=== PATIENT | female | born 1965 | race Caucasian/White ===

== ENCOUNTER → 2019-04-17 | Outpatient (CLI) | payer SELFPAY | PROVIDERS: Family Provider Nurse Practitioner; Visit Provider Electrodiagnostic Medicine | DX: K57.30 Diverticulosis of large intestine without perforation or abscess without bleeding (principal); K42.9 Umbilical hernia without obstruction or gangrene; R10.9 Unspecified abdominal pain; R14.0 Abdominal distension (gaseous); I73.9 Peripheral vascular disease, unspecified; Z90.49 Acquired absence of other specified parts of digestive tract; Z90.710 Acquired absence of both cervix and uterus | CPT/HCPCS: 74177; Q9967 ==

== ENCOUNTER 2019-10-20 10:20 | Inpatient (IN) | payer SELFPAY ==
[2019-10-20] VITALS (7 sets, daily range): BP systolic 100–122; BP diastolic 48–99; PULSE 69–89; RESP 16–20; TEMP 36.8–37.6; O2SAT 92–98; BMI 38.7
--- NOTE | 2019-10-20 10:47 | W.ED.GENADLT ---
HPI - General Adult General: Chief complaint: General Medical Stated complaint: N/V AND H/A Time Seen by Provider: 10/20/19 10:23 History of Present Illness: HPI narrative: 54-year-old female comes in complaining of horrible headache that started 4 days ago also had onset of rash in the forehead in the distribution of the first and second branches of the facial nerve. Patient also has severe splitting headache. She states it started several days ago and has been persisting she is tried [id number] medications with no relief. She has had some blurring of vision in her left eye and swelling of the left eyelid as well the pain is also extend into her ear and the tip of her nose. Although she does not have a rash at the tip of her nose at this point. She denies any respiratory symptoms. Onset (ago): day(s) (4) Location: face Severity: severe Severity scale (1-10): 10 Quality: burning and sharp Pain Consistency: constant Relieving factors: none Exacerbating factors: none Associated symptoms: Reports decreased appetite, headache(s), malaise, nausea and rash; Deny chest pain or dyspnea Treatments prior to arrival: none Review of Systems Const: Reports: malaise ENMT: Denies: throat pain, ear or mastoid pain, nasal discharge or nasal congestion Card: Denies: chest pain, edema, dyspnea on exertion or orthopnea Resp: Denies: dyspnea, productive cough or non-productive cough GI: Reports: nausea : Denies: flank pain, difficulty voiding, dysuria, urinary frequency or urinary urgency Skin/Breast: Reports: rash Neuro: Reports: headache(s) PFSH ED PFSH: Medical History (Updated 10/20/19 @ 12:56 by Gato Dowd DO) Cervical cancer Endometriosis GERD (gastroesophageal reflux disease) Surgical History (Updated 10/20/19 @ 12:29 by Gato Dowd DO) History of appendectomy History of cholecystectomy History of hysterectomy S/P tonsillectomy and adenoidectomy Family History (Updated 07/17/19 @ 09:16 by Debbie Cruz LPN) Other Cancer Heart disease Hypertension Social History (Updated 07/17/19 @ 09:16 by Debbie Cruz LPN) Smoking and tobacco status: former smoker Alcohol intake: never Physical Exam Const: COMMON NORMALS: no acute distress GENERAL APPEARANCE: cooperative and comfortable ORIENTATION/CONSCIOUSNESS: Yes awake, Yes oriented to person, Yes oriented to place and Yes oriented to time HENMT: COMMON NORMALS: normocephalic, atraumatic, hearing grossly normal bilaterally, external ears normal, EAC's normal, TM's normal bilaterally, Normal nasal mucous membranes and turbinates present, moist oral mucous membranes and oropharynx normal HEAD & SCALP: normocephalic and atraumatic NOSE: Normal nasal mucous membranes and turbinates present EXTERNAL EAR: Yes external ears normal EXTERNAL AUDITORY CANAL: EAC's normal TYMPANIC MEMBRANE: TM's normal bilaterally Eye: COMMON NORMALS: Equal, round and reactive pupils present, EOMs intact bilaterally, conjunctivae normal and no scleral icterus CONJUNCTIVA: Yes conjunctivae normal PUPIL: Yes Equal, round and reactive pupils present Neck/C-Spine: COMMON NORMALS: full ROM, no lymphadenopathy, supple and no JVD Lymph: LYMPHATIC: no lymphadenopathy noted and no lymphedema noted Resp: COMMON NORMALS: normal respiratory effort, No retractions, No use of accessory muscles and clear to auscultation bilaterally AUSCULTATION: clear to auscultation bilaterally Cardio: COMMON NORMALS: no JVD, regular rate, regular rhythm and No murmurs present (Cardio) RATE: regular rate RHYTHM: regular rhythm GI: COMMON NORMALS: Soft to palpation and No hepatosplenomegaly present AUSCULTATION: Yes normoactive bowel sounds PALPATION: Yes Soft to palpation, No Tenderness to palpation present (GI), No Guarding due to palpation present (GI) and Yes No hepatosplenomegaly present Extremity: COMMON NORMALS: normal to inspection, capillary refill normal, no clubbing, cyanosis or edema, no calf tenderness and no pedal edema Neuro: SENSORIUM/ORIENTATION: Yes oriented to person, Yes oriented to place and Yes oriented to time Skin: OTHER: Varicella-zoster rash of the first and second distributions of the facial nerve. There is watering of the eye but no blistering the upper eyelid is significantly swollen on the left but there does not appear to be any lesions the external auditory canal is tender but there are no lesions within the external auditory canal itself the tip of the nose is also tender on the left but there are no lesions there either. Course Vital Signs: Vital signs: Vital Signs Temperature 99.0 F 10/20/19 10:25 Pulse Rate 76 10/20/19 13:56 Respiratory Rate 16 10/20/19 10:25 Blood Pressure 120/57 10/20/19 13:56 Pulse Oximetry 98 10/20/19 13:56 MDM - General Adult MDM Narrative: Medical decision making narrative: Due to patient's BMI I asked anesthesia to perform the lumbar tap they were able to get it CFS is pending she obviously has a zoster and concerned she may has herpetic encephalitis. We will go ahead and admit her started on acyclovir consult ophthalmology to evaluate the eye as well have discussed with Dr. Maldonado. Lab Data: Labs: Lab Results 10/20/19 10/20/19 10/20/19 Range/Units 11:15 11:25 11:25 WBC 9.7 (4.0-10.0) 10^3/ uL RBC 4.82 (4.1-5.3) 10^6/u L Hgb 13.9 (11.5-15.3) g/dL Hct 42.0 (37.0-47.0) % MCV 87.1 (81-99) fL MCH 28.8 (28.0-34.0) pg MCHC 33.1 (30.0-36.0) g/dL RDW 13.3 (12.1-15.1) % Plt Count 290 (130-400) 10^3/c mm MPV 9.1 (7.4-10.4) fL Neut % (Auto) 84.7 % Lymph % (Auto) 9.4 % [place] % (Auto) 4.9 % Eos % (Auto) 0.3 % Baso % (Auto) 0.4 % Neut # (Auto) 8.2 H (1.8-7.7) 10^3/u L Lymph # (Auto) 0.9 (0.8-4.8) 10^3/u L [place] # (Auto) 0.5 (0.2-0.9) 10^3/u L Eos # (Auto) 0.0 (0.0-0.8) 10^3/u L Baso # (Auto) 0.0 (0.0-0.1) 10^3/u L Nucleated RBC % (a uto) 0 % Nucleated RBCs # 0.0 /100WBC D-Dimer (0-0.59) ug/mIFE U Sodium 138 (136-145) mmol/L Potassium 4.1 (3.5-5.1) mmol/L Chloride 100 (98-107) mmol/L Carbon Dioxide 26 (22-29) mmol/L Anion Gap 16.1 (5-19) BUN 12 (6-20) mg/dL Creatinine 0.9 (0.5-0.9) mg/dL GFR Calculation 65.0 L (90-130) mL/min Glucose 118 H (65-115) mg/dL Calculated Osmolal ity 283 L (285-295) mOsm/k g Calcium 9.7 (8.5-10.5) mg/dL Total Bilirubin 0.4 (0.15-1.2) mg/dL AST 23 (0-32) U/L ALT 23 (0-33) U/L Alkaline Phosphata se 105 (35-105) IU/L Total Protein 7.8 (6.6-8.7) g/dL Albumin 4.7 (3.5-5.2) g/dL Globulin 3.1 (1.3-4.6) g/dL Urine Color Straw (Yellow) Urine Appearance Clear (CLEAR) Urine pH 8 H (5-7) Ur Specific Gravit y 1.010 (1.005-1.030) Urine Protein Neg (Negative) Urine Glucose (UA) Norm (Normal) Urine Ketones Negative (Negative) Urine Blood Neg (Negative) Urine Nitrate Negative (Negative) Urine Bilirubin Neg (NEGATIVE) Prot Sulfosalicyli c Acd Negative (Negative) Urine Urobilinogen Norm (Negative) mg/dL Ur Leukocyte Rhiannon ase Negative (Negative) CSF Appearance (CLEAR) CSF Color (COLORLESS) CSF WBC (0-5) /uL CSF RBC (0-0) 10^3/uL CSF Mononuclear # Auto (50-90) 10^3/uL CSF Mononuclear WB Cs % (50-90) % CSF Polynuclear WB Cs # (0-10) 10^3/uL CSF Polynuclear WB Cs % (0-10) % CSF Diff Comment CSF Glucose (40-70) mg/dL CSF LDH U/L CSF Lactate mmol/L CSF Total Protein (15-45) mg/dL CSF Albumin (20.0-40.0) mg/d L 10/20/19 10/20/19 10/20/19 Range/Units 11:25 12:00 12:00 WBC (4.0-10.0) 10^3/ uL RBC (4.1-5.3) 10^6/u L Hgb (11.5-15.3) g/dL Hct (37.0-47.0) % MCV (81-99) fL MCH (28.0-34.0) pg MCHC (30.0-36.0) g/dL RDW (12.1-15.1) % Plt Count (130-400) 10^3/c mm MPV (7.4-10.4) fL Neut % (Auto) % Lymph % (Auto) % [place] % (Auto) % Eos % (Auto) % Baso % (Auto) % Neut # (Auto) (1.8-7.7) 10^3/u L Lymph # (Auto) (0.8-4.8) 10^3/u L [place] # (Auto) (0.2-0.9) 10^3/u L Eos # (Auto) (0.0-0.8) 10^3/u L Baso # (Auto) (0.0-0.1) 10^3/u L Nucleated RBC % (a uto) % Nucleated RBCs # /100WBC D-Dimer 0.42 (0-0.59) ug/mIFE U Sodium (136-145) mmol/L Potassium (3.5-5.1) mmol/L Chloride (98-107) mmol/L Carbon Dioxide (22-29) mmol/L Anion Gap (5-19) BUN (6-20) mg/dL Creatinine (0.5-0.9) mg/dL GFR Calculation (90-130) mL/min Glucose (65-115) mg/dL Calculated Osmolal ity (285-295) mOsm/k g Calcium (8.5-10.5) mg/dL Total Bilirubin (0.15-1.2) mg/dL AST (0-32) U/L ALT (0-33) U/L Alkaline Phosphata se (35-105) IU/L Total Protein (6.6-8.7) g/dL Albumin (3.5-5.2) g/dL Globulin (1.3-4.6) g/dL Urine Color (Yellow) Urine Appearance (CLEAR) Urine pH (5-7) Ur Specific Gravit y (1.005-1.030) Urine Protein (Negative) Urine Glucose (UA) (Normal) Urine Ketones (Negative) Urine Blood (Negative) Urine Nitrate (Negative) Urine Bilirubin (NEGATIVE) Prot Sulfosalicyli c Acd (Negative) Urine Urobilinogen (Negative) mg/dL Ur Leukocyte Rhiannon ase (Negative) CSF Appearance Clear (CLEAR) CSF Color Colorless (COLORLESS) CSF WBC 36 H (0-5) /uL CSF RBC 0 (0-0) 10^3/uL CSF Mononuclear # Auto 0.035 L (50-90) 10^3/uL CSF Mononuclear WB Cs % 97 H (50-90) % CSF Polynuclear WB Cs # 0.001 (0-10) 10^3/uL CSF Polynuclear WB Cs % 3 (0-10) % CSF Diff Comment Yes CSF Glucose 70 (40-70) mg/dL CSF LDH U/L CSF Lactate mmol/L CSF Total Protein 49 H (15-45) mg/dL CSF Albumin 0.2 L (20.0-40.0) mg/d L 10/20/19 Range/Units 12:00 WBC (4.0-10.0) 10^3/ uL RBC (4.1-5.3) 10^6/u L Hgb (11.5-15.3) g/dL Hct (37.0-47.0) % MCV (81-99) fL MCH (28.0-34.0) pg MCHC (30.0-36.0) g/dL RDW (12.1-15.1) % Plt Count (130-400) 10^3/c mm MPV (7.4-10.4) fL Neut % (Auto) % Lymph % (Auto) % [place] % (Auto) % Eos % (Auto) % Baso % (Auto) % Neut # (Auto) (1.8-7.7) 10^3/u L Lymph # (Auto) (0.8-4.8) 10^3/u L [place] # (Auto) (0.2-0.9) 10^3/u L Eos # (Auto) (0.0-0.8) 10^3/u L Baso # (Auto) (0.0-0.1) 10^3/u L Nucleated RBC % (a uto) % Nucleated RBCs # /100WBC D-Dimer (0-0.59) ug/mIFE U Sodium (136-145) mmol/L Potassium (3.5-5.1) mmol/L Chloride (98-107) mmol/L Carbon Dioxide (22-29) mmol/L Anion Gap (5-19) BUN (6-20) mg/dL Creatinine (0.5-0.9) mg/dL GFR Calculation (90-130) mL/min Glucose (65-115) mg/dL Calculated Osmolal ity (285-295) mOsm/k g Calcium (8.5-10.5) mg/dL Total Bilirubin (0.15-1.2) mg/dL AST (0-32) U/L ALT (0-33) U/L Alkaline Phosphata se (35-105) IU/L Total Protein (6.6-8.7) g/dL Albumin (3.5-5.2) g/dL Globulin (1.3-4.6) g/dL Urine Color (Yellow) Urine Appearance (CLEAR) Urine pH (5-7) Ur Specific Gravit y (1.005-1.030) Urine Protein (Negative) Urine Glucose (UA) (Normal) Urine Ketones (Negative) Urine Blood (Negative) Urine Nitrate (Negative) Urine Bilirubin (NEGATIVE) Prot Sulfosalicyli c Acd (Negative) Urine Urobilinogen (Negative) mg/dL Ur Leukocyte Rhiannon ase (Negative) CSF Appearance (CLEAR) CSF Color (COLORLESS) CSF WBC (0-5) /uL CSF RBC (0-0) 10^3/uL CSF Mononuclear # Auto (50-90) 10^3/uL CSF Mononuclear WB Cs % (50-90) % CSF Polynuclear WB Cs # (0-10) 10^3/uL CSF Polynuclear WB Cs % (0-10) % CSF Diff Comment CSF Glucose (40-70) mg/dL CSF LDH 25 U/L CSF Lactate 2.6 mmol/L CSF Total Protein (15-45) mg/dL CSF Albumin (20.0-40.0) mg/d L Discharge Plan Discharge Patient Disposition: Admitted As Inpatient Admit Provider: Ran Ventura Clinical Impression: Varicella zoster meningitis, 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
--- NOTE | 2019-10-20 11:01 | ECG_ITS ---
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 Measurements Intervals [place] Rate: 75 P: 50 KS: 176 QRS: -9 QRSD: 98 T: 29 QT: 371 QTc: 415 Interpretive Statements SINUS RHYTHM LOW QRS VOLTAGE IN PRECORDIAL LEADS [QRS DEFLECTION < 1.0 mV IN CHEST LEADS] Compared to ECG 02/06/2016 20:13:13 Low QRS voltage now present Sinus bradycardia no longer present First degree AV block no longer present Electronically Signed On 10-20-2019 13:55:41 CDT by Rco Loera M.D. [id number]
--- NOTE | 2019-10-20 11:01 | CTR_ITS ---
PROCEDURE INFORMATION: Exam: CT Head Without Contrast Exam date and time: 10/20/2019 11:30 AM Age: 54 years old Clinical indication: Pain; Headache TECHNIQUE: Imaging protocol: Computed tomography of the head without contrast. Radiation optimization: All CT scans at this facility use at least one of these dose optimization techniques: automated exposure control; mA and/or kV adjustment per patient size (includes targeted exams where dose is matched to clinical indication); or iterative reconstruction. COMPARISON: CT head wo con* [id number] 02/06/2016 7:21 PM RADIATION DOSE METRICS: Total DLP (mGy-cm): 796.16 FINDINGS: Brain: Normal. No hemorrhage. Unremarkable white matter. No mass effect. Ventricles: Normal. No ventriculomegaly. Bones/joints: Unremarkable. No acute fracture. Sinuses: Visualized sinuses are unremarkable. No fluid levels. Mastoid air cells: Visualized mastoid air cells are well aerated. Soft tissues: Unremarkable. CT/CT head wo con* [id number] IMPRESSION: No acute intracranial abnormality. Radiation Dose CTDIVOL = (mGy): DLP = 796.16 (mGy-cm)
[2019-10-20 11:35] LABS: Basophils % 0.4 %; Eosinophils % 0.3 %; Hemoglobin 13.9 g/dL (11.5-15.3); Lymphocytes # 0.9 10^3/uL (0.8-4.8); Lymphocytes % 9.4 %; Mean Corpuscular HGB Conc 33.1 g/dL (30.0-36.0); Mean Corpuscular Hemoglobin 28.8 pg (28.0-34.0); Mean Corpuscular Volume 87.1 fL (81-99); Mean Platelet Volume 9.1 fL (7.4-10.4); Monocytes # 0.5 10^3/uL (0.2-0.9); Monocytes % 4.9 %; Neutrophils # 8.2 10^3/uL (1.8-7.7); Neutrophils % 84.7 %; Nucleated Red Blood Cells % 0 %; Platelet Count 290 10^3/cmm (130-400); Red Blood Count 4.82 10^6/uL (4.1-5.3); Red Cell Distribution Width 13.3 % (12.1-15.1); White Blood Count 9.7 10^3/uL (4.0-10.0)
[2019-10-20] MEDS: LORazepam 2 mg/mL INJ 1 mL 1 MG IVP (11:38)
[2019-10-20] MEDS: ondansetron 2 mg/ML SDV 2 mL 4 MG IVP (11:38)
[2019-10-20] MEDS: sodium chloride 0.9% 1,000 ML 999 ML IV (11:39)
[2019-10-20] MEDS: morphine 4 mg/mL SDV 1 mL IVP (11:39)
[2019-10-20 11:48] LABS: Add Urine Microscopic? NO
[2019-10-20 11:52] LABS: D Dimer 0.42 ug/mIFEU (0-0.59)
[2019-10-20 11:55] LABS: Bilirubin Urine Neg (NEGATIVE); Blood Urine Neg (Negative); Glucose Urine UA Norm (Normal); Ketones Urine Negative (Negative); Leukocyte Esterase Urine Negative (Negative); Nitrate Urine Negative (Negative); Protein Urine Neg (Negative); Sulfosalicylic Acid Urine Negative (Negative); Urine Appearance Clear (CLEAR); Urine Color Straw (Yellow); Urobilinogen Urine Norm (Negative); pH Urine 8 (5-7)
[2019-10-20 11:57] LABS: Alanine Aminotransferase 23 U/L (0-33); Albumin Level 4.7 g/dL (3.5-5.2); Alkaline Phosphatase 105 IU/L (35-105); Anion Gap 16.1 (5-19); Blood Urea Nitrogen 12 mg/dL (6-20); Calcium 9.7 mg/dL (8.5-10.5); Carbon Dioxide 26 mmol/L (22-29); Chloride 100 mmol/L (98-107); Globulin 3.1 g/dL (1.3-4.6); Glucose 118 mg/dL (65-115); Osmolality Calculated 283 mOsm/kg (285-295); Potassium 4.1 mmol/L (3.5-5.1); Sodium 138 mmol/L (136-145); Total Bilirubin 0.4 mg/dL (0.15-1.2); Total Protein 7.8 g/dL (6.6-8.7)
--- NOTE | 2019-10-20 12:05 | ANES.PROC ---
Anesthesia Procedures Procedure/Date: 10/20/19 Lumbar Puncture: Time Out Performed: Yes Consent: requested by attending/covering physician, risks and benefits reviewed and patient agrees to proceed Patient Position: upright Skin Prep: Povidone-Iodine 1% Local anesthetic used: Lidocaine 1% Amount of anesthesia used (mL): 3 Spinal Needle Gauge: 22G Interspace Used: L4-L5 Fluid Initially Obtained: clear Complications: none
--- NOTE | 2019-10-20 12:06 | PC.NURSE ---
nurse assisted physician with LP. total nurse time *30 minutes
[2019-10-20 12:08] LABS: Aspartate Amino Transferase 23 U/L (0-32)
[2019-10-20 12:49] LABS: CSF Mononuclear # 0.035 10^3/uL (50-90); Mononuclear WBC CSF % 97 % (50-90); Polynuclear Cells ,CSF # 0.001 10^3/uL (0-10); Polynuclear WBC CSF % 3 % (0-10); Red Blood Cell CSF 0 10^3/uL (0-0); White Blood Cell CSF 36 /uL (0-5)
[2019-10-20 12:57] LABS: Appearance CSF CLEAR (CLEAR)
[2019-10-20 12:58] LABS: Color CSF COLORLESS (COLORLESS)
[2019-10-20 13:01] LABS: Pathology Referral Yes
[2019-10-20 13:53] LABS: Glucose CSF 70 mg/dL (40-70); Total Protein CSF 49 mg/dL (15-45)
[2019-10-20] MEDS: acyclovir 1,000 MG in sodium chloride 0.9% (100 ml) 100 ML 120 MG IV ×2 (14:03→21:39)
[2019-10-20] MEDS: D5-NS 0.45% + KCL 20 mEq 20 MEQ/1,000 ML BAG 100 MEQ IV (15:50)
[2019-10-20] MEDS: HYDROcodone-acetaminophen 5-325 mg Tablet 1 TAB PO (15:50)
--- NOTE | 2019-10-20 17:22 | PC.NURSE ---
vital signs entered for Lian the nurses aid at 1600
--- NOTE | 2019-10-20 17:54 | PM.HP ---
Providers/Chief Complaint Admitting Physician: Samia willoughby MD Primary Care Provider: Michael Mahoney DO Chief Complaint: N/V AND H/A History of Present Illness Leslie Osborn is a 54 year old female with no significant past comorbidities except for gout for which she takes intermittent steroids, most recently she took 1 pill of prednisone yesterday, however this is few and far between. She presents with complaints of headache intense along with nausea vomiting, blurry vision of the left eye and at rash that started around 3 days ago. The rash is painful and itchy. Appears to be blister filled initially and some of these lesions have scabbed over. Patient initially thought that she had a rash secondary to poison nanci, however given her overall presentation it appears more likely to be herpes zoster with meningitis. An LP has been performed in the ER which shows elevated cell count and mildly elevated protein. CSF glucose is within normal limit. Appears to be consistent with viral meningitis, likely herpetic. Review of systems positive for fever of 99-101 at home. Review of Systems General: Reports: 10 or more systems reviewed and unremarkable except in HPI and below Const: Reports: fever(s) and chills; Denies: body aches Eyes: Reports: change in vision; Denies: blurry vision or photophobia ENMT: Denies: throat pain, enlarged tonsils, odynophagia, hoarseness or nasal congestion Card: Denies: chest pain, palpitations, irregular heart rhythm, edema, swelling of feet/ankles, lightheadedness, pre-syncope, dyspnea on exertion or orthopnea Resp: Denies: dyspnea, productive cough, non-productive cough, wheezing, stridor, pain on inspiration, change in phlegm color, hemoptysis or chest congestion GI: Reports: nausea and vomiting; Denies: abdominal pain, hematemesis, coffee ground emesis, dysphagia, heartburn, diarrhea, constipation, GI cramping, change in stool character, hematochezia or melena : Denies: flank pain, difficulty voiding, dysuria, urinary frequency, urinary urgency, urinary hesitancy or hematuria Musc: Denies: neck pain, back pain, extremity pain, joint swelling, joint warmth or deformity Neuro: Denies: headache(s), numbness in extremities, weakness in extremities, sensory changes, difficulty walking, frequent falls, dizziness, vertigo, behavioral changes, Slurred speech present or seizure-like activity Psych: Denies: anxiety, depression, suicidal ideation or homicidal ideation Endo: Denies: polyuria, polydipsia, tired all the time, cold intolerance or hot flashes [place]/Lymph: Denies: easy bruising or easy bleeding Medications/Allergies Home Medications Medication Instructions Recorded Confirmed Last Taken Type alprazolam 0.25 mg tablet 0.25 mg PO DAILY 07/17/19 10/20/19 10/19/19 History citalopram 20 mg tablet 20 mg PO DAILY 07/17/19 10/20/19 10/19/19 History omeprazole 20 mg tablet,delayed 20 mg PO DAILY 07/17/19 10/20/19 10/19/19 History release trazodone 100 mg tablet 100 mg PO BEDTIME 07/17/19 10/20/19 10/19/19 History Allergies Allergy/AdvReac Type Severity Reaction Status Date / Time meperidine [From Demerol] Allergy Unknown Unknown Verified 10/20/19 10:30 nalbuphine [From Nubain] Allergy Unknown Verified 10/20/19 10:30 Sulfa (Sulfonamide Allergy Unknown Verified 10/20/19 10:30 Antibiotics) tetracycline Allergy Unknown Verified 10/20/19 10:30 tramadol Allergy Unknown Verified 10/20/19 10:30 PFSH Acute PFSH: Medical History Cervical cancer Endometriosis GERD (gastroesophageal reflux disease) Surgical History History of appendectomy History of cholecystectomy History of hysterectomy S/P tonsillectomy and adenoidectomy Family History Other Cancer Heart disease Hypertension Social History Smoking and tobacco status: former smoker Alcohol intake: never Vitals/I&O/Wt Last Vital Signs Temp 99.7 F H 10/20/19 16:00 Pulse 88 10/20/19 16:00 Resp 20 H 10/20/19 16:00 BP 100/61 10/20/19 16:00 Pulse Ox 92 10/20/19 16:00 Weight last 48 hrs Weight 108.862 kg Physical Exam Narrative: EXAM NARRATIVE: GEN: Awake, alert and oriented, no acute distress HEENT: Left eye with upper and lower eyelid mildly swollen when compared to the right side. No signs of cellulitis at this present time. She does have increased conjunctival suffusion likely secondary to herpetic keratitis. CVS: S1S2 N RS: CTA B/L Abd: Soft, nt/nd , bs+ MANAGER CHEMICAL: no focal neuro deficits Data : 10/20/19 11:25 10/20/19 11:25 Micro: Microbiology 10/20/19 12:00 Gram Stain - Final Cerebrospinal Fluid A&P Assessment and plan (1) Varicella zoster meningitis: Status: Acute (2) HZV (herpes zoster virus) with ophthalmic complication: Status: Acute Qualifiers: Herpes zoster ocular complication detail: conjunctivitis Qualified Code(s): B02.31 - Zoster conjunctivitis Additional A&P Information Admit to [facility]. Start acyclovir 10 mg/kg IV every 8 hours Concomitant IV hydration with normal saline at 100 cc/h to avoid GREGG We will also start on a short course of prednisone 40 mg daily for 5 days to minimize risk of post herpetic neuralgia Patient complaining of blurred vision out of the left eye, ophthalmology consult has been placed from the ER. Start on artificial tears every 4 hours to both eyes and ointment at night into the left eye. No current signs of orbital cellulitis or cellulitis around the lesions. Most of the lesions are concentrated in the C1 dermatome. Hold off on antibacterial agents for now. This will need to be reinitiated if any signs of overlying cellulitis or ophthalmic infection develop. Based on LP findings of mildly elevated cell count and elevated protein, likely the patient also has varicella-zoster meningitis. Treatment as above. Attestations Medical Necessity Statement*: Greater than 2 midnight admission needed for management of herpes zoster meningitis and ophthalmicus Coding Level of Care Code Acute Freelance Recruiter for [facility] Melecio Diagnoses Varicella zoster meningitis B02.1 HZV (herpes zoster virus) with ophthalmic complication B02.31 Herpes zoster ocular complication detail: conjunctivitis
[2019-10-20] MEDS: sodium chloride 0.9% 1,000 ML 100 ML IV (18:38)
[2019-10-20] MEDS: artificial tears Op Soln 15 mL Btl 1 DROP EYE-BOTH (21:39)
[2019-10-21] VITALS (7 sets, daily range): BP systolic 100–124; BP diastolic 52–76; PULSE 53–88; RESP 17–20; TEMP 36.5–38.1; O2SAT 94–96
[2019-10-21] MEDS: acetaminophen 325 mg Tablet 650 MG PO ×2 (01:24→16:03)
[2019-10-21] MEDS: artificial tears Op Soln 15 mL Btl 1 DROP EYE-BOTH ×6 (01:24→22:10)
[2019-10-21 04:19] LABS: Basophils % 0.4 %; Eosinophils % 0.4 %; Hemoglobin 11.9 g/dL (11.5-15.3); Lymphocytes # 1.8 10^3/uL (0.8-4.8); Lymphocytes % 20.6 %; Mean Corpuscular HGB Conc 33.1 g/dL (30.0-36.0); Mean Corpuscular Hemoglobin 29.2 pg (28.0-34.0); Mean Corpuscular Volume 88.5 fL (81-99); Mean Platelet Volume 10.4 fL (7.4-10.4); Monocytes # 0.7 10^3/uL (0.2-0.9); Monocytes % 7.9 %; Neutrophils % 70.3 %; Nucleated Red Blood Cells % 0 %; Platelet Count 301 10^3/cmm (130-400); Red Blood Count 4.07 10^6/uL (4.1-5.3); Red Cell Distribution Width 13.5 % (12.1-15.1); White Blood Count 8.5 10^3/uL (4.0-10.0)
[2019-10-21 04:44] LABS: Alanine Aminotransferase 16 U/L (0-33); Albumin Level 3.8 g/dL (3.5-5.2); Alkaline Phosphatase 81 IU/L (35-105); Anion Gap 15.8 (5-19); Aspartate Amino Transferase 16 U/L (0-32); Blood Urea Nitrogen 9 mg/dL (6-20); Calcium 8.5 mg/dL (8.5-10.5); Carbon Dioxide 24 mmol/L (22-29); Chloride 103 mmol/L (98-107); Globulin 2.8 g/dL (1.3-4.6); Glucose 109 mg/dL (65-115); Osmolality Calculated 285 mOsm/kg (285-295); Potassium 3.8 mmol/L (3.5-5.1); Sodium 139 mmol/L (136-145); Total Bilirubin 0.5 mg/dL (0.15-1.2); Total Protein 6.6 g/dL (6.6-8.7)
[2019-10-21] MEDS: acyclovir 1,000 MG in sodium chloride 0.9% (100 ml) 100 ML 120 MG IV ×3 (05:40→22:09)
[2019-10-21] MEDS: sodium chloride 0.9% 1,000 ML 100 ML IV ×2 (05:42→17:50)
[2019-10-21] MEDS: HYDROcodone-acetaminophen 5-325 mg Tablet 1 TAB PO ×3 (08:21→23:15)
[2019-10-21] MEDS: pantoprazole DR 40 mg Tablet PO (08:21)
[2019-10-21] MEDS: predniSONE 20 mg Tablet 40 MG PO (08:21)
[2019-10-21] MEDS: ketorolac 30 mg/mL INJ 15 MG IVP ×2 (10:18→18:38)
--- NOTE | 2019-10-21 15:49 | P.PN_ITS ---
Subjective Subjective: Interval history: Patient continues to have headaches that have drove up overnight. She did not take any of her prescribed pain medication as she felt she could break it out. However will take some now. Nausea is persisting, no vomiting. She has an appetite and is eating lunch at the time of examination. Her eye is externally looking much improved. Conjunctival redness is improved, as is eyelid swelling. She continues to complain of some blurry vision. T-max of 100.5 Fahrenheit over the last 24 hours. Medications: Reviewed: Yes Vitals/I&O/Wt Last Vital Signs Temp 98.1 F 10/21/19 15:45 Pulse 62 10/21/19 15:45 Resp 18 10/21/19 15:45 BP 106/52 10/21/19 15:45 Pulse Ox 94 10/21/19 15:45 10/21/19 10/21/19 10/21/19 06:59 14:59 22:59 Intake Total 1120 / 1480 480 / 480 Output Total 1200 / 1200 Balance 1120 / 980 -720 / -720 Weight last 48 hrs Weight 108.862 kg Physical Exam Narrative: EXAM NARRATIVE: GEN: Awake, alert and oriented, no acute distress HEENT: Left eye with upper and lower eyelid mildly swollen when compared to the right side, however this is significantly improved.. No signs of cellulitis at this present time. 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 Crusted over lesions present over left upper forehead. Similar lesions with red base present over left side of the scalp. Data : 10/21/19 03:17 10/21/19 03:17 Micro: Microbiology 10/20/19 12:00 Gram Stain - Final Cerebrospinal Fluid CSF Culture - Preliminary A&P Assessment and plan (1) Varicella zoster meningitis: Status: Acute (2) HZV (herpes zoster virus) with ophthalmic complication: Status: Acute Qualifiers: Herpes zoster ocular complication detail: conjunctivitis Qualified Code(s): B02.31 - Zoster conjunctivitis Additional A&P Information Admit to [facility]. Continue acyclovir 10 mg/kg IV every 8 hours Headache still persisting, still with some blurred vision though improved over yesterday Concomitant IV hydration with normal saline at 100 cc/h to avoid GREGG, kidney function stable day 2 of 5 On prednisone to minimize risk of post herpetic neuralgia Patient complaining of blurred vision out of the left eye, ophthalmology consult has been placed from the ER. Continue artificial tears every 4 hours to both eyes and ointment at night into the left eye. No current signs of orbital cellulitis or cellulitis around the skin lesions. Most of the lesions are concentrated in the C1 dermatome. Hold off on antibacterial agents for now. This will need to be started if any signs of overlying cellulitis or ophthalmic infection develop. Based on LP findings of mildly elevated cell count and elevated protein, likely the patient also has varicella-zoster meningitis. Treatment as above. 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
[2019-10-21] MEDS: enoxaparin 40 mg/0.4 mL Syringe SUBCUT (16:03)
--- NOTE | 2019-10-21 19:51 | P.CONIM_ITS ---
Providers/Reason For Consult Consulting Physican/Specialty*: Jermaine Dolan MD Reason for Consult*: zoster left face with blurred vision Attending Physician: Samia Willoughby MD Primary Care Provider: Michael Mahoney DO History of Present Illness History of Present Illness Leslie Osborn is a 54 year old female had a cold sore on her right lip Tuesday before developing the pain in the right adventist, eye, and headache Tuesday Meds/Allergies Home Medications and Allergies Home Medications Medication Instructions Recorded Confirmed Last Taken Type alprazolam 0.25 mg tablet 0.25 mg PO DAILY 07/17/19 10/20/19 10/19/19 History citalopram 20 mg tablet 20 mg PO DAILY 07/17/19 10/20/19 10/19/19 History omeprazole 20 mg tablet,delayed 20 mg PO DAILY 07/17/19 10/20/19 10/19/19 Hi story release trazodone 100 mg tablet 100 mg PO BEDTIME 07/17/19 10/20/19 10/19/19 History Allergies Allergy/AdvReac Type Severity Reaction Status Date / Time meperidine [From Demerol] Allergy Unknown Unknown Verified 10/20/19 10:30 nalbuphine [From Nubain] Allergy Unknown Verified 10/20/19 10:30 Sulfa (Sulfonamide Allergy Unknown Verified 10/20/19 10:30 Antibiotics) tetracycline Allergy Unknown Verified 10/20/19 10:30 tramadol Allergy Unknown Verified 10/20/19 10:30 Current Medications Current Medications Generic Name Dose Route Start Last Admin Trade Name Freq PRN Reason Stop Dose Admin Acetaminophen 650 mg 10/20/19 17:49 10/21/19 16:03 Tylenol PO 650 mg Q6H PRN Administration Mild/Mod Pain Or Temp >/= 101 Hydrocodone Bitart/Acetaminophen 1 tab 10/20/19 15:20 10/21/19 14:16 Farrell 5-325 Mg PO 1 tab Q4H PRN Administration MODERATE TO SEVERE PAIN Artificial Tears 1 drop 10/20/19 18:00 10/21/19 17:50 Isopto Tears EYE-BOTH 1 drop Q4H FIONA Administration Artificial Tears 1 applic 10/20/19 21:00 10/20/19 21:40 Artificial Tears Op Oint EYE-LEFT Not Given BEDTIME FIONA Enoxaparin Sodium 40 mg 10/21/19 16:00 10/21/19 16:03 Lovenox SUBCUT 40 mg Q24H FIONA Administration Sodium Chloride 1,000 mls @ 100 mls/hr 10/20/19 18:00 10/21/19 17:50 Sodium Chloride 0.9% IV 100 mls/hr .Q10H FIONA Administration Acyclovir 1,000 mg/ Sodium 120 mls @ 120 mls/hr 10/20/19 22:00 10/21/19 13:21 Chloride IV 120 mls/hr Q8H FIONA Administration Ketorolac Tromethamine 15 mg 10/20/19 17:49 10/21/19 18:38 Toradol IVP 10/25/19 17:48 15 mg Q8H PRN Administration MODERATE PAIN Pantoprazole Sodium 40 mg 10/21/19 09:00 10/21/19 08:21 Protonix PO 40 mg DAILY FIONA Administration PFSH Acute PFSH: Medical History Cervical cancer Endometriosis GERD (gastroesophageal reflux disease) Surgical History History of appendectomy History of cholecystectomy History of hysterectomy S/P tonsillectomy and adenoidectomy Family History Other Cancer Heart disease Hypertension Social History Smoking and tobacco status: former smoker Alcohol intake: never Vitals/I&O/Wt Last Vital Signs Temp 98.1 F 10/21/19 15:45 Pulse 62 10/21/19 15:45 Resp 18 10/21/19 15:45 BP 106/52 10/21/19 15:45 Pulse Ox 94 10/21/19 15:45 10/21/19 10/21/19 10/21/19 06:59 14:59 22:59 Intake Total 1120 / 1480 480 / 480 1190 / 1670 Output Total 1200 / 1200 1800 / 3000 Balance 1120 / 980 -720 / -720 -610 / -1330 Weight last 48 hrs Weight 240 lb Physical Exam Narrative: EXAM NARRATIVE: mild discomfort with improved vision today and less headache HENMT: HEAD & SCALP: other (left V1 distribution of vesicles and scabs, minimal lid edema) Eye: COMMON NORMALS: Equal, round and reactive pupils present, EOMs intact bilaterally, conjunctivae normal, no papilledema and normal visual garcia by confrontation GENERAL EYE: normal light reflex VISUAL ACUITY: Yes acuity normal EYELID: eyelid abnormality left upper eyelid swelling CONJUNCTIVA: Yes conjunctivae normal SCLERA: sclerae normal PUPIL: Yes Equal, round and reactive pupils present DIRECT OPHTHALMOSCOPY: Yes normal light reflex, Yes no papilledema and Yes anterior chamber normal SLIT LAMP EXAM: Yes cornea Cornea details: normal appearing and Yes anterior vitreous Data Micro: Micro: Microbiology 10/20/19 12:00 Gram Stain - Final Cerebrospinal Flu id CSF Culture - Prel iminary A&P Additional A&P Information no corneal involvement as well as no evidence for iritis or vitritis. The optic nerve isn't swollen. Patient was told to contact for additional help if more photophobia, FB sensation, or floaters are experienced. Consult Attestations Medical Necessity Statement: CTSP regarding loss of vision and mental status changes from obvious V1 zoster. Time Spent in Patient Care: 16 - 35 minutes Coding Level of Care Code Acute Asset Protection Representative for Magy Majano
[2019-10-22] MEDS: artificial tears Op Soln 15 mL Btl 1 DROP EYE-BOTH ×6 (01:34→22:39)
[2019-10-22 04:00] VITALS: BP 110/70; PULSE 55; RESP 16; TEMP 36.6; O2SAT 96
[2019-10-22] MEDS: acetaminophen 325 mg Tablet 650 MG PO ×2 (04:50→22:35)
[2019-10-22] MEDS: sodium chloride 0.9% 1,000 ML 100 ML IV ×2 (04:51→15:47)
[2019-10-22 05:36] LABS: Alanine Aminotransferase 15 U/L (0-33); Albumin Level 3.7 g/dL (3.5-5.2); Alkaline Phosphatase 74 IU/L (35-105); Anion Gap 13.5 (5-19); Aspartate Amino Transferase 15 U/L (0-32); Blood Urea Nitrogen 9 mg/dL (6-20); Calcium 8.9 mg/dL (8.5-10.5); Carbon Dioxide 26 mmol/L (22-29); Chloride 105 mmol/L (98-107); Globulin 2.6 g/dL (1.3-4.6); Glomerular Filtration Rate 86.9 mL/min (90-130); Glucose 93 mg/dL (65-115); Osmolality Calculated 288 mOsm/kg (285-295); Potassium 3.5 mmol/L (3.5-5.1); Sodium 141 mmol/L (136-145); Total Bilirubin 0.3 mg/dL (0.15-1.2); Total Protein 6.3 g/dL (6.6-8.7)
[2019-10-22] MEDS: acyclovir 1,000 MG in sodium chloride 0.9% (100 ml) 100 ML 120 MG IV ×3 (06:10→22:33)
[2019-10-22 07:16] VITALS: BP 117/71; PULSE 59; RESP 18; TEMP 36.5; O2SAT 96
[2019-10-22] MEDS: pantoprazole DR 40 mg Tablet PO (09:17)
[2019-10-22] MEDS: citalopram 20 mg Tablet PO (10:15)
[2019-10-22] MEDS: HYDROcodone-acetaminophen 5-325 mg Tablet 1 TAB PO ×2 (10:17→15:51)
[2019-10-22 12:00] VITALS: BP 120/68; PULSE 62; RESP 18; TEMP 36.7; O2SAT 95
--- NOTE | 2019-10-22 14:37 | PM.PN ---
Subjective Subjective: Interval history: Leslie reports her head feels a little bit better, although still painful. Medications: Reviewed: Yes Vitals/I&O/Wt Last Vital Signs Temp 98.0 F 10/22/19 12:00 Pulse 62 10/22/19 12:00 Resp 18 10/22/19 12:00 BP 120/68 10/22/19 12:00 Pulse Ox 95 10/22/19 12:00 10/21/19 10/22/19 10/22/19 22:59 06:59 14:59 Intake Total 1190 / 1790 1070 / 2860 600 / 600 Output Total 2100 / 3300 Balance -910 / -1510 1070 / -440 600 / 600 Physical Exam Narrative: EXAM NARRATIVE: General exam no apparent distress Skin demonstrates zoster, overlying her forehead Cardiovascular regular rate and rhythm without murmur Lungs clear Abdomen is soft with positive bowel sounds Extremities no cyanosis clubbing or edema Data : 10/21/19 03:17 10/22/19 04:38 Micro: Microbiology 10/20/19 12:00 Gram Stain - Final Cerebrospinal Fluid CSF Culture - Preliminary A&P Assessment and plan (1) Varicella zoster meningitis: Currently on acyclovir IV. Will clarify treatment course. Reduce hydration. She is taking better p.o. Pain control with hydrocodone, ketorolac as needed She received a short course of prednisone which appears to 40 been discontinued. Status: Acute (2) HZV (herpes zoster virus) with ophthalmic complication: At this point ophthalmology consultation has been obtained and there are no ophthalmic complications currently. Status: Acute Qualifiers: Herpes zoster ocular complication detail: conjunctivitis Qualified Code(s): B02.31 - Zoster conjunctivitis Additional A&P Information Full code DVT prophylaxis with Lovenox Attestations Medical Necessity Statement*: Needs continued hospitalization for IV acyclovir secondary to concern of meningitis. Coding Level of Care Code Acute Payroll Representative for [facility] Fwd Diagnoses Varicella zoster meningitis B02.1 HZV (herpes zoster virus) with ophthalmic complication B02.31 Herpes zoster ocular complication detail: conjunctivitis
[2019-10-22 14:59] VITALS: BP 112/80; PULSE 56; RESP 18; TEMP 36.8; O2SAT 97
[2019-10-22] MEDS: enoxaparin 40 mg/0.4 mL Syringe SUBCUT (15:47)
[2019-10-22 20:00] VITALS: BP 109/50; PULSE 61; RESP 20; TEMP 36.8; O2SAT 92
[2019-10-23] VITALS: BP 130/78; PULSE 57; RESP 20; TEMP 36.8; O2SAT 96
[2019-10-23] MEDS: artificial tears Op Soln 15 mL Btl 1 DROP EYE-BOTH ×3 (01:57→09:32)
[2019-10-23 05:13] LABS: Alanine Aminotransferase 20 U/L (0-33); Albumin Level 3.9 g/dL (3.5-5.2); Alkaline Phosphatase 74 IU/L (35-105); Anion Gap 12.6 (5-19); Aspartate Amino Transferase 21 U/L (0-32); Blood Urea Nitrogen 8 mg/dL (6-20); Calcium 9.1 mg/dL (8.5-10.5); Carbon Dioxide 26 mmol/L (22-29); Chloride 106 mmol/L (98-107); Globulin 2.4 g/dL (1.3-4.6); Glomerular Filtration Rate 74.5 mL/min (90-130); Glucose 100 mg/dL (65-115); Osmolality Calculated 288 mOsm/kg (285-295); Potassium 3.6 mmol/L (3.5-5.1); Sodium 141 mmol/L (136-145); Total Bilirubin 0.3 mg/dL (0.15-1.2); Total Protein 6.3 g/dL (6.6-8.7)
[2019-10-23] MEDS: acyclovir 1,000 MG in sodium chloride 0.9% (100 ml) 100 ML 120 MG IV (06:03)
[2019-10-23 07:05] VITALS: BP 138/74; PULSE 62; RESP 20; TEMP 36.7; O2SAT 99
[2019-10-23] MEDS: citalopram 20 mg Tablet PO (09:32)
[2019-10-23] MEDS: pantoprazole DR 40 mg Tablet PO (09:32)
--- NOTE | 2019-10-23 10:12 | P.DS_ITS ---
Discharge Providers Date of Admission: 10/20/19 12:36 Date of Discharge: October 23, 2019 Attending Provider at Admission: Ran Ventura MD Attending Provider at Discharge: Marvin Moody MD Primary Care Provider: Michael Mahoney DO Diagnoses at Discharge Discharge Diagnosis (1) Varicella zoster meningitis: Status: Acute Problem details: Patient without significant symptoms currently. (2) HZV (herpes zoster virus) with ophthalmic complication: Status: Acute Problem details: No evidence of ophthalmic complications after consultation with ophthalmology Qualifiers: Herpes zoster ocular complication detail: conjunctivitis Qualified Code(s): B02.31 - Zoster conjunctivitis Reason for Visit Reason for Visit: N/V AND H/A Hospital Course Hospital Course: Leslie is a 54-year-old white female who presented to the hospital with nausea vomiting and headache. Herpetic lesions consistent with zoster were present C1 dermatome. IV acyclovir was started as well as prednisone. Ophthalmology consultation was obtained which reported no eye complications were noted. Patient rapidly improved. CSF was obtained which demonstrated a white blood cell count of 36, reds of 0, total protein of 49, glucose of 70 with predominance of mononuclear cells. I have visited with the patient, as well as previous hospitalist and at this point considering vast improvement it is thought the patient can go home on Famvir for 10 more days completing approximately 14 days of treatment and return for any fever, severe headache.. At discharge she was taking well p.o., and had no significant headache or nausea. Physical Exam Narrative: EXAM NARRATIVE: General exam is no apparent distress Cardiovascular regular rate and rhythm without murmur Lungs clear Abdomen is soft positive bowel sounds Extremities no cyanosis clubbing or edema Neuro no obvious focal deficits. Discharge Data Data Completed and Pending: Completed Studies During Hospitalization Category Date Time Status CT head wo con* 7 0450 Stat Cat Scan 10/20/19 11:01 Completed Pending at discharge Category Date Time Status Albumin CSF Routi ne Lab 10/20/19 16:54 Ordered CSF Culture & Gra m Stain Stat Lab 10/20/19 12:00 Results CSF Specific Grav ity Routine Lab 10/20/19 12:00 Results Glucose CSF Routi ne Lab 10/20/19 12:00 Results Herpes Simplex Vi bassam DNA Stat Lab 10/20/19 12:00 Received Lactate CSF Routi ne Lab 10/20/19 16:06 Ordered Lactate Dehydroge nase CSF Routine Lab 10/20/19 16:06 Ordered Miscellaneous Christy t Stat Lab 10/20/19 12:00 Received Total Protein CSF Routine Lab 10/20/19 12:00 Results Labs from last 24 hours 10/23/19 03:57 Sodium 141 Potassium 3.6 Chloride 106 Carbon Dioxide 26 Anion Gap 12.6 BUN 8 Creatinine 0.8 GFR Calculation 74.5 L Glucose 100 Calculated Osmolal ity 288 Calcium 9.1 Total Bilirubin 0.3 AST 21 ALT 20 Alkaline Phosphata se 74 Total Protein 6.3 L Albumin 3.9 Globulin 2.4 Vitals: Last Vital Signs Temp 98.0 F 10/23/19 07:05 Pulse 62 10/23/19 07:05 Resp 20 H 10/23/19 07:05 BP 138/74 10/23/19 07:05 Pulse Ox 99 10/23/19 07:05 Discharge Plan Discharge Patient Disposition: Home, Self-Care Condition: Stable Prescriptions: New hydrocodone-acetaminophen 5-325 mg Tablet 1 tab PO Q4H PRN (Reason: Moderate To Severe Pain) Qty: 20 RF: 0 famciclovir 500 mg tablet 500 mg PO Q8H Qty: 30 RF: 0 Continued alprazolam [Xanax] 0.25 mg tablet 0.25 mg PO DAILY RF: 0 citalopram [Celexa] 20 mg tablet 20 mg PO DAILY RF: 0 omeprazole 20 mg tablet,delayed release (DR/EC) 20 mg PO DAILY RF: 0 trazodone 100 mg tablet 100 mg PO BEDTIME RF: 0 Discharge Orders: Discharge Order (Routine); Ordered 10/23/19 Ordered By: Marvin Moody Referrals: Michael Mahoney DO [Primary Care Provider] - 4-7 days Discharge Diet: Regular Discharge Activity: Resume usual activity Activity Restrictions/Additional Instructions: Follow-up with your primary care provider. Do not resume work until released by primary care provider. Anticipate you will be able to return to work next week. Discharge Attestations Time Spent in Discharge Care*: greater than 30 min Quality Metrics Clinical Quality Measures During this hospital stay, did patient experience: None Coding Level of Care Code Acute Manager Product for g Fwd Diagnoses Varicella zoster meningitis B02.1 HZV (herpes zoster virus) with ophthalmic complication B02.31 Herpes zoster ocular complication detail: conjunctivitis
[2019-10-23 11:43] VITALS: BP 130/72; PULSE 76; RESP 22; TEMP 36.9; O2SAT 96
[2019-10-23 13:51] VITALS: BP 130/72; PULSE 76; RESP 22; TEMP 36.9; O2SAT 96
[2019-10-26 09:28] LABS: CSF Specific Gravity 1.006
[2019-10-28 01:55] LABS: HSV 1 DNA NOT DETECTED; HSV 2 DNA NOT DETECTED; HSV Source CEREBROSPINAL FLUID
[2019-10-29 06:59] LABS: Lactate CSF 18.9 mmol/L
--- NOTE | 2019-11-09 19:27 | PM.EVENT ---
Event Note Event Note: [facility] called me to notify about the positive PCR for herpes zoster, I have notified Dr. Moody via hospital email portal which is HIPAA compliant.
== END 2019-10-23 13:54 | disposition home or self-care (01) | DRG 124 ==
LOC: ER 12:56 → MEDSURG 14:24
PROVIDERS: Family Medicine; Student in an Organized Health Care Education/Training Program; Admitting Provider Student in an Organized Health Care Education/Training Program; PCP Electrodiagnostic Medicine; Visit Provider Internal Medicine
DX: B02.31 Zoster conjunctivitis (principal); B02.1 Zoster meningitis; Z85.41 Personal history of malignant neoplasm of cervix uteri; K21.9 Gastro-esophageal reflux disease without esophagitis; Z87.891 Personal history of nicotine dependence
CPT/HCPCS: 12345; 36415; 70450; 80053; 80500; 81003; 82042; 82945; 83605; 83615; 84157; 84315; 85025; 85378; 86787; 87070; 87075; 87205; 87530; 89050; 93005; 96372; 96375; 99283; J0133; J1650; J1885; J2060; J2270; J2405; J7030; J7512

== ENCOUNTER → 2019-12-25 15:55 | Outpatient (BNVA) | payer SELFPAY | PROVIDERS: PCP Electrodiagnostic Medicine; Visit Provider Internal Medicine | DX: M25.50 Pain in unspecified joint (principal); Z79.52 Long term (current) use of systemic steroids | CPT/HCPCS: 99214 ==

== ENCOUNTER → 2019-12-31 15:36 | Outpatient (BNVA) | payer OTHER, SELFPAY | PROVIDERS: PCP Electrodiagnostic Medicine | DX: U07.1 COVID-19 (principal) | CPT/HCPCS: 87635 ==

== ENCOUNTER → 2020-02-07 15:50 | Outpatient (BNVA) | payer OTHER, SELFPAY | PROVIDERS: PCP Electrodiagnostic Medicine; Visit Provider Internal Medicine | DX: M06.9 Rheumatoid arthritis, unspecified (principal); M32.9 Systemic lupus erythematosus, unspecified; Z79.899 Other long term (current) drug therapy | CPT/HCPCS: 99213 ==

== ENCOUNTER → 2020-04-15 12:57 | Outpatient (BNVA) | payer OTHER, SELFPAY | PROVIDERS: PCP Electrodiagnostic Medicine; Visit Provider Internal Medicine | DX: Z79.899 Other long term (current) drug therapy (principal); M19.90 Unspecified osteoarthritis, unspecified site | CPT/HCPCS: 36415; 80053; 85025; 85651; 86140 ==

== ENCOUNTER → 2020-05-13 15:49 | Outpatient (BNVA) | payer OTHER, SELFPAY | PROVIDERS: PCP Electrodiagnostic Medicine; Visit Provider Internal Medicine | DX: M06.9 Rheumatoid arthritis, unspecified (principal); Z79.899 Other long term (current) drug therapy; R53.83 Other fatigue; Z87.891 Personal history of nicotine dependence | CPT/HCPCS: 99214 ==

== ENCOUNTER → 2020-08-07 15:01 | Outpatient (BNVA) | payer OTHER, SELFPAY | PROVIDERS: PCP Electrodiagnostic Medicine; Visit Provider Internal Medicine | DX: M05.9 Rheumatoid arthritis with rheumatoid factor, unspecified (principal); R53.83 Other fatigue; Z79.899 Other long term (current) drug therapy; Z87.891 Personal history of nicotine dependence | CPT/HCPCS: 99214 ==

== ENCOUNTER → 2020-10-23 15:46 | Outpatient (BNVA) | payer OTHER, SELFPAY | PROVIDERS: PCP Electrodiagnostic Medicine; Visit Provider Internal Medicine | DX: M06.9 Rheumatoid arthritis, unspecified (principal); Z79.899 Other long term (current) drug therapy; M65.9 Synovitis and tenosynovitis, unspecified; R79.82 Elevated C-reactive protein (CRP); Z87.891 Personal history of nicotine dependence | CPT/HCPCS: 99214 ==

== ENCOUNTER → 2020-11-05 15:45 | Outpatient (BNVA) | payer OTHER, SELFPAY | PROVIDERS: PCP Electrodiagnostic Medicine; Visit Provider Internal Medicine | DX: M06.9 Rheumatoid arthritis, unspecified (principal); Z79.899 Other long term (current) drug therapy; Z87.891 Personal history of nicotine dependence | CPT/HCPCS: 99213 ==

== ENCOUNTER 2020-12-09 17:07 | Outpatient (CLI) | payer OTHER, SELFPAY ==
--- NOTE | 2020-12-09 17:16 | XR_ITS ---
WS: [id number] Exam: XR knee LT 3V* [id number] Date/Time of Exam: 12/09/2020 5:16 PM Reason For Exam: CHRONIC LEFT KNEE PAIN Comparison 01/02/2018. No fracture or dislocation. Mild degenerative change of the medial joint compartment and articulating surface of the patella. No joint effusion. Normal soft tissues. XR/XR knee LT 3V* [id number] IMPRESSION: 1. Mild DJD. No fracture or joint effusion.
== END 2020-12-09 17:08 | disposition home or self-care (01) ==
PROVIDERS: PCP Electrodiagnostic Medicine; Visit Provider Family Medicine
DX: G89.29 Other chronic pain (principal); M17.12 Unilateral primary osteoarthritis, left knee
CPT/HCPCS: 73562

== ENCOUNTER → 2020-12-31 16:42 | Outpatient (BNVA) | payer OTHER, SELFPAY | PROVIDERS: PCP Electrodiagnostic Medicine; Visit Provider Nurse Practitioner Family | DX: Z20.822 Contact with and (suspected) exposure to COVID-19 (principal); R05 Cough | CPT/HCPCS: 87635 ==

== ENCOUNTER 2021-01-05 11:07 | Outpatient (CLI) | payer OTHER, SELFPAY ==
[2021-01-05 11:30] VITALS: BP 127/71; PULSE 100; RESP 20; TEMP 36.8; O2SAT 93
[2021-01-05 12:08] VITALS: BP 103/65; PULSE 98; RESP 18; O2SAT 92
[2021-01-05 13:10] VITALS: BP 116/59; PULSE 91; RESP 18; TEMP 36.8; O2SAT 94
[2021-01-05 15:30] VITALS: BP 116/59; PULSE 91; RESP 18; TEMP 36.8
== END 2021-01-05 11:08 | disposition home or self-care (01) ==
LOC: OPS 11:13
PROVIDERS: PCP Electrodiagnostic Medicine; Visit Provider Nurse Practitioner Family
DX: U07.1 COVID-19 (principal)
CPT/HCPCS: 96365

== ENCOUNTER 2021-01-19 09:15 | Inpatient (IN) | payer OTHER, SELFPAY ==
[2021-01-19] VITALS (12 sets, daily range): BP systolic 87–132; BP diastolic 65–90; PULSE 60–110; RESP 17–26; TEMP 36.6–37.4; O2SAT 88–98; BMI 38.7
--- NOTE | 2021-01-19 09:33 | ECG_ITS ---
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1965 Requested By: Gato Arteaga Order Number: [id number] Reading MD: LOVE DE LUNA Measurements Intervals [place] Rate: 80 P: 60 VT: 153 QRS: -25 QRSD: 92 T: 30 QT: 352 QTc: 407 Interpretive Statements SINUS RHYTHM BORDERLINE LEFT AXIS DEVIATION [QRS AXIS < -20] VOLTAGE CRITERIA FOR LVH [MEETS CRITERIA IN ONE OF: R(aVL), S(V1), R(V5), R(V5/V6)+S(V1)] Compared to ECG 10/20/2019 12:49:42 Left ventricular hypertrophy now present Electronically Signed On 01-19-2021 20:19:52 CDT by LOVE DE LUNA [id number] f
--- NOTE | 2021-01-19 09:33 | XR_ITS ---
WS: [id number] XR chest 1V portable [id number] REASON FOR EXAM: dyspnea/cough FINDINGS: The chest is unchanged compared to 04/20/2018. Normal heart and mediastinum. 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 No active pulmonary parenchymal or pleural disease is noted. There are degenerative changes in the shoulders and within the thoracic spine. XR/XR chest 1V portable [id number] IMPRESSION: No acute chest abnormality.
--- NOTE | 2021-01-19 09:34 | ED_ITS ---
HPI - Abdominal Pain General: Chief Complaint: Abdominal Pain Stated Complaint: cp; n/v x 3 days; abd pain Time Seen by Provider: 01/19/21 09:20 History of Present Illness: HPI narrative: 55-year-old female presents emergency room with complaint of nausea vomiting abdominal pain for last 3 days. No hemoptysis no hematochezia. She also some mild radiation of the pain up into her chest. She does have some mild shortness of breath she has history of pancreatitis which she states feels similar to this except last time she had radiation of pain into her back. MD elicited complaint: abdominal pain Pertinent past history: other (Pancreatitis) Onset (ago): day(s) (3) Location: Epigastric and LUQ Severity: moderate Quality: cramping Radiation: none Migration to: no migration Exacerbating factors: nothing Relieving factors: nothing Associated Symptoms: Reports GI cramping, diarrhea (small), loose stools, nausea, poor appetite and vomiting; Denies anorexia, belching, change in bowel habits, change in stool character, coffee ground emesis, excessive flatus, fever(s), heartburn, hematochezia, hemat uria, hematemesis, fecal incontinence, melena and syncope Review of Systems Const: Denies: fever(s) Card: Denies: syncope GI: Reports: nausea, vomiting, diarrhea (small) and GI cramping; Denies: hematemesis, coffee ground emesis, heartburn, belching, excessive flatus, fecal incontinence, change in bowel habits, change in stool character, hematochezia or melena : Denies: hematuria PFSH ED PFSH: Medical History (Updated 01/19/21 @ 16:11 by Gato Dowd DO) Asthma Cervical cancer Endometriosis GERD (gastroesophageal reflux disease) Joint pain Surgical History History of appendectomy History of cholecystectomy History of hysterectomy S/P tonsillectomy and adenoidectomy Family History Other Cancer Heart disease Hypertension Social History Smoking and tobacco status: former smoker Second hand smoke exposure: No Smoking risk assessment/counseling performed?: No Alcohol intake: never Desire information about alcohol rehabilitation?: No Counseling given: No Desire information about substance/drug rehabilitation?: No Counseling given: No Adopted: No Lives independently: Yes Housing: House Physical Exam Const: COMMON NORMALS: no acute distress GENERAL APPEARANCE: cooperative and comfortable ORIENTATION/CONSCIOUSNESS: Yes awake, Yes oriented to person, Yes oriented to place and Yes oriented to time HENMT: COMMON NORMALS: normocephalic, atraumatic and hearing grossly normal bilaterally HEAD & SCALP: normocephalic and atraumatic Resp: COMMON NORMALS: normal respiratory effort, No retractions, No use of accessory muscles and clear to auscultation bilaterally AUSCULTATION: clear to auscultation bilaterally Cardio: COMMON NORMALS: regular rate, regular rhythm and No murmurs present (Cardio) RATE: regular rate RHYTHM: regular rhythm GI: COMMON NORMALS: Soft to palpation and No hepatosplenomegaly present AUSCULTATION: Yes normoactive bowel sounds PALPATION: Yes Soft to palpation, No Tenderness to palpation present (GI), No Guarding due to palpation present (GI) and Yes No hepatosplenomegaly present Extremity: COMMON NORMALS: normal to inspection, capillary refill normal, no clubbing, cyanosis or edema, no calf tenderness and no pedal edema Neuro: SENSORIUM/ORIENTATION: Yes oriented to person, Yes oriented to place and Yes oriented to time Skin: COMMON NORMALS: no rashes or lesions noted GENERAL SKIN EXAM: no rashes or lesions noted Course Vital Signs: Vital signs: Vital Signs Temperature 98.4 F 01/19/21 15:40 Pulse Rate 60 01/19/21 15:40 Respiratory Rate 17 01/19/21 15:40 Blood Pressure 122/78 01/19/21 15:40 Pulse Oximetry 97 01/19/21 15:40 MDM - Abdominal Pain MDM Narrative: Medical decision making narrative: Pancreatitis of protracted nausea vomiting will admit for IV fluids antiemetics pain control discussed with hospitalist orders written Lab Data: Labs: Lab Results 01/19/21 01/19/21 01/19/21 09:39 09:39 09:39 WBC 12.6 10^3/uL H 10 ^3/uL (4.0-10.0) RBC 5.08 10^6/uL 10^6 /uL (4.1-5.3) Hgb 14.5 g/dL g/dL (11.5-15.3) Hct 43.0 % % (37.0-47.0) MCV 84.6 fl fl (81-99) MCH 28.5 pg pg (28.0-34.0) MCHC 33.7 g/dL g/dL (30.0-36.0) RDW 14.7 % % (12.1-15.1) Plt Count 293 10^3/cmm 10^3 /cmm (130-400) MPV 9.4 fL fL (7.4-10.4) Neut % (Auto) 81.7 % % Lymph % (Auto) 8.5 % % [place] % (Auto) 8.5 % % Eos % (Auto) 0.8 % % Baso % (Auto) 0.1 % % Neut # (Auto) 10.32 10^3/uL H 1 0^3/uL (1.8-7.7) Lymph # (Auto) 1.1 10^3/uL 10^3/ uL (0.8-4.8) [place] # (Auto) 1.1 10^3/uL H 10^ 3/uL (0.2-0.9) Eos # (Auto) 0.1 10^3/uL 10^3/ uL (0.0-0.8) Baso # (Auto) 0.0 10^3/uL 10^3/ uL (0.0-0.1) Nucleated RBC % (a uto) 0 % % Nucleated RBCs # 0.0 /100WBC /100W BC Sodium 137 mmol/L mmol/L (136-145) Potassium 3.4 mmol/L L mmol /L (3.5-5.1) Chloride 100 mmol/L mmol/L (98-107) Carbon Dioxide 25 mmol/L mmol/L (22-29) Anion Gap 15.4 (5-19) BUN 12 mg/dL mg/dL (6-20) Creatinine 0.6 mg/dL mg/dL (0.5-0.9) GFR Calculation 103.4 mL/min mL/m in (90-130) Glucose 122 mg/dL H mg/dL (65-115) Calculated Osmolal ity 285 mOsm/kg mOsm/ kg (285-295) Lactic Acid 1.6 mmol/L mmol/L (0.5-2.2) Calcium 8.8 mg/dL mg/dL (8.5-10.5) Total Bilirubin 0.9 mg/dL mg/dL (0.15-1.2) AST 16 U/L U/L (0-32) ALT 24 U/L U/L (0-33) Alkaline Phosphata se 80 IU/L IU/L (35-105) Creatine Kinase 60 U/L U/L (26-192) Troponin T Baselin e Troponin T 120 Min [place] Troponin T Total Protein 6.3 g/dL L g/dL (6.6-8.7) Albumin 3.9 g/dL g/dL (3.5-5.2) Globulin 2.4 g/dL g/dL (1.3-4.6) Lipase 607 U/L H U/L (13-60) Urine Color Urine Appearance Urine pH Ur Specific Gravit y Urine Protein Urine Glucose (UA) Urine Ketones Urine Blood Urine Nitrate Urine Bilirubin Prot Sulfosalicyli c Acd Urine Urobilinogen Ur Leukocyte Rhiannon ase 01/19/21 01/19/21 01/19/21 09:39 11:03 11:25 WBC RBC Hgb Hct MCV MCH MCHC RDW Plt Count MPV Neut % (Auto) Lymph % (Auto) [place] % (Auto) Eos % (Auto) Baso % (Auto) Neut # (Auto) Lymph # (Auto) [place] # (Auto) Eos # (Auto) Baso # (Auto) Nucleated RBC % (a uto) Nucleated RBCs # Sodium Potassium Chloride Carbon Dioxide Anion Gap BUN Creatinine GFR Calculation Glucose Calculated Osmolal ity Lactic Acid Calcium Total Bilirubin AST ALT Alkaline Phosphata se Creatine Kinase Troponin T Baselin e 18 ng/L H ng/L (0-10) Troponin T 120 Min [place] 18.82 ng/L H ng/L (0-10) Delta Troponin T 0.82 ABS# ABS# (0-10) Total Protein Albumin Globulin Lipase Urine Color Yellow (Yellow) Urine Appearance Clear (CLEAR) Urine pH 9 H (5-7) Ur Specific Gravit y 1.010 (1.005-1.030) Urine Protein Neg (Negative) Urine Glucose (UA) Norm (Normal) Urine Ketones 1+ H (Negative) Urine Blood Neg (Negative) Urine Nitrate Negative (Negative) Urine Bilirubin Neg (Negative) Prot Sulfosalicyli c Acd Negative (Negative) Urine Urobilinogen Norm mg/dL mg/dL (Negative) Ur Leukocyte Rhiannon ase Negative (Negative) Discharge Plan Discharge Patient Disposition: Admitted As Inpatient Admit Provider: Ran Ventura Clinical Impression: Pancreatitis, Nausea & vomiting Condition: Stable Coding Level of Care Code ED Lending Consultant for Magy Majano
[2021-01-19 09:42] LABS: Basophils % 0.1 %; Eosinophils # 0.1 10^3/uL (0.0-0.8); Eosinophils % 0.8 %; Hemoglobin 14.5 g/dL (11.5-15.3); Lymphocytes # 1.1 10^3/uL (0.8-4.8); Lymphocytes % 8.5 %; Mean Corpuscular HGB Conc 33.7 g/dL (30.0-36.0); Mean Corpuscular Hemoglobin 28.5 pg (28.0-34.0); Mean Corpuscular Volume 84.6 fl (81-99); Mean Platelet Volume 9.4 fL (7.4-10.4); Monocytes # 1.1 10^3/uL (0.2-0.9); Monocytes % 8.5 %; Neutrophils # 10.32 10^3/uL (1.8-7.7); Neutrophils % 81.7 %; Nucleated Red Blood Cells % 0 %; Platelet Count 293 10^3/cmm (130-400); Red Blood Count 5.08 10^6/uL (4.1-5.3); Red Cell Distribution Width 14.7 % (12.1-15.1); White Blood Count 12.6 10^3/uL (4.0-10.0)
--- NOTE | 2021-01-19 09:43 | CT_ITS ---
WS: [id number] CTA CHEST WITH CT ABDOMEN AND PELVIS. HISTORY: Chest and abdominal pain for 3 days. Short of breath. TECHNIQUE: CT angiogram is performed through the chest. Additional imaging is performed through the a bdomen and pelvis with IV contrast. Sagittal and coronal reformats have been submitted. MIP imaging also reviewed. All CT scans at [facility] use at least one of these dose optimization techniqu es: automated exposure control; mA and/or kV adjustment per patient size (includes targeted exams whe re dose is matched to clinical indication); or iterative reconstruction. Contrast: Omnipaque 350; 95 cc IV. DLP: 1952.15 mGy.cm COMPARISON: 04/17/2019 Chest CTA: Adequate opacification of the central pulmonary arteries. Mild limitation by body habitus. No filling defects. Normal size pulmonary artery and mild atherosclerosis aorta. Mild enlargement of the LEFT heart chambers. No pericardial pleural effusions or adenopathy. There are a few small areas of groundglass attenuation throughout both lungs. These are within the periphery and may be changes of early pneumonitis. No dense basilar consolidation. Small hiatal hernia. Abdomen CT: Liver and spleen are normal. Prior cholecystectomy. Normal pancreas and adrenal glands. M ild atherosclerosis aorta. No renal obstruction. No solid renal mass or calcification. Visualized GI tract is normal. There is no obstruction. Prior appendectomy. There are moderate amount of diverticula within the distal colon but no acute diverticulitis. Umbilical hernia contains fat only. Pelvic CT: Prior hysterectomy. Urinary bladder is well distended. No adenopathy or fluid. Increased the normal lumbar lordosis. LEFT curvature lumbar spine. CT/CT angio chest w abd pel w con IMPRESSION: 1. No pulmonary embolism. 2. Subtle scattered groundglass opacities are noted within the periphery of al l lobes. Consider pneumonitis. 3. Diverticulosis without acute diverticulitis. 4. Prior appendectomy, cholecystectomy and hysterectomy. 5. No adenopathy or ascites.
[2021-01-19 09:58] LABS: Lactic Sepsis W/Reflex 1.6 mmol/L (0.5-2.2)
[2021-01-19] MEDS: iohexol 350 mg/mL 100 mL Btl IV (10:03)
[2021-01-19 10:07] LABS: Troponin(5th) Baseline 18 ng/L (0-10)
[2021-01-19] MEDS: ondansetron 2 mg/ML SDV 2 mL 4 MG IVP ×2 (10:10→19:33)
[2021-01-19] MEDS: morphine 4 mg/mL SDV 1 mL IVP ×2 (10:10→11:49)
[2021-01-19 10:18] LABS: Alanine Aminotransferase 24 U/L (0-33); Albumin Level 3.9 g/dL (3.5-5.2); Alkaline Phosphatase 80 IU/L (35-105); Anion Gap 15.4 (5-19); Aspartate Amino Transferase 16 U/L (0-32); Blood Urea Nitrogen 12 mg/dL (6-20); Calcium 8.8 mg/dL (8.5-10.5); Carbon Dioxide 25 mmol/L (22-29); Chloride 100 mmol/L (98-107); Creatine Phosphokinase 60 U/L (26-192); Creatinine Clr Calc Pharmacy 130.7757; Globulin 2.4 g/dL (1.3-4.6); Glomerular Filtration Rate 103.4 mL/min (90-130); Glucose 122 mg/dL (65-115); Osmolality Calculated 285 mOsm/kg (285-295); Potassium 3.4 mmol/L (3.5-5.1); Sodium 137 mmol/L (136-145); Total Bilirubin 0.9 mg/dL (0.15-1.2); Total Protein 6.3 g/dL (6.6-8.7)
[2021-01-19 10:27] LABS: Lipase 607 U/L (13-60)
[2021-01-19 11:12] LABS: Add Urine Microscopic? NO; Charge for UA Resulting for Rev
[2021-01-19 11:13] LABS: Urine Appearance Clear (CLEAR); Urine Color Yellow (Yellow); pH Urine 9 (5-7)
[2021-01-19 11:14] LABS: Bilirubin Urine Neg (Negative); Blood Urine Neg (Negative); Glucose Urine UA Norm (Normal); Ketones Urine 1+ (Negative); Leukocyte Esterase Urine Negative (Negative); Nitrate Urine Negative (Negative); Protein Urine Neg (Negative); Sulfosalicylic Acid Urine Negative (Negative); Urobilinogen Urine Norm (Negative)
--- NOTE | 2021-01-19 11:33 | ECG_ITS ---
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
[2021-01-19] MEDS: promethazine 25 mg/mL SDV 1 mL IM (11:49)
[2021-01-19 12:02] LABS: Troponin 5 2HR 18.82 ng/L (0-10); Troponin 5 2HR Delta 0.82 ABS# (0-10)
--- NOTE | 2021-01-19 12:08 | PC.NURSE ---
ERP aware of pt complaining of pain and pt medicated per MAR.
[2021-01-19 13:44] LABS: Thyroid Stimulating Hormone 1.21 uIU/mL (0.27-4.20); Triglycerides 126 mg/dL (0-150)
[2021-01-19] MEDS: sodium chloride 0.9% 1,000 ML 999 ML IV ×2 (15:11→16:13)
[2021-01-19 15:12] LABS: Iron 51 ug/dL (37-145); Percent Saturation 22.1 % (20-50); Total Iron Binding Capacity 230 mcg/dl; Unsaturated Iron Binding 179 ug/dL (112-347)
[2021-01-19] MEDS: famotidine 20 mg/2 mL INJ IVP (15:14)
[2021-01-19] MEDS: enoxaparin 40 mg/0.4 mL Syringe SUBCUT (15:14)
--- NOTE | 2021-01-19 15:33 | ECG_ITS ---
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
[2021-01-19 16:47] LABS: Troponin 5 6HR 15.59 ng/L (0-10)
[2021-01-19 16:50] LABS: Troponin 5 6HR Delta -2.41 ng/L (0-12)
--- NOTE | 2021-01-19 17:18 | PM.HP ---
Providers/Chief Complaint Admitting Physician: Ran Ventura MD Primary Care Provider: Michael Mahoney DO Chief Complaint: cp; n/v x 3 days; abd pain History of Present Illness Leslie Osborn is a 55 year old female with past medical history of pancreatitis, cholecystectomy, appendectomy, history of recent COVID-19 pneumonia last month, post monoclonal antibody infusion 1 month ago presented to the ER with ongoing nausea, vomiting and epigastric abdominal pain since Tuesday. Today is Tuesday. has not been able to eat or drink anything for last 3 days and as vomiting was worsening so decided to come to the ER today. Denies any diarrhea, headache, dizziness, difficulty in breathing cough or expectoration. [facility] she has been on oral dexamethasone for last Tuesday as per her primary care provider's office for last 3 weeks. Denies taking any PPIs. has been taking Mylanta as needed. Blood work in the ER showed a white count of 12.6, hemoglobin of 14.5 sodium 137, potassium 3.4, creatinine of 0.6, baseline troponin of 18 with delta of 0.8, lipase of 607. CT abdomen pelvis results as below. Review of Systems General: Reports: 10 or more systems reviewed and unremarkable except in HPI and below Const: Denies: fever(s), chills, body aches, change in appetite, change in weight, malaise, night sweats, diaphoresis, change in sleep pattern, daytime sleepiness or snoring Eyes: Denies: change in vision, blurry vision, photophobia, eye discomfort or eye discharge ENMT: Denies: throat pain, enlarged tonsils, hoarseness, mouth pain, oral sores, dry mouth, tinnitus, nasal congestion or post nasal drip Card: Denies: chest pain, palpitations, irregular heart rhythm, edema, swelling of feet/ankles, lightheadedness, syncope, pre-syncope, dyspnea on exertion, orthopnea, leg pain with exertion or acrocyanosis Resp: Denies: dyspnea, productive cough, non-productive cough, wheezing, stridor, pain on inspiration, change in phlegm color, hemoptysis or chest congestion GI: Denies: abdominal pain, nausea, vomiting, hematemesis, coffee ground emesis, dysphagia, heartburn, diarrhea, constipation, bloating, GI cramping, change in bowel habits, pain on defecation, hematochezia or melena : Denies: flank pain, dysuria, urinary frequency, urinary urgency, urinary hesitancy, nocturia or hematuria Musc: Denies: neck pain, back pain, extremity pain, joint pain, joint swelling, joint redness, joint stiffness or limited range of motion Neuro: Denies: headache(s), numbness in extremities, weakness in extremities, sensory changes, lack of coordination, difficulty walking, frequent falls, dizziness, vertigo, confusion, Slurred speech present, difficulty communicating thoughts or seizure-like activity Psych: Denies: anxiety, depression, mood swings, panic attacks, hopelessness or irritability Endo: Denies: polyuria, polydipsia, tired all the time, cold intolerance, excessive sweating, flushing or heat intolerance Leland/Lymph: Denies: easy bruising or easy bleeding All/Imm: Denies: tongue swelling, facial swelling or acute wheezing Medications/Allergies Home Medications Medication Instructions Recorded Confirmed Last Taken Type citalopram 20 mg tablet 20 mg PO DAILY 07/17/19 01/19/21 01/18/21 History omeprazole 20 mg tablet,delayed 20 mg PO DAILY 07/17/19 01/19/21 01/18/21 History release trazodone 100 mg tablet 100 mg PO BEDTIME 07/17/19 01/19/21 01/18/21 History ascorbate calcium (vitamin C) 500 500 mg PO DAILY 02/07/20 01/19/21 01/18/21 History mg tablet cholecalciferol (vitamin D3) 10 10 mcg PO DAILY 02/07/20 01/19/21 01/18/21 History mcg (400 unit) capsule magnesium oxide 500 mg capsule 500 mg PO DAILY 02/07/20 01/19/21 01/18/21 History cjquazqu-tgooqyxc-seygg acid 400 1 tab PO DAILY tab 02/07/20 01/19/21 01/18/21 History mcg-vit K 20 mcg-lycop 300 mcg tablet vitamin B complex 1 cap PO DAILY 02/07/20 01/19/21 01/18/21 History zinc 50 mg tablet 50 mg PO DAILY 02/07/20 01/19/21 01/18/21 History biotin 1 mg capsule 1 mg PO DAILY 10/23/20 01/19/21 01/18/21 History krill oil 500 mg capsule 500 mg PO DAILY 10/23/20 01/19/21 01/18/21 History leflunomide 20 mg tablet 20 mg PO DAILY #30 tab 10/23/20 01/19/21 01/18/21 Rx folic acid 1 mg tablet 2 mg PO DAILY #180 tab 10/30/20 01/19/21 01/18/21 Rx abatacept [Orencia] 125 mg SUBCUT Q7D 01/19/21 01/19/21 01/02/21 History gabapentin 300 mg PO DAILY MDD SEE PHARMACY 01/19/21 01/19/21 01/18/21 History COMMENT Allergies Allergy/AdvReac Type Severity Reaction Status Date / Time meperidine [From Demerol] Allergy Unknown Unknown Verified 12/31/20 16:27 nalbuphine [From Nubain] Allergy Unknown Verified 12/31/20 16:27 Sulfa (Sulfonamide Allergy Unknown Verified 12/31/20 16:27 Antibiotics) tetracycline Allergy Unknown Verified 12/31/20 16:27 tramadol Allergy Unknown Verified 12/31/20 16:27 PFSH Acute PFSH: Medical History Asthma Cervical cancer COVID-19 Endometriosis Fatigue GERD (gastroesophageal reflux disease) High risk medication use Joint pain Rheumatoid arthritis Surgical History History of appendectomy History of cholecystectomy History of hysterectomy S/P tonsillectomy and adenoidectomy Family History Other Cancer Heart disease Hypertension Social History Smoking and tobacco status: former smoker Second hand smoke exposure: No Smoking risk assessment/counseling performed?: No Alcohol intake: never Desire information about alcohol rehabilitation?: No Counseling given: No Desire information about substance/drug rehabilitation?: No Counseling given: No Adopted: No Lives independently: Yes Housing: House Vitals/I&O/Wt Last Vital Signs Temp 98.4 F 01/19/21 15:40 Pulse 60 01/19/21 15:40 Resp 17 01/19/21 15:40 BP 122/78 01/19/21 15:40 Pulse Ox 97 01/19/21 15:40 01/19/21 01/19/21 01/19/21 06:59 14:59 22:59 Intake Total 1000 / 1000 Balance 1000 / 1000 Weight last 48 hrs Weight 102.104 kg Weight 108.862 kg Physical Exam Narrative: EXAM NARRATIVE: General: No acute distress, AO x3, dehydrated HEENT: PERRLA, pupils bilaterally equal and reactive Chest: Normal vesicular breath sounds, no added sounds, equal good air entry bilaterally CVS: S1-S2 regular, no murmurs, no tachycardia, no gallops, no rubs Abdomen: Soft, tenderness in the epigastric region, no organomegaly, bowel sounds present Neuro: No focal deficits, no facial deformity, AO x3, power 5/5 in all limbs Data : 01/19/21 09:39 01/19/21 09:39 A&P Assessment and plan (1) Nausea & vomiting: Status: Acute (2) Pancreatitis: Status: Acute Additional A&P Information Nausea, vomiting: Most likely secondary to a combination of pancreatitis and possible gastritis. Patient states she has been taking daily oral steroids for last [address] abdomen pelvis negative for pancreatitis. Lipase elevated. Prior cholecystectomy. Liver functions within normal limits. Protonix 40 mg twice daily, Maalox every 6 hour. Zofran as needed. D5 half NS at 75 cc/h. Clear liquid diet. Will advance very gradually. Check iron panel, HbA1c, triglyceride, lipid panel in a.m. Clear liquid diet. Protonix daily for PUD prophylaxis. Lovenox for DVT prophylaxis. Full code. Continue other chronic medications including gabapentin, Celexa, trazodone. Attestations Medical Necessity Statement*: Admission for more than 2 midnights for poor oral intake, nausea vomiting as patient is unable to tolerate p.o. diet because of severe pancreatitis Time Spent in Patient Care: Greater than 35 minutes (>than 50% of time spent in counselling and/or direct pt care on unit). Coding Level of Care Code Acute Transfer Engineer for Magy Majano Diagnoses Nausea & vomiting R11.2 Pancreatitis K85.90
[2021-01-19] MEDS: pantoprazole 40 mg SDV IVP (17:50)
[2021-01-19] MEDS: D5-NS 0.45% + KCL 20 mEq 20 MEQ/1,000 ML BAG 150 MEQ IV ×2 (17:50→23:54)
[2021-01-19] MEDS: morphine 4 mg/mL SDV 1 mL 2 MG IVP ×2 (19:35→23:53)
[2021-01-19] MEDS: trazodone 100 mg Tablet PO (20:23)
[2021-01-20] VITALS (9 sets, daily range): BP systolic 92–137; BP diastolic 47–78; PULSE 50–78; RESP 16–20; TEMP 36.4–37; O2SAT 95–98
[2021-01-20] MEDS: ondansetron 2 mg/ML SDV 2 mL 4 MG IVP ×3 (04:45→20:43)
[2021-01-20] MEDS: morphine 4 mg/mL SDV 1 mL 2 MG IVP ×3 (04:45→20:42)
--- NOTE | 2021-01-20 05:35 | PC.NURSE ---
SHIFT SUMMARY Pleasant. Rested for intervals. Continues to have some nausea. This am thought she was going to throw up but did not. Is recieving IV Zofran for the nausea and IV Morphine for abd pain. Abd pain is across upper abdomen. Abdomen is soft with tenderness present. Became a little tearful this am. Says just tired of feeling sick. IV infusing at 150ml/hr rate. Voiding well
[2021-01-20 05:53] LABS: Basophils % 0.1 %; Eosinophils # 0.2 10^3/uL (0.0-0.8); Eosinophils % 2.4 %; Hematocrit 38.8 % (37.0-47.0); Hemoglobin 12.6 g/dL (11.5-15.3); Lymphocytes # 1.3 10^3/uL (0.8-4.8); Lymphocytes % 14.4 %; Mean Corpuscular HGB Conc 32.5 g/dL (30.0-36.0); Mean Corpuscular Hemoglobin 28.3 pg (28.0-34.0); Monocytes # 1.1 10^3/uL (0.2-0.9); Monocytes % 11.7 %; Neutrophils # 6.53 10^3/uL (1.8-7.7); Neutrophils % 71.1 %; Nucleated Red Blood Cells % 0 %; Platelet Count 222 10^3/cmm (130-400); Red Blood Count 4.46 10^6/uL (4.1-5.3); Red Cell Distribution Width 14.7 % (12.1-15.1); White Blood Count 9.2 10^3/uL (4.0-10.0)
[2021-01-20] MEDS: D5-NS 0.45% + KCL 20 mEq 20 MEQ/1,000 ML BAG 150 MEQ IV (06:19)
[2021-01-20] MEDS: pantoprazole 40 mg SDV IVP ×2 (06:19→15:20)
[2021-01-20 06:28] LABS: Alanine Aminotransferase 24 U/L (0-33); Albumin Level 3.1 g/dL (3.5-5.2); Alkaline Phosphatase 63 IU/L (35-105); Anion Gap 15.7 (5-19); Aspartate Amino Transferase 18 U/L (0-32); Blood Urea Nitrogen 9 mg/dL (6-20); Calcium 8.2 mg/dL (8.5-10.5); Carbon Dioxide 22 mmol/L (22-29); Chloride 103 mmol/L (98-107); Globulin 3.1 g/dL (1.3-4.6); Glomerular Filtration Rate 127.6 mL/min (90-130); Glucose 117 mg/dL (65-115); Lipase 146 U/L (13-60); Magnesium 2.3 mg/dL (1.7-2.3); Osmolality Calculated 284 mOsm/kg (285-295); Phosphorus 2.4 mg/dL (2.5-4.5); Potassium 3.7 mmol/L (3.5-5.1); Sodium 137 mmol/L (136-145); Total Bilirubin 0.7 mg/dL (0.15-1.2); Total Protein 6.2 g/dL (6.6-8.7)
[2021-01-20 06:31] LABS: Estmated Average Glucose 120; Hemoglobin A1C 5.8 % (4.0-6.0)
[2021-01-20] MEDS: citalopram 20 mg Tablet PO (08:05)
[2021-01-20] MEDS: gabapentin 300 mg Capsule PO (08:05)
--- NOTE | 2021-01-20 14:00 | PM.PN ---
Subjective Subjective: Interval history: Patient states she had a rough night but has been feeling better since today morning. Denies any nausea today morning. Complained of pain last night. Has not had vomiting. Tolerating clear liquid diet. Discussed importance of patient to be sitting up in chair and be mobile. Vitals/I&O/Wt Last Vital Signs Temp 98.5 F 01/20/21 12:00 Pulse 57 L 01/20/21 12:00 Resp 18 01/20/21 12:00 BP 92/47 01/20/21 12:00 Pulse Ox 97 01/20/21 12:00 01/19/21 01/20/21 01/20/21 22:59 06:59 14:59 Intake Total 2240 / 2240 2112.5 / 4352.5 1380 / 1380 Output Total 1000 / 1000 Balance 2240 / 2240 1112.5 / 3352.5 1380 / 1380 Weight last 48 hrs Weight 102.058 kg Weight 102.104 kg Weight 108.862 kg Physical Exam Narrative: EXAM NARRATIVE: General: No acute distress, AO x3, HEENT: PERRLA, pupils bilaterally equal and reactive Chest: Normal vesicular breath sounds, no added sounds, equal good air entry bilaterally CVS: S1-S2 regular, no murmurs, no tachycardia, no gallops, no rubs Abdomen: Soft, tenderness in the epigastric region, no organomegaly, bowel sounds present Neuro: No focal deficits, no facial deformity, AO x3, power 5/5 in all limbs Data : 01/20/21 04:58 01/20/21 04:58 A&P Assessment and plan (1) Nausea & vomiting: Status: Acute (2) Pancreatitis: Status: Acute Additional A&P Information Nausea, vomiting: Most likely secondary to a combination of pancreatitis and severe gastritis. Patient states she has been taking daily oral steroids for last 3 weeks to last Tuesday. [address] abdomen pelvis negative for pancreatitis. Lipase elevated. Prior cholecystectomy. Liver functions within normal limits. Protonix 40 mg twice daily, Maalox every 6 hour. Zofran as needed. D5 half NS at 100 cc/h. Advance to full liquid diet Protonix daily for PUD prophylaxis. Lovenox for DVT prophylaxis. Full code. Continue other chronic medications including gabapentin, Celexa, trazodone. Attestations Medical Necessity Statement*: Requires further hospitalization for management of pancreatitis to maintain IV hydration while diet is advanced gradually Requires further hospitalization for management of pancreatitis to maintain IV hydration while diet is advanced gradually Requires further hospitalization for management of pancreatitis to maintain IV hydration while diet is advanced gradually Requires further hospitalization for management of pancreatitis to maintain IV hydration while diet is advanced gradually Requires further hospitalization for management of pancreatitis to maintain IV hydration while diet is advanced gradually Requires further hospitalization for management of pancreatitis to maintain IV hydration while diet is advanced gradually Time Spent in Patient Care: Greater than 35 minutes (>than 50% of time spent in counselling and/or direct pt care on unit). Coding Level of Care Code Acute Glassware Defect Repairer for Magy Majano Diagnoses Nausea & vomiting R11.2 Pancreatitis K85.90
[2021-01-20] MEDS: D5-NS 0.45% + KCL 20 mEq 20 MEQ/1,000 ML BAG 100 MEQ IV (15:17)
[2021-01-20] MEDS: enoxaparin 40 mg/0.4 mL Syringe SUBCUT (15:20)
[2021-01-20] MEDS: trazodone 100 mg Tablet PO (20:38)
[2021-01-21] VITALS: BP 112/69; PULSE 80; RESP 18; TEMP 36.7; O2SAT 95
[2021-01-21] MEDS: D5-NS 0.45% + KCL 20 mEq 20 MEQ/1,000 ML BAG 100 MEQ IV (01:11)
[2021-01-21 04:00] VITALS: BP 102/67; PULSE 74; RESP 18; TEMP 36.5; O2SAT 95
[2021-01-21 05:40] LABS: Basophils % 0.3 %; Eosinophils # 0.2 10^3/uL (0.0-0.8); Eosinophils % 3.2 %; Hematocrit 37.8 % (37.0-47.0); Hemoglobin 11.6 g/dL (11.5-15.3); Lymphocytes # 1.6 10^3/uL (0.8-4.8); Lymphocytes % 24.8 %; Mean Corpuscular HGB Conc 30.7 g/dL (30.0-36.0); Mean Corpuscular Hemoglobin 28.5 pg (28.0-34.0); Mean Corpuscular Volume 92.9 fl (81-99); Mean Platelet Volume 9.9 fL (7.4-10.4); Monocytes # 0.7 10^3/uL (0.2-0.9); Monocytes % 11.3 %; Neutrophils # 3.77 10^3/uL (1.8-7.7); Neutrophils % 60.2 %; Nucleated Red Blood Cells % 0 %; Platelet Count 186 10^3/cmm (130-400); Red Blood Count 4.07 10^6/uL (4.1-5.3); Red Cell Distribution Width 14.9 % (12.1-15.1); White Blood Count 6.3 10^3/uL (4.0-10.0)
[2021-01-21 06:08] LABS: Alanine Aminotransferase 24 U/L (0-33); Albumin Level 2.8 g/dL (3.5-5.2); Alkaline Phosphatase 56 IU/L (35-105); Aspartate Amino Transferase 15 U/L (0-32); Blood Urea Nitrogen 5 mg/dL (6-20); Calcium 8.1 mg/dL (8.5-10.5); Carbon Dioxide 23 mmol/L (22-29); Chloride 110 mmol/L (98-107); Globulin 2.7 g/dL (1.3-4.6); Glomerular Filtration Rate 86.6 mL/min (90-130); Glucose 108 mg/dL (65-115); Osmolality Calculated 288 mOsm/kg (285-295); Sodium 140 mmol/L (136-145); Total Bilirubin 0.5 mg/dL (0.15-1.2); Total Protein 5.5 g/dL (6.6-8.7)
[2021-01-21] MEDS: pantoprazole 40 mg SDV IVP (06:11)
--- NOTE | 2021-01-21 06:22 | PC.NURSE ---
SHIFT SUMMARY Rested well tonight. Was medicated in the evening with IV Morphine and Zofran. This am says would like to wait and try not to take it. Still with pain/tenderness across upper abdomen but says it is improved. IV fluids infusing at 100ml/hr rate.
[2021-01-21 08:00] VITALS: BP 110/80; PULSE 72; RESP 18; TEMP 36.6; O2SAT 96
[2021-01-21] MEDS: gabapentin 300 mg Capsule PO (09:36)
[2021-01-21] MEDS: acetaminophen 325 mg Tablet 650 MG PO (09:36)
[2021-01-21] MEDS: citalopram 20 mg Tablet PO (09:36)
[2021-01-21] MEDS: ondansetron 2 mg/ML SDV 2 mL 4 MG IVP (09:36)
[2021-01-21 11:50] VITALS: BP 130/76; PULSE 69; RESP 18; TEMP 36.9; O2SAT 97
--- NOTE | 2021-01-21 13:07 | PM.DCS ---
Discharge Providers Date of Admission: 01/19/21 14:29 Date of Discharge: January 21, 2021 Attending Provider at Admission: Ran Ventura MD Attending Provider at Discharge: Ran Ventura MD Primary Care Provider: Michael Mahoney DO Diagnoses at Discharge Discharge Diagnosis (1) Nausea & vomiting: Status: Acute (2) Pancreatitis: Status: Acute (3) Gastritis: Status: Acute Reason for Visit Reason for Visit: cp; n/v x 3 days; abd pain Hospital Course Hospital Course Leslie Osborn is a 55 year old female with past medical history of pancreatitis, cholecystectomy, appendectomy, history of recent COVID-19 pneumonia last month, post monoclonal antibody infusion 1 month ago presented to the ER with ongoing nausea, vomiting and epigastric abdominal pain since Tuesday. Today is Tuesday. has not been able to eat or drink anything for last 3 days and as vomiting was worsening so decided to come to the ER today. Denies any diarrhea, headache, dizziness, difficulty in breathing cough or expectoration. States she has been on oral dexamethasone for last Tuesday as per her primary care provider's office for last 3 weeks. Denies taking any PPIs. has been taking Mylanta as needed. Blood work in the ER showed a white count of 12.6, hemoglobin of 14.5 sodium 137, potassium 3.4, creatinine of 0.6, baseline troponin of 18 with delta of 0.8, lipase of 607. CT abdomen pelvis was negative for any signs of infection, colitis or pancreatitis. Patient went to the hospital for further management of significant nausea and vomiting with poor oral intake. She was started on IV hydration and diet was gradually advanced from clear liquid diet to full liquid diet with pain management and Zofran as needed. She responded well to the treatment and has been tolerating full liquid diet for last 1 day. Her hospitalization was unremarkable. It is believed patient's symptoms are most likely from severe gastritis from oral steroid use. She is been discharged in hemodynamically stable condition on oral PPIs and Maalox with advised to advance her diet very gradually from full liquid to brat?soft diet within next 1 week. Physical Exam Narrative: EXAM NARRATIVE: General: No acute distress, AO x3, HEENT: PERRLA, pupils bilaterally equal and reactive Chest: Normal vesicular breath sounds, no added sounds, equal good air entry bilaterally CVS: S1-S2 regular, no murmurs, no tachycardia, no gallops, no rubs Abdomen: Soft, tenderness in the epigastric region, no organomegaly, bowel sounds present Neuro: No focal deficits, no facial deformity, AO x3, power 5/5 in all limbs Discharge Data Data Completed and Pending: Completed Studies During Hospitalization Category Date Time Status CT angio chest w abd pel w con Stat Cat Scan 01/19/21 09:43 Completed XR chest 1V corie ble [id number] Stat Exams 01/19/21 09:33 Completed Labs from last 24 hours 01/21/21 01/21/21 04:53 04:53 WBC 6.3 RBC 4.07 L Hgb 11.6 Hct 37.8 MCV 92.9 D MCH 28.5 MCHC 30.7 D RDW 14.9 Plt Count 186 MPV 9.9 Neut % (Auto) 60.2 Lymph % (Auto) 24.8 [place] % (Auto) 11.3 Eos % (Auto) 3.2 Baso % (Auto) 0.3 Neut # (Auto) 3.77 Lymph # (Auto) 1.6 [place] # (Auto) 0.7 Eos # (Auto) 0.2 Baso # (Auto) 0.0 Nucleated RBC % (a uto) 0 Nucleated RBCs # 0.0 Sodium 140 Potassium 4.0 Chloride 110 H Carbon Dioxide 23 Anion Gap 11.0 BUN 5 L Creatinine 0.7 GFR Calculation 86.6 L Glucose 108 Calculated Osmolal ity 288 Calcium 8.1 L Total Bilirubin 0.5 AST 15 ALT 24 Alkaline Phosphata se 56 Total Protein 5.5 L Albumin 2.8 L Globulin 2.7 Addt'l Data from Hospital Stay: Laboratory Results WBC 6.3 10^3/uL (4.0- 10.0) 01/21/21 04:53 RBC 4.07 10^6/uL (4.1 -5.3) L 01/21/21 04:53 Hgb 11.6 g/dL (11.5-1 5.3) 01/21/21 04:53 Hct 37.8 % (37.0-47.0 ) 01/21/21 04:53 MCV 92.9 fl (81-99) D 01/21/21 04:53 MCH 28.5 pg (28.0-34. 0) 01/21/21 04:53 MCHC 30.7 g/dL (30.0-3 6.0) D 01/21/21 04:53 RDW 14.9 % (12.1-15.1 ) 01/21/21 04:53 Plt Count 186 10^3/cmm (130 -400) 01/21/21 04:53 MPV 9.9 fL (7.4-10.4) 01/21/21 04:53 Neut % (Auto) 60.2 % 01/21/21 04:53 Lymph % (Auto) 24.8 % 01/21/21 04:53 [place] % (Auto) 11.3 % 01/21/21 04:53 Eos % (Auto) 3.2 % 01/21/21 04:53 Baso % (Auto) 0.3 % 01/21/21 04:53 Neut # (Auto) 3.77 10^3/uL (1.8 -7.7) 01/21/21 04:53 Lymph # (Auto) 1.6 10^3/uL (0.8- 4.8) 01/21/21 04:53 [place] # (Auto) 0.7 10^3/uL (0.2- 0.9) 01/21/21 04:53 Eos # (Auto) 0.2 10^3/uL (0.0- 0.8) 01/21/21 04:53 Baso # (Auto) 0.0 10^3/uL (0.0- 0.1) 01/21/21 04:53 Nucleated RBC % (a uto) 0 % 01/21/21 04:53 Nucleated RBCs # 0.0 /100WBC 01/21/21 04:53 Sodium 140 mmol/L (136-1 45) 01/21/21 04:53 Potassium 4.0 mmol/L (3.5-5 .1) 01/21/21 04:53 Chloride 110 mmol/L (98-10 7) H 01/21/21 04:53 Carbon Dioxide 23 mmol/L (22-29) 01/21/21 04:53 Anion Gap 11.0 (5-19) 01/21/21 04:53 BUN 5 mg/dL (6-20) L 01/21/21 04:53 Creatinine 0.7 mg/dL (0.5-0. 9) 01/21/21 04:53 GFR Calculation 86.6 mL/min (90-1 30) L 01/21/21 04:53 Glucose 108 mg/dL (65-115 ) 01/21/21 04:53 Estimat Average Gl ucose 120 01/20/21 04:58 Hemoglobin A1c 5.8 % (4.0-6.0) 01/20/21 04:58 Calculated Osmolal ity 288 mOsm/kg (285- 295) 01/21/21 04:53 Lactic Acid 1.6 mmol/L (0.5-2 .2) 01/19/21 09:39 Calcium 8.1 mg/dL (8.5-10 .5) L 01/21/21 04:53 Phosphorus 2.4 mg/dL (2.5-4. 5) L 01/20/21 04:58 Magnesium 2.3 mg/dL (1.7-2. 3) 01/20/21 04:58 Iron 51 ug/dL (37-145) 01/19/21 11:52 TIBC 230 mcg/dl 01/19/21 11:52 % Saturation 22.1 % (20-50) 01/19/21 11:52 Unsat Iron Binding 179 ug/dL (112-34 7) 01/19/21 11:52 Total Bilirubin 0.5 mg/dL (0.15-1 .2) 01/21/21 04:53 AST 15 U/L (0-32) 01/21/21 04:53 ALT 24 U/L (0-33) 01/21/21 04:53 Alkaline Phosphata se 56 IU/L (35-105) 01/21/21 04:53 Creatine Kinase 60 U/L (26-192) 01/19/21 09:39 Troponin T Baselin e 18 ng/L (0-10) H 01/19/21 09:39 Troponin T 120 Min hilary 18.82 ng/L (0-10) H 01/19/21 11:25 Delta Troponin T 0.82 ABS# (0-10) 01/19/21 11:25 Troponin T Hi Sens 6Hr 15.59 ng/L (0-10) H 01/19/21 15:35 Troponin T Hi Sens 6Hr Delta -2.41 ng/L (0-12) L 01/19/21 15:35 Total Protein 5.5 g/dL (6.6-8.7 ) L 01/21/21 04:53 Albumin 2.8 g/dL (3.5-5.2 ) L 01/21/21 04:53 Globulin 2.7 g/dL (1.3-4.6 ) 01/21/21 04:53 Triglycerides 126 mg/dL (0-150) 01/19/21 11:52 Lipase 146 U/L (13-60) H 01/20/21 04:58 TSH 1.21 uIU/mL (0.27 -4.20) 01/19/21 11:52 Urine Color Yellow (Yellow) 01/19/21 11:03 Urine Appearance Clear (CLEAR) 01/19/21 11:03 Urine pH 9 (5-7) H 01/19/21 11:03 Ur Specific Gravit y 1.010 (1.005-1.0 30) 01/19/21 11:03 Urine Protein Neg (Negative) 01/19/21 11:03 Urine Glucose (UA) Norm (Normal) 01/19/21 11:03 Urine Ketones 1+ (Negative) H 01/19/21 11:03 Urine Blood Neg (Negative) 01/19/21 11:03 Urine Nitrate Negative (Negati ve) 01/19/21 11:03 Urine Bilirubin Neg (Negative) 01/19/21 11:03 Prot Sulfosalicyli c Acd Negative (Negati ve) 01/19/21 11:03 Urine Urobilinogen Norm mg/dL (Negat brendan) 01/19/21 11:03 Ur Leukocyte Rhiannon ase Negative (Negati ve) 01/19/21 11:03 Impressions Chest X-Ray 01/19/21 09:33 IMPRESSION: No acute chest abnormality. Chest/Abdomen/Pelvis CT 01/19/21 09:43 IMPRESSION: 1. No pulmonary embolism. 2. Subtle scattered groundglass opacities are noted within the periphery of all lobes. Consider pneumonitis. 3. Diverticulosis without acute diverticulitis. 4. Prior appendectomy, cholecystectomy and hysterectomy. 5. No adenopathy or ascites. Vitals: Last Vital Signs Temp 98.5 F 01/21/21 11:50 Pulse 69 01/21/21 11:50 Resp 18 01/21/21 11:50 BP 130/76 01/21/21 11:50 Pulse Ox 97 01/21/21 11:50 Discharge Plan Discharge Patient Disposition: Home Condition: Stable Prescriptions: New Protonix 40 mg tablet,delayed release (DR/EC) 40 mg PO BID 14 Days Qty: 28 RF: 0 Maalox Advanced 200-200-20 mg/5 mL suspension 10 ml PO Q6H PRN (Reason: dyspepsia) Qty: 3000 RF: 0 Zofran 4 mg tablet 4 mg PO Q8H 4 Days Qty: 12 RF: 0 Continued zinc 50 mg tablet 50 mg PO DAILY RF: 0 magnesium oxide 500 mg capsule 500 mg PO DAILY RF: 0 cholecalciferol (vitamin D3) 10 mcg (400 unit) capsule 10 mcg PO DAILY RF: 0 vitamin B complex [Super B-50 Complex] Capsule 1 cap PO DAILY RF: 0 One-A-Day Men's Multivitamin 400-20-300 mcg tablet 1 tab PO DAILY RF: 0 krill oil 500 mg capsule 500 mg PO DAILY RF: 0 biotin 1 mg capsule 1 mg PO DAILY RF: 0 leflunomide 20 mg tablet 20 mg PO DAILY Qty: 30 RF: 3 citalopram [Celexa] 20 mg tablet 20 mg PO DAILY RF: 0 trazodone 100 mg tablet 100 mg PO BEDTIME RF: 0 folic acid 1 mg tablet 2 mg PO DAILY Qty: 180 RF: 1 gabapentin 300 mg Capsule 300 mg PO DAILY MDD SEE PHARMACY COMMENT RF: 0 Orencia 125 mg/mL syringe 125 mg SUBCUT Q7D RF: 0 Discontinued ascorbate calcium (vitamin C) 500 mg tablet 500 mg PO DAILY RF: 0 omeprazole 20 mg tablet,delayed release (DR/EC) 20 mg PO DAILY RF: 0 Discharge Orders: Discharge Order (Routine); Ordered 01/21/21 Ordered By: Ran Ventura Referrals: Michael Mahoney DO [Primary Care Provider] - 7-10 days Discharge Diet: Advance as tolerated and Full LIquid Discharge Activity: Resume usual activity Patient Instructions: Opioid Safety Activity Restrictions/Additional Instructions: Please take Protonix twice daily for next 14 days. Please continue taking full liquid diet for next 2 days and advance very gradually to a mechanical soft/brat diet in next 1 week. Zofran as needed. Discharge Attestations Time Spent in Discharge Care*: greater than 30 min Specific Discharge Activities: educating patient, discussing with piano case maker/social workers/dc planners, documenting/other paperwork and evaluating patient/reviewing data Status at Discharge: Cognitive status at discharge: cognitively intact, Behavioral status at discharge: cooperative, Functional status at discharge: independent ambulation Overall status at discharge: patient is back to baseline Quality Metrics Clinical Quality Measures During this hospital stay, did patient experience: None Coding Level of Care Code Acute Chg DC note Diagnoses Nausea & vomiting R11.2 Pancreatitis K85.90 Gastritis K29.70
[2021-01-21 14:53] VITALS: BP 130/76; PULSE 69; RESP 18; TEMP 36.9; O2SAT 97
--- NOTE | 2021-01-22 10:55 | PC.SOCIAL ---
discharge follow up call made, spoke with patient. pts nausea and vomiting are improved. patient reports she just feels weak today and is trying not to overdo it. patient picked up new medications from the pharmacy and she is taking as prescribed. patient didn't get maalox but will get that soon. patient has follow up with pcp on 01-29 and she is aware of follow up date and time. patient has continued full liquid diet and she is tolerating well, she will advance as she can. patient needs work release fax[place] to [employer], [place] [employer] fax. patient denies questions or concerns.
== END 2021-01-21 14:30 | disposition home or self-care (01) | DRG 392 ==
LOC: ER 09:37 → MEDSURG 16:11
PROVIDERS: Admitting Provider Student in an Organized Health Care Education/Training Program; Emergency Provider Family Medicine; PCP Electrodiagnostic Medicine; Visit Provider Student in an Organized Health Care Education/Training Program
DX: K29.70 Gastritis, unspecified, without bleeding (principal); T38.0X5A Adverse effect of glucocorticoids and synthetic analogues, initial encounter; J45.909 Unspecified asthma, uncomplicated; Z85.41 Personal history of malignant neoplasm of cervix uteri; Z90.710 Acquired absence of both cervix and uterus; K21.9 Gastro-esophageal reflux disease without esophagitis; Z87.891 Personal history of nicotine dependence; Z86.16 Personal history of COVID-19; M06.9 Rheumatoid arthritis, unspecified
CPT/HCPCS: 36415; 71045; 71275; 74177; 80053; 81003; 82550; 83036; 83540; 83550; 83605; 83690; 83735; 84100; 84443; 84478; 84484; 85025; 93005; 94664; 96372; 96374; 96375; 96376; 99285; C9113; J1650; J2270; J2405; J2550; J3490; J7030; Q9967

== ENCOUNTER 2021-08-13 07:17 | Outpatient (CLI) | payer BC, SELFPAY ==
--- NOTE | 2021-08-13 07:30 | MM_ITS ---
WS: [id number] DIAGNOSTIC BILATERAL 3D TOMOSYNTHESIS DIGITAL MAMMOGRAM WITH CAD LEFT breast ultrasound, limited HISTORY: LT BREAST KNOT 4 O'CLOCK COMPARISON: 05/13/2014 TECHNIQUE: Bilateral craniocaudad, mediolateral oblique, and mediolateral views are submitted. Spot c ompression views LEFT breast. Computer aided detection utilized. Breast composition: There are scattered areas of fibroglandular density. Spiculated mass measuring 1. 9 x 2.2 cm just central to the nipple. There is no nipple retraction. There is tethering and strandin g in distortion from this mass. This does correspond to the mammographic abnormality. No additional a bnormalities noted within either breast. There are a few benign calcifications. LEFT breast, limited. Ultrasound is directed to the area of clinical concern. In the LEFT breast just posterior to the nipp le and towards the 6:00 axis is a hypoechoic irregular spiculated mass with fingerlike extensions wilder suring 2.1 x 1.5 x 2.3 cm. There is increased vascularity present. No LEFT axillary adenopathy. MM/[id number] IMPRESSION: BI-RADS: 5-Highly Suggestive of Malignancy FOLLOW UP: Biopsy Recommended Ultrasound-guided biopsy recommended of the LEFT breast mass just posterior to the areolar. Notified ARIANE ROLAND DO at 08/13/2021 9:58 AM.
== END 2021-08-13 07:18 | disposition home or self-care (01) ==
LOC: RAD 07:17
PROVIDERS: PCP Electrodiagnostic Medicine; Visit Provider Electrodiagnostic Medicine
DX: N63.23 Unspecified lump in the left breast, lower outer quadrant (principal)
CPT/HCPCS: 76642; 77062

== ENCOUNTER 2021-09-23 08:28 | Outpatient (CLI) | payer BC, SELFPAY ==
--- NOTE | 2021-09-23 08:47 | US_ITS ---
WS: [id number] ULTRASOUND-GUIDED LEFT BREAST BIOPSY CLINICAL INFORMATION: ABNORMAL MAMMO COMPARISON: None. FINDINGS: The procedure including risks, benefits, and complications were discussed with the patient who agreed to proceed. Using sterile technique patient was prepped and draped in the usual sterile fashion. Aft er 1% lidocaine utilizing real-time ultrasound guidance 6 14-gauge cores were obtained of the LEFT br east lesion at the 6 o'clock position. Subsequently a titanium clip was placed in the biopsy cavity. No immediate complications. Pathology demonstrates A. Breast, left breast mass , needle core biopsy: - Invasive ductal carcinoma. - Gifford Brown grade 2 (score 6). - Breast profile has been performed and will be reported separately. US/[place] [id number] IMPRESSION: 1. Uncomplicated ultrasound-guided LEFT breast biopsy. 2. The pathology demonstrates INVASIVE DUCTAL CARCINOMA 3. Breast cancer prognostic profile pending. BI-RADS: 6-Known Biopsy-Proven Malignancy FOLLOW UP: Surgical Biopsy Recommended RECOMMEND BREAST SURGERY CONSULTATION
[2021-09-28 10:17] LABS: Miscellaneous Test See Scanned Lab Rpt
== END 2021-09-23 08:29 | disposition home or self-care (01) ==
LOC: RAD 08:29
PROVIDERS: PCP Electrodiagnostic Medicine; Visit Provider Electrodiagnostic Medicine
DX: C50.912 Malignant neoplasm of unspecified site of left female breast (principal)
CPT/HCPCS: 19083; 88305; 88361; 88374

== ENCOUNTER 2021-10-05 14:52 | Emergency (ER) | payer BC, SELFPAY ==
[2021-10-05 15:15] VITALS: BP 128/81; PULSE 85; RESP 20; TEMP 37.1; O2SAT 97; BMI 38.7
--- NOTE | 2021-10-05 15:50 | XRR_ITS ---
PROCEDURE INFORMATION: Exam: XR Chest Exam date and time: 10/05/2021 4:11 PM Age: 56 years old Clinical indication: Pain; Cough; On breathing; Patient HX: HX of breast cancer; Additional info: Chest pain, cough TECHNIQUE: Imaging protocol: Radiologic exam of the chest. Views: 1 view. COMPARISON: CR XR chest 1V portable [id number] 01/19/2021 9:42 AM FINDINGS: Lungs: Unremarkable. No consolidation. Pleural spaces: Unremarkable. No pleural effusion. No pneumothorax. Heart/Mediastinum: Unremarkable. No cardiomegaly. Bones/joints: Unremarkable. XR/XR chest 1V portable [id number] IMPRESSION: No acute findings.
--- NOTE | 2021-10-05 15:51 | ECG_ITS ---
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 Measurements Intervals [place] Rate: 71 P: 56 GA: 176 QRS: -20 QRSD: 96 T: 22 QT: 371 QTc: 405 Interpretive Statements SINUS RHYTHM LOW QRS VOLTAGE IN PRECORDIAL LEADS [QRS DEFLECTION < 1.0 mV IN CHEST LEADS] INCOMPLETE RIGHT BUNDLE BRANCH BLOCK [90+ ms QRS DURATION, TERMINAL R IN V1/V2, 40+ ms S IN I/aVL/V4/V5/V6] MODERATE VOLTAGE CRITERIA FOR LVH, CONSIDER NORMAL VARIANT [MEETS CRITERIA IN ONE OF: R(aVL), S(V1), R(V5), R(V5/V6)+S(V1)] POSSIBLE ANTERIOR MYOCARDIAL INFARCTION , PROBABLY OLD [30 ms Q WAVE IN V3/V4, OR R < 0.2 mV IN V4] Compared to ECG 01/19/2021 16:47:26 Low QRS voltage now present Incomplete right bundle-branch block now present Myocardial infarct finding now present Electronically Signed On 10-05-2021 21:18:41 CDT by Briana Savage M.D. [id number]
[2021-10-05 16:51] LABS: Basophils % 0.4 %; Eosinophils # 0.1 10^3/uL (0.0-0.8); Eosinophils % 1.9 %; Hematocrit 36.9 % (37.0-47.0); Hemoglobin 12.9 g/dL (11.5-15.3); Lymphocytes # 1.6 10^3/uL (0.8-4.8); Mean Corpuscular Volume 85.8 fl (81-99); Mean Platelet Volume 9.5 fL (7.4-10.4); Monocytes # 0.4 10^3/uL (0.2-0.9); Monocytes % 5.7 %; Neutrophils # 4.81 10^3/uL (1.8-7.7); Neutrophils % 68.7 %; Nucleated Red Blood Cells % 0 %; Platelet Count 292 10^3/cmm (130-400); Red Cell Distribution Width 13.8 % (12.1-15.1)
[2021-10-05 17:17] LABS: Troponin(5th) Baseline 6 ng/L (0-10)
[2021-10-05 17:24] LABS: NT Pro B Type Natriuretic Pept 163 pg/mL (0-125); Procalcitonin 0.03 ng/mL (0-0.5)
[2021-10-05 17:36] LABS: Blood Urea Nitrogen 18 mg/dL (6-20); Calcium 9.2 mg/dL (8.5-10.5); Carbon Dioxide 24 mmol/L (22-29); Chloride 102 mmol/L (98-107); Glomerular Filtration Rate 73.9 mL/min (90-130); Glucose 88 mg/dL (65-115); Osmolality Calculated 289 mOsm/kg (285-295); Sodium 139 mmol/L (136-145)
[2021-10-05 17:53] VITALS: BP 137/65; PULSE 98; RESP 18; O2SAT 97
--- NOTE | 2021-10-05 17:58 | ECG_ITS ---
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 Measurements Intervals [place] Rate: 60 P: 58 CA: 173 QRS: 2 QRSD: 103 T: 31 QT: 410 QTc: 411 Interpretive Statements SINUS RHYTHM LOW QRS VOLTAGE IN PRECORDIAL LEADS [QRS DEFLECTION < 1.0 mV IN CHEST LEADS] POSSIBLE RIGHT VENTRICULAR CONDUCTION DELAY [RSR (QR) IN V1/V2] Compared to ECG 10/05/2021 16:42:54 Incomplete right bundle-branch block no longer present Myocardial infarct finding no longer present Electronically Signed On 10-05-2021 21:18:19 CDT by Briana Savage M.D. [id number]
--- NOTE | 2021-10-05 18:18 | ED_ITS ---
HPI - SOB/Dyspnea General: Chief Complaint: Shortness of Breath/Dyspnea Stated Complaint: chest pains, cough Time Seen by Provider: 10/05/21 17:48 Source: patient Mode of arrival: ambulatory Limitations: no limitations History of Present Illness: HPI Narrative: 56-year-old female has a history of asthma states that over the last 3 to 4 days she has been having cough congestion. States she has had a dry cough been productive at times. She states she started having some sharp chest pain throughout her chest with her cough. She denies any fever denies any worsening proving factors denies any vomiting denies any leg swelling. Associated symptoms: Reports chest pain; Deny abdominal pain, fever(s), nausea or vomiting Review of Systems Const: Denies: fever(s), chills, body aches or change in appetite Eyes: Denies: blurry vision or eye discomfort ENMT: Denies: throat pain or dental pain Card: Reports: chest pain Resp: Reports: dyspnea and productive cough GI: Denies: abdominal pain, nausea, vomiting or diarrhea : Denies: dysuria Musc: Denies: neck pain or back pain Skin/Breast: Denies: rash Neuro: Denies: headache(s) Psych: Denies: depression Leland/Lymph: Denies: easy bruising All/Imm: Denies: urticaria PFSH ED PFSH: Medical History Asthma Cervical cancer COVID-19 Endometriosis Fatigue GERD (gastroesophageal reflux disease) High risk medication use Joint pain Pancreatitis Rheumatoid arthritis Surgical History History of appendectomy History of cholecystectomy History of hysterectomy S/P tonsillectomy and adenoidectomy Family History Other Cancer Heart disease Hypertension Social History Smoking and tobacco status: former smoker Second hand smoke exposure: No Smoking risk assessment/counseling performed?: No Alcohol intake: never Desire information about alcohol rehabilitation?: No Counseling given: No Desire information about substance/drug rehabilitation?: No Counseling given: No Adopted: No Lives independently: Yes Housing: House Physical Exam Const: COMMON NORMALS: no acute distress, patient oriented x3 and healthy appearing HENMT: COMMON NORMALS: normocephalic and atraumatic HEAD & SCALP: normocephalic and atraumatic Eye: COMMON NORMALS: Equal, round and reactive pupils present and EOMs intact bilaterally PUPIL: Yes Equal, round and reactive pupils present Neck/C-Spine: COMMON NORMALS: full ROM and supple Chest: COMMONS NORMALS: normal inspection of the chest and normal palpation of entire chest wall Resp: COMMON NORMALS: normal respiratory effort, No retractions, No use of accessory muscles and clear to auscultation bilaterally AUSCULTATION: clear to auscultation bilaterally Cardio: COMMON NORMALS: regular rate, regular rhythm and No murmurs present (Cardio) RATE: regular rate RHYTHM: regular rhythm GI: COMMON NORMALS: Normal to inspection, nondistended, normoactive bowel sounds present, Soft to palpation, non-tender and no masses PALPATION: Yes Soft to palpation Extremity: COMMON NORMALS: normal to inspection and full ROM Neuro: COMMON NORMALS: patient oriented x3, moves all extremities and no focal motor deficits Psych: COMMON NORMALS: mental status grossly normal, Normal thought process present and cooperative THOUGHT PROCESS: Normal thought process present Skin: COMMON NORMALS: no rashes or lesions noted and no wounds GENERAL SKIN EXAM: no rashes or lesions noted Course Vital Signs: Vital signs: Vital Signs Temperature 98.8 F 10/05/21 15:15 Pulse Rate 67 10/05/21 20:27 Respiratory Rate 18 10/05/21 17:53 Blood Pressure 137/97 10/05/21 20:27 Pulse Oximetry 95 10/05/21 20:27 MDM - SOB/Dyspnea Medical Decision Making Patient presents here with shortness of breath likely bronchitis. Her troponins here are negative she has no signs of pulmonary embolism we will place her on antibiotic she is to continue albuterol at home she is to follow-up with PCP and return if worsening. Lab Data : 10/05/21 16:38 10/05/21 16:38 Labs/Radiology: Radiology Impressions Chest X-Ray 10/05/21 15:50 IMPRESSION: No acute findings. Laboratory Results WBC 7.0 10^3/uL (4.0-10.0) 10/05/21 16:38 RBC 4.30 10^6/uL (4.1-5.3) 10/05/21 16:38 Hgb 12.9 g/dL (11.5-15.3) 10/05/21 16:38 Hct 36.9 % (37.0-47.0) L 10/05/21 16:38 MCV 85.8 fl (81-99) 10/05/21 16:38 MCH 30.0 pg (28.0-34.0) 10/05/21 16:38 MCHC 35.0 g/dL (30.0-36.0) 10/05/21 16:38 RDW 13.8 % (12.1-15.1) 10/05/21 16:38 Plt Count 292 10^3/cmm (130-400) 10/05/21 16:38 MPV 9.5 fL (7.4-10.4) 10/05/21 16:38 Neut % (Auto) 68.7 % 10/05/21 16:38 Lymph % (Auto) 23.0 % 10/05/21 16:38 [place] % (Auto) 5.7 % 10/05/21 16:38 Eos % (Auto) 1.9 % 10/05/21 16:38 Baso % (Auto) 0.4 % 10/05/21 16:38 Neut # (Auto) 4.81 10^3/uL (1.8-7.7) 10/05/21 16:38 Lymph # (Auto) 1.6 10^3/uL (0.8-4.8) 10/05/21 16:38 [place] # (Auto) 0.4 10^3/uL (0.2-0.9) 10/05/21 16:38 Eos # (Auto) 0.1 10^3/uL (0.0-0.8) 10/05/21 16:38 Baso # (Auto) 0.0 10^3/uL (0.0-0.1) 10/05/21 16:38 Nucleated RBC % (auto) 0 % 10/05/21 16:38 Nucleated RBCs # 0.0 /100WBC 10/05/21 16:38 Sodium 139 mmol/L (136-145) 10/05/21 16:38 Potassium 4.0 mmol/L (3.5-5.1) 10/05/21 16:38 Chloride 102 mmol/L (98-107) 10/05/21 16:38 Carbon Dioxide 24 mmol/L (22-29) 10/05/21 16:38 Anion Gap 17.0 (5-19) 10/05/21 16:38 BUN 18 mg/dL (6-20) 10/05/21 16:38 Creatinine 0.8 mg/dL (0.5-0.9) 10/05/21 16:38 GFR Calculation 73.9 mL/min (90-130) L 10/05/21 16:38 Glucose 88 mg/dL (65-115) 10/05/21 16:38 Calculated Osmolality 289 mOsm/kg (285-295) 10/05/21 16:38 Calcium 9.2 mg/dL (8.5-10.5) 10/05/21 16:38 Troponin T Baseline 6 ng/L (0-10) 10/05/21 16:38 Troponin T 120 Minute 6.00 ng/L (0-10) 10/05/21 19:25 C-Reactive Protein 4.0 mg/L (0.0-4.9) 10/05/21 16:38 NT-Pro-B Natriuret Pep 163 pg/mL (0-125) H 10/05/21 16:38 Procalcitonin 0.03 ng/mL (0-0.5) 10/05/21 16:38 EKG Data EKG 1: I personally reviewed and interpreted this EKG as follows: EKG Interpretation Date: 10/05/21 EKG interpretation time: 16:42 Interpretation: nsr hr [address] or t wave abnormalities qrs 96 qtc 394 EKG 2: I personally reviewed and interpreted this EKG as follows: EKG Interpretation Date: 10/05/21 EKG interpretation time: 19:51 Interpretation: nsr hr [address] or t wave abnormalities qrs 95 qtc 409 Discharge Plan Discharge Patient Disposition: Home Clinical Impression: Bronchitis Condition: Stable Prescriptions: New cephalexin 500 mg capsule 500 mg PO TID 7 Days Qty: 21 0RF No Action prednisone 5 mg tablet 5 mg PO DAILY Qty: 60 0RF diclofenac sodium [Voltaren Arthritis Pain] 1 % gel 4 g topical QID Qty: 100 3RF Rx Instructions: apply to single knee, ankle, foot; for foot includes sole/toes/top of foot citalopram [Celexa] 20 mg tablet 20 mg PO DAILY 0RF trazodone 100 mg tablet 100 mg PO BEDTIME 0RF Rinvoq 15 mg tablet extended release 24 hr 15 mg PO DAILY Qty: 30 5RF gabapentin 300 mg Capsule 300 mg PO DAILY 0RF omeprazole 20 mg Capsule,Delayed Release(Dr/Ec) 20 mg PO DAILY 0RF Super B Complex Capsule 1 cap PO DAILY 0RF Hair,Nails and Skin Vitamin Tablet 1 tab PO DAILY 0RF Ventolin HFA 90 mcg/actuation Hfa Aerosol Inhaler 2 puff INHALATION 6XD PRN (Reason: Shortness Of Breath) 0RF Discharge Orders: Discharge ED (Routine); Ordered 10/05/21 Ordered By: Ana Maria Franklin Referrals: Michael Mahoney DO [Primary Care Provider] - 1-3 days Discharge Diet: Advance as tolerated Discharge Activity: Resume usual activity Patient Instructions: Acute Bronchitis (ED) Coding Level of Care Code ED Classified Ad Taker for Chg Fwd Exam Comprehensive
--- NOTE | 2021-10-05 19:58 | ECG_ITS ---
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 Measurements Intervals [place] Rate: 61 P: 24 RI: 179 QRS: -13 QRSD: 95 T: 19 QT: 406 QTc: 411 Interpretive Statements SINUS RHYTHM LOW QRS VOLTAGE IN PRECORDIAL LEADS [QRS DEFLECTION < 1.0 mV IN CHEST LEADS] POSSIBLE RIGHT VENTRICULAR CONDUCTION DELAY [RSR (QR) IN V1/V2] MINIMAL VOLTAGE CRITERIA FOR LVH, CONSIDER NORMAL VARIANT [MEETS CRITERIA IN ONE OF: R(aVL), S(V1), R(V5), R(V5/V6)+S(V1)] Compared to ECG 10/05/2021 18:21:42 No significant changes Electronically Signed On 10-05-2021 21:28:00 CDT by Briana Savage M.D. [id number]
[2021-10-05 20:27] VITALS: BP 137/97; PULSE 67; O2SAT 95
[2021-10-05 20:40] LABS: Troponin 5 2HR Delta 0 ABS# (0-10)
== END 2021-10-05 20:26 | disposition home or self-care (01) ==
PROVIDERS: Emergency Medicine; Emergency Provider Emergency Medicine; PCP Electrodiagnostic Medicine
DX: J40 Bronchitis, not specified as acute or chronic (principal); Z85.41 Personal history of malignant neoplasm of cervix uteri; Z87.891 Personal history of nicotine dependence
CPT/HCPCS: 36415; 71045; 80048; 83880; 84145; 84484; 85025; 86140; 93005; 99285

== ENCOUNTER 2021-11-15 14:40 | Emergency (ER) | payer BC, SELFPAY ==
[2021-11-15 15:06] VITALS: BP 151/47; PULSE 78; RESP 18; TEMP 36.9; O2SAT 96; BMI 38.7
--- NOTE | 2021-11-15 15:15 | XRR_ITS ---
PROCEDURE INFORMATION: Exam: XR Chest Exam date and time: 11/15/2021 3:24 PM Age: 56 years old Clinical indication: Cough and shortness of breath; Additional info: Covid TECHNIQUE: Imaging protocol: Radiologic exam of the chest. Views: 1 view. COMPARISON: CR XR chest 1V portable [id number] 10/05/2021 4:11 PM FINDINGS: Lungs: The lungs are clear. Pleural spaces: Unremarkable. No pleural effusion. No pneumothorax. Heart/Mediastinum: The heart is normal in size. A prominent right pericardial fat pad versus is fat containing Bochdalek hernia is again noted. Bones/joints: Unremarkable. XR/XR chest 1V portable [id number] IMPRESSION: No acute cardiopulmonary abnormality.
--- NOTE | 2021-11-15 15:24 | ED_ITS ---
HPI - COVID General: Chief Complaint: COVID symptoms Stated Complaint: fever, weakness, n/v Time Seen by Provider: 11/15/21 15:16 Source: patient Mode of arrival: ambulatory Limitations: no limitations Triage information: Has fever, cough or shortness of breath . No known COVID + exposure last 14 days History of Present Illness: 56-year-old female with a history of active breast cancer presents to the ER today for fever, congestion, cough, body aches, nausea and vomiting x2 days. Patient reports she tested this morning and she is COVID- positive at home. Patient reports she is been unable to keep food down for the last 24 hours. Patient reports she feels very weak and is achy. She has been taking Tylenol every 6 hours at max dose. Patient denies any shortness of breath, just a frequent cough. Patient reports she was recently diagnosed with breast cancer and is awaiting further appointments for treatment plans. COVID Results: SARS-CoV-2 RNA (RT-PCR) Not detected (NOT DETECTED) 12/31/19 1 5:36 Nasal/Oral Coronavirus 2019 PCR Detected H 12/31/20 16:42 Review of Systems General: Reports: 10 or more systems reviewed and unremarkable except in HPI and below PFSH ED PFSH: Medical History Asthma Cervical cancer COVID-19 Endometriosis Fatigue GERD (gastroesophageal reflux disease) High risk medication use Joint pain Pancreatitis Rheumatoid arthritis Surgical History History of appendectomy History of cholecystectomy History of hysterectomy S/P tonsillectomy and adenoidectomy Family History Other Cancer Heart disease Hypertension Social History Smoking and tobacco status: former smoker Second hand smoke exposure: No Smoking risk assessment/counseling performed?: No Alcohol intake: never Desire information about alcohol rehabilitation?: No Counseling given: No Desire information about substance/drug rehabilitation?: No Counseling given: No Adopted: No Lives independently: Yes Housing: House Physical Exam Const: COMMON NORMALS: no acute distress, average body habitus, patient oriented x3, no limitations, alert and well nourished HENMT: COMMON NORMALS: normocephalic, atraumatic, external ears normal and moist oral mucous membranes HEAD & SCALP: normocephalic and atraumatic NOSE: Abnormal mucous membranes and turbinates present erythematous EXTERNAL EAR: Yes external ears normal Eye: COMMON NORMALS: conjunctivae normal CONJUNCTIVA: Yes conjunctivae normal Lymph: LYMPHATIC: no lymphadenopathy noted Resp: COMMON NORMALS: normal respiratory effort, No retractions and clear to auscultation bilaterally EFFORT & INSPECTION: Yes able to speak in complete sentences, No labored and Yes Actively coughing AUSCULTATION: clear to auscultation bilaterally Cardio: COMMON NORMALS: regular rate, regular rhythm and No murmurs present (Cardio) RATE: regular rate RHYTHM: regular rhythm GI: COMMON NORMALS: Normal to inspection, nondistended, normoactive bowel sounds present, Soft to palpation and non-tender PALPATION: Yes Soft to palpation Extremity: COMMON NORMALS: normal to inspection and full ROM Neuro: COMMON NORMALS: patient oriented x3 SENSORIUM/ORIENTATION: Yes alert Psych: COMMON NORMALS: mental status grossly normal, Normal thought process present and cooperative THOUGHT PROCESS: Normal thought process present Skin: COMMON NORMALS: no rashes or lesions noted GENERAL SKIN EXAM: no rashes or lesions noted Course ED course: 56-year-old female presents to the ER today for cough, congestion, sore throat, fever, body aches, nausea and vomiting x2 days. Patient checked herself at home for COVID and was positive this morning. Patient reports her fever has been up to 103 at home. She is taking Tylenol every 6 hours for the fevers. Patient reports she currently has breast cancer and wants concerned given that. She has not started treatments at this time. Patient was told to come to the ER to be checked out. Patient denies any shortness of breath. We will get a CBC, BMP and portable chest x-ray. Will give Zofran for nausea. Reevaluation(s): Reevaluation #1: Pt reports improvement in nausea with the Zofran. She is sitting up in bed and reports feeling better. Time: 16:42 Vital Signs: Vital signs: Vital Signs Temperature 98.5 F 11/15/21 15:06 Pulse Rate 84 11/15/21 15:42 Respiratory Rate 18 11/15/21 15:06 Blood Pressure 151/47 11/15/21 15:42 Pulse Oximetry 98 11/15/21 16:01 Oxygen Delivery Me thod 11/15/21 16:01 MDM - COVID Medical Decision Making 56-year-old female presents to the ER today for cough, congestion, sore throat, fever, body aches, nausea and vomiting x2 days. Patient checked herself at home for COVID and was positive this morning. Patient reports her fever has been up to 103 at home. She is taking Tylenol every 6 hours for the fevers. Patient reports she currently has breast cancer and wants concerned given that. She has not started treatments at this time. Patient was told to come to the ER to be checked out. Patient denies any shortness of breath. We will get a CBC, BMP and portable chest x-ray. Will give Zofran for nausea. Patient's labs are unremarkable. Patient's chest x-ray is normal. Patient reports improvement with the Zofran. She is sitting up in bed and appears much better upon reevaluation. Discussed findings with patient. Recommend patient push fluids. Take Mucinex 1200 mg twice daily. Follow-up with PCP in 3 to 5 days if no improvement. Return to the ER with new or worsening symptoms. Patient verbalized understanding and was in agreement with the treatment plan. Lab Data : 11/15/21 15:50 11/15/21 15:50 Radiology Impressions Chest X-Ray 11/15/21 15:15 IMPRESSION: No acute cardiopulmonary abnormality. Laboratory Results WBC 4.4 10^3/uL (4.0-10.0) 11/15/21 15:50 RBC 4.03 10^6/uL (4.1-5.3) L 11/15/21 15:50 Hgb 12.2 g/dL (11.5-15.3) 11/15/21 15:50 Hct 36.0 % (37.0-47.0) L 11/15/21 15:50 MCV 89.3 fl (81-99) 11/15/21 15:50 MCH 30.3 pg (28.0-34.0) 11/15/21 15:50 MCHC 33.9 g/dL (30.0-36.0) 11/15/21 15:50 RDW 13.5 % (12.1-15.1) 11/15/21 15:50 Plt Count 231 10^3/cmm (130-400) 11/15/21 15:50 MPV 9.1 fL (7.4-10.4) 11/15/21 15:50 Neut % (Auto) 67.9 % 11/15/21 15:50 Lymph % (Auto) 19.5 % 11/15/21 15:50 [place] % (Auto) 12.2 % 11/15/21 15:50 Eos % (Auto) 0.0 % 11/15/21 15:50 Baso % (Auto) 0.2 % 11/15/21 15:50 Neut # (Auto) 2.96 10^3/uL (1.8-7.7) 11/15/21 15:50 Lymph # (Auto) 0.9 10^3/uL (0.8-4.8) 11/15/21 15:50 [place] # (Auto) 0.5 10^3/uL (0.2-0.9) 11/15/21 15:50 Eos # (Auto) 0.0 10^3/uL (0.0-0.8) 11/15/21 15:50 Baso # (Auto) 0.0 10^3/uL (0.0-0.1) 11/15/21 15:50 Nucleated RBC % (auto) 0 % 11/15/21 15:50 Nucleated RBCs # 0.0 /100WBC 11/15/21 15:50 Sodium 137 mmol/L (136-145) 11/15/21 15:50 Potassium 3.5 mmol/L (3.5-5.1) 11/15/21 15:50 Chloride 100 mmol/L (98-107) 11/15/21 15:50 Carbon Dioxide 26 mmol/L (22-29) 11/15/21 15:50 Anion Gap 14.5 (5-19) 11/15/21 15:50 BUN 8 mg/dL (6-20) 11/15/21 15:50 Creatinine 0.8 mg/dL (0.5-0.9) 11/15/21 15:50 GFR Calculation 73.9 mL/min (90-130) L 11/15/21 15:50 Glucose 95 mg/dL (65-115) 11/15/21 15:50 Calculated Osmolality 282 mOsm/kg (285-295) L 11/15/21 15:50 Calcium 8.7 mg/dL (8.5-10.5) 11/15/21 15:50 SARS-CoV-2 RNA (RT-PCR) Not detected (NOT DETECTED) 12/31/19 1 5:36 Nasal/Oral Coronavirus 2019 PCR Detected H 12/31/20 16:42 Critical Care Time Critical Care Time: Critical Care Time: No Discharge Plan Discharge Patient Disposition: Home Clinical Impression: COVID-19 Condition: Stable Prescriptions: New ondansetron HCl 4 mg tablet 4 mg PO Q8H PRN (Reason: nausea and vomiting) 4 Days Qty: 12 0RF No Action prednisone 5 mg tablet 5 mg PO DAILY Qty: 60 0RF diclofenac sodium [Voltaren Arthritis Pain] 1 % gel 4 g topical QID Qty: 100 3RF Rx Instructions: apply to single knee, ankle, foot; for foot includes sole/toes/top of foot citalopram [Celexa] 20 mg tablet 20 mg PO DAILY trazodone 100 mg tablet 100 mg PO BEDTIME Rinvoq 15 mg tablet extended release 24 hr 15 mg PO DAILY Qty: 30 5RF gabapentin 300 mg Capsule 300 mg PO DAILY omeprazole 20 mg Capsule,Delayed Release(Dr/Ec) 20 mg PO DAILY Super B Complex Capsule 1 cap PO DAILY Hair,Nails and Skin Vitamin Tablet 1 tab PO DAILY Ventolin HFA 90 mcg/actuation Hfa Aerosol Inhaler 2 puff INHALATION 6XD PRN (Reason: Shortness Of Breath) Discharge Orders: Discharge ED (Routine); Ordered 11/15/21 Ordered By: Haven Fernandez Referrals: Michael Mahoney DO [Primary Care Provider] - Discharge Diet: Usual diet Discharge Activity: Resume usual activity Patient Instructions: Opioid Safety Activity Restrictions/Additional Instructions: Take Zofran as needed for nausea. Take Mucinex as discussed. Push fluids. Rest recommended. Follow-up with PCP in 3 to 5 days if no improvement. Return to the ER with new or worsening symptoms. Coding Level of Care Code ED Site Acquisition Manager for Phillipg Fwd Exam Comprehensive
[2021-11-15 15:42] VITALS: BP 151/47; PULSE 84; O2SAT 96
[2021-11-15] MEDS: ondansetron 4 MG Tablet PO (15:45)
[2021-11-15 16:01] VITALS: O2SAT 98
[2021-11-15 16:11] LABS: Basophils % 0.2 %; Hemoglobin 12.2 g/dL (11.5-15.3); Lymphocytes # 0.9 10^3/uL (0.8-4.8); Lymphocytes % 19.5 %; Mean Corpuscular HGB Conc 33.9 g/dL (30.0-36.0); Mean Corpuscular Hemoglobin 30.3 pg (28.0-34.0); Mean Corpuscular Volume 89.3 fl (81-99); Mean Platelet Volume 9.1 fL (7.4-10.4); Monocytes # 0.5 10^3/uL (0.2-0.9); Monocytes % 12.2 %; Neutrophils # 2.96 10^3/uL (1.8-7.7); Neutrophils % 67.9 %; Nucleated Red Blood Cells % 0 %; Platelet Count 231 10^3/cmm (130-400); Red Blood Count 4.03 10^6/uL (4.1-5.3); Red Cell Distribution Width 13.5 % (12.1-15.1); White Blood Count 4.4 10^3/uL (4.0-10.0)
[2021-11-15 16:30] LABS: Anion Gap 14.5 (5-19); Blood Urea Nitrogen 8 mg/dL (6-20); Calcium 8.7 mg/dL (8.5-10.5); Carbon Dioxide 26 mmol/L (22-29); Chloride 100 mmol/L (98-107); Glomerular Filtration Rate 73.9 mL/min (90-130); Glucose 95 mg/dL (65-115); Osmolality Calculated 282 mOsm/kg (285-295); Potassium 3.5 mmol/L (3.5-5.1); Sodium 137 mmol/L (136-145)
[2021-11-15 17:12] VITALS: BP 126/36; PULSE 71; O2SAT 95
== END 2021-11-15 17:23 | disposition home or self-care (01) ==
PROVIDERS: Emergency Provider Physician Assistant; PCP Electrodiagnostic Medicine
DX: U07.1 COVID-19 (principal); Z85.41 Personal history of malignant neoplasm of cervix uteri; Z87.891 Personal history of nicotine dependence
CPT/HCPCS: 71045; 80048; 85025; 99284; Q0162

== ENCOUNTER 2022-01-06 12:27 | Emergency (ER) | payer BC, SELFPAY ==
[2022-01-06] VITALS (7 sets, daily range): BP systolic 98–132; BP diastolic 61–88; PULSE 78–118; RESP 14–18; TEMP 37.4; O2SAT 94–98; BMI 35.5
[2022-01-06 14:06] LABS: Basophils # 0.1 10^3/uL (0.0-0.1); Basophils % 0.3 %; Hematocrit 37.8 % (37.0-47.0); Hemoglobin 12.8 g/dL (11.5-15.3); Lymphocytes # 1.4 10^3/uL (0.8-4.8); Lymphocytes % 4.4 %; Mean Corpuscular HGB Conc 33.9 g/dL (30.0-36.0); Mean Corpuscular Hemoglobin 30.3 pg (28.0-34.0); Mean Corpuscular Volume 89.6 fl (81-99); Mean Platelet Volume 8.8 fL (7.4-10.4); Monocytes % 6.5 %; Neutrophils # 27.51 10^3/uL (1.8-7.7); Neutrophils % 87.8 %; Nucleated Red Blood Cells % 0 %; Platelet Count 389 10^3/cmm (130-400); Red Blood Count 4.22 10^6/uL (4.1-5.3); Red Cell Distribution Width 13.9 % (12.1-15.1)
[2022-01-06 14:15] LABS: White Blood Count 31.3 10^3/uL (4.0-10.0)
[2022-01-06 14:23] LABS: Alanine Aminotransferase 16 U/L (0-33); Alkaline Phosphatase 87 U/L (35-105); Anion Gap 17.6 (5-19); Aspartate Amino Transferase 15 U/L (0-32); Blood Urea Nitrogen 9 mg/dL (6-20); Calcium 9.5 mg/dL (8.5-10.5); Carbon Dioxide 23 mmol/L (22-29); Chloride 97 mmol/L (98-107); Globulin 3.6 g/dL (1.3-4.6); Glomerular Filtration Rate 73.9 mL/min (90-130); Glucose 128 mg/dL (65-115); Lipase 15 U/L (13-60); Osmolality Calculated 278 mOsm/kg (285-295); Potassium 3.6 mmol/L (3.5-5.1); Sodium 134 mmol/L (136-145); Total Bilirubin 0.8 mg/dL (0.15-1.2); Total Protein 7.6 g/dL (6.6-8.7)
[2022-01-06] MEDS: lactated ringers 1,000 ML 999 ML IV (14:43)
[2022-01-06] MEDS: ondansetron 2 mg/ML SDV 2 mL 4 MG IVP ×2 (14:44→21:50)
--- NOTE | 2022-01-06 15:21 | CT_ITS ---
WS: [id number] CT ABDOMEN PELVIS TECHNIQUE: Noncontrast CT of the abdomen and pelvis with coronal and sagittal reformatted images. CLINICAL INFORMATION: pain and vomiting with leukocytosis COMPARISON: CT abdomen pelvis and 5 . CTA January 19, 2021 DLP: 1151.[address] scans at [facility] use at least one of these dose optimization techniques: automated e xposure control; mA and/or kV adjustment per patient size (includes targeted exams where dose is matc hed to clinical indication); or iterative reconstruction. FINDINGS: Lung bases are well aerated. Partially visualized changes bilateral mastectomy with indurat ion in the lower chest wall partially visualized LEFT greater than RIGHT. Fluid in the LEFT lower ju[address] st wall laterally measuring 6.8 x 3.2 cm likely postoperative seroma. Partially visualized drains. Noncontrast liver is normal. Cholecystectomy clips. Noncontrast spleen is normal. Small esophageal hi atal hernia. Stomach and duodenum are decompressed. Noncontrast pancreas is normal. Mild fatty atroph y of the pancreas. Adrenal glands are normal. No hydronephrosis in either kidney. No obstructing marisel l or ureteral calculi. Normal caliber abdominal aorta. Aortic calcification. Sigmoid diverticulosis. No evidence of acute diverticulitis. [id number] c ecal and transverse colon constipation. Urine distended bladder. Fat-containing umbilical hernia. No herniated bowel. Disc space narrowing L5-S1. Prior postoperative cholecystectomy and hysterectomy. Prior appendectomy. CT/CT abdomen pelvis wo con [id number] IMPRESSION: 1. Partially visualized postoperative changes with air and fluid due to recent reported bilateral mastectomy in the lower chest wall described above. This ca n be further evaluated chest CT if clinical concern for infection. 2. Sigmoid diverticulosis. No evidence of acute diverticulitis. 3. Mild to moderate RIGHT cecal and transverse colon constipation. No evidence of high-grade obstruction. 4. Small esophageal hiatal hernia. 5. No hydronephrosis in either kidney. No obstructing renal or ureteral calcul i. 6. Prior cholecystectomy hysterectomy and appendectomy. 7. No acute abdominal or pelvic findings.
--- NOTE | 2022-01-06 15:23 | ED_ITS ---
HPI - Abdominal Pain General: Chief Complaint: Abdominal Pain Stated Complaint: Abd pain Time Seen by Provider: 01/06/22 14:18 Source: patient and family Mode of arrival: ambulatory Limitations: no limitations History of Present Illness: This patient presents to emergency department because of symptoms of malaise and not feeling well for the last 2 to 3 days. She states that she has had a couple of episodes of emesis and as a result she has upper abdominal discomfort. She has had some low-grade fevers as well. She denies cough, diarrhea, dysuria, other potential sources of of infection. No known exposure to infectious disease. She is status post bilateral mastectomy that was performed in [place] earlier in December. Context: recent surgery/procedure Associated Symptoms: Reports fever(s) and vomiting; Denies diarrhea, dysuria, hematochezia and melena Review of Systems Const: Reports: fever(s) and body aches Eyes: Denies: change in vision ENMT: Denies: throat pain, odynophagia, nasal discharge or nasal congestion Card: Denies: chest pain, palpitations, irregular heart rhythm or edema Resp: Denies: dyspnea, productive cough or non-productive cough GI: Reports: abdominal pain and vomiting; Denies: diarrhea, hematochezia or melena : Denies: flank pain, difficulty voiding, dysuria or urinary frequency Musc: Denies: neck pain, back pain, extremity pain or extremity swelling Skin/Breast: Reports: erythema; Denies: rash Neuro: Denies: headache(s), numbness in extremities or weakness in extremities Endo: Denies: polyuria or polydipsia Leland/Lymph: Denies: easy bruising PFSH ED PFSH: Medical History Asthma Cervical cancer COVID-19 Endometriosis Fatigue GERD (gastroesophageal reflux disease) High risk medication use Invasive ductal carcinoma of left breast Joint pain Pancreatitis Rheumatoid arthritis Surgical History History of appendectomy History of cholecystectomy History of hysterectomy History of mastectomy Bilateral December, S/P tonsillectomy and adenoidectomy Family History Other Cancer Heart disease Hypertension Social History Smoking and tobacco status: former smoker (smoked x 15 years) Second hand smoke exposure: No Smoking risk assessment/counseling performed?: No Alcohol intake: never Desire information about alcohol rehabilitation?: No Counseling given: No Desire information about substance/drug rehabilitation?: No Counseling given: No Adopted: No Lives independently: Yes Housing: House Physical Exam Narrative: EXAM NARRATIVE: Patient is alert and cooperative and in no acute distress. Const: COMMON NORMALS: no acute distress and patient oriented x3 GENERAL APPEARANCE: cooperative and comfortable NUTRITIONAL APPEARANCE: overweight HENMT: COMMON NORMALS: Normal nasal mucous membranes and turbinates present, moist oral mucous membranes and oropharynx normal FACE & SINUS: normal facial exam NOSE: Normal nasal mucous membranes and turbinates present Eye: COMMON NORMALS: Equal, round and reactive pupils present, EOMs intact bilaterally and conjunctivae normal CONJUNCTIVA: Yes conjunctivae normal PUPIL: Yes Equal, round and reactive pupils present Neck/C-Spine: COMMON NORMALS: full ROM, no lymphadenopathy, Thyroid normal and No carotid bruits THYROID: Thyroid normal Lymph: LYMPHATIC: no lymphadenopathy noted Chest: OTHER: Postsurgical changes noted bilateral chest with wound drains noted. Resp: COMMON NORMALS: normal respiratory effort, No use of accessory muscles and clear to auscultation bilaterally AUSCULTATION: clear to auscultation bilaterally Cardio: COMMON NORMALS: regular rate, regular rhythm, No murmurs present (Cardio) and Peripheral pulses 2+ throughout RATE: regular rate RHYTHM: regular rhythm PERIPHERAL PULSES: Peripheral pulses 2+ throughout GI: COMMON NORMALS: Normal to inspection, nondistended, normoactive bowel sounds present and Soft to palpation PALPATION: Yes Soft to palpation OTHER: She has mild upper abdominal and epigastric tenderness. No rebound, guarding no peritoneal signs. : COMMON NORMALS: Yes no CVA tenderness BLADDER/KIDNEY EXAM: Yes no CVA tenderness Back/Pelvis: COMMON NORMALS: no CVA tenderness, thoracic and lumbar spine normal to inspection and no thoracic nor lumbar tenderness Extremity: COMMON NORMALS: normal to inspection, full ROM, capillary refill normal, no calf tenderness and no pedal edema Neuro: COMMON NORMALS: patient oriented x3, moves all extremities, no focal motor deficits and no sensory deficits noted CRANIAL NERVES: Yes CN normal except as noted SPEECH: speech normal Psych: COMMON NORMALS: mental status grossly normal Skin: COMMON NORMALS: turgor normal, no jaundice and no petechiae GENERAL SKIN EXAM: turgor normal Course Reevaluation(s): Reevaluation #1: I am concerned about this patient's leukocytosis. She does give a history of fever but no fever documented on triage today. Her CT scan is unrevealing for any intra-abdominal issues however they do comment on fluid collections in her mastectomy areas. Her mastectomy was done early in December in [facility]. She does relate that she has had change in the drainage from her wound vacs and it is now become milky. We will go ahead and get a lactate, empiric dose of antibiotics followed by ultrasound of her wounds. Time: 18:02 Reevaluation #2: Ultrasound reveals evidence of fluid collection which is external to her tissue expanders this combined with her clinical presentation suggest postoperative infection. She was given IV antibiotics as well as additional IV fluids. No evidence of overwhelming infection or sepsis at this time however she has a significant leukocytosis. Her surgeon was consulted in [place] and they agreed to accept her in transfer for additional treatment. [employer] paperwork was completed stable for transfer. Time: 21:46 Consultations: Consultation #1: Discussed findings with Dr. Alan sanchez who recommends contacting her surgeon of record to discuss their treatment recommendations given that this is a postsurgical complication. Time: 21:21 Consultation #2: Discussed with [place] surgical team talked with Dr. Redmond who will accept the patient in transfer. Time: 21:36 Vital Signs: Vital signs: Vital Signs Temperature 99.4 F 01/06/22 12:42 Pulse Rate 78 01/06/22 18:32 Respiratory Rate 16 01/06/22 18:49 Blood Pressure 122/71 01/06/22 18:32 Pulse Oximetry 98 01/06/22 18:49 Oxygen Delivery Me thod 01/06/22 16:23 MDM - Abdominal Pain Medical Decision Making This patient presented to the emergency department with some general symptoms of of malaise and ill feeling over the last 2 to 3 days. She also complained of some abdominal discomfort. Her work-up failed to reveal any significant intra- abdominal pathology at this time howeverShe did have findings on her CT that suggested postoperative wound fluid collection. Ultrasound was used to further elucidate these findings and they found evidence of fluid collection around her tissue expanders. She also had a significant leukocytosis but did not have an elevated lactate and otherwise hemodynamically stable. Our general surgery department was consulted and they recommended transferring to the surgeon of record. I discussed with her surgery team at [place] and we will plan on transferring her to [place] for further care. Lab Data : 01/06/22 13:41 01/06/22 13:41 Labs/Radiology: Radiology Impressions Abdomen/Pelvis CT 01/06/22 15:21 IMPRESSION: 1. Partially visualized postoperative changes with air and fluid due to recent reported bilateral mastectomy in the lower chest wall described above. This can be further evaluated chest CT if clinical concern for infection. 2. Sigmoid diverticulosis. No evidence of acute diverticulitis. 3. Mild to moderate RIGHT cecal and transverse colon constipation. No evidence of high-grade obstruction. 4. Small esophageal hiatal hernia. 5. No hydronephrosis in either kidney. No obstructing renal or ureteral calculi. 6. Prior cholecystectomy hysterectomy and appendectomy. 7. No acute abdominal or pelvic findings. Chest Ultrasound 01/06/22 18:03 IMPRESSION: 1. Right breast surgical spacer seen with a 4.2 x 1.7 x 4.1 cm fluid collection superior to the spacer, perhaps reflecting an infected fluid collection. 2. Left breast surgical spacer seen with a 3.4 x 3 x 1.6 cm fluid collection seen near the left axilla lateral to the spacer, perhaps reflecting an infected fluid collection. Laboratory Results WBC 31.3 10^3/uL (4.0-10.0) H* 01/06/22 13:41 RBC 4.22 10^6/uL (4.1-5.3) 01/06/22 13:41 Hgb 12.8 g/dL (11.5-15.3) 01/06/22 13:41 Hct 37.8 % (37.0-47.0) 01/06/22 13:41 MCV 89.6 fl (81-99) 01/06/22 13:41 MCH 30.3 pg (28.0-34.0) 01/06/22 13:41 MCHC 33.9 g/dL (30.0-36.0) 01/06/22 13:41 RDW 13.9 % (12.1-15.1) 01/06/22 13:41 Plt Count 389 10^3/cmm (130-400) 01/06/22 13:41 MPV 8.8 fL (7.4-10.4) 01/06/22 13:41 Neut % (Auto) 87.8 % 01/06/22 13:41 Lymph % (Auto) 4.4 % 01/06/22 13:41 [place] % (Auto) 6.5 % 01/06/22 13:41 Eos % (Auto) 0.0 % 01/06/22 13:41 Baso % (Auto) 0.3 % 01/06/22 13:41 Neut # (Auto) 27.51 10^3/uL (1.8-7.7) H 01/06/22 13:41 Lymph # (Auto) 1.4 10^3/uL (0.8-4.8) 01/06/22 13:41 [place] # (Auto) 2.0 10^3/uL (0.2-0.9) H 01/06/22 13:41 Eos # (Auto) 0.0 10^3/uL (0.0-0.8) 01/06/22 13:41 Baso # (Auto) 0.1 10^3/uL (0.0-0.1) 01/06/22 13:41 Nucleated RBC % (auto) 0 % 01/06/22 13:41 Nucleated RBCs # 0.0 /100WBC 01/06/22 13:41 Sodium 134 mmol/L (136-145) L 01/06/22 13:41 Potassium 3.6 mmol/L (3.5-5.1) 01/06/22 13:41 Chloride 97 mmol/L (98-107) L 01/06/22 13:41 Carbon Dioxide 23 mmol/L (22-29) 01/06/22 13:41 Anion Gap 17.6 (5-19) 01/06/22 13:41 BUN 9 mg/dL (6-20) 01/06/22 13:41 Creatinine 0.8 mg/dL (0.5-0.9) 01/06/22 13:41 GFR Calculation 73.9 mL/min (90-130) L 01/06/22 13:41 Glucose 128 mg/dL (65-115) H 01/06/22 13:41 Calculated Osmolality 278 mOsm/kg (285-295) L 01/06/22 13:41 Lactate 1.6 mmol/L (0.5-2.2) 01/06/22 18:29 Calcium 9.5 mg/dL (8.5-10.5) 01/06/22 13:41 Total Bilirubin 0.8 mg/dL (0.15-1.2) 01/06/22 13:41 AST 15 U/L (0-32) 01/06/22 13:41 ALT 16 U/L (0-33) 01/06/22 13:41 Alkaline Phosphatase 87 U/L (35-105) 01/06/22 13:41 Total Protein 7.6 g/dL (6.6-8.7) 01/06/22 13:41 Albumin 4.0 g/dL (3.5-5.2) 01/06/22 13:41 Globulin 3.6 g/dL (1.3-4.6) 01/06/22 13:41 Lipase 15 U/L (13-60) 01/06/22 13:41 Urine Color Straw (Yellow) 01/06/22 16:53 Urine Appearance Clear (CLEAR) 01/06/22 16:53 Urine pH 5 (5-7) 01/06/22 16:53 Ur Specific Commerce 1.010 (1.005-1.030) 01/06/22 16:53 Urine Protein Neg (Negative) 01/06/22 16:53 Urine Glucose (UA) Norm (Normal) 01/06/22 16:53 Urine Ketones Negative (Negative) 01/06/22 16:53 Urine Blood 2+ (Negative) H 01/06/22 16:53 Urine Nitrate Negative (Negative) 01/06/22 16:53 Urine Bilirubin Neg (Negative) 01/06/22 16:53 Urine Urobilinogen Norm mg/dL (Negative) 01/06/22 16:53 Ur Leukocyte Esterase Negative (Negative) 01/06/22 16:53 Urine RBC 0-4 /hpf (0-2) H 01/06/22 16:53 Urine WBC 0-4 /hpf (0-5) H 01/06/22 16:53 Ur Squamous Epith Cells 0-4 /hpf (0-5) H 01/06/22 16:53 Amorphous Sediment Not Reportable 01/06/22 16:53 Urine Bacteria 1+ /hpf (NONE) H 01/06/22 16:53 Discharge Plan Discharge Patient Disposition: Xfer Short-Term Hosp Clinical Impression: Postoperative infection of breast incision Condition: Stable Prescriptions: No Action diclofenac sodium [Voltaren Arthritis Pain] 1 % gel 4 g topical QID Qty: 100 3RF Rx Instructions: apply to single knee, ankle, foot; for foot includes sole/toes/top of foot citalopram [Celexa] 20 mg tablet 20 mg PO DAILY trazodone 100 mg tablet 100 mg PO BEDTIME Hair,Skin and Nails Tablet 1 tab PO DAILY Rinvoq 15 mg tablet extended release 24 hr 15 mg PO DAILY Qty: 30 5RF gabapentin 300 mg Capsule 300 mg PO DAILY omeprazole 20 mg Capsule,Delayed Release(Dr/Ec) 20 mg PO DAILY Super B Complex Capsule 1 cap PO DAILY Hair,Nails and Skin Vitamin Tablet 1 tab PO DAILY Ventolin HFA 90 mcg/actuation Hfa Aerosol Inhaler 2 puff INHALATION 6XD PRN (Reason: Shortness Of Breath) Referrals: Michael Mahoney DO [Primary Care Provider] - Coding Level of Care Code ED Actuary Manager for Magy Majano
[2022-01-06] MEDS: morphine 4 mg/mL SDV 1 mL IVP ×3 (15:43→21:50)
[2022-01-06 17:22] LABS: Add Urine Microscopic? YES; Bilirubin Urine Neg (Negative); Blood Urine 2+ (Negative); Glucose Urine UA Norm (Normal); Ketones Urine Negative (Negative); Leukocyte Esterase Urine Negative (Negative); Nitrate Urine Negative (Negative); Protein Urine Neg (Negative); RBC Urine 0-4 /hpf (0-2); Squamous Epithelial Cell Urine 0-4 /hpf (0-5); Urine Appearance Clear (CLEAR); Urine Color Straw (Yellow); Urobilinogen Urine Norm (Negative); WBC Urine 0-4 /hpf (0-5); pH Urine 5 (5-7)
[2022-01-06 17:23] LABS: Add Urine Culture? No; Bacteria Urine 1+ /hpf
--- NOTE | 2022-01-06 18:03 | USR_ITS ---
PROCEDURE INFORMATION: Exam: US Chest, Soft Tissue Exam date and time: 01/06/2022 8:27 PM Age: 56 years old Clinical indication: Other: Painful mastectomy sites; Other: Febrile , elevated wbc, n+v; Prior surgery; Surgery date: <1 month; Surgery type: Patient had bilateral mastectomies dec 23, 2021 C/O invasive ductal CA. Now she is febrile, elevated wbc, n+v. ; Additional info: S/P mastectomy, looking for abscess TECHNIQUE: Imaging protocol: Real time ultrasound of the chest was performed with image documentation. Exam focused on the soft tissue. COMPARISON: CT angio chest w abd pel w con 01/19/2021 9:57 AM FINDINGS: Soft tissues: Right breast surgical spacer seen with a 4.2 x 1.7 x 4.1 cm fluid collection superior to the spacer, perhaps reflecting an infected fluid collection. Left breast surgical spacer seen with a 3.4 x 3 x 1.6 cm fluid collection seen near the left axilla lateral to the spacer, perhaps reflecting an infected fluid collection. US/US chest [id number] IMPRESSION: 1. Right breast surgical spacer seen with a 4.2 x 1.7 x 4.1 cm fluid collection superior to the spacer, perhaps reflecting an infected fluid collection. 2. Left breast surgical spacer seen with a 3.4 x 3 x 1.6 cm fluid collection seen near the left axilla lateral to the spacer, perhaps reflecting an infected fluid collection.
[2022-01-06] MEDS: piperacillin-tazobactam 3.375 GM in sodium chloride 0.9% (plus) 50 ML IV (18:11)
[2022-01-06 19:00] LABS: Lactate (Lactic Acid level) 1.6 mmol/L (0.5-2.2)
[2022-01-07 00:52] VITALS: BP 113/69; PULSE 89; RESP 16; O2SAT 98
== END 2022-01-07 00:53 | disposition short-term general hospital (02) ==
PROVIDERS: Family Medicine; Emergency Provider Emergency Medicine; PCP Electrodiagnostic Medicine
DX: T81.41XA Infection following a procedure, superficial incisional surgical site, initial encounter (principal); Z85.41 Personal history of malignant neoplasm of cervix uteri; Z87.891 Personal history of nicotine dependence
CPT/HCPCS: 36415; 74176; 76604; 80053; 81001; 83605; 83690; 85025; 96365; 96375; 96376; 99285; J2270; J2405; J2543

== ENCOUNTER 2022-02-04 12:00 | Oncology outpatient (recurring) (ONCR) | payer BC, MEDICAID, SELFPAY ==
[2022-02-04 12:46] LABS: Basophils # 0.1 10^3/uL (0.0-0.1); Basophils % 0.7 %; Eosinophils # 0.5 10^3/uL (0.0-0.8); Eosinophils % 5.5 %; Hematocrit 38.7 % (37.0-47.0); Hemoglobin 12.7 g/dL (11.5-15.3); Lymphocytes # 1.9 10^3/uL (0.8-4.8); Lymphocytes % 22.8 %; Mean Corpuscular HGB Conc 32.8 g/dL (30.0-36.0); Mean Corpuscular Hemoglobin 29.3 pg (28.0-34.0); Mean Corpuscular Volume 89.4 fl (81-99); Mean Platelet Volume 9.1 fL (7.4-10.4); Monocytes # 0.6 10^3/uL (0.2-0.9); Monocytes % 7.6 %; Neutrophils # 5.26 10^3/uL (1.8-7.7); Neutrophils % 63.2 %; Nucleated Red Blood Cells % 0 %; Platelet Count 310 10^3/cmm (130-400); Red Blood Count 4.33 10^6/uL (4.1-5.3); Red Cell Distribution Width 13.8 % (12.1-15.1); White Blood Count 8.3 10^3/uL (4.0-10.0)
[2022-02-04 13:01] LABS: Alanine Aminotransferase 23 U/L (0-33); Albumin Level 4.2 g/dL (3.5-5.2); Alkaline Phosphatase 92 U/L (35-105); Aspartate Amino Transferase 22 U/L (0-32); Blood Urea Nitrogen 9 mg/dL (6-20); Calcium 9.4 mg/dL (8.5-10.5); Carbon Dioxide 24 mmol/L (22-29); Chloride 101 mmol/L (98-107); Globulin 2.6 g/dL (1.3-4.6); Glomerular Filtration Rate 102.7 mL/min (90-130); Glucose 90 mg/dL (65-115); Osmolality Calculated 282 mOsm/kg (285-295); Sodium 137 mmol/L (136-145); Total Bilirubin 0.2 mg/dL (0.15-1.2); Total Protein 6.8 g/dL (6.6-8.7)
[2022-02-04 13:03] LABS: Anion Gap 16.3 (5-19); Potassium 4.3 mmol/L (3.5-5.1)
== END 2022-02-15 23:59 | disposition home or self-care (01) ==
PROVIDERS: PCP Electrodiagnostic Medicine; Visit Provider Internal Medicine Hematology & Oncology
DX: C50.919 Malignant neoplasm of unspecified site of unspecified female breast (principal)
CPT/HCPCS: 36415; 80053; 85025

== ENCOUNTER 2022-02-23 08:50 | Day surgery (SDC) | payer BC, SELFPAY ==
[2022-02-22 12:11] VITALS: BMI 39.5
[2022-02-23] VITALS (10 sets, daily range): BP systolic 125–158; BP diastolic 83–93; PULSE 71–82; RESP 12–19; TEMP 36.4–36.5; O2SAT 97–100
--- NOTE | 2022-02-23 | SCC_ITS ---
Procedure done: 1. Placement of right subclavian vein PowerPort 2. Fluoroscopic guidance and interpretation for placement of catheter 22 seconds of fluoroscopic guidance, for a cumulative dose of 6.5 mGy, was provided to Dr. Corona by the radiology department. C-arm images of the chest were saved for the patient's permanent record. [facility]
--- NOTE | 2022-02-23 08:52 | SC_ITS ---
WS: [id number] C-arm fluoroscopy for right Port-A-Cath insertion, 02/23/2022 Clinical Data: Powerport Placement Comparison: Portable chest, 11/15/2021. Findings: The right Port-A-Cath has been inserted and ends in the superior vena cava. SC/C-arm FL for CVA [id number] Impression: Insertion right Port-A-Cath.
[2022-02-23] MEDS: sodium chloride 0.9% 1,000 ML 30 ML IV (09:35)
--- NOTE | 2022-02-23 09:54 | W.PM.OPSUD ---
Surgery/Procedure H&P Update DATE OF PROCEDURE: February 23, 2022 DATE H&P PERFORMED: 02/17/22 H&P UPDATE INFORMATION: I have reviewed H&P completed within last 30 days, I have examined patient prior to procedure and No changes to prior documentation PREOP DIAGNOSIS: Left breast cancer PRIMARY INDICATION FOR PROCEDURE: The same PLANNED PROCEDURE: Operation Date: 02/23/22 10:30 Proposed Procedures p Portacath Placement 86229,50.912(Not Applicable) - Christopher Corona MD
--- NOTE | 2022-02-23 09:56 | ANES.PREANE2 ---
Pre-Anesthetic Assessment Height/Weight: Height 1.68 m Weight 111.13 kg Temp Pulse Resp BP Pulse Ox O2 Del Method 97.6 F 79 18 134/84 98 02/23/22 09:01 02/23/22 09:01 02/23/22 09:01 02/23/22 09:01 02/23/22 09:01 02/23/22 09:05 Preop Diagnosis: Left breast cancer Operation Date: 02/23/22 10:30 Proposed Procedures p Portacath Placement 14213,50.912(Not Applicable) - Christopher Corona MD Last intake: Intake Last Liquid Date 02/22/22 Last Liquid Time 19:30 Last Solid Date 02/22/22 Last Solid Time 17:30 Social No alcohol and No tobacco former smoker Exam alert, oriented x 3, clear to auscultation bilaterally and regular rate & rhythm Airway Submandibular: within normal limits Cervical ROM: within normal limits Mallampati: Class II History/ROS No significant history except as noted and No significant complaints Pulmonary Asthma CV/HEM None reported None reported Hepatic None reported GI Gastroesophageal Reflux Disease Metabolic Morbid Obesity [facility] Rheumatoid Arthritis Neuropsych None reported Anesthetic Plan ASA status: 3 Anesthesia: Anesthesia Evaluation, Eval. for regional block, General and MAC Risk of > 500 ml blood loss (7ml/kg in children): Yes, adequate IV access and fluids planned Medications/Allergies Home Medications Medication Instructions Recorded Confirmed Last Taken Type citalopram 20 mg tablet (Celexa) 20 mg PO DAILY 07/17/19 02/22/22 10/05/21 History trazodone 100 mg tablet 100 mg PO BEDTIME 07/17/19 02/23/22 02/22/22 History gabapentin 300 mg capsule 300 mg PO DAILY 01/19/21 02/23/22 02/22/22 History diclofenac sodium 1 % topical gel 4 g topical QID #100 grams 05/29/21 02/23/22 02/15/22 Rx (Voltaren Arthritis Pain) albuterol sulfate 90 mcg/actuation 2 puff inhalation 6XD PRN 10/05/21 02/23/22 02/23/22 06:30 History aerosol inhaler (Ventolin HFA) Shortness Of Breath multivitamin 1 tab PO DAILY 10/05/21 02/23/22 02/22/22 History omeprazole 20 mg capsule,delayed 20 mg PO DAILY 10/05/21 02/23/22 02/22/22 History release vitamin B complex 1 cap PO DAILY 10/05/21 02/23/22 02/22/22 History Allergies Allergy/AdvReac Type Severity Reaction Status Date / Time meperidine [From Demerol] Allergy Unknown Unknown Verified 02/23/22 08:58 nalbuphine [From Nubain] Allergy Unknown Verified 02/23/22 08:58 Sulfa (Sulfonamide Allergy Unknown Verified 02/23/22 08:58 Antibiotics) tetracycline Allergy Unknown Verified 02/23/22 08:58 tramadol Allergy Unknown Verified 02/23/22 08:58 dexamethasone AdvReac Severe gastritis Verified 02/23/22 08:58 Current Medications Generic Name Dose Route Start Last Admin Trade Name Freq PRN Reason Stop Dose Admin Sodium Chloride 1,000 mls @ 30 mls/hr 02/23/22 09:00 02/23/22 09:35 Sodium Chloride 0.9% IV 02/24/22 08:59 30 mls/hr .Q24H FIONA Administration PFSH Anesthesia Medical History Asthma Cervical cancer COVID-19 Endometriosis Fatigue GERD (gastroesophageal reflux disease) High risk medication use Invasive ductal carcinoma of left breast Joint pain Pancreatitis Rheumatoid arthritis Surgical History History of appendectomy History of cholecystectomy History of hysterectomy History of mastectomy Bilateral December, S/P tonsillectomy and adenoidectomy Family History Other Cancer Heart disease Hypertension Social History Smoking and tobacco status: former smoker (smoked x 15 years) Second hand smoke exposure: No Smoking risk assessment/counseling performed?: No Alcohol intake: never Desire information about alcohol rehabilitation?: No Counseling given: No Desire information about substance/drug rehabilitation?: No Counseling given: No Adopted: No Lives independently: Yes Housing: House Data Anesthesia Cardiac Studies: No Data to Display
[2022-02-23] MEDS: ceFAZolin 2,000 MG in sodium chloride 0.9% (plus) 50 ML 100 MG IV (10:01)
[2022-02-23] MEDS: heparin, porcine 1,000 unit/mL INJ 10 mL 10000 UNIT INJECTION (10:23)
[2022-02-23] MEDS: lidocaine 2% INJ 20 mL INJECTION (10:27)
--- NOTE | 2022-02-23 10:42 | P.OP_ITS ---
Operative Report Date of procedure: February 23, 2022 Pre-op diagnosis: Preop Diagnosis Left breast cancer Post-op diagnosis: The same Procedure done: 1. Placement of right subclavian vein PowerPort 2. Fluoroscopic guidance and interpretation for placement of catheter Implants: Right subclavian vein PowerPort Surgeon: Christopher Corona MD Form Setter [employer] Forms: Karel Horn Circulating nurse Pennie Anesthesia: MAC (SEAFOOD MANAGER. Page) Estimated blood loss (mL): 5 Procedure: RIGHT SUBCLAVIAN VEIN Patient was identified in the holding area and taken to the operative room and placed in supine position IV propofol was given by the anesthesia provider ,both arms were tucked,Time-out was done verifying the patient's name/date of /planned procedure and destination after the procedure, all were in agreement. SCDs confirmed to be functioning, preoperative antibiotics administered per protocol, and beta jose angel protocol was confirmed, appropriate positioning of the patient was done by me. Medications were reviewed to assess for anticoagulant usage. Risks and benefits and prevention of central line associated blood stream infection (CLABSI) were discussed with the patient/CPOA, and a consent was obtained. Monitors were in place and monitored throughout the procedure. All necessary supplies were available prior to start. Hand hygiene was completed prior to starting. Maximum barrier technique was utilized including a sterile gown, sterile gloves with a hat and mask. Site was was prepped with [chlorhexidine] and a full body drape was placed. 5 mL of 2% lidocaine was injected into the skin with a 25 gauge needle. Prep& drape was done under the usual sterile technique, lidocaine 2% was injected at the site of the stick, started by right sub-clavian vein stick that retrieved venous blood was obtained from the first stick, a guide wire was then threaded and under the guidance of fluoroscopy position was confirmed to be in the IVC and my interpretation, there were no PVC changes, at that point the gu larisa wire was secured to the drapes with a hemostat and the needle was taken out, attention was then deviated towards creation of a pocket for the port were lidocaine 2% was injected using an 15 blade knife skin incision was created dissection using the Bovie to create a pocket for the Power Port to be accommodated. Hemostasis was secured, after the port being appropriately flushed it was inserted into the pocket and a tunneler was used to accommodate the catheter of the port catheter to be delivered through the incision first created at the site of the stick, at that point under fluoroscopy an estimated length was measured for the catheter and was cut at the designed level, followed by that a dilator with the sheath introduced onto the guide wire the dilator and the wire were retrieved and the catheter of the port was introduced via the sheath where it was peeled off and the catheter maintained to be in the SVC that was confirmed with fluoroscopy, and the fluoroscopy interpretation was done by me throughout the entire procedure. The port was kept in its pocket,3-0 Vicryl deep subdermal interrupted sutures, skin was then closed by 4-0 Monocryl as subcuticular closure.The port was appropriately flushed with heparin and venous blood was withdrawn without difficulty.The stick site was closed by 4-0 Monocryl and Dermabond was used followed by dressing.Count was correct at the end of the procedure.Patient tolerated the procedure well was taken to the recovery area. I was present for the whole entire procedure. Position of the catheter was checked with a postoperative chest x-ray and it was in good position without evidence of pneumothorax.
--- NOTE | 2022-02-23 10:44 | XRR_ITS ---
PROCEDURE INFORMATION: Exam: XR Chest Exam date and time: 02/23/2022 11:03 AM Age: 57 years old Clinical indication: Device placement; Other: Right subclavian vein powerport; Prior surgery; Surgery date: Post-operative (0-2 days); Additional info: Status postplacement of right subclavian vein powerport TECHNIQUE: Imaging protocol: Radiologic exam of the chest. Views: 1 view. COMPARISON: CR (CHEST, ) 11/15/2021 3:24 PM FINDINGS: Tubes, catheters and devices: There is a right subclavian port present with the catheter tip in the superior vena cava. Lungs: No pneumonia or pulmonary edema. Pleural spaces: No pleural effusion or pneumothorax. Heart/Mediastinum: The cardiac silhouette is not enlarged. The mediastinal contours are normal. Bones/joints: There is diffuse idiopathic skeletal hyperostosis. Soft tissues: Prior right breast surgery. Bilateral epicardial fat pads, larger on the right. XR/XR chest 1V portable [id number] IMPRESSION: 1. Port catheter tip in the superior vena cava. 2. No pneumothorax.
[2022-02-23] MEDS: fentaNYL 50 mcg/mL INJ 2mL IVP (11:10)
[2022-02-23] MEDS: HYDROcodone-acetaminophen 5-325 mg Tablet 1 TAB PO (11:49)
--- NOTE | 2022-02-23 15:30 | ANE.PACU2 ---
Inpatient post-anesthesia follow up: Airway intact: Yes Vital signs: Temperature 97.7 F Pulse Rate 73 Respiratory Rate 18 Blood Pressure 125/83 Pulse Oximetry 98 Oxygen Delivery Me thod Room Air Oxygen Flow Rate Fraction of Inspir ed Oxygen Hydration adequate: Yes Nausea and vomiting: No Pain level: 1 Mental status: Baseline
== END 2022-02-23 12:12 | disposition home or self-care (01) ==
PROVIDERS: PCP Electrodiagnostic Medicine; Visit Provider Surgery
PROC: (CPT 36561; principal; 2022-02-23 10:20)
DX: C50.912 Malignant neoplasm of unspecified site of left female breast (principal); Z87.891 Personal history of nicotine dependence; K21.9 Gastro-esophageal reflux disease without esophagitis; E66.01 Morbid (severe) obesity due to excess calories; M06.9 Rheumatoid arthritis, unspecified; Z68.39 Body mass index [BMI] 39.0-39.9, adult; Z86.16 Personal history of COVID-19; Z85.41 Personal history of malignant neoplasm of cervix uteri; Z79.899 Other long term (current) drug therapy
CPT/HCPCS: 36561; 71045; 76000; 77001; C1788; J0690; J1644; J2250; J2405; J2704; J3010; J7030

== ENCOUNTER 2022-02-25 09:17 | Oncology outpatient (recurring) (ONCR) | payer BC, MEDICAID, SELFPAY ==
[2022-02-25 10:05] LABS: Basophils % 0.1 %; Hematocrit 38.8 % (37.0-47.0); Hemoglobin 12.8 g/dL (11.5-15.3); Lymphocytes # 0.9 10^3/uL (0.8-4.8); Lymphocytes % 6.7 %; Mean Corpuscular Volume 87.8 fl (81-99); Mean Platelet Volume 9.2 fL (7.4-10.4); Monocytes # 0.4 10^3/uL (0.2-0.9); Monocytes % 2.7 %; Neutrophils # 12.11 10^3/uL (1.8-7.7); Neutrophils % 89.6 %; Nucleated Red Blood Cells % 0 %; Platelet Count 410 10^3/cmm (130-400); Red Blood Count 4.42 10^6/uL (4.1-5.3); Red Cell Distribution Width 13.2 % (12.1-15.1); White Blood Count 13.5 10^3/uL (4.0-10.0)
[2022-02-25 10:28] LABS: Alanine Aminotransferase 20 U/L (0-33); Albumin Level 4.1 g/dL (3.5-5.2); Alkaline Phosphatase 103 U/L (35-105); Anion Gap 15.9 (5-19); Aspartate Amino Transferase 19 U/L (0-32); Blood Urea Nitrogen 12 mg/dL (6-20); Calcium 9.7 mg/dL (8.5-10.5); Carbon Dioxide 24 mmol/L (22-29); Chloride 99 mmol/L (98-107); Globulin 3.5 g/dL (1.3-4.6); Glomerular Filtration Rate 102.7 mL/min (90-130); Glucose 157 mg/dL (65-115); Osmolality Calculated 283 mOsm/kg (285-295); Potassium 3.9 mmol/L (3.5-5.1); Sodium 135 mmol/L (136-145); Total Bilirubin 0.2 mg/dL (0.15-1.2); Total Protein 7.6 g/dL (6.6-8.7)
[2022-02-25 11:00] VITALS: BMI 39.5
[2022-02-25] MEDS: sodium chloride 0.9% 250 ML 75 ML IV (12:38)
[2022-02-25] MEDS: OLANZapine 5 mg TABLET PO (12:39)
[2022-02-25] MEDS: famotidine 20 mg/2 mL INJ IVP (12:39)
[2022-02-25] MEDS: diphenhydrAMINE 50 mg/mL SDV 1mL 25 MG IVP (12:39)
[2022-02-25] MEDS: palonosetron 0.25 mg/5 mL SDV IVP (12:40)
[2022-02-25] MEDS: fosaprepitant 150 MG in sodium chloride 0.9% 150 ML 300 MG IV (13:15)
[2022-02-25] MEDS: pegfilgrastim 6 mg/0.6 mL Kit (onpro) SUBCUT ×2 (15:45→16:55)
[2022-02-25 17:00] VITALS: BP 132/77; PULSE 66; RESP 18; TEMP 36.3; O2SAT 98
== END 2022-02-26 09:23 | disposition home or self-care (01) ==
PROVIDERS: PCP Electrodiagnostic Medicine; Visit Provider Internal Medicine Hematology & Oncology
DX: Z51.12 Encounter for antineoplastic immunotherapy (principal); C50.812 Malignant neoplasm of overlapping sites of left female breast; Z17.0 Estrogen receptor positive status [ER+]; C77.3 Secondary and unspecified malignant neoplasm of axilla and upper limb lymph nodes; Z79.899 Other long term (current) drug therapy; Z53.9 Procedure and treatment not carried out, unspecified reason
CPT/HCPCS: 80053; 85025; 96367; 96372; 96375; 96377; 96413; 96417; J1100; J1200; J1453; J2469; J2506; J3490; J7040; J7050; J9070; J9171

== ENCOUNTER 2022-03-10 08:00 | Oncology outpatient (recurring) (ONCR) | payer BC, SELFPAY ==
[2022-03-04 08:49] VITALS: BMI 36.5
[2022-03-04 08:57] LABS: Add Urine Microscopic? NO; Charge for UA Resulting for Rev
[2022-03-04 09:00] LABS: Basophils # 0.1 10^3/uL (0.0-0.1); Basophils % 1.3 %; Eosinophils # 0.2 10^3/uL (0.0-0.8); Eosinophils % 3.9 %; Hematocrit 37.1 % (37.0-47.0); Hemoglobin 12.2 g/dL (11.5-15.3); Lymphocytes # 1.4 10^3/uL (0.8-4.8); Lymphocytes % 35.8 %; Mean Corpuscular HGB Conc 32.9 g/dL (30.0-36.0); Mean Corpuscular Hemoglobin 28.4 pg (28.0-34.0); Mean Corpuscular Volume 86.3 fl (81-99); Mean Platelet Volume 10.1 fL (7.4-10.4); Monocytes % 25.9 %; Nucleated Red Blood Cells # 0.1 /100WBC; Nucleated Red Blood Cells % 1.6 %; Platelet Count 252 10^3/cmm (130-400); Red Cell Distribution Width 13.5 % (12.1-15.1); White Blood Count 3.9 10^3/uL (4.0-10.0)
[2022-03-04 09:08] LABS: Bilirubin Urine Neg (Negative); Blood Urine Neg (Negative); Glucose Urine UA Norm (Normal); Ketones Urine Negative (Negative); Leukocyte Esterase Urine Negative (Negative); Nitrate Urine Negative (Negative); Protein Urine Neg (Negative); Specific Gravity, Urine 1.025 (1.005-1.030); Urine Appearance Clear (CLEAR); Urine Color Yellow (Yellow); Urobilinogen Urine Norm (Negative); pH Urine 5 (5-7)
[2022-03-04 09:19] LABS: Alanine Aminotransferase 19 U/L (0-33); Albumin Level 3.7 g/dL (3.5-5.2); Alkaline Phosphatase 105 U/L (35-105); Anion Gap 15.8 (5-19); Aspartate Amino Transferase 19 U/L (0-32); Blood Urea Nitrogen 7 mg/dL (6-20); Calcium 9.6 mg/dL (8.5-10.5); Carbon Dioxide 27 mmol/L (22-29); Chloride 95 mmol/L (98-107); Globulin 3.3 g/dL (1.3-4.6); Glomerular Filtration Rate 85.9 mL/min (90-130); Glucose 132 mg/dL (65-115); Osmolality Calculated 278 mOsm/kg (285-295); Potassium 3.8 mmol/L (3.5-5.1); Sodium 134 mmol/L (136-145); Total Bilirubin 0.2 mg/dL (0.15-1.2)
[2022-03-04 09:34] LABS: Neutrophils # 0.89 10^3/uL (1.8-7.7); Slide Review Slide Review Perform
[2022-03-04] MEDS: sodium chloride 0.9% 500 ML IV (11:09)
[2022-03-04] MEDS: ondansetron 2 mg/ML SDV 2 mL 8 MG IVP (11:13)
[2022-03-04] MEDS: LORazepam 2 mg/mL INJ 1 mL 0.5 MG IVP (11:18)
[2022-03-04 12:22] VITALS: BP 141/92; PULSE 67; RESP 16; TEMP 36.1; O2SAT 97
[2022-03-10 08:22] LABS: Basophils # 0.1 10^3/uL (0.0-0.1); Basophils % 0.5 %; Eosinophils % 0.2 %; Hematocrit 35.5 % (37.0-47.0); Hemoglobin 11.3 g/dL (11.5-15.3); Lymphocytes # 1.8 10^3/uL (0.8-4.8); Lymphocytes % 14.1 %; Mean Corpuscular HGB Conc 31.8 g/dL (30.0-36.0); Mean Corpuscular Hemoglobin 28.6 pg (28.0-34.0); Mean Corpuscular Volume 89.9 fl (81-99); Mean Platelet Volume 9.1 fL (7.4-10.4); Monocytes # 0.7 10^3/uL (0.2-0.9); Monocytes % 5.2 %; Neutrophils # 9.69 10^3/uL (1.8-7.7); Neutrophils % 75.4 %; Nucleated Red Blood Cells % 0 %; Platelet Count 173 10^3/cmm (130-400); Red Blood Count 3.95 10^6/uL (4.1-5.3); Red Cell Distribution Width 14.6 % (12.1-15.1); White Blood Count 12.9 10^3/uL (4.0-10.0)
[2022-03-10 08:35] LABS: Alanine Aminotransferase 18 U/L (0-33); Albumin Level 3.7 g/dL (3.5-5.2); Alkaline Phosphatase 113 U/L (35-105); Anion Gap 13.9 (5-19); Aspartate Amino Transferase 17 U/L (0-32); Blood Urea Nitrogen 6 mg/dL (6-20); Carbon Dioxide 25 mmol/L (22-29); Chloride 104 mmol/L (98-107); Globulin 2.9 g/dL (1.3-4.6); Glomerular Filtration Rate 85.9 mL/min (90-130); Glucose 124 mg/dL (65-115); Osmolality Calculated 287 mOsm/kg (285-295); Potassium 3.9 mmol/L (3.5-5.1); Sodium 139 mmol/L (136-145); Total Bilirubin 0.2 mg/dL (0.15-1.2); Total Protein 6.6 g/dL (6.6-8.7)
== END 2022-03-17 23:59 | disposition home or self-care (01) ==
PROVIDERS: PCP Electrodiagnostic Medicine; Visit Provider Internal Medicine Hematology & Oncology
DX: C50.919 Malignant neoplasm of unspecified site of unspecified female breast (principal)
CPT/HCPCS: 36591; 80053; 81003; 85025; 96365; 96375; J2060; J2405; J7040

== ENCOUNTER 2022-04-14 09:30 | Oncology outpatient (recurring) (ONCR) | payer BC, MEDICAID, SELFPAY ==
[2022-03-22 10:19] LABS: Basophils % 0.5 %; Eosinophils # 0.2 10^3/uL (0.0-0.8); Eosinophils % 2.4 %; Hematocrit 35.4 % (37.0-47.0); Hemoglobin 11.5 g/dL (11.5-15.3); Lymphocytes # 1.2 10^3/uL (0.8-4.8); Lymphocytes % 15.9 %; Mean Corpuscular HGB Conc 32.5 g/dL (30.0-36.0); Mean Corpuscular Hemoglobin 28.3 pg (28.0-34.0); Mean Corpuscular Volume 87.2 fl (81-99); Mean Platelet Volume 9.2 fL (7.4-10.4); Monocytes # 0.7 10^3/uL (0.2-0.9); Monocytes % 9.3 %; Neutrophils # 5.59 10^3/uL (1.8-7.7); Neutrophils % 71.5 %; Nucleated Red Blood Cells % 0 %; Platelet Count 324 10^3/cmm (130-400); Red Blood Count 4.06 10^6/uL (4.1-5.3); Red Cell Distribution Width 14.9 % (12.1-15.1); White Blood Count 7.8 10^3/uL (4.0-10.0)
[2022-03-22 10:50] LABS: Alanine Aminotransferase 18 U/L (0-33); Albumin Level 3.8 g/dL (3.5-5.2); Alkaline Phosphatase 99 U/L (35-105); Aspartate Amino Transferase 17 U/L (0-32); Blood Urea Nitrogen 9 mg/dL (6-20); Calcium 9.2 mg/dL (8.5-10.5); Carbon Dioxide 26 mmol/L (22-29); Chloride 100 mmol/L (98-107); Glomerular Filtration Rate 126.7 mL/min (90-130); Glucose 108 mg/dL (65-115); Osmolality Calculated 275 mOsm/kg (285-295); Sodium 133 mmol/L (136-145); Total Bilirubin 0.2 mg/dL (0.15-1.2); Total Protein 6.8 g/dL (6.6-8.7)
[2022-03-22] MEDS: OLANZapine 5 mg TABLET PO (12:36)
[2022-03-22] MEDS: sodium chloride 0.9% 250 ML 100 ML IV (12:36)
[2022-03-22] MEDS: palonosetron 0.25 mg/5 mL SDV IVP (12:38)
[2022-03-22] MEDS: famotidine 20 mg/2 mL INJ IVP (12:39)
[2022-03-22] MEDS: diphenhydrAMINE 50 mg/mL SDV 1mL 25 MG IVP (12:40)
[2022-03-22] MEDS: fosaprepitant 150 MG in sodium chloride 0.9% 150 ML 300 MG IV (12:41)
[2022-03-22] MEDS: [UNRECOGNIZED DRUG - REMARK] 258 MG IV (13:45)
[2022-03-22] MEDS: pegfilgrastim 6 mg/0.6 mL Kit (onpro) SUBCUT (15:50)
[2022-03-22 15:51] VITALS: BP 142/79; PULSE 67; TEMP 36.3; O2SAT 97
[2022-04-05 09:11] VITALS: BMI 37.4
[2022-04-05 09:37] LABS: Basophils # 0.1 10^3/uL (0.0-0.1); Basophils % 0.5 %; Eosinophils # 0.1 10^3/uL (0.0-0.8); Eosinophils % 0.5 %; Hematocrit 36.2 % (37.0-47.0); Hemoglobin 11.4 g/dL (11.5-15.3); Lymphocytes # 1.4 10^3/uL (0.8-4.8); Lymphocytes % 10.5 %; Mean Corpuscular HGB Conc 31.5 g/dL (30.0-36.0); Mean Corpuscular Hemoglobin 27.9 pg (28.0-34.0); Mean Corpuscular Volume 88.5 fl (81-99); Mean Platelet Volume 9.8 fL (7.4-10.4); Monocytes # 0.7 10^3/uL (0.2-0.9); Neutrophils # 10.38 10^3/uL (1.8-7.7); Neutrophils % 78.8 %; Nucleated Red Blood Cells % 0.3 %; Platelet Count 141 10^3/cmm (130-400); Red Blood Count 4.09 10^6/uL (4.1-5.3); Red Cell Distribution Width 16.7 % (12.1-15.1); White Blood Count 13.2 10^3/uL (4.0-10.0)
[2022-04-05 09:47] LABS: Alanine Aminotransferase 21 U/L (0-33); Albumin Level 3.9 g/dL (3.5-5.2); Alkaline Phosphatase 117 U/L (35-105); Aspartate Amino Transferase 20 U/L (0-32); Blood Urea Nitrogen 10 mg/dL (6-20); Calcium 9.2 mg/dL (8.5-10.5); Carbon Dioxide 25 mmol/L (22-29); Chloride 103 mmol/L (98-107); Globulin 2.9 g/dL (1.3-4.6); Glomerular Filtration Rate 102.7 mL/min (90-130); Glucose 135 mg/dL (65-115); Osmolality Calculated 289 mOsm/kg (285-295); Sodium 139 mmol/L (136-145); Total Bilirubin 0.2 mg/dL (0.15-1.2); Total Protein 6.8 g/dL (6.6-8.7)
[2022-04-14 09:29] LABS: Basophils % 0.8 %; Eosinophils # 0.1 10^3/uL (0.0-0.8); Eosinophils % 1.4 %; Hematocrit 34.2 % (37.0-47.0); Hemoglobin 11.1 g/dL (11.5-15.3); Lymphocytes % 19.3 %; Mean Corpuscular HGB Conc 32.5 g/dL (30.0-36.0); Mean Corpuscular Hemoglobin 28.5 pg (28.0-34.0); Mean Corpuscular Volume 87.7 fl (81-99); Mean Platelet Volume 8.9 fL (7.4-10.4); Monocytes # 0.6 10^3/uL (0.2-0.9); Monocytes % 12.3 %; Neutrophils # 3.32 10^3/uL (1.8-7.7); Nucleated Red Blood Cells % 0 %; Platelet Count 320 10^3/cmm (130-400); Red Cell Distribution Width 17.2 % (12.1-15.1)
[2022-04-14 09:55] LABS: Alanine Aminotransferase 23 U/L (0-33); Alkaline Phosphatase 88 U/L (35-105); Anion Gap 12.1 (5-19); Aspartate Amino Transferase 22 U/L (0-32); Blood Urea Nitrogen 9 mg/dL (6-20); Calcium 8.8 mg/dL (8.5-10.5); Carbon Dioxide 26 mmol/L (22-29); Chloride 103 mmol/L (98-107); Globulin 2.4 g/dL (1.3-4.6); Glomerular Filtration Rate 102.7 mL/min (90-130); Glucose 98 mg/dL (65-115); Osmolality Calculated 283 mOsm/kg (285-295); Potassium 4.1 mmol/L (3.5-5.1); Sodium 137 mmol/L (136-145); Total Bilirubin 0.2 mg/dL (0.15-1.2); Total Protein 6.4 g/dL (6.6-8.7)
[2022-04-14] MEDS: sodium chloride 0.9% 250 ML 75 ML IV (11:40)
[2022-04-14] MEDS: palonosetron 0.25 mg/5 mL SDV IVP (12:23)
[2022-04-14] MEDS: diphenhydrAMINE 50 mg/mL SDV 1mL 25 MG IVP (12:26)
[2022-04-14] MEDS: OLANZapine 5 mg TABLET PO (12:29)
[2022-04-14] MEDS: famotidine 20 mg/2 mL INJ IVP (12:40)
[2022-04-14] MEDS: fosaprepitant 150 MG in sodium chloride 0.9% 150 ML 300 MG IV (12:41)
[2022-04-14] MEDS: [UNRECOGNIZED DRUG - REMARK] 258 MG IV (13:20)
[2022-04-14] MEDS: pegfilgrastim 6 mg/0.6 mL Kit (onpro) SUBCUT (15:53)
== END 2022-04-15 10:02 | disposition home or self-care (01) ==
PROVIDERS: PCP Electrodiagnostic Medicine; Visit Provider Internal Medicine Hematology & Oncology
DX: Z51.12 Encounter for antineoplastic immunotherapy (principal); C50.812 Malignant neoplasm of overlapping sites of left female breast; Z51.11 Encounter for antineoplastic chemotherapy; Z79.899 Other long term (current) drug therapy; Z79.52 Long term (current) use of systemic steroids
CPT/HCPCS: 36591; 80053; 85025; 96366; 96367; 96368; 96372; 96375; 96377; 96413; 96415; 96417; J1100; J1200; J1453; J2469; J2506; J3490; J7040; J7050; J9070; J9171

== ENCOUNTER 2022-05-05 08:00 | Oncology outpatient (recurring) (ONCR) | payer BC, MEDICAID, SELFPAY ==
[2022-04-28 10:09] LABS: Basophils # 0.1 10^3/uL (0.0-0.1); Basophils % 0.6 %; Eosinophils # 0.1 10^3/uL (0.0-0.8); Eosinophils % 0.6 %; Hematocrit 36.5 % (37.0-47.0); Hemoglobin 11.7 g/dL (11.5-15.3); Lymphocytes # 1.4 10^3/uL (0.8-4.8); Lymphocytes % 13.3 %; Mean Corpuscular HGB Conc 32.1 g/dL (30.0-36.0); Mean Corpuscular Hemoglobin 28.5 pg (28.0-34.0); Mean Platelet Volume 9.6 fL (7.4-10.4); Monocytes # 0.7 10^3/uL (0.2-0.9); Monocytes % 6.9 %; Neutrophils # 7.98 10^3/uL (1.8-7.7); Neutrophils % 74.1 %; Nucleated Red Blood Cells % 0.3 %; Platelet Count 152 10^3/cmm (130-400); Red Cell Distribution Width 18.6 % (12.1-15.1); White Blood Count 10.8 10^3/uL (4.0-10.0)
[2022-04-28 10:13] VITALS: BMI 37.9
[2022-04-28 10:25] LABS: Alanine Aminotransferase 23 U/L (0-33); Albumin Level 4.1 g/dL (3.5-5.2); Alkaline Phosphatase 106 U/L (35-105); Anion Gap 12.4 (5-19); Aspartate Amino Transferase 18 U/L (0-32); Blood Urea Nitrogen 10 mg/dL (6-20); Calcium 8.6 mg/dL (8.5-10.5); Carbon Dioxide 26 mmol/L (22-29); Chloride 103 mmol/L (98-107); Globulin 2.5 g/dL (1.3-4.6); Glomerular Filtration Rate 126.7 mL/min (90-130); Glucose 92 mg/dL (65-115); Osmolality Calculated 283 mOsm/kg (285-295); Potassium 4.4 mmol/L (3.5-5.1); Sodium 137 mmol/L (136-145); Total Bilirubin 0.2 mg/dL (0.15-1.2); Total Protein 6.6 g/dL (6.6-8.7)
[2022-05-05 08:22] VITALS: BMI 37.8
[2022-05-05 08:37] LABS: Basophils % 0.2 %; Hematocrit 34.1 % (37.0-47.0); Hemoglobin 11.1 g/dL (11.5-15.3); Lymphocytes % 9.9 %; Mean Corpuscular HGB Conc 32.6 g/dL (30.0-36.0); Mean Corpuscular Hemoglobin 28.6 pg (28.0-34.0); Mean Corpuscular Volume 87.9 fl (81-99); Mean Platelet Volume 9.2 fL (7.4-10.4); Monocytes # 0.8 10^3/uL (0.2-0.9); Monocytes % 7.9 %; Neutrophils # 8.61 10^3/uL (1.8-7.7); Neutrophils % 81.6 %; Nucleated Red Blood Cells % 0 %; Platelet Count 306 10^3/cmm (130-400); Red Blood Count 3.88 10^6/uL (4.1-5.3); Red Cell Distribution Width 19.1 % (12.1-15.1); White Blood Count 10.5 10^3/uL (4.0-10.0)
[2022-05-05 09:02] LABS: Alanine Aminotransferase 17 U/L (0-33); Alkaline Phosphatase 92 U/L (35-105); Anion Gap 12.9 (5-19); Aspartate Amino Transferase 17 U/L (0-32); Blood Urea Nitrogen 12 mg/dL (6-20); Calcium 9.7 mg/dL (8.5-10.5); Carbon Dioxide 25 mmol/L (22-29); Chloride 103 mmol/L (98-107); Creatinine Clr Calc Pharmacy 151.0871; Globulin 2.8 g/dL (1.3-4.6); Glomerular Filtration Rate 126.7 mL/min (90-130); Glucose 116 mg/dL (65-115); Osmolality Calculated 285 mOsm/kg (285-295); Potassium 3.9 mmol/L (3.5-5.1); Sodium 137 mmol/L (136-145); Total Bilirubin 0.2 mg/dL (0.15-1.2); Total Protein 6.8 g/dL (6.6-8.7)
[2022-05-05] MEDS: famotidine 20 mg/2 mL INJ IVP (11:26)
[2022-05-05] MEDS: sodium chloride 0.9% 250 ML 75 ML IV (11:26)
[2022-05-05] MEDS: diphenhydrAMINE 50 mg/mL SDV 1mL 25 MG IVP (11:26)
[2022-05-05] MEDS: OLANZapine 5 mg TABLET PO (11:27)
[2022-05-05] MEDS: palonosetron 0.25 mg/5 mL SDV IVP (11:27)
[2022-05-05] MEDS: fosaprepitant 150 MG in sodium chloride 0.9% 150 ML 300 MG IV (11:58)
[2022-05-05] MEDS: [UNRECOGNIZED DRUG - REMARK] 258 MG IV (12:51)
== END 2022-05-18 23:59 | disposition home or self-care (01) ==
PROVIDERS: PCP Electrodiagnostic Medicine; Visit Provider Internal Medicine Hematology & Oncology
DX: Z51.12 Encounter for antineoplastic immunotherapy (principal); Z51.11 Encounter for antineoplastic chemotherapy; C50.812 Malignant neoplasm of overlapping sites of left female breast; Z17.0 Estrogen receptor positive status [ER+]; Z90.13 Acquired absence of bilateral breasts and nipples; Z79.818 Long term (current) use of other agents affecting estrogen receptors and estrogen levels; Z95.828 Presence of other vascular implants and grafts
CPT/HCPCS: 36591; 80053; 85025; 96367; 96375; 96413; 96417; J1100; J1200; J1453; J2469; J3490; J7040; J7050; J9070; J9171

== ENCOUNTER 2022-05-14 08:39 | Emergency (ER) | payer BC, MEDICAID, SELFPAY ==
[2022-05-14] VITALS (12 sets, daily range): BP systolic 118–158; BP diastolic 35–79; PULSE 84–114; RESP 17–18; O2SAT 96–99; BMI 37.1
--- NOTE | 2022-05-14 08:55 | ECG_ITS ---
[facility] Test Date: 2022-05-14 Pat Name: Leslie Osborn Department: Room: Gender: Female Natural History Collections Curator: : 1965 Requested By: Gato Arteaga Order Number: [id number] Santiago MD: Briana Savage M.D. Measurements Intervals [place] Rate: 112 P: 52 WV: 163 QRS: -20 QRSD: 88 T: 48 QT: 329 QTc: 451 Interpretive Statements SINUS TACHYCARDIA MINIMAL VOLTAGE CRITERIA FOR LVH, CONSIDER NORMAL VARIANT [MEETS CRITERIA IN ONE OF: R(aVL), S(V1), R(V5), R(V5/V6)+S(V1)] ABNORMAL RHYTHM ECG Compared to ECG 10/05/2021 19:51:03 Sinus rhythm no longer present Electronically Signed On 05-14-2022 22:02:49 REAL ESTATE SERVICES COORDINATOR by Briana Savage M.D. [email or web address]
[2022-05-14] MEDS: aspirin 81 mg Chew Tablet 324 MG PO (09:23)
--- NOTE | 2022-05-14 09:25 | ED_ITS ---
Documented by User: DEMI White 05/14/22 13:14 HPI - Chest Pain General: Chief Complaint: Chest Pain Stated Complaint: chest pain, body rash Time Seen by Provider: 05/14/22 08:54 Source: patient Mode of arrival: ambulatory Limitations: no limitations History of Present Illness: Patient is a very nice 57-year-old female with a history of invasive ductal carcinoma of left breast currently undergoing chemotherapy (docetaxel/cytoxan) here for concerns of pruritic rash and chest pain. Patient states she began developing some chest pain yesterday evening and quickly noticed a rash following this. She states rash is mainly to her scalp, face, upper extremities, and trunk. States she was up all night secondary to the itching. Patient states her chest pain seems to be located substernally with no radiation. She states it seems to be worse with lying flat. She states her last chemotherapy treatment was last . She has no previous history of urticaria. No known cardiac history. No new medications. Denies new food, chemical, household exposures. MD complaint: chest pain and other (pruritic rash) Onset (ago): day(s) (yesterday evening) Timing of current episode: constant Prior episodes: No Pain location: substernal Pain radiation: none Quality: sharp Relieving factors: nothing Exacerbating factors: nothing Associated symptoms: Reports other (rash); Deny abdominal pain, dyspnea, fever(s), nausea, palpitations, syncope or vomiting Treatment prior to arrival: none Risk Factors: Pulmonary embolism risk factors: malignancy Related Data: On Oral Contraceptives: No Review of Systems Const: Denies: fever(s), chills, body aches, fatigue or malaise Eyes: Denies: change in vision or blurry vision Card: Reports: chest pain; Denies: palpitations, irregular heart rhythm, edema, swelling of feet/ankles, lightheadedness, syncope, pre-syncope, dyspnea on exertion, orthopnea, leg pain with exertion or acrocyanosis Resp: Denies: dyspnea, productive cough, non-productive cough, wheezing, pain on inspiration, hemoptysis or chest congestion GI: Denies: abdominal pain, nausea, vomiting, heartburn or diarrhea : Denies: flank pain or dysuria Musc: Denies: neck pain, back pain, extremity pain or joint pain Skin/Breast: Reports: rash and pruritus Neuro: Denies: headache(s), numbness in extremities, weakness in extremities, sensory changes or dizziness PFSH ED PFSH: Medical History Asthma Cervical cancer COVID-19 Endometriosis Fatigue GERD (gastroesophageal reflux disease) High risk medication use Invasive ductal carcinoma of left breast Joint pain Pancreatitis Rheumatoid arthritis Surgical History History of appendectomy History of cholecystectomy History of hysterectomy History of mastectomy Bilateral December, S/P tonsillectomy and adenoidectomy Family History Other Cancer Heart disease Hypertension Social History Smoking and tobacco status: smoker, details unknown Second hand smoke exposure: No Smoking risk assessment/counseling performed?: No Alcohol intake: never Desire information about alcohol rehabilitation?: No Counseling given: No Desire information about substance/drug rehabilitation?: No Counseling given: No Adopted: No Lives independently: Yes Housing: House Physical Exam Const: COMMON NORMALS: no acute distress, patient oriented x3, no limitations and alert GENERAL APPEARANCE: cooperative ORIENTATION/CONSCIOUSNESS: Yes awake, Yes oriented to person, Yes oriented to place and Yes oriented to time HENMT: COMMON NORMALS: normocephalic and atraumatic HEAD & SCALP: normal to inspection, normocephalic and atraumatic Eye: GENERAL EYE: appearance normal, both eyes and all related structures Neck/C-Spine: COMMON NORMALS: full ROM, no lymphadenopathy and no meningeal signs Chest: COMMONS NORMALS: normal inspection of the chest and normal palpation of entire chest wall 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 Resp: COMMON NORMALS: normal respiratory effort and clear to auscultation bilaterally AUSCULTATION: clear to auscultation bilaterally Cardio: COMMON NORMALS: regular rhythm RATE: tachycardic RHYTHM: regular rhythm GI: COMMON NORMALS: Normal to inspection, nondistended, normoactive bowel sounds present, Soft to palpation and non-tender PALPATION: Yes Soft to palpation Extremity: COMMON NORMALS: capillary refill normal, no clubbing, cyanosis or edema, no calf tenderness and no pedal edema Neuro: JUDITH COMA SCALE: document GCS findings [place] coma scale eye opening: Spontaneous Judith coma scale verbal response: Orientated [place] coma scale motor response: Obey commands [place] coma scale total score: 15 COMMON NORMALS: patient oriented x3, CN's II-XII intact bilaterally, moves all extremities, no focal motor deficits, no sensory deficits noted and gait normal SENSORIUM/ORIENTATION: Yes alert, Yes oriented to person, Yes oriented to place and Yes oriented to time MENINGEAL SIGNS: Yes no meningeal signs Skin: RASHES: rashes noted (urticaria to face/scalp, bilateral UEs, chest) Course Reevaluation(s): Reevaluation #1: Urticarial rash completely subsided after IV Benadryl, Solu-Medrol, Pepcid Consultations: Consultation #1: Dr. Burroughs-recommends 500 mg Levaquin x 7 days and will follow-up next week. Would like CBC, CMP performed prior to this appointment (outpatient order w ritten/given to patient for this) Vital Signs: Vital signs: Vital Signs Pulse Rate 90 05/14/22 13:41 Respiratory Rate 18 05/14/22 13:41 Blood Pressure 128/75 05/14/22 13:41 Pulse Oximetry 98 05/14/22 13:41 Oxygen Delivery Me thod 05/14/22 12:30 MDM - Chest Pain Medical Decision Making Patient is a 57-year-old female here for complaints of chest pain and urticarial rash. Rash completely subsided after IV Benadryl, Solu-Medrol, Pepcid. Chest pain work-up including CBC, CMP, baseline and 2-hour troponin, EKGs, D-dimer, and BNP. Baseline and 2-hour troponin are non-elevated. EKG showing no ischemic changes. BNP is normal. D-dimer was elevated thus CTA imaging obtained to evaluate for PE given history of chest pain and history of malignancy. CTA imaging is negative. Patient was incidentally found to be significantly neutropenic on her CBC. Most likely this is chemotherapy-induced. Patient is not complaining of fevers. CT imaging and UA negative for infection. Discussed with Dr. Dowd who feels we could safely discharge patient home with oral antibiotics. I did speak to her oncologist Dr. Burroughs who agrees with this plan. He recommended placing her on Levaquin over the next week and he will follow-up with her next week. Very strict return to ED precautions were given to which patient voiced understanding. Lab Data 05/14/22 09:00 Radiology Impressions Chest CTA 05/14/22 09:51 IMPRESSION: 1. No evidence of pulmonary embolus. 2. Lungs are well aerated. No acute pulmonary infiltrates. 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 4. Small esophageal hiatal hernia. Laboratory Results WBC 0.4 10^3/uL (4.0-10.0) L* 05/14/22 09:00 RBC 3.60 10^6/uL (4.1-5.3) L 05/14/22 09:00 Hgb 10.2 g/dL (11.5-15.3) L 05/14/22 09:00 Hct 31.8 % (37.0-47.0) L 05/14/22 09:00 MCV 88.3 fl (81-99) 05/14/22 09:00 MCH 28.3 pg (28.0-34.0) 05/14/22 09:00 MCHC 32.1 g/dL (30.0-36.0) 05/14/22 09:00 RDW 18.0 % (12.1-15.1) H 05/14/22 09:00 Plt Count 202 10^3/cmm (130-400) 05/14/22 09:00 MPV 9.8 fL (7.4-10.4) 05/14/22 09:00 Neut % (Auto) 24.4 % 05/14/22 09:00 Lymph % (Auto) 56.1 % 05/14/22 09:00 Real % (Auto) 17.1 % 05/14/22 09:00 Eos % (Auto) 0.0 % 05/14/22 09:00 Baso % (Auto) 2.4 % 05/14/22 09:00 Neut # (Auto) 0.10 10^3/uL (1.8-7.7) L* 05/14/22 09:00 Lymph # (Auto) 0.2 10^3/uL (0.8-4.8) L 05/14/22 09:00 Real # (Auto) 0.1 10^3/uL (0.2-0.9) L 05/14/22 09:00 Eos # (Auto) 0.0 10^3/uL (0.0-0.8) 05/14/22 09:00 Baso # (Auto) 0.0 10^3/uL (0.0-0.1) 05/14/22 09:00 Nucleated RBC % (auto) 0 % 05/14/22 09:00 Nucleated RBCs # 0.0 /100WBC 05/14/22 09:00 D-Dimer 2.38 ug/mIFEU (0-0.59) H 05/14/22 09:00 Sodium 137 mmol/L (136-145) 05/14/22 09:00 Potassium 4.2 mmol/L (3.5-5.1) 05/14/22 09:00 Chloride 104 mmol/L (98-107) 05/14/22 09:00 Carbon Dioxide 23 mmol/L (22-29) 05/14/22 09:00 Anion Gap 14.2 (5-19) 05/14/22 09:00 BUN 8 mg/dL (6-20) 05/14/22 09:00 Creatinine 0.6 mg/dL (0.5-0.9) 05/14/22 09:00 GFR Calculation 102.7 mL/min (90-130) 05/14/22 09:00 Glucose 135 mg/dL (65-115) H 05/14/22 09:00 Calculated Osmolality 284 mOsm/kg (285-295) L 05/14/22 09:00 Calcium 8.8 mg/dL (8.5-10.5) 05/14/22 09:00 Total Bilirubin 0.4 mg/dL (0.15-1.2) 05/14/22 09:00 AST 18 U/L (0-32) 05/14/22 09:00 ALT 21 U/L (0-33) 05/14/22 09:00 Alkaline Phosphatase 89 U/L (35-105) 05/14/22 09:00 Troponin T Baseline 7 ng/L (0-10) 05/14/22 09:00 Troponin T 120 Minute 7.83 ng/L (0-10) 05/14/22 11:21 Delta Troponin T 0.83 ABS# (0-10) 05/14/22 11:21 C-Reactive Protein 14.4 mg/L (0.0-4.9) H 05/14/22 09:00 NT-Pro-B Natriuret Pep 46 pg/mL (0-125) 05/14/22 09:00 Total Protein 5.6 g/dL (6.6-8.7) L 05/14/22 09:00 Albumin 3.7 g/dL (3.5-5.2) 05/14/22 09:00 Globulin 1.9 g/dL (1.3-4.6) 05/14/22 09:00 Urine Color Yellow (Yellow) 05/14/22 11:31 Urine Appearance Clear (CLEAR) 05/14/22 11:31 Urine pH 6 (5-7) 05/14/22 11:31 Ur Specific Marshall 1.010 (1.005-1.030) 05/14/22 11:31 Urine Protein Neg (Negative) 05/14/22 11:31 Urine Glucose (UA) Norm (Normal) 05/14/22 11:31 Urine Ketones Negative (Negative) 05/14/22 11:31 Urine Blood Neg (Negative) 05/14/22 11:31 Urine Nitrate Negative (Negative) 05/14/22 11:31 Urine Bilirubin Neg (Negative) 05/14/22 11:31 Urine Urobilinogen Neg mg/dL (Negative) 05/14/22 11:31 Ur Leukocyte Esterase Negative (Negative) 05/14/22 11:31 Discharge Plan Discharge Patient Disposition: Home Clinical Impression: Chemotherapy induced neutropenia, Chest pain, Urticaria Condition: Stable Prescriptions: New levofloxacin 500 mg tablet 500 mg PO DAILY 7 Days Qty: 7 0RF No Action citalopram [Celexa] 20 mg tablet 10 mg PO QAM trazodone 100 mg tablet 100 mg PO BEDTIME Hair,Skin and Nails Tablet 2 tab PO QAM diclofenac sodium [Voltaren Arthritis Pain] 1 % gel 4 g topical QID PRN (Reason: Pain) Rx Instructions: apply to single knee, ankle, foot; for foot includes sole/toes/top of foot hydrocodone-acetaminophen 5-325 mg tablet 1 - 2 tab PO Q4H PRN (Reason: pain) lorazepam 1 mg tablet 0.5 - 1 mg PO Q6H PRN (Reason: Severe Nausea) Qty: 30 3RF fluconazole 100 mg tablet 100 mg PO DAILY Qty: 7 3RF sucralfate [Carafate] 1 gram tablet 1 g PO Q6H 28 Days Qty: 112 0RF gabapentin 300 mg Capsule 300 mg PO BEDTIME vitamin B complex Capsule 1 cap PO QAM multivitamin Tablet 1 tab PO QAM albuterol sulfate [Ventolin HFA] 90 mcg/actuation Hfa Aerosol Inhaler 2 puff INHALATION 6XD PRN (Reason: Shortness Of Breath) prochlorperazine maleate [Compazine] 10 mg tablet 10 mg PO Q4H PRN (Reason: Mild Nausea) Qty: 30 3RF dexamethasone 4 mg tablet 8 mg PO DIRECTED Qty: 60 3RF Rx Instructions: Take 8 mg twice daily the day before and the day after Taxotere Benadryl 50 mg Capsule 50 mg PO TID PRN (Reason: Itching) alprazolam 0.25 mg tablet 0.25 mg PO BID PRN (Reason: Anxiety) lidocaine-prilocaine 2.5-2.5 % cream See Rx Instructions .ROUTE .COMPLEX Rx Instructions: apply to port as directed prior to access Protonix 40 mg tablet,delayed release (DR/EC) 40 mg PO QAM Discharge Orders: Discharge ED (Routine); Ordered 05/14/22 Ordered By: Nimco Jerry Referrals: Michael Mahoney DO [Primary Care Provider] - Patient Instructions: Urticaria (ED), Neutropenia Activity Restrictions/Additional Instructions: As we discussed I spoke to your oncologist Dr. Burroughs who recommended placing you on antibiotics for the next 7 days. He would like to follow-up with you in office next week. I have written you an order for repeat CBC/CMP to be completed before this appointment. You need to return to the emergency departme nt immediately for any development of fever (100.4 or greater). You may also return for worsening or severe chest pain, shortness of breath, difficulty breathing. You may continue using Benadryl as needed for your hives/rash. Coding Level of Care Code ED Driver'S License Examiner for Chg Fwd Exam Comprehensive Documented by User: Gato Dowd DO 05/14/22 14:28 HPI - Chest Pain General: Chief Complaint: Chest Pain Stated Complaint: chest pain, body rash Time Seen by Provider: 05/14/22 08:54 PFSH ED PFSH: Medical History Asthma Cervical cancer COVID-19 Endometriosis Fatigue GERD (gastroesophageal reflux disease) High risk medication use Invasive ductal carcinoma of left breast Joint pain Pancreatitis Rheumatoid arthritis Surgical History History of appendectomy History of cholecystectomy History of hysterectomy History of mastectomy Bilateral December, S/P tonsillectomy and adenoidectomy Family History Other Cancer Heart disease Hypertension Social History Smoking and tobacco status: smoker, details unknown Second hand smoke exposure: No Smoking risk assessment/counseling performed?: No Alcohol intake: never Desire information about alcohol rehabilitation?: No Counseling given: No Desire information about substance/drug rehabilitation?: No Counseling given: No Adopted: No Lives independently: Yes Housing: House Physical Exam Neuro: JUDITH COMA SCALE: document GCS findings [place] coma scale total score: 15 Course Vital Signs: Vital signs: Vital Signs Pulse Rate 90 05/14/22 13:41 Respiratory Rate 18 05/14/22 13:41 Blood Pressure 128/75 05/14/22 13:41 Pulse Oximetry 98 05/14/22 13:41 Oxygen Delivery Me thod 05/14/22 12:30 MDM - Chest Pain Medical Decision Making Patient is a 57-year-old female here for complaints of chest pain and urticarial rash. Rash completely subsided after IV Benadryl, Solu-Medrol, Pepcid. Chest pain work-up including CBC, CMP, baseline and 2-hour troponin, EKGs, D-dimer, and BNP. Baseline and 2-hour troponin are non-elevated. EKG showing no ischemic changes. BNP is normal. D-dimer was elevated thus CTA imaging obtained to evaluate for PE given history of chest pain and history of malbethanie joseph. CTA imaging is negative. Patient was incidentally found to be significantly neutropenic on her CBC. Most likely this is chemotherapy-induced. Patient is not complaining of fevers. CT imaging and UA negative for infection. Discussed with Dr. Dowd who feels we could safely discharge p atient home with oral antibiotics. I did speak to her oncologist Dr. Burroughs who agrees with this plan. He recommended placing her on Levaquin over the next week and he will follow-up with her next week. Very strict return to ED precautions were given to which patient voiced understanding. Chart reviewed and patient discussed with midlevel. Agree with assessment and plan. Lab Data 05/14/22 09:00 Radiology Impressions Chest CTA 05/14/22 09:51 IMPRESSION: 1. No evidence of pulmonary embolus. 2. Lungs are well aerated. No acute pulmonary infiltrates. 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 4. Small esophageal hiatal hernia. Laboratory Results WBC 0.4 10^3/uL (4.0-10.0) L* 05/14/22 09:00 RBC 3.60 10^6/uL (4.1-5.3) L 05/14/22 09:00 Hgb 10.2 g/dL (11.5-15.3) L 05/14/22 09:00 Hct 31.8 % (37.0-47.0) L 05/14/22 09:00 MCV 88.3 fl (81-99) 05/14/22 09:00 MCH 28.3 pg (28.0-34.0) 05/14/22 09:00 MCHC 32.1 g/dL (30.0-36.0) 05/14/22 09:00 RDW 18.0 % (12.1-15.1) H 05/14/22 09:00 Plt Count 202 10^3/cmm (130-400) 05/14/22 09:00 MPV 9.8 fL (7.4-10.4) 05/14/22 09:00 Neut % (Auto) 24.4 % 05/14/22 09:00 Lymph % (Auto) 56.1 % 05/14/22 09:00 Real % (Auto) 17.1 % 05/14/22 09:00 Eos % (Auto) 0.0 % 05/14/22 09:00 Baso % (Auto) 2.4 % 05/14/22 09:00 Neut # (Auto) 0.10 10^3/uL (1.8-7.7) L* 05/14/22 09:00 Lymph # (Auto) 0.2 10^3/uL (0.8-4.8) L 05/14/22 09:00 Real # (Auto) 0.1 10^3/uL (0.2-0.9) L 05/14/22 09:00 Eos # (Auto) 0.0 10^3/uL (0.0-0.8) 05/14/22 09:00 Baso # (Auto) 0.0 10^3/uL (0.0-0.1) 05/14/22 09:00 Nucleated RBC % (auto) 0 % 05/14/22 09:00 Nucleated RBCs # 0.0 /100WBC 05/14/22 09:00 D-Dimer 2.38 ug/mIFEU (0-0.59) H 05/14/22 09:00 Sodium 137 mmol/L (136-145) 05/14/22 09:00 Potassium 4.2 mmol/L (3.5-5.1) 05/14/22 09:00 Chloride 104 mmol/L (98-107) 05/14/22 09:00 Carbon Dioxide 23 mmol/L (22-29) 05/14/22 09:00 Anion Gap 14.2 (5-19) 05/14/22 09:00 BUN 8 mg/dL (6-20) 05/14/22 09:00 Creatinine 0.6 mg/dL (0.5-0.9) 05/14/22 09:00 GFR Calculation 102.7 mL/min (90-130) 05/14/22 09:00 Glucose 135 mg/dL (65-115) H 05/14/22 09:00 Calculated Osmolality 284 mOsm/kg (285-295) L 05/14/22 09:00 Calcium 8.8 mg/dL (8.5-10.5) 05/14/22 09:00 Total Bilirubin 0.4 mg/dL (0.15-1.2) 05/14/22 09:00 AST 18 U/L (0-32) 05/14/22 09:00 ALT 21 U/L (0-33) 05/14/22 09:00 Alkaline Phosphatase 89 U/L (35-105) 05/14/22 09:00 Troponin T Baseline 7 ng/L (0-10) 05/14/22 09:00 Troponin T 120 Minute 7.83 ng/L (0-10) 05/14/22 11:21 Delta Troponin T 0.83 ABS# (0-10) 05/14/22 11:21 C-Reactive Protein 14.4 mg/L (0.0-4.9) H 05/14/22 09:00 NT-Pro-B Natriuret Pep 46 pg/mL (0-125) 05/14/22 09:00 Total Protein 5.6 g/dL (6.6-8.7) L 05/14/22 09:00 Albumin 3.7 g/dL (3.5-5.2) 05/14/22 09:00 Globulin 1.9 g/dL (1.3-4.6) 05/14/22 09:00 Urine Color Yellow (Yellow) 05/14/22 11:31 Urine Appearance Clear (CLEAR) 05/14/22 11:31 Urine pH 6 (5-7) 05/14/22 11:31 Ur Specific Marshall 1.010 (1.005-1.030) 05/14/22 11:31 Urine Protein Neg (Negative) 05/14/22 11:31 Urine Glucose (UA) Norm (Normal) 05/14/22 11:31 Urine Ketones Negative (Negative) 05/14/22 11:31 Urine Blood Neg (Negative) 05/14/22 11:31 Urine Nitrate Negative (Negative) 05/14/22 11:31 Urine Bilirubin Neg (Negative) 05/14/22 11:31 Urine Urobilinogen Neg mg/dL (Negative) 05/14/22 11:31 Ur Leukocyte Esterase Negative (Negative) 05/14/22 11:31 Discharge Plan Discharge Patient Disposition: Home Clinical Impression: Chemotherapy induced neutropenia, Chest pain, Urticaria Condition: Stable Prescriptions: New levofloxacin 500 mg tablet 500 mg PO DAILY 7 Days Qty: 7 0RF No Action citalopram [Celexa] 20 mg tablet 10 mg PO QAM trazodone 100 mg tablet 100 mg PO BEDTIME Hair,Skin and Nails Tablet 2 tab PO QAM diclofenac sodium [Voltaren Arthritis Pain] 1 % gel 4 g topical QID PRN (Reason: Pain) Rx Instructions: apply to single knee, ankle, foot; for foot includes sole/toes/top of foot hydrocodone-acetaminophen 5-325 mg tablet 1 - 2 tab PO Q4H PRN (Reason: pain) lorazepam 1 mg tablet 0.5 - 1 mg PO Q6H PRN (Reason: Severe Nausea) Qty: 30 3RF fluconazole 100 mg tablet 100 mg PO DAILY Qty: 7 3RF sucralfate [Carafate] 1 gram tablet 1 g PO Q6H 28 Days Qty: 112 0RF gabapentin 300 mg Capsule 300 mg PO BEDTIME vitamin B complex Capsule 1 cap PO QAM multivitamin Tablet 1 tab PO QAM albuterol sulfate [Ventolin HFA] 90 mcg/actuation Hfa Aerosol Inhaler 2 puff INHALATION 6XD PRN (Reason: Shortness Of Breath) prochlorperazine maleate [Compazine] 10 mg tablet 10 mg PO Q4H PRN (Reason: Mild Nausea) Qty: 30 3RF dexamethasone 4 mg tablet 8 mg PO DIRECTED Qty: 60 3RF Rx Instructions: Take 8 mg twice daily the day before and the day after Taxotere Benadryl 50 mg Capsule 50 mg PO TID PRN (Reason: Itching) alprazolam 0.25 mg tablet 0.25 mg PO BID PRN (Reason: Anxiety) lidocaine-prilocaine 2.5-2.5 % cream See Rx Instructions .ROUTE .COMPLEX Rx Instructions: apply to port as directed prior to access Protonix 40 mg tablet,delayed release (DR/EC) 40 mg PO QAM Discharge Orders: Discharge ED (Routine); Ordered 05/14/22 Ordered By: Nimco Jerry Referrals: Michael Mahoney DO [Primary Care Provider] - Patient Instructions: Urticaria (ED), Neutropenia Activity Restrictions/Additional Instructions: As we discussed I spoke to your oncologist Dr. Burroughs who recommended placing you on antibiotics for the next 7 days. He would like to follow-up with you in office next week. I have written you an order for repeat CBC/CMP to be completed before this appointment. You need to return to the emergency department immediately for any development of fever (100.4 or greater). You may also return for worsening or severe chest pain, shortness of breath, difficulty breathing. You may continue using Benadryl as needed for your hives/rash. Coding Level of Care Code ED Driver'S License Examiner for Chg Fwd Exam Comprehensive
[2022-05-14 09:46] LABS: D Dimer 2.38 ug/mIFEU (0-0.59)
[2022-05-14 09:48] LABS: Troponin(5th) Baseline 7 ng/L (0-10)
--- NOTE | 2022-05-14 09:51 | CT_ITS ---
WS: [id number] CTA OF THE CHEST WITH PULMONARY EMBOLISM PROTOCOL TECHNIQUE: High-resolution contrast enhanced CTA of the chest with coronal and sagittal reformatted i mages with pulmonary embolism protocol. MIP images are also reviewed. CLINICAL INFORMATION: chest pain COMPARISON: CTA January 19, 2021 DLP: 420.[address] scans at [facility] use at least one of these dose optimization techniques: automated e xposure control; mA and/or kV adjustment per patient size (includes targeted exams where dose is matc hed to clinical indication); or iterative reconstruction. 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 Lungs are well aerated. No acute pulmonary infiltrates. No focal pneumonia or pleural fluid. Proximal main pulmonary arteries are normal. Normal segmental and subsegmental pulmona ry arteries. No evidence of pulmonary embolus. Normal caliber thoracic aorta. Aortic Calcification. No mediastinal or hilar lymphadenopathy. Subcari nal lymphadenopathy. Adrenal glands are normal. Cholecystectomy clips. Small esophageal hiatal hernia . Hypertrophic changes thoracic spine. Moderate thoracic kyphosis. CT/CT angio chest PE protcl [id number] IMPRESSION: 1. No evidence of pulmonary embolus. 2. Lungs are well aerated. No acute pulmonary infiltrates. 3. 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 4. Small esophageal hiatal hernia.
[2022-05-14] MEDS: famotidine 20 mg/2 mL INJ 40 MG IVP (09:54)
[2022-05-14] MEDS: diphenhydrAMINE 50 mg/mL SDV 1mL IVP (09:54)
[2022-05-14 09:55] LABS: Alanine Aminotransferase 21 U/L (0-33); Albumin Level 3.7 g/dL (3.5-5.2); Alkaline Phosphatase 89 U/L (35-105); Anion Gap 14.2 (5-19); Aspartate Amino Transferase 18 U/L (0-32); Blood Urea Nitrogen 8 mg/dL (6-20); Calcium 8.8 mg/dL (8.5-10.5); Carbon Dioxide 23 mmol/L (22-29); Chloride 104 mmol/L (98-107); Globulin 1.9 g/dL (1.3-4.6); Glomerular Filtration Rate 102.7 mL/min (90-130); Glucose 135 mg/dL (65-115); NT Pro B Type Natriuretic Pept 46 pg/mL (0-125); Osmolality Calculated 284 mOsm/kg (285-295); Potassium 4.2 mmol/L (3.5-5.1); Sodium 137 mmol/L (136-145); Total Bilirubin 0.4 mg/dL (0.15-1.2); Total Protein 5.6 g/dL (6.6-8.7)
[2022-05-14 10:46] LABS: Basophils % 2.4 %; Hematocrit 31.8 % (37.0-47.0); Hemoglobin 10.2 g/dL (11.5-15.3); Lymphocytes # 0.2 10^3/uL (0.8-4.8); Lymphocytes % 56.1 %; Mean Corpuscular HGB Conc 32.1 g/dL (30.0-36.0); Mean Corpuscular Hemoglobin 28.3 pg (28.0-34.0); Mean Corpuscular Volume 88.3 fl (81-99); Mean Platelet Volume 9.8 fL (7.4-10.4); Monocytes # 0.1 10^3/uL (0.2-0.9); Monocytes % 17.1 %; Neutrophils % 24.4 %; Nucleated Red Blood Cells % 0 %; Platelet Count 202 10^3/cmm (130-400)
[2022-05-14 11:08] LABS: White Blood Count 0.4 10^3/uL (4.0-10.0)
[2022-05-14 11:09] LABS: Slide Review Slide Review Perform
--- NOTE | 2022-05-14 11:16 | ECG_ITS ---
[facility] Test Date: 2022-05-14 Pat Name: Leslie Osborn Department: Room: Gender: Female Service Director: : 1965 Requested By: Gato Arteaga Order Number: [id number] Santiago MD: Briana Savage M.D. Measurements Intervals [place] Rate: 96 P: 42 MT: 162 QRS: -17 QRSD: 89 T: 15 QT: 343 QTc: 434 Interpretive Statements SINUS RHYTHM MODERATE VOLTAGE CRITERIA FOR LVH, CONSIDER NORMAL VARIANT [MEETS CRITERIA IN ONE OF: R(aVL), S(V1), R(V5), R(V5/V6)+S(V1)] Compared to ECG 05/14/2022 08:55:20 Sinus tachycardia no longer present Electronically Signed On 05-14-2022 22:20:49 EMAIL ADMINISTRATOR by Briana Savage M.D. [email or web address]
[2022-05-14 11:35] LABS: Add Urine Microscopic? NO; Charge for UA Resulting for Rev
[2022-05-14 11:39] LABS: Bilirubin Urine Neg (Negative); Blood Urine Neg (Negative); Glucose Urine UA Norm (Normal); Ketones Urine Negative (Negative); Leukocyte Esterase Urine Negative (Negative); Nitrate Urine Negative (Negative); Protein Urine Neg (Negative); Urine Appearance Clear (CLEAR); Urine Color Yellow (Yellow); Urobilinogen Urine Neg (Negative); pH Urine 6 (5-7)
[2022-05-14] MEDS: sodium chloride 0.9% 1,000 ML 999 ML IV (11:47)
[2022-05-14 11:51] LABS: Troponin 5 2HR 7.83 ng/L (0-10)
[2022-05-14 11:55] LABS: C Reactive Protein 14.4 mg/L (0.0-4.9)
--- NOTE | 2022-05-14 12:05 | PC.PHAR ---
PT STATES SHE TAKES CARE OF HER OWN MEDICATIONS-PT STATES SHE IS STILL TAKING CELEXA 10MG QAM EXT MED HISTORY SHOWS LAST FILLED 12/24/21 30D/S FOR 20MG DAILY-PT STATES SHE JUST FINISHED HER TREATMENT OF DOCETAXEL AND CYTOXAN STATES SHE THINKS THATS THE N[facility] THEY WERE CLOSED TO VERIFY NAME OF MED AND MG AND WHEN PT LAST GOT-NOTES ARE MADE IN THE PHARMACY COMMENTS
[2022-05-14 12:15] LABS: Troponin 5 2HR Delta 0.83 ABS# (0-10)
--- NOTE | 2022-05-19 10:56 | DCPLANNER ---
Addendum entered by Coby Knowles 06/16/22 07:50: Patient had an appointment at the [facility] - patient did attend appointment. Addendum entered by Coby Knowles 05/21/22 12:22: Patient has a follow up appointment scheduled for Wednesday, May 25, 2022 at 1:30 with at the [facility]. Clinic will call patient with appointment information. Original Note: program manager had message to schedule a follow up appointment for patient with oncology. program manager called Sun Dolan at the [facility], patients information will be printed and reviewed. Clinic will call patient with appointment information.
== END 2022-05-14 13:00 | disposition home or self-care (01) ==
PROVIDERS: Family Medicine; Emergency Provider Physician Assistant; PCP Electrodiagnostic Medicine
DX: D70.1 Agranulocytosis secondary to cancer chemotherapy (principal); R07.9 Chest pain, unspecified; L50.9 Urticaria, unspecified; Z85.41 Personal history of malignant neoplasm of cervix uteri; F17.200 Nicotine dependence, unspecified, uncomplicated
CPT/HCPCS: 36415; 71275; 80053; 81003; 83880; 84484; 85025; 85378; 86140; 87040; 93005; 96374; 96375; 99285; J1200; J2930; J3490; J7030

== ENCOUNTER 2022-05-25 11:51 | Oncology outpatient (recurring) (ONCR) | payer BC, MEDICAID, SELFPAY ==
[2022-05-25 12:22] LABS: Basophils % 0.5 %; Eosinophils % 0.4 %; Hematocrit 35.6 % (37.0-47.0); Hemoglobin 11.3 g/dL (11.5-15.3); Lymphocytes # 1.2 10^3/uL (0.8-4.8); Lymphocytes % 13.8 %; Mean Corpuscular HGB Conc 31.7 g/dL (30.0-36.0); Mean Corpuscular Hemoglobin 28.3 pg (28.0-34.0); Mean Platelet Volume 8.6 fL (7.4-10.4); Monocytes # 0.7 10^3/uL (0.2-0.9); Monocytes % 8.4 %; Neutrophils # 6.52 10^3/uL (1.8-7.7); Neutrophils % 76.3 %; Nucleated Red Blood Cells % 0 %; Platelet Count 276 10^3/cmm (130-400); Red Cell Distribution Width 18.1 % (12.1-15.1); White Blood Count 8.5 10^3/uL (4.0-10.0)
[2022-05-25 12:38] LABS: Alanine Aminotransferase 19 U/L (0-33); Alkaline Phosphatase 85 U/L (35-105); Anion Gap 13.2 (5-19); Aspartate Amino Transferase 18 U/L (0-32); Blood Urea Nitrogen 9 mg/dL (6-20); Calcium 8.7 mg/dL (8.5-10.5); Carbon Dioxide 26 mmol/L (22-29); Chloride 103 mmol/L (98-107); Globulin 2.6 g/dL (1.3-4.6); Glomerular Filtration Rate 85.9 mL/min (90-130); Glucose 80 mg/dL (65-115); Osmolality Calculated 284 mOsm/kg (285-295); Potassium 4.2 mmol/L (3.5-5.1); Sodium 138 mmol/L (136-145); Total Bilirubin 0.2 mg/dL (0.15-1.2); Total Protein 6.6 g/dL (6.6-8.7)
[2022-05-25 14:34] LABS: Add Urine Microscopic? NO; Charge for UA Resulting for Rev
[2022-05-25 14:46] LABS: Urine Color Yellow (Yellow)
[2022-05-25 14:47] LABS: Bilirubin Urine Neg (Negative); Blood Urine Neg (Negative); Glucose Urine UA Norm (Normal); Ketones Urine Negative (Negative); Leukocyte Esterase Urine Negative (Negative); Nitrate Urine Negative (Negative); Protein Urine Neg (Negative); Specific Gravity, Urine 1.015 (1.005-1.030); Urine Appearance Clear (CLEAR); Urobilinogen Urine Neg (Negative); pH Urine 6 (5-7)
== END 2022-06-15 23:59 | disposition home or self-care (01) ==
PROVIDERS: PCP Electrodiagnostic Medicine; Visit Provider Internal Medicine Hematology & Oncology
DX: C50.812 Malignant neoplasm of overlapping sites of left female breast; Z17.0 Estrogen receptor positive status [ER+]; Z90.13 Acquired absence of bilateral breasts and nipples; R53.1 Weakness; R53.0 Neoplastic (malignant) related fatigue; R82.998 Other abnormal findings in urine; D64.9 Anemia, unspecified; Z79.811 Long term (current) use of aromatase inhibitors; Z79.899 Other long term (current) drug therapy
CPT/HCPCS: 80053; 81003; 85025

== ENCOUNTER 2022-06-18 11:32 | Oncology outpatient (recurring) (ONCR) | payer BC, MEDICAID, SELFPAY ==
[2022-06-18 13:04] LABS: Basophils % 0.6 %; Eosinophils # 0.3 10^3/uL (0.0-0.8); Eosinophils % 4.8 %; Hematocrit 36.9 % (37.0-47.0); Hemoglobin 11.8 g/dL (11.5-15.3); Lymphocytes # 1.2 10^3/uL (0.8-4.8); Lymphocytes % 18.5 %; Mean Corpuscular Volume 87.4 fl (81-99); Monocytes # 0.5 10^3/uL (0.2-0.9); Monocytes % 8.7 %; Neutrophils # 4.18 10^3/uL (1.8-7.7); Neutrophils % 67.1 %; Nucleated Red Blood Cells % 0 %; Platelet Count 306 10^3/cmm (130-400); Red Blood Count 4.22 10^6/uL (4.1-5.3); Red Cell Distribution Width 15.4 % (12.1-15.1); White Blood Count 6.2 10^3/uL (4.0-10.0)
[2022-06-18 13:21] LABS: Alanine Aminotransferase 24 U/L (0-33); Alkaline Phosphatase 95 U/L (35-105); Anion Gap 14.1 (5-19); Aspartate Amino Transferase 23 U/L (0-32); Blood Urea Nitrogen 8 mg/dL (6-20); Carbon Dioxide 26 mmol/L (22-29); Chloride 103 mmol/L (98-107); Globulin 2.7 g/dL (1.3-4.6); Glomerular Filtration Rate 102.7 mL/min (90-130); Glucose 72 mg/dL (65-115); Osmolality Calculated 285 mOsm/kg (285-295); Potassium 4.1 mmol/L (3.5-5.1); Sodium 139 mmol/L (136-145); Total Bilirubin 0.2 mg/dL (0.15-1.2); Total Protein 6.7 g/dL (6.6-8.7)
== END 2022-07-16 23:59 | disposition home or self-care (01) ==
PROVIDERS: PCP Electrodiagnostic Medicine; Visit Provider Internal Medicine Hematology & Oncology
DX: C50.812 Malignant neoplasm of overlapping sites of left female breast (principal); Z17.0 Estrogen receptor positive status [ER+]; Z90.13 Acquired absence of bilateral breasts and nipples; R53.1 Weakness; R53.0 Neoplastic (malignant) related fatigue; R82.998 Other abnormal findings in urine; D64.9 Anemia, unspecified; Z79.811 Long term (current) use of aromatase inhibitors; Z79.899 Other long term (current) drug therapy; Z51.12 Encounter for antineoplastic immunotherapy; C50.912 Malignant neoplasm of unspecified site of left female breast; K29.70 Gastritis, unspecified, without bleeding; B37.81 Candidal esophagitis; G62.9 Polyneuropathy, unspecified; Z79.891 Long term (current) use of opiate analgesic
CPT/HCPCS: 80053; 85025

== ENCOUNTER 2022-09-23 14:55 | Oncology outpatient (recurring) (ONCR) | payer BC, MEDICAID, SELFPAY ==
[2022-09-23 15:20] VITALS: BP 111/70; PULSE 76; RESP 16; TEMP 36.1; O2SAT 95
[2022-09-23 15:49] LABS: Basophils % 0.5 %; Eosinophils # 0.3 10^3/uL (0.0-0.8); Eosinophils % 3.8 %; Hematocrit 37.6 % (37.0-47.0); Lymphocytes # 1.3 10^3/uL (0.8-4.8); Lymphocytes % 17.2 %; Mean Corpuscular HGB Conc 31.9 g/dL (30.0-36.0); Mean Corpuscular Volume 84.5 fl (81-99); Mean Platelet Volume 9.7 fL (7.4-10.4); Monocytes # 0.6 10^3/uL (0.2-0.9); Monocytes % 7.9 %; Neutrophils # 5.34 10^3/uL (1.8-7.7); Neutrophils % 70.1 %; Nucleated Red Blood Cells % 0 %; Platelet Count 218 10^3/cmm (130-400); Red Blood Count 4.45 10^6/uL (4.1-5.3); Red Cell Distribution Width 15.3 % (12.1-15.1); White Blood Count 7.6 10^3/uL (4.0-10.0)
[2022-09-23 15:53] LABS: Alanine Aminotransferase 23 U/L (0-33); Albumin Level 3.8 g/dL (3.5-5.2); Alkaline Phosphatase 104 U/L (35-105); Blood Urea Nitrogen 9 mg/dL (6-20); Calcium 8.8 mg/dL (8.5-10.5); Carbon Dioxide 23 mmol/L (22-29); Chloride 102 mmol/L (98-107); Globulin 2.9 g/dL (1.3-4.6); Glomerular Filtration Rate 85.9 mL/min (90-130); Glucose 120 mg/dL (65-115); Osmolality Calculated 284 mOsm/kg (285-295); Sodium 137 mmol/L (136-145); Total Bilirubin 0.2 mg/dL (0.15-1.2); Total Protein 6.7 g/dL (6.6-8.7)
[2022-09-23 15:56] LABS: Anion Gap 15.8 (5-19); Aspartate Amino Transferase 25 U/L (0-32); Potassium 3.8 mmol/L (3.5-5.1)
== END 2022-10-15 23:59 | disposition home or self-care (01) ==
PROVIDERS: Nurse Practitioner; PCP Electrodiagnostic Medicine; Visit Provider Internal Medicine Hematology & Oncology
DX: C50.912 Malignant neoplasm of unspecified site of left female breast (principal); C50.812 Malignant neoplasm of overlapping sites of left female breast
CPT/HCPCS: 36415; 80053; 85025

== ENCOUNTER 2022-12-22 13:59 | Oncology outpatient (recurring) (ONCR) | payer MEDICAID, SELFPAY ==
[2022-12-22 14:01] VITALS: BP 136/75; PULSE 85; RESP 18; TEMP 36.6; O2SAT 97; BMI 36.3
[2022-12-22 14:20] LABS: Basophils % 0.4 %; Eosinophils # 0.2 10^3/uL (0.0-0.8); Eosinophils % 2.4 %; Hematocrit 37.2 % (36-47); Lymphocytes # 1.9 10^3/uL (0.8-4.8); Lymphocytes % 20.3 %; Mean Corpuscular HGB Conc 34.1 g/dL (30-55); Mean Corpuscular Hemoglobin 28.5 pg (27-33); Mean Corpuscular Volume 83.6 fl (85-98); Mean Platelet Volume 8.9 fL (7.4-10.4); Monocytes # 0.5 10^3/uL (0.2-0.9); Monocytes % 5.2 %; Neutrophils # 6.59 10^3/uL (1.8-7.7); Neutrophils % 71.5 %; Nucleated Red Blood Cells % 0 %; Platelet Count 299 10^3/cmm (157-399); Red Blood Count 4.45 10^6/uL (3.85-5.65); Red Cell Distribution Width 13.9 % (12.1-15.1); White Blood Count 9.22 10^3/uL (3.29-11.43)
[2022-12-22 14:33] LABS: Alanine Aminotransferase 18 U/L (0-33); Albumin Level 4.5 g/dL (3.5-5.2); Alkaline Phosphatase 111 U/L (35-105); Anion Gap 18.3 (5-19); Aspartate Amino Transferase 18 U/L (0-32); Blood Urea Nitrogen 16 mg/dL (6-20); Calcium 9.2 mg/dL (8.5-10.5); Carbon Dioxide 23 mmol/L (22-29); Chloride 101 mmol/L (98-107); Glomerular Filtration Rate 85.9 mL/min (90-130); Glucose 148 mg/dL (65-115); Osmolality Calculated 290 mOsm/kg (285-295); Potassium 4.3 mmol/L (3.5-5.1); Sodium 138 mmol/L (136-145); Total Bilirubin 0.3 mg/dL (0.15-1.2); Total Protein 7.5 g/dL (6.6-8.7)
== END 2023-01-15 23:59 | disposition home or self-care (01) ==
PROVIDERS: Internal Medicine Medical Oncology; PCP Electrodiagnostic Medicine; Visit Provider Internal Medicine Hematology & Oncology
DX: C50.912 Malignant neoplasm of unspecified site of left female breast; Z53.9 Procedure and treatment not carried out, unspecified reason
CPT/HCPCS: 36415; 80053; 85025

== ENCOUNTER 2023-01-04 12:16 | Outpatient (CLI) | payer MEDICAID, SELFPAY ==
--- NOTE | 2023-01-04 13:45 | US_ITS ---
WS: [id number] ULTRASOUND SOFT TISSUES bilateral axilla. HISTORY: Bilateral US Axilla COMPARISON: None available. TECHNIQUE: 2-D and color Doppler imaging is submitted. Ultrasound is performed of the axilla, bilateral. No masses or lymphadenopathy is identified. No incr eased vascularity. Normal appearance of the soft tissues IMPRESSION: Negative bilateral axillary ultrasound.
--- NOTE | 2023-01-04 14:15 | XR_ITS ---
WS: [id number] SCREENING DEXA SCAN [facility] CLINICAL INFORMATION: Follow up COMPARISON: None. FINDINGS: The L1-L4 bone mineral density measures 1.134 g/cm2. This corresponds to a T score score of -0.4 and Z score of -0.4. Left femoral neck bone mineral density measures 1.142 g/cm2. This corresponds to a T score of 1.1 and Z score of 1.1. Right femoral neck bone mineral density measures 1.048 g/cm2. This corresponds to a T score 0.3of and Z score of 0.3. Mean femoral neck bone mineral density measures 1.095 g/cm2. This corresponds to a T score of 0.7 and Z score of 0.7. IMPRESSION: Normal bone mineralization. Patient's FRAX calculated 10 year probability for major osteoporotic fracture is 8.7% and osteoporoti c hip fracture is 0.7%.
== END 2023-01-04 12:17 | disposition home or self-care (01) ==
LOC: RAD 12:18
PROVIDERS: PCP Electrodiagnostic Medicine; Visit Provider Internal Medicine Medical Oncology
DX: C50.912 Malignant neoplasm of unspecified site of left female breast (principal); Z13.820 Encounter for screening for osteoporosis; Z79.899 Other long term (current) drug therapy; M79.89 Other specified soft tissue disorders
CPT/HCPCS: 76882; 77080

== ENCOUNTER 2023-01-10 08:41 | Outpatient (CLI) | payer MEDICAID, SELFPAY ==
--- NOTE | 2023-01-10 09:30 | NM_ITS ---
WS: [id number] NUCLEAR MEDICINE BONE SCAN Radiopharmaceutical: 27.1 Tc-99m MDP mCi IV Injection site: Antecubital Postinjection imaging delay: 1 hr CLINICAL INFORMATION: Bone pain COMPARISON: None. FINDINGS: Bone lesions: There are no osseous lesions suspicious for metastatic disease. Soft tissue contours: Normal. Kidneys: Normal. Other findings: Degenerative type uptake involving the AC joints, both knees, and both ankles. IMPRESSION: No evidence of osseous metastatic disease.
== END 2023-01-10 08:42 | disposition home or self-care (01) ==
PROVIDERS: PCP Electrodiagnostic Medicine; Visit Provider Internal Medicine Medical Oncology
DX: C50.912 Malignant neoplasm of unspecified site of left female breast (principal); Z79.899 Other long term (current) drug therapy
CPT/HCPCS: 78306; A9561

== ENCOUNTER 2023-01-19 13:19 | Oncology outpatient (recurring) (ONCR) | payer MEDICAID, SELFPAY ==
[2023-01-19 13:25] VITALS: BP 130/82; PULSE 78; RESP 16; TEMP 36.6; O2SAT 98
[2023-01-19 13:39] LABS: Basophils % 0.3 %; Eosinophils # 0.2 10^3/uL (0.0-0.8); Eosinophils % 2.8 %; Hematocrit 36.8 % (36-47); Lymphocytes # 1.6 10^3/uL (0.8-4.8); Mean Corpuscular HGB Conc 33.7 g/dL (30-55); Mean Corpuscular Hemoglobin 28.8 pg (27-33); Mean Corpuscular Volume 85.4 fl (85-98); Monocytes # 0.4 10^3/uL (0.2-0.9); Monocytes % 5.1 %; Neutrophils # 5.23 10^3/uL (1.8-7.7); Neutrophils % 70.4 %; Nucleated Red Blood Cells % 0 %; Platelet Count 291 10^3/cmm (157-399); Red Blood Count 4.31 10^6/uL (3.85-5.65); Red Cell Distribution Width 13.7 % (12.1-15.1); White Blood Count 7.43 10^3/uL (3.29-11.43)
[2023-01-19 14:06] LABS: Alanine Aminotransferase 18 U/L (0-33); Albumin Level 4.1 g/dL (3.5-5.2); Alkaline Phosphatase 114 U/L (35-105); Aspartate Amino Transferase 18 U/L (0-32); Blood Urea Nitrogen 13 mg/dL (6-20); Calcium 9.1 mg/dL (8.5-10.5); Carbon Dioxide 27 mmol/L (22-29); Chloride 100 mmol/L (98-107); Globulin 3.2 g/dL (1.3-4.6); Glomerular Filtration Rate 85.9 mL/min (90-130); Glucose 122 mg/dL (65-115); Osmolality Calculated 287 mOsm/kg (285-295); Sodium 138 mmol/L (136-145); Total Bilirubin 0.3 mg/dL (0.15-1.2); Total Protein 7.3 g/dL (6.6-8.7)
[2023-01-19 14:19] LABS: 25 Hydroxy Vitamin D 51 ng/mL (30-100)
== END 2023-02-15 23:59 | disposition home or self-care (01) ==
PROVIDERS: Internal Medicine Medical Oncology; PCP Electrodiagnostic Medicine; Visit Provider Internal Medicine Hematology & Oncology
DX: C50.912 Malignant neoplasm of unspecified site of left female breast (principal); Z17.0 Estrogen receptor positive status [ER+]; Z79.899 Other long term (current) drug therapy; Z53.9 Procedure and treatment not carried out, unspecified reason
CPT/HCPCS: 36415; 80053; 82306; 85025

== ENCOUNTER 2023-03-03 12:29 | Emergency (ER) | payer MEDICAID, SELFPAY ==
[2023-03-03 12:42] VITALS: BP 135/84; PULSE 89; RESP 20; TEMP 36.7; O2SAT 98; BMI 35.5
--- NOTE | 2023-03-03 12:48 | XR_ITS ---
WS: [id number] Exam: XR chest 1V portable [id number] Date/Time of Exam: 03/03/2023 12:48 PM Reason For Exam: dyspnea/cough Comparison 10/18/2022. The lungs are clear and fully expanded. Normal cardiomediastinal silhouette. No pleural effusions. La rge epicardial fat pad on the RIGHT. Bony structures appear normal. IMPRESSION: 1. No acute cardiopulmonary finding. No change.
--- NOTE | 2023-03-03 13:24 | W.ED.URI ---
Documented by User: ART Wolf 03/03/23 14:25 HPI - URI/Sore Throat General: Chief Complaint: Upper Respiratory Infection Stated Complaint: sob, headache Time Seen by Provider: 03/03/23 12:48 History of Present Illness: Patient is in today complains of upper respiratory infection x3 days. She reports that she has had nasal congestion, drainage, nonproductive cough, shortness of breath. She reports that it feels like groundglass when she is breathing. She reports that she has been running 102-103 fever. She reports recent exposure to COVID-19 10 days ago. Associated symptoms: Reports chills, diarrhea, fever(s), headache(s), nasal congestion, nausea and vomiting; Deny abdominal pain or chest pain Review of Systems Const: Reports: fever(s), chills, body aches and fatigue ENMT: Reports: nasal discharge, nasal congestion and post nasal drip Card: Denies: chest pain or palpitations Resp: Reports: dyspnea, non-productive cough, pain on inspiration and chest congestion GI: Reports: nausea, vomiting and diarrhea; Denies: abdominal pain : Denies: flank pain, difficulty voiding, dysuria or urinary frequency Neuro: Reports: headache(s); Denies: numbness in extremities, weakness in extremities, sensory changes or lack of coordination PFSH ED PFSH: Medical History Asthma Cervical cancer COVID-19 Endometriosis Fatigue GERD (gastroesophageal reflux disease) High risk medication use Invasive ductal carcinoma of left breast Joint pain Pancreatitis Port-A-Cath in place Rheumatoid arthritis Surgical History History of appendectomy History of cholecystectomy History of hysterectomy History of mastectomy Bilateral December, Hx of colonoscopy with polypectomy S/P tonsillectomy and adenoidectomy Family History Other Cancer Heart disease Hypertension Social History Smoking and tobacco/nicotine status: former use of tobacco/nicotine Quit status (tobacco/nicotine): has quit using Year quit tobacco: 2009 Former quit date comment: 10 to 15 years smoked Second hand smoke exposure: No Alcohol intake: never Substance/Drug Use: never Adopted: No Lives independently: Yes Housing: House Physical Exam Const: COMMON NORMALS: no acute distress, patient oriented x3 and alert HENMT: COMMON NORMALS: TM's normal bilaterally NOSE: Nasal discharge present clear TYMPANIC MEMBRANE: TM's normal bilaterally THROAT: uvula midline and postnasal drainage Neck/C-Spine: COMMON NORMALS: no JVD Resp: COMMON NORMALS: normal respiratory effort and No use of accessory muscles AUSCULTATION: diminished lung sounds on the right in the lower lung garcia and in the upper lung garcia Cardio: COMMON NORMALS: no JVD, regular rate, regular rhythm, S1 normal heart sound present, S2 normal heart sound present and No murmurs present (Cardio) RATE: regular rate RHYTHM: regular rhythm HEART SOUNDS: S1 normal heart sound present and S2 normal heart sound present Neuro: COMMON NORMALS: patient oriented x3, CN's II-XII intact bilaterally and moves all extremities SENSORIUM/ORIENTATION: Yes alert Course Vital Signs: Vital signs: Vital Signs Temperature 98.1 F 03/03/23 12:42 Pulse Rate 89 03/03/23 12:42 Respiratory Rate 20 H 03/03/23 12:42 Blood Pressure 135/84 03/03/23 12:42 Pulse Oximetry 98 03/03/23 12:42 MDM - URI/Sore Throat Medical Decision Making Consider upper respiratory infection, COVID-19, influenza, pneumonia COVID-19 and influenza labs?positive COVID, positive influenza B Chest x-ray 2 view wet read: Concern for right lower lobe consolidation consistent with pneumonia Radiologist read: Chest x-ray showing no acute cardiopulmonary changes. Right side epicardial fat pad noted Vital signs are stable, SPO2 is 98% on room air. Patient is not in any acute respiratory distress. Discussed testing results with patient. Patient has a history of recent cancer and chemotherapy. We will start patient on Tamiflu and Paxlovid given immunocompromised status. Encouraged conservative treatments at home including staying well-hydrated, Tylenol and Motrin as needed for fever control. Encouraged her to take it easy, but be up and moving around a little bit making sure that she is coughing and deep breathing numerous times an hour to help prevent development of pneumonia. Call her primary care provider today and set up follow-up within the next 2 to 3 days. Discussed with her red flags for worsening and when to return to the ER. Advised her to return to the ER should she have any new or worsening symptoms, inability to control fever, inability to stay hydrated, worsening shortness of breath or development of chest pain. Patient verbalized understanding of all instructions. She has an albuterol inhaler that she can use at home should she need it given her history of asthma. Lab Data 03/03/23 13:35 03/03/23 13:35 Laboratory Results WBC 6.18 10^3/uL (3.29-11.43) 03/03/23 13:35 RBC 4.55 10^6/uL (3.85-5.65) 03/03/23 13:35 Hgb 13.00 g/dL (11.27-16.99) 03/03/23 13:35 Hct 38.8 % (36-47) 03/03/23 13:35 MCV 85.3 fl (85-98) 03/03/23 13:35 MCH 28.6 pg (27-33) 03/03/23 13:35 MCHC 33.5 g/dL (30-55) 03/03/23 13:35 RDW 14.1 % (12.1-15.1) 03/03/23 13:35 Plt Count 265 10^3/cmm (157-399) 03/03/23 13:35 MPV 9.1 fL (7.4-10.4) 03/03/23 13:35 Neut % (Auto) 60.2 % 03/03/23 13:35 Lymph % (Auto) 24.3 % 03/03/23 13:35 Johnston % (Auto) 12.9 % 03/03/23 13:35 Eos % (Auto) 1.9 % 03/03/23 13:35 Baso % (Auto) 0.5 % 03/03/23 13:35 Neut # (Auto) 3.72 10^3/uL (1.8-7.7) 03/03/23 13:35 Lymph # (Auto) 1.5 10^3/uL (0.8-4.8) 03/03/23 13:35 Johnston # (Auto) 0.8 10^3/uL (0.2-0.9) 03/03/23 13:35 Eos # (Auto) 0.1 10^3/uL (0.0-0.8) 03/03/23 13:35 Baso # (Auto) 0.0 10^3/uL (0.0-0.1) 03/03/23 13:35 Nucleated RBC % (auto) 0 % 03/03/23 13:35 Nucleated RBCs # 0.0 /100WBC 03/03/23 13:35 Sodium 139 mmol/L (136-145) 03/03/23 13:35 Potassium 4.4 mmol/L (3.5-5.1) 03/03/23 13:35 Chloride 105 mmol/L (98-107) 03/03/23 13:35 Carbon Dioxide 24 mmol/L (22-29) 03/03/23 13:35 Anion Gap 14.4 (5-19) 03/03/23 13:35 BUN 11 mg/dL (6-20) 03/03/23 13:35 Creatinine 0.7 mg/dL (0.5-0.9) 03/03/23 13:35 GFR Calculation 85.6 mL/min (90-130) L 03/03/23 13:35 Glucose 84 mg/dL (65-115) 03/03/23 13:35 Calculated Osmolality 287 mOsm/kg (285-295) 03/03/23 13:35 Calcium 9.0 mg/dL (8.5-10.5) 03/03/23 13:35 Total Bilirubin 0.2 mg/dL (0.15-1.2) 03/03/23 13:35 AST 23 U/L (0-32) 03/03/23 13:35 ALT 22 U/L (0-33) 03/03/23 13:35 Alkaline Phosphatase 111 U/L (35-105) H 03/03/23 13:35 Total Protein 7.4 g/dL (6.6-8.7) 03/03/23 13:35 Albumin 4.1 g/dL (3.5-5.2) 03/03/23 13:35 Globulin 3.3 g/dL (1.3-4.6) 03/03/23 13:35 Influenza Type A Ag negative (Negative) 03/03/23 13:25 Influenza Type B Ag positive (Negative) H 03/03/23 13:25 SARS-CoV-2 Ag (Rapid) positive (Negative) H 03/03/23 13:25 All radiology interpretation(s) finalized by discharge Discharge Plan Discharge Patient Disposition: Home Clinical Impression: Influenza, COVID-19, Nausea & vomiting Condition: Stable Prescriptions: New Paxlovid 150-100 mg tablets,dose pack See Rx Instructions .ROUTE .COMPLEX Qty: 20 0RF Rx Instructions: take ONE 150 mg tablet of nirmatrelvir with ONE 100 mg tablet of ritonavir twice daily for 5 days Tamiflu 75 mg capsule 75 mg PO Q12H 5 Days Qty: 10 0RF ondansetron 4 mg tablet,disintegrating 4 mg PO Q8H PRN (Reason: nausea and vomiting) 4 Days Qty: 14 0RF No Action citalopram [Celexa] 20 mg tablet 10 mg PO QAM trazodone 100 mg tablet 100 mg PO BEDTIME Hair,Skin and Nails Tablet 2 tab PO QAM diclofenac sodium [Voltaren Arthritis Pain] 1 % gel 4 g topical QID PRN (Reason: Pain) Rx Instructions: apply to single knee, ankle, foot; for foot includes sole/toes/top of foot meloxicam 15 mg tablet 15 mg PO DAILY Qty: 30 2RF omeprazole 40 mg capsule,delayed release(DR/EC) 40 mg PO DAILY magnesium 250 mg tablet 750 mg PO .COMPLEX Rx Instructions: 750 mg orally every other day; methotrexate (PF) 12.5 mg/0.4 mL auto-injector 12.5 mg SUBCUT .qweek Qty: 1.6 3RF anastrozole 1 mg tablet See Rx Instructions .ROUTE .COMPLEX Qty: 90 0RF Dose Instruction: TAKE ONE TABLET BY MOUTH DAILY Rx Instructions: TAKE ONE TABLET BY MOUTH DAILY gabapentin 300 mg Capsule 300 mg PO BEDTIME vitamin B complex Capsule 1 cap PO QAM multivitamin Tablet 1 tab PO QAM albuterol sulfate [Ventolin HFA] 90 mcg/actuation Hfa Aerosol Inhaler 2 puff INHALATION 6XD PRN (Reason: Shortness Of Breath) alprazolam 0.25 mg tablet 0.25 mg PO BID PRN (Reason: Anxiety) Discharge Orders: Discharge ED (Routine); Ordered 03/03/23 Ordered By: Grace Atkins Referrals: Mahoney,Michael J, DO [Primary Care Provider] - Discharge Diet: Advance as tolerated Discharge Activity: Increase activity as tolerated Patient Instructions: Influenza (ED), COVID-19 (Coronavirus Disease 2019) (ED) Activity Restrictions/Additional Instructions: Quarantine per CDC guidelines which includes 5 days from the onset of symptoms. Make sure that you are staying well-hydrated. Use Zofran as needed for nausea and vomiting so that you are able to stay hydrated. Use albuterol inhaler that you have at home as needed. Make sure that you are coughing and deep breathing to help prevent development of pneumonia. Use Tylenol and Motrin as needed for control of fever. Take Paxlovid and Tamiflu as directed. Follow-up with primary care provider in the next 1 to 3 days. Return to the ER as needed for any new or worsening symptoms Coding Level of Care Code ED Barmaid for Chg Fwd Documented by User: Gato Dowd DO 03/05/23 06:29 HPI - URI/Sore Throat General: Chief Complaint: Upper Respiratory Infection Stated Complaint: sob, headache Time Seen by Provider: 03/03/23 12:48 [facility] ED PFSH: Medical History Asthma Cervical cancer COVID-19 Endometriosis Fatigue GERD (gastroesophageal reflux disease) High risk medication use Invasive ductal carcinoma of left breast Joint pain Pancreatitis Port-A-Cath in place Rheumatoid arthritis Surgical History History of appendectomy History of cholecystectomy History of hysterectomy History of mastectomy Bilateral December, Hx of colonoscopy with polypectomy S/P tonsillectomy and adenoidectomy Family History Other Cancer Heart disease Hypertension Social History Smoking and tobacco/nicotine status: former use of tobacco/nicotine Quit status (tobacco/nicotine): has quit using Year quit tobacco: 2009 Former quit date comment: 10 to 15 years smoked Second hand smoke exposure: No Alcohol intake: never Substance/Drug Use: never Adopted: No Lives independently: Yes Housing: House Course Vital Signs: Vital signs: Vital Signs Temperature 98.1 F 03/03/23 12:42 Pulse Rate 89 03/03/23 12:42 Respiratory Rate 20 H 03/03/23 12:42 Blood Pressure 135/84 03/03/23 12:42 Pulse Oximetry 98 03/03/23 12:42 MDM - URI/Sore Throat Medical Decision Making Consider upper respiratory infection, COVID-19, influenza, pneumonia COVID-19 and influenza labs?positive COVID, positive influenza B Chest x-ray 2 view wet read: Concern for right lower lobe consolidation consistent with pneumonia Radiologist read: Chest x-ray showing no acute cardiopulmonary changes. Right side epicardial fat pad noted Vital signs are stable, SPO2 is 98% on room air. Patient is not in any acute respiratory distress. Discussed testing results with patient. Patient has a history of recent cancer and chemotherapy. We will start patient on Tamiflu and Paxlovid given immunocompromised status. Encouraged conservative treatments at home including staying well-hydrated, Tylenol and Motrin as needed for fever control. Encouraged her to take it easy, but be up and moving around a little bit making sure that she is coughing and deep breathing numerous times an hour to help prevent development of pneumonia. Call her primary care provider today and set up follow-up within the next 2 to 3 days. Discussed with her red flags for worsening and when to return to the ER. Advised her to return to the ER should she have any new or worsening symptoms, inability to control fever, inability to stay hydrated, worsening shortness of breath or development of chest pain. Patient verbalized understanding of all instructions. She has an albuterol inhaler that she can use at home should she need it given her history of asthma. Chart reviewed and patient discussed with midlevel. Agree with assessment and plan. Lab Data 03/03/23 13:35 03/03/23 13:35 Laboratory Results WBC 6.18 10^3/uL (3.29-11.43) 03/03/23 13:35 RBC 4.55 10^6/uL (3.85-5.65) 03/03/23 13:35 Hgb 13.00 g/dL (11.27-16.99) 03/03/23 13:35 Hct 38.8 % (36-47) 03/03/23 13:35 MCV 85.3 fl (85-98) 03/03/23 13:35 MCH 28.6 pg (27-33) 03/03/23 13:35 MCHC 33.5 g/dL (30-55) 03/03/23 13:35 RDW 14.1 % (12.1-15.1) 03/03/23 13:35 Plt Count 265 10^3/cmm (157-399) 03/03/23 13:35 MPV 9.1 fL (7.4-10.4) 03/03/23 13:35 Neut % (Auto) 60.2 % 03/03/23 13:35 Lymph % (Auto) 24.3 % 03/03/23 13:35 Johnston % (Auto) 12.9 % 03/03/23 13:35 Eos % (Auto) 1.9 % 03/03/23 13:35 Baso % (Auto) 0.5 % 03/03/23 13:35 Neut # (Auto) 3.72 10^3/uL (1.8-7.7) 03/03/23 13:35 Lymph # (Auto) 1.5 10^3/uL (0.8-4.8) 03/03/23 13:35 Johnston # (Auto) 0.8 10^3/uL (0.2-0.9) 03/03/23 13:35 Eos # (Auto) 0.1 10^3/uL (0.0-0.8) 03/03/23 13:35 Baso # (Auto) 0.0 10^3/uL (0.0-0.1) 03/03/23 13:35 Nucleated RBC % (auto) 0 % 03/03/23 13:35 Nucleated RBCs # 0.0 /100WBC 03/03/23 13:35 Sodium 139 mmol/L (136-145) 03/03/23 13:35 Potassium 4.4 mmol/L (3.5-5.1) 03/03/23 13:35 Chloride 105 mmol/L (98-107) 03/03/23 13:35 Carbon Dioxide 24 mmol/L (22-29) 03/03/23 13:35 Anion Gap 14.4 (5-19) 03/03/23 13:35 BUN 11 mg/dL (6-20) 03/03/23 13:35 Creatinine 0.7 mg/dL (0.5-0.9) 03/03/23 13:35 GFR Calculation 85.6 mL/min (90-130) L 03/03/23 13:35 Glucose 84 mg/dL (65-115) 03/03/23 13:35 Calculated Osmolality 287 mOsm/kg (285-295) 03/03/23 13:35 Calcium 9.0 mg/dL (8.5-10.5) 03/03/23 13:35 Total Bilirubin 0.2 mg/dL (0.15-1.2) 03/03/23 13:35 AST 23 U/L (0-32) 03/03/23 13:35 ALT 22 U/L (0-33) 03/03/23 13:35 Alkaline Phosphatase 111 U/L (35-105) H 03/03/23 13:35 Total Protein 7.4 g/dL (6.6-8.7) 03/03/23 13:35 Albumin 4.1 g/dL (3.5-5.2) 03/03/23 13:35 Globulin 3.3 g/dL (1.3-4.6) 03/03/23 13:35 Influenza Type A Ag negative (Negative) 03/03/23 13:25 Influenza Type B Ag positive (Negative) H 03/03/23 13:25 SARS-CoV-2 Ag (Rapid) positive (Negative) H 03/03/23 13:25 Discharge Plan Discharge Patient Disposition: Home Clinical Impression: Influenza, COVID-19, Nausea & vomiting Condition: Stable Prescriptions: New Paxlovid 150-100 mg tablets,dose pack See Rx Instructions .ROUTE .COMPLEX Qty: 20 0RF Rx Instructions: take ONE 150 mg tablet of nirmatrelvir with ONE 100 mg tablet of ritonavir twice daily for 5 days Tamiflu 75 mg capsule 75 mg PO Q12H 5 Days Qty: 10 0RF ondansetron 4 mg tablet,disintegrating 4 mg PO Q8H PRN (Reason: nausea and vomiting) 4 Days Qty: 14 0RF No Action citalopram [Celexa] 20 mg tablet 10 mg PO QAM trazodone 100 mg tablet 100 mg PO BEDTIME Hair,Skin and Nails Tablet 2 tab PO QAM diclofenac sodium [Voltaren Arthritis Pain] 1 % gel 4 g topical QID PRN (Reason: Pain) Rx Instructions: apply to single knee, ankle, foot; for foot includes sole/toes/top of foot meloxicam 15 mg tablet 15 mg PO DAILY Qty: 30 2RF omeprazole 40 mg capsule,delayed release(DR/EC) 40 mg PO DAILY magnesium 250 mg tablet 750 mg PO .COMPLEX Rx Instructions: 750 mg orally every other day; methotrexate (PF) 12.5 mg/0.4 mL auto-injector 12.5 mg SUBCUT .qweek Qty: 1.6 3RF anastrozole 1 mg tablet See Rx Instructions .ROUTE .COMPLEX Qty: 90 0RF Dose Instruction: TAKE ONE TABLET BY MOUTH DAILY Rx Instructions: TAKE ONE TABLET BY MOUTH DAILY gabapentin 300 mg Capsule 300 mg PO BEDTIME vitamin B complex Capsule 1 cap PO QAM multivitamin Tablet 1 tab PO QAM albuterol sulfate [Ventolin HFA] 90 mcg/actuation Hfa Aerosol Inhaler 2 puff INHALATION 6XD PRN (Reason: Shortness Of Breath) alprazolam 0.25 mg tablet 0.25 mg PO BID PRN (Reason: Anxiety) Discharge Orders: Discharge ED (Routine); Ordered 03/03/23 Ordered By: Grace Atkins Referrals: Michael Mahoney DO [Primary Care Provider] - Discharge Diet: Advance as tolerated Discharge Activity: Increase activity as tolerated Patient Instructions: Influenza (ED), COVID-19 (Coronavirus Disease 2019) (ED) Activity Restrictions/Additional Instructions: Quarantine per CDC guidelines which includes 5 days from the onset of symptoms. Make sure that you are staying well-hydrated. Use Zofran as needed for nausea and vomiting so that you are able to stay hydrated. Use albuterol inhaler that you have at home as needed. Make sure that you are coughing and deep breathing to help prevent development of pneumonia. Use Tylenol and Motrin as needed for control of fever. Take Paxlovid and Tamiflu as directed. Follow-up with primary care provider in the next 1 to 3 days. Return to the ER as needed for any new or worsening symptoms Coding Level of Care Code ED Barmaid for Magy Majano
[2023-03-03 13:53] LABS: Influenza A by IFA negative (Negative); Influenza B by IFA positive (Negative)
[2023-03-03 13:54] LABS: Basophils % 0.5 %; Eosinophils # 0.1 10^3/uL (0.0-0.8); Eosinophils % 1.9 %; Hematocrit 38.8 % (36-47); Lymphocytes # 1.5 10^3/uL (0.8-4.8); Lymphocytes % 24.3 %; Mean Corpuscular HGB Conc 33.5 g/dL (30-55); Mean Corpuscular Hemoglobin 28.6 pg (27-33); Mean Corpuscular Volume 85.3 fl (85-98); Mean Platelet Volume 9.1 fL (7.4-10.4); Monocytes # 0.8 10^3/uL (0.2-0.9); Monocytes % 12.9 %; Neutrophils # 3.72 10^3/uL (1.8-7.7); Neutrophils % 60.2 %; Nucleated Red Blood Cells % 0 %; Platelet Count 265 10^3/cmm (157-399); Red Blood Count 4.55 10^6/uL (3.85-5.65); Red Cell Distribution Width 14.1 % (12.1-15.1); White Blood Count 6.18 10^3/uL (3.29-11.43)
[2023-03-03 14:04] LABS: SARS Covid-2 Antigen positive (Negative)
[2023-03-03 14:10] LABS: Alanine Aminotransferase 22 U/L (0-33); Albumin Level 4.1 g/dL (3.5-5.2); Alkaline Phosphatase 111 U/L (35-105); Anion Gap 14.4 (5-19); Aspartate Amino Transferase 23 U/L (0-32); Blood Urea Nitrogen 11 mg/dL (6-20); Carbon Dioxide 24 mmol/L (22-29); Chloride 105 mmol/L (98-107); Globulin 3.3 g/dL (1.3-4.6); Glomerular Filtration Rate 85.6 mL/min (90-130); Glucose 84 mg/dL (65-115); Osmolality Calculated 287 mOsm/kg (285-295); Potassium 4.4 mmol/L (3.5-5.1); Sodium 139 mmol/L (136-145); Total Bilirubin 0.2 mg/dL (0.15-1.2); Total Protein 7.4 g/dL (6.6-8.7)
== END 2023-03-03 14:51 | disposition home or self-care (01) ==
PROVIDERS: Family Medicine; Emergency Provider Nurse Practitioner Family; PCP Electrodiagnostic Medicine
DX: U07.1 COVID-19 (principal); J11.1 Influenza due to unidentified influenza virus with other respiratory manifestations; Z87.891 Personal history of nicotine dependence; Z85.41 Personal history of malignant neoplasm of cervix uteri; Z85.3 Personal history of malignant neoplasm of breast
CPT/HCPCS: 36415; 71045; 80053; 85025; 87426; 87804; 99284

== ENCOUNTER → 2023-03-16 12:08 | Outpatient (BNVA) | payer MEDICAID, SELFPAY | PROVIDERS: PCP Electrodiagnostic Medicine; Visit Provider Internal Medicine | DX: M06.9 Rheumatoid arthritis, unspecified (principal); Z79.899 Other long term (current) drug therapy | CPT/HCPCS: 36415; 80053; 85025; 85651; 86140 ==

== ENCOUNTER 2023-04-28 11:25 | Oncology outpatient (recurring) (ONCR) | payer MEDICAID, SELFPAY ==
[2023-04-28 12:12] VITALS: BMI 41.8
[2023-04-28 12:23] VITALS: BP 115/75; PULSE 77; RESP 17; TEMP 36.7; O2SAT 94
[2023-04-28 12:32] LABS: Basophils % 0.5 %; Eosinophils # 0.2 10^3/uL (0.0-0.8); Hematocrit 36.8 % (36-47); Lymphocytes # 1.5 10^3/uL (0.8-4.8); Lymphocytes % 19.7 %; Mean Corpuscular HGB Conc 34.2 g/dL (30-55); Mean Corpuscular Volume 84.8 fl (85-98); Mean Platelet Volume 9.1 fL (7.4-10.4); Monocytes # 0.5 10^3/uL (0.2-0.9); Monocytes % 6.5 %; Neutrophils # 5.19 10^3/uL (1.8-7.7); Neutrophils % 70.2 %; Nucleated Red Blood Cells % 0 %; Platelet Count 262 10^3/cmm (157-399); Red Blood Count 4.34 10^6/uL (3.85-5.65); Red Cell Distribution Width 13.9 % (12.1-15.1)
[2023-04-28 12:53] LABS: Alanine Aminotransferase 23 U/L (0-33); Albumin Level 4.2 g/dL (3.5-5.2); Alkaline Phosphatase 117 U/L (35-105); Aspartate Amino Transferase 21 U/L (0-32); Blood Urea Nitrogen 13 mg/dL (6-20); Calcium 9.2 mg/dL (8.5-10.5); Carbon Dioxide 25 mmol/L (22-29); Chloride 103 mmol/L (98-107); Globulin 3.2 g/dL (1.3-4.6); Glomerular Filtration Rate 85.6 mL/min (90-130); Glucose 135 mg/dL (65-115); Osmolality Calculated 292 mOsm/kg (285-295); Sodium 140 mmol/L (136-145); Total Bilirubin 0.2 mg/dL (0.15-1.2); Total Protein 7.4 g/dL (6.6-8.7)
[2023-04-28 16:08] LABS: Ferritin 70 ng/mL (15-150); Iron 44 ug/dL (37-145); Percent Saturation 15.3 % (20-50); Total Iron Binding Capacity 286 mcg/dl; Unsaturated Iron Binding 242 ug/dL (112-347)
== END 2023-05-18 23:59 | disposition home or self-care (01) ==
PROVIDERS: Internal Medicine Medical Oncology; Nurse Practitioner Family; PCP Electrodiagnostic Medicine; Visit Provider Internal Medicine Hematology & Oncology
DX: C50.912 Malignant neoplasm of unspecified site of left female breast (principal); R53.83 Other fatigue
CPT/HCPCS: 36415; 80053; 82728; 83540; 83550; 85025

== ENCOUNTER 2023-05-18 15:00 | Outpatient (CLI) | payer MEDICAID, SELFPAY | END 2023-05-18 15:01 | disposition home or self-care (01) | LOC: SLEEP 05-19 15:29 | PROVIDERS: PCP Electrodiagnostic Medicine; Visit Provider Electrodiagnostic Medicine | DX: G47.33 Obstructive sleep apnea (adult) (pediatric) (principal); G47.10 Hypersomnia, unspecified | CPT/HCPCS: G0399 ==

== ENCOUNTER 2023-08-11 09:25 | Oncology outpatient (recurring) (ONCR) | payer MEDICAID, SELFPAY ==
[2023-08-11 09:56] LABS: Basophils % 0.6 %; Eosinophils # 0.2 10^3/uL (0.0-0.8); Eosinophils % 2.8 %; Hematocrit 38.9 % (36-47); Lymphocytes # 1.1 10^3/uL (0.8-4.8); Lymphocytes % 16.1 %; Mean Corpuscular HGB Conc 32.6 g/dL (30-55); Mean Corpuscular Hemoglobin 28.3 pg (27-33); Mean Corpuscular Volume 86.6 fl (85-98); Mean Platelet Volume 9.1 fL (7.4-10.4); Monocytes # 0.4 10^3/uL (0.2-0.9); Monocytes % 6.4 %; Neutrophils # 5.08 10^3/uL (1.8-7.7); Neutrophils % 73.7 %; Nucleated Red Blood Cells % 0 %; Platelet Count 314 10^3/cmm (157-399); Red Blood Count 4.49 10^6/uL (3.85-5.65); Red Cell Distribution Width 13.8 % (12.1-15.1); White Blood Count 6.89 10^3/uL (3.29-11.43)
[2023-08-11 10:21] LABS: Alanine Aminotransferase 20 U/L (0-33); Albumin Level 4.2 g/dL (3.5-5.2); Alkaline Phosphatase 127 U/L (35-105); Anion Gap 13.2 (5-19); Aspartate Amino Transferase 18 U/L (0-32); Blood Urea Nitrogen 11 mg/dL (6-20); Calcium 8.7 mg/dL (8.5-10.5); Carbon Dioxide 25 mmol/L (22-29); Chloride 106 mmol/L (98-107); Creatinine Clr Calc Pharmacy 48.9518; Ferritin 67 ng/mL (15-150); Globulin 2.8 g/dL (1.3-4.6); Glomerular Filtration Rate 85.6 mL/min (90-130); Glucose 97 mg/dL (65-115); Iron 52 ug/dL (37-145); Osmolality Calculated 289 mOsm/kg (285-295); Percent Saturation 17.7 % (20-50); Potassium 4.2 mmol/L (3.5-5.1); Sodium 140 mmol/L (136-145); Thyroid Stimulating Hormone 0.97 uIU/mL (0.27-4.20); Total Bilirubin 0.2 mg/dL (0.15-1.2); Total Iron Binding Capacity 293 mcg/dl; Unsaturated Iron Binding 241 ug/dL (112-347)
== END 2023-08-16 23:59 | disposition home or self-care (01) ==
PROVIDERS: Internal Medicine; PCP Electrodiagnostic Medicine; Visit Provider Nurse Practitioner Family
DX: C50.912 Malignant neoplasm of unspecified site of left female breast (principal)
CPT/HCPCS: 36415; 80053; 82728; 83540; 83550; 84443; 85025

== ENCOUNTER 2023-09-15 08:13 | Outpatient (CLI) | payer MEDICAID, SELFPAY ==
[2023-09-15] MEDS: iohexol 350 mg/mL 500 mL Btl (per mL) PO (09:29)
--- NOTE | 2023-09-15 09:30 | CT_ITS ---
WS: [id number] CT ABDOMEN AND PELVIS WITH AND WITHOUT CONTRAST HISTORY: painful area right flank, history of uterine cancer. TECHNIQUE: Unenhanced 5 mm axial imaging first performed through the abdomen. Post contrast imaging t hrough the abdomen and pelvis. Oral contrast has been provided. Sagittal and coronal reformats are s ubmitted. All CT scans at [facility] use at least one of these dose optimization techniques: automated exposure control; mA and/or kV adjustment per patient size (includes targeted exams where d ose is matched to clinical indication); or iterative reconstruction. CONTRAST: Omnipaque 350; 95 mL IV. DLP: 1724.12 mGy.cm COMPARISON: 01/06/2022 Lung bases are clear. No pneumonia. No pulmonary nodule. Normal heart. Small hiatal hernia. Normal liver and spleen. Normal portal vein. Prior cholecystectomy. Normal pancreas. No pancreatic du ct dilatation. Normal adrenal glands. Kidneys are normal size with no obstruction. Bilateral extraren al pelves. Extrarenal pelvis on more prominent as compared to prior studies from 2017. The RIGHT uret er is minimally prominent but there is no obstructing mass and no calyceal dilatation. Moderate ather osclerosis aorta. Mesenteric arteries are normal. Stomach is not distended. No small bowel obstruction. Prior appendectomy. Mild distal colon diverticu lar burden. No obstruction or acute diverticulitis. No adenopathy or ascites. Mildly distended urinary bladder. Uterus is surgically absent. Neither ovar y is identified. Ventral, umbilical hernia contains fat only. No osteoblastic or osteolytic bone disease. Partial fusion RIGHT SI joint. CT/CT abdomen pelvis wo/w [id number] IMPRESSION: 1. No ascites or adenopathy. 2. Prior cholecystectomy, hysterectomy and appendectomy. 3. Small bilateral extrarenal pelves. These are new since 2017. The RIGHT uret er is minimally more prominent also but there is no obstructing mass or lesion identified. At this time there is no abnormality. 4. Mild distal colon diverticulosis without acute diverticulitis. 5. Ventral abdominal wall hernia contains fat only.
[2023-09-15] MEDS: iohexol 350 mg/mL 500 mL Btl (per mL) IV (09:59)
== END 2023-09-15 08:14 | disposition home or self-care (01) ==
LOC: RAD 08:13
PROVIDERS: PCP Electrodiagnostic Medicine; Visit Provider Nurse Practitioner Family
DX: R10.9 Unspecified abdominal pain (principal); M43.28 Fusion of spine, sacral and sacrococcygeal region; K43.9 Ventral hernia without obstruction or gangrene; Z90.49 Acquired absence of other specified parts of digestive tract; Z90.710 Acquired absence of both cervix and uterus
CPT/HCPCS: 74178; Q9967

== ENCOUNTER 2023-10-15 10:56 | Emergency (ER) | payer MEDICAID, SELFPAY ==
[2023-10-15] VITALS (8 sets, daily range): BP systolic 110–140; BP diastolic 75–87; PULSE 79–87; RESP 14–18; TEMP 37.2; O2SAT 92–98
--- NOTE | 2023-10-15 11:52 | ED_ITS ---
HPI - Abdominal Pain 2 General: Chief Complaint: Abdominal Pain Stated Complaint: Vomiting, fever, chills, stomach pain Time Seen by Provider: 10/15/23 11:22 History of Present Illness: 58-year-old [facility] and vomiting and diarrhea with some fevers over the last for 5 days. She has diffuse abdominal pain. Nothing focal. She says she has been having some watery diarrhea. No cough. No shortness of breath. No altered mental status. No dysuria. Review of Systems 2 Narrative: Constitutional symptoms: Negative except as documented in HPI. Skin symptoms: Negative except as documented in HPI. Eye symptoms: Negative except as documented in HPI. ENMT symptoms: Negative except as documented in HPI. Respiratory symptoms: Negative except as documented in HPI. Cardiovascular symptoms: Negative except as documented in HPI. Gastrointestinal symptoms: Negative except as documented in HPI. Genitourinary symptoms: Negative except as documented in HPI. Musculoskeletal symptoms: Negative except as documented in HPI. Neurologic symptoms: Negative except as documented in HPI. Psychiatric symptoms: Negative except as documented in HPI. Endocrine symptoms: Negative except as documented in HPI. PFSH ED 2 PFSH: Medical History Fatigue Port-A-Cath in place Invasive ductal carcinoma of left breast COVID-19 Pancreatitis High risk medication use Rheumatoid arthritis Asthma Joint pain Endometriosis Cervical cancer GERD (gastroesophageal reflux disease) Surgical History Hx of colonoscopy with polypectomy History of mastectomy Bilateral December, S/P tonsillectomy and adenoidectomy History of cholecystectomy History of appendectomy History of hysterectomy Family History Other Cancer Heart disease Hypertension Social History Smoking and tobacco/nicotine status: former use of tobacco/nicotine Quit status (tobacco/nicotine): has quit using Year quit tobacco: 2009 Former quit date comment: 10 to 15 years smoked Second hand smoke exposure: No Alcohol intake: never Substance/Drug Use: never Adopted: No Lives independently: Yes Housing: House Physical Exam 2 Narrative: EXAM NARRATIVE: General: Alert, no acute distress. Skin: Warm, dry. Head: Normocephalic, atraumatic. Neck: Supple, trachea midline. Eye: Extraocular movements are intact. Ears, nose, mouth and throat: Dry oral mucosa Cardiovascular: Regular, Normal peripheral perfusion. Respiratory: Lungs are clear to auscultation, respirations are non-labored, breath sounds are equal, Symmetrical chest wall expansion. Gastrointestinal: Soft, Nontender, Non distended Musculoskeletal: Normal ROM, no deformity. Neurological: Alert and oriented, No focal neurological deficit observed. Psychiatric: Cooperative, appropriate mood & affect. Course 2 Vital Signs: Vital signs: Vital Signs Temperature 98.9 F 10/15/23 11:06 Pulse Rate 79 10/15/23 15:00 Respiratory Rate 16 10/15/23 15:00 Blood Pressure 132/76 10/15/23 15:00 Pulse Oximetry 93 10/15/23 15:00 Oxygen Delivery Me thod Room Air 10/15/23 15:00 MDM - Abdominal Pain Medical Decision Making Medical decision making: Differential diagnosis for this patient with nausea and vomiting including but not limited to and based on the above HPI, review of systems and physical exam: Urinary tract infection. Appendicitis. Cholecystis. colitis. small bowel obstruction. crohn's flare. pancreatitis. gastritis. peptic ulcer. cyclic vomiting. Viral illness. Influenza. COVID. - Workup - labwork and imaging ordered to evaluate, rule in and rule out above pathologies. Lab Review: Laboratory results were reviewed and interpreted by myself the emergency room physician. Lab work is very unremarkable. No leukocytosis. No anemia. BUN and creatinine are 10 and 0.7. Sodium is normal. Potassium is normal urinalysis is normal. CT of the abdomen pelvis with contrast: Increased fecal content of the colon. Stable sigmoid diverticulosis with no evidence for diverticulitis at this time. This was reviewed and interpreted by myself the emergency room physician. I also reviewed the radiology report. I reviewed the patient's medical record. Reexamination: Patient says she feels quite a bit better with fluids antiemetics and pain medicine. Prior to discharge and giving her another dose. I am printing her prescriptions because it is Tuesday and she is going to [facility]. I do not think they will be open this evening or tomorrow. No altered mental status. No increased work of breathing. Assessment and plan: Viral gastroenteritis Dehydration ?IV Zofran x 2 doses, IV morphine x 2 doses, 1 L normal saline bolus. ?Will place her on some Augmentin as she has been having fevers last couple days and she has diverticulosis. She may be developing some early diverticulitis - Discharged home - Discussed findings and plan with patient. Answered any questions. - All laboratory values were reviewed and interpreted personally by myself, the ER physician - All imaging was reviewed and interpreted personally by myself, the ER physician. - Evaluation and treatment of this problem were appropriate in the emergency setting Lab Data 10/15/23 13:07 10/15/23 12:17 Labs/Radiology: Radiology Impressions Abdomen/Pelvis CT 10/15/23 13:31 IMPRESSION: 1. Increased fecal content in the colon. 2. Stable sigmoid diverticulosis. No evidence for diverticulitis. 3. Incidental/nonacute findings are listed in the report. Laboratory Results WBC 6.15 10^3/uL (3.29-11.43) 10/15/23 13:07 RBC 4.59 10^6/uL (3.85-5.65) 10/15/23 13:07 Hgb 12.90 g/dL (11.27-16.99) 10/15/23 13:07 Hct 39.3 % (36-47) 10/15/23 13:07 MCV 85.6 fl (85-98) 10/15/23 13:07 MCH 28.1 pg (27-33) 10/15/23 13:07 MCHC 32.8 g/dL (30-55) 10/15/23 13:07 RDW 14.1 % (12.1-15.1) 10/15/23 13:07 Plt Count 234 10^3/cmm (157-399) 10/15/23 13:07 MPV 8.8 fL (7.4-10.4) 10/15/23 13:07 Neut % (Auto) 82.1 % 10/15/23 13:07 Lymph % (Auto) 10.7 % 10/15/23 13:07 [place] % (Auto) 6.2 % 10/15/23 13:07 Eos % (Auto) 0.3 % 10/15/23 13:07 Baso % (Auto) 0.5 % 10/15/23 13:07 Neut # (Auto) 5.05 10^3/uL (1.8-7.7) 10/15/23 13:07 Lymph # (Auto) 0.7 10^3/uL (0.8-4.8) L 10/15/23 13:07 [place] # (Auto) 0.4 10^3/uL (0.2-0.9) 10/15/23 13:07 Eos # (Auto) 0.0 10^3/uL (0.0-0.8) 10/15/23 13:07 Baso # (Auto) 0.0 10^3/uL (0.0-0.1) 10/15/23 13:07 Nucleated RBC % (auto) 0 % 10/15/23 13:07 Nucleated RBCs # 0.0 /100WBC 10/15/23 13:07 Sodium 138 mmol/L (136-145) 10/15/23 12:17 Potassium 4.0 mmol/L (3.5-5.1) 10/15/23 12:17 Chloride 102 mmol/L (98-107) 10/15/23 12:17 Carbon Dioxide 22 mmol/L (22-29) 10/15/23 12:17 Anion Gap 18.0 (5-19) 10/15/23 12:17 BUN 10 mg/dL (6-20) 10/15/23 12:17 Creatinine 0.7 mg/dL (0.5-0.9) 10/15/23 12:17 GFR Calculation 85.6 mL/min (90-130) L 10/15/23 12:17 Glucose 84 mg/dL (65-115) 10/15/23 12:17 Calculated Osmolality 284 mOsm/kg (285-295) L 10/15/23 12:17 Lactic Acid 0.7 mmol/L (0.5-2.2) 10/15/23 13:07 Calcium 9.1 mg/dL (8.5-10.5) 10/15/23 12:17 Total Bilirubin 0.3 mg/dL (0.15-1.2) 10/15/23 12:17 AST 22 U/L (0-32) 10/15/23 12:17 ALT 24 U/L (0-33) 10/15/23 12:17 Alkaline Phosphatase 114 U/L (35-105) H 10/15/23 12:17 C-Reactive Protein 15.4 mg/L (0.0-4.9) H 10/15/23 12:17 Total Protein 7.4 g/dL (6.6-8.7) 10/15/23 12:17 Albumin 3.9 g/dL (3.5-5.2) 10/15/23 12:17 Globulin 3.5 g/dL (1.3-4.6) 10/15/23 12:17 Lipase 28 U/L (13-60) 10/15/23 12:17 Procalcitonin 0.13 ng/mL (0-0.5) 10/15/23 12:17 Urine Color Yellow (Yellow) 10/15/23 12:43 Urine Appearance Clear (CLEAR) 10/15/23 12:43 Urine pH 8 (5-7) H 10/15/23 12:43 Ur Specific Williams 1.010 (1.005-1.030) 10/15/23 12:43 Urine Protein Neg (Negative) 10/15/23 12:43 Urine Glucose (UA) Norm (Normal) 10/15/23 12:43 Urine Ketones Negative (Negative) 10/15/23 12:43 Urine Blood Neg (Negative) 10/15/23 12:43 Urine Nitrate Negative (Negative) 10/15/23 12:43 Urine Bilirubin Neg (Negative) 10/15/23 12:43 Urine Urobilinogen Norm mg/dL (Negative) 10/15/23 12:43 Ur Leukocyte Esterase Negative (Negative) 10/15/23 12:43 Urine RBC None /hpf (0-2) 10/15/23 12:43 Urine WBC None /hpf (0-5) 10/15/23 12:43 Ur Squamous Epith Cells None /hpf (0-5) 10/15/23 12:43 Amorphous Sediment Not Reportable 10/15/23 12:43 Urine Bacteria Trace /hpf (NONE) 10/15/23 12:43 All radiology interpretation(s) finalized by discharge Discharge Plan Discharge Patient Disposition: Home Clinical Impression: Viral gastroenteritis, Dehydration Condition: Stable Prescriptions: New hydrocodone-acetaminophen 5-325 mg tablet 1 tab PO Q6H PRN (Reason: pain) Qty: 20 0RF ondansetron 8 mg tablet,disintegrating 8 mg PO .q6 PRN (Reason: nausea and vomiting) Qty: 14 0RF cefdinir 300 mg capsule 300 mg PO BID 7 Days Qty: 14 0RF magnesium citrate Solution 296 ml PO ONCE Qty: 296 0RF Miralax 17 gram/dose powder 17 g PO DAILY Qty: 510 0RF Rx Instructions: Take 1 scoop daily while taking pain medications. amoxicillin-pot clavulanate 875-125 mg tablet 1 tab PO BID 5 Days Qty: 10 0RF No Action citalopram [Celexa] 20 mg tablet 10 mg PO QAM trazodone 100 mg tablet 100 mg PO BEDTIME Hair,Skin and Nails Tablet 2 tab PO QAM meloxicam 15 mg tablet 15 mg PO DAILY Qty: 30 2RF omeprazole 40 mg capsule,delayed release(DR/EC) 40 mg PO DAILY topiramate 25 mg tablet PO phentermine 15 mg capsule PO magnesium 250 mg tablet 750 mg PO .COMPLEX Rx Instructions: 750 mg orally every other day; prednisone 5 mg tablet 5 mg PO DAILY Qty: 30 0RF diclofenac sodium [Voltaren Arthritis Pain] 1 % gel 4 g topical QID PRN (Reason: Pain) Qty: 100 5RF Rx Instructions: apply to single knee, ankle, foot; for foot includes sole/toes/top of foot methylprednisolone [Medrol (Gautam)] 4 mg tablets,dose pack See Rx Instructions PO PER PKG DIR Qty: 21 0RF Rx Instructions: PO PER PKG DIR cefdinir 300 mg capsule 300 mg PO BID Qty: 10 0RF methotrexate (PF) 12.5 mg/0.4 mL auto-injector 12.5 mg SUBCUT .qweek Qty: 2 0RF anastrozole 1 mg tablet See Rx Instructions .ROUTE .COMPLEX Qty: 90 0RF Dose Instruction: TAKE ONE TABLET BY MOUTH DAILY Rx Instructions: TAKE ONE TABLET BY MOUTH DAILY gabapentin 300 mg Capsule 300 mg PO BEDTIME vitamin B complex Capsule 1 cap PO QAM multivitamin Tablet 1 tab PO QAM albuterol sulfate [Ventolin HFA] 90 mcg/actuation Hfa Aerosol Inhaler 2 puff INHALATION 6XD PRN (Reason: Shortness Of Breath) Paxlovid 150-100 mg tablets,dose pack See Rx Instructions .ROUTE .COMPLEX Qty: 20 0RF Rx Instructions: take ONE 150 mg tablet of nirmatrelvir with ONE 100 mg tablet of ritonavir twice daily for 5 days alprazolam 0.25 mg tablet 0.25 mg PO BID PRN (Reason: Anxiety) Discharge Orders: Discharge ED (Routine); Ordered 10/15/23 Ordered By: Kraina Howard Referrals: Michael Mahoney DO [Primary Care Provider] - Discharge Diet: Usual diet Discharge Activity: Increase activity as tolerated Activity Restrictions/Additional Instructions: Do not fill or take the cefdinir prescription that was sent. This was an error Thank you for choosing [facility] for your healthcare needs today. Please realize this is an emergency room and that we are providing you with a medical screening exam and this may not be complete and all inclusive of all the testing and or work up that you may need to determine your ailment or severity of your illness. You have been screened and evaluated and felt safe for discharge. Health conditions do change or evolve sometimes and as such it is important that you follow up with your Primary Doctor to be re checked, 3-5 days is a general good time frame for follow up. You are always welcome to return to the ED for re assessment if your symptoms are worsening or you have new concerns Coding Level of Care Code ED District [employer] for Magy Majano
--- NOTE | 2023-10-15 12:26 | PC.NURSE ---
PT REPORTS HAVING NODES REMOVED FROM LEFT ARM, REQUESTING IV PLACEMENT IN RIGHT ARM, THIS NURSE ATTEMPTED IV TO RIGHT WRIST, NO SUCCESS. THIS NURSE REPORTED DIFFICULTY TO CHARGE NURSE. ANOTHER NURSE TO ATTEMPTED IV.
[2023-10-15 12:49] LABS: Alanine Aminotransferase 24 U/L (0-33); Albumin Level 3.9 g/dL (3.5-5.2); Alkaline Phosphatase 114 U/L (35-105); Aspartate Amino Transferase 22 U/L (0-32); Blood Urea Nitrogen 10 mg/dL (6-20); C Reactive Protein 15.4 mg/L (0.0-4.9); Calcium 9.1 mg/dL (8.5-10.5); Carbon Dioxide 22 mmol/L (22-29); Chloride 102 mmol/L (98-107); Globulin 3.5 g/dL (1.3-4.6); Glomerular Filtration Rate 85.6 mL/min (90-130); Glucose 84 mg/dL (65-115); Lipase 28 U/L (13-60); Osmolality Calculated 284 mOsm/kg (285-295); Sodium 138 mmol/L (136-145); Total Bilirubin 0.3 mg/dL (0.15-1.2); Total Protein 7.4 g/dL (6.6-8.7)
[2023-10-15 12:55] LABS: Procalcitonin 0.13 ng/mL (0-0.5)
[2023-10-15 13:12] LABS: Basophils % 0.5 %; Eosinophils % 0.3 %; Hematocrit 39.3 % (36-47); Lymphocytes # 0.7 10^3/uL (0.8-4.8); Lymphocytes % 10.7 %; Mean Corpuscular HGB Conc 32.8 g/dL (30-55); Mean Corpuscular Hemoglobin 28.1 pg (27-33); Mean Corpuscular Volume 85.6 fl (85-98); Mean Platelet Volume 8.8 fL (7.4-10.4); Monocytes # 0.4 10^3/uL (0.2-0.9); Monocytes % 6.2 %; Neutrophils # 5.05 10^3/uL (1.8-7.7); Neutrophils % 82.1 %; Nucleated Red Blood Cells % 0 %; Platelet Count 234 10^3/cmm (157-399); Red Blood Count 4.59 10^6/uL (3.85-5.65); Red Cell Distribution Width 14.1 % (12.1-15.1); White Blood Count 6.15 10^3/uL (3.29-11.43)
[2023-10-15] MEDS: sodium chloride 0.9% 1,000 ML 999 ML IV (13:12)
[2023-10-15] MEDS: ondansetron 2 mg/ML SDV 2 mL 8 MG IVP ×2 (13:17→15:30)
[2023-10-15 13:18] LABS: Bilirubin Urine Neg (Negative); Blood Urine Neg (Negative); Glucose Urine UA Norm (Normal); Ketones Urine Negative (Negative); Leukocyte Esterase Urine Negative (Negative); Nitrate Urine Negative (Negative); Protein Urine Neg (Negative); Urine Appearance Clear (CLEAR); Urine Color Yellow (Yellow); Urobilinogen Urine Norm (Negative); pH Urine 8 (5-7)
[2023-10-15 13:19] LABS: Add Urine Culture? No; Bacteria Urine TRACE /hpf
[2023-10-15] MEDS: morphine 4 mg/mL SDV 1 mL IVP ×2 (13:20→15:32)
--- NOTE | 2023-10-15 13:31 | CTR_ITS ---
PROCEDURE INFORMATION: Exam: CT Abdomen And Pelvis With Contrast Exam date and time: 10/15/2023 2:01 PM Age: 58 years old Clinical indication: Abdominal pain; Generalized TECHNIQUE: Imaging protocol: Computed tomography of the abdomen and pelvis with contrast. Sagittal and coronal reformatted images were created and reviewed. Radiation optimization: All CT scans at this facility use at least one of these dose optimization techniques: automated exposure control; mA and/or kV adjustment per patient size (includes targeted exams where dose is matched to clinical indication); or iterative reconstruction. Contrast material: OMNI 350; Contrast volume: 100 ml; Contrast route: INTRAVENOUS (IV); COMPARISON: CT abdomen pelvis wo/w [id number] 09/15/2023 9:48 AM RADIATION DOSE METRICS: Total DLP (mGy-cm): 927.1 FINDINGS: Lungs: Visualized lungs are clear. Pleural spaces: No pleural effusion. Heart: Stable mild enlargement of the visualized portions of the heart. Liver: The liver is unremarkable. Gallbladder and biliary ducts: Stable findings consistent with a previous cholecystectomy. No biliary ductal dilatation. Pancreas: The pancreas is unremarkable. No pancreatic ductal dilatation. Spleen: The spleen is unremarkable. Adrenal glands: The right and left adrenal glands are unremarkable. Kidneys and ureters: The right and left kidneys are unremarkable. The right and left ureters are unremarkable. Stomach and bowel: Increased fecal content in the colon. Numerous diverticula in the sigmoid colon, findings are stable. No evidence for diverticulitis. No acute abnormality in the small bowel. The stomach is unremarkable for the degree of distension. Appendix: Stable changes consistent with a previous appendectomy. Intraperitoneal space: No free intraperitoneal air. No ascites. No loculated fluid collections to suggest an abscess. Vasculature: Stable mild atherosclerotic calcifications in the visualized arteries. No evidence for aortic aneurysm or aortic dissection. Hepatic veins, portal veins, splenic vein, and SMV are patent. Lymph nodes: No lymphadenopathy. Urinary bladder: The bladder is unremarkable. Reproductive: Stable changes consistent with a previous hysterectomy. The ovaries are not definitely visualized, not an expected in a postmenopausal female. This may be due to ovarian atrophy. Alternatively, the patient may have had a previous bilateral oophorectomy. Findings are stable. Bones/joints: Degenerative changes in the spine, sacroiliac joints, and hips. Soft tissues: A left breast implant is partially visualized. No acute abnormality in the extrathoracic soft tissues. CT/CT abdomen pelvis w con* [id number] IMPRESSION: 1. Increased fecal content in the colon. 2. Stable sigmoid diverticulosis. No evidence for diverticulitis. 3. Incidental/nonacute findings are listed in the report.
[2023-10-15 13:32] LABS: Lactic Sepsis W/Reflex 0.7 mmol/L (0.5-2.2)
[2023-10-15] MEDS: iohexol 350 mg/mL 500 mL Btl (per mL) IV (14:02)
== END 2023-10-15 15:59 | disposition home or self-care (01) ==
PROVIDERS: Emergency Provider Emergency Medicine; PCP Electrodiagnostic Medicine
DX: A08.4 Viral intestinal infection, unspecified (principal); E86.0 Dehydration; Z87.891 Personal history of nicotine dependence; Z85.41 Personal history of malignant neoplasm of cervix uteri
CPT/HCPCS: 36415; 74177; 80053; 81001; 83605; 83690; 84145; 85025; 86140; 87040; 96361; 96374; 96375; 96376; 99285; J2270; J2405; J7030; Q9967

== ENCOUNTER 2023-10-19 11:10 | Inpatient (IN) | payer MEDICAID, SELFPAY ==
[2023-10-19] VITALS (15 sets, daily range): BP systolic 96–121; BP diastolic 52–78; PULSE 70–85; RESP 14–20; TEMP 37.3–38.3; O2SAT 94–98; BMI 32.5
--- NOTE | 2023-10-19 12:22 | CTR_ITS ---
PROCEDURE INFORMATION: Exam: CT Abdomen And Pelvis With Contrast Exam date and time: 10/19/2023 1:52 PM Age: 58 years old Clinical indication: Fever and nausea and vomiting; Abdominal pain; Generalized; Prior surgery; Surgery date: 6+ months; Surgery type: Gb, hyst, appy; Additional info: Sent in by pcp for concerns for bowel obstruction, please attempt po and iv contrast, if patient fails po TECHNIQUE: Imaging protocol: Computed tomography of the abdomen and pelvis with contrast. Radiation optimization: All CT scans at this facility use at least one of these dose optimization techniques: automated exposure control; mA and/or kV adjustment per patient size (includes targeted exams where dose is matched to clinical indication); or iterative reconstruction. Contrast material: OMNI 350; Contrast volume: 100 ml; Contrast route: INTRAVENOUS (IV); Other contrast: Oral, OMNI 350, 25ML ; COMPARISON: CT abdomen pelvis w con* [id number] 10/15/2023 2:01 PM RADIATION DOSE METRICS: Total DLP (mGy-cm): 975.78 FINDINGS: Lungs: Small amounts of scarring and subsegmental atelectasis in the lung bases are not significantly changed. Diaphragm: Unchanged tiny hiatal hernia. Liver: Normal. No mass. Gallbladder and biliary ducts: Unchanged cholecystectomy. Unremarkable bile ducts. Pancreas: Normal. No ductal dilation. Spleen: Normal. No splenomegaly. Adrenal glands: Normal. No mass. Kidneys and ureters: Tiny cortical renal cysts bilaterally need no follow-up. Otherwise, unremarkable. Stomach and bowel: Again noted are multiple diverticula from the colon. No acute diverticulitis. Otherwise, unremarkable. Appendix: Unchanged appendectomy. Intraperitoneal space: Unremarkable. No free air. No significant fluid collection. Vasculature: Unremarkable. No abdominal aortic aneurysm. Lymph nodes: Unremarkable. No enlarged lymph nodes. Urinary bladder: Unremarkable as visualized. Reproductive: Unchanged hysterectomy. Ovaries not visualized with certainty. Bones/joints: Unchanged mild scoliosis. Unchanged mild and moderate multilevel spondylosis. Unchanged partial ankylosis visualized thoracic spine. Otherwise, unremarkable. Soft tissues: Small benign-appearing fat containing paraumbilical hernia. Unchanged. Unchanged bilateral breast implants, partially in the field of view, appear intact as visualized. Otherwise, unremarkable visualized body wall. Otherwise, unremarkable soft tissues. CT/CT abdomen pelvis w con* [id number] IMPRESSION: 1. No acute abdominal or pelvic findings. 2. Additional details as above.
--- NOTE | 2023-10-19 12:26 | ED_ITS ---
HPI - Abdominal Pain 2 General: Chief Complaint: Abdominal Pain Stated Complaint: N/V, weakness Time Seen by Provider: 10/19/23 11:49 History of Present Illness: 58-year-old female presents emergency de partment by her primary care doctor's request chief complaint of ruling out bowel obstruction patient was seen here a week ago for the same symptoms reported nausea vomiting and bowel changes with abdominal discomfort CT imaging was obtained lab at the time patient was subsequently discharged home patient endorses over the last 1 week has been unable to tolerate her medications and she was prescribed which has had persistent nonbloody emesis patient does endorse having some diarrhea followed by constipation reports no blood is noted in it. Patient reports having intermittent fever as well she does not report any concerns of foodborne illness or food poisoning reports prior to symptoms developing noted also been sick around her patient presents to the ER for further assessment and management. Patient Dors is generalized diffuse abdominal discomfort nonspecific as well as significant anorexia with due to her vomiting. Associated Symptoms: Reports constipation, diarrhea, nausea and vomiting; Denies chills and fever(s) Review of Systems 2 General: Reports: 10 or more systems reviewed and unremarkable except in HPI and below Const: Denies: fever(s), chills, fatigue or malaise Eyes: Denies: change in vision or blurry vision Card: Denies: chest pain or palpitations Resp: Denies: dyspnea or productive cough GI: Reports: abdominal pain, nausea, vomiting, diarrhea and constipation : Denies: flank pain Musc: Denies: extremity pain or extremity swelling Skin/Breast: Denies: rash or pruritus Neuro: Denies: headache(s) Psych: Denies: anxiety or depression [place]eland/Lymph: Denies: easy bleeding All/Imm: Denies: urticaria, throat swelling or facial swelling PFSH ED 2 PFSH: Medical History Fatigue Port-A-Cath in place Invasive ductal carcinoma of left breast COVID-19 Pancreatitis High risk medication use Rheumatoid arthritis Asthma Joint pain Endometriosis Cervical cancer GERD (gastroesophageal reflux disease) Surgical History Hx of colonoscopy with polypectomy History of mastectomy Bilateral December, S/P tonsillectomy and adenoidectomy History of cholecystectomy History of appendectomy History of hysterectomy Family History Other Cancer Heart disease Hypertension Social History Smoking and tobacco/nicotine status: former use of tobacco/nicotine Quit status (tobacco/nicotine): has quit using Year quit tobacco: 2009 Former quit date comment: 10 to 15 years smoked Second hand smoke exposure: No Alcohol intake: never Substance/Drug Use: never Adopted: No Lives independently: Yes Housing: House Physical Exam 2 Narrative: EXAM NARRATIVE: Patient appears generalized unwell does appear to be febrile on exam however nontoxic-appearing Const: COMMON NORMALS: no acute distress, patient oriented x3 and healthy appearing HENMT: COMMON NORMALS: normocephalic and atraumatic HEAD & SCALP: n ormocephalic and atraumatic Eye: COMMON NORMALS: Equal, round and reactive pupils present and EOMs intact bilaterally PUPIL: Yes Equal, round and reactive pupils present Neck/C-Spine: COMMON NORMALS: full ROM, supple and no JVD Lymph: LYMPHATIC: no lymphadenopathy noted Chest: COMMONS NORMALS: normal inspection of the chest and normal palpation of entire chest wall Resp: COMMON NORMALS: normal respiratory effort, No retractions and clear to auscultation bilaterally EFFORT & INSPECTION: Yes able to speak in complete sentences and Yes symmetric chest movement AUSCULTATION: clear to auscultation bilaterally Cardio: COMMON NORMALS: no JVD, regular rate and regular rhythm RATE: r egular rate RHYTHM: regular rhythm GI: COMMON NORMALS: Normal to inspection, nondistended, normoactive bowel sounds present and Soft to palpation; negative for non-tender (Diffuse moderate tenderness with no guarding appreciated normal active juan) INSPECTION: Yes normal to inspection P ALPATION: Yes Soft to palpation : COMMON NORMALS: Yes no CVA tenderness BLADDER/KIDNEY EXAM: Yes no CVA tenderness Back/Pelvis: COMMON NORMALS: no CVA tenderness Extremity: COMMON NORMALS: normal to inspection and full ROM Neuro: COMMON NORMALS: patient oriented x3, CN's II-XII intact bilaterally, moves all extremities and no focal motor deficits Psych: COMMON NORMALS: mental status grossly normal, Normal thought process present, cooperative and normal affect THOUGHT PROCESS: Normal thought process present Skin: COMMON NORMALS: no rashes or lesions noted GENERAL SKIN EXAM: no rashes or lesions noted Course 2 Vital Signs: Vital signs: Vital Signs Temperature 101 F H 10/19/23 11:15 Pulse Rate 80 10/19/23 14:00 Respiratory Rate 18 10/19/23 14:00 Blood Pressure 118/54 10/19/23 14:16 Pulse Oximetry 94 10/19/23 14:00 Oxygen Delivery Me thod Room Air 10/19/23 14:00 MDM - Abdominal Pain Medical Decision Making Due to patient's symptoms and condition lab work imaging will be obtained we will continue to follow CT imaging abdomen pelvis with IV and oral contrast will be provided medication for the patient's associated symptoms will be provided will continue to follow. CT imaging came back unremarkable patient does not have appear to has elevated transaminases liver enzymes as well as pancytopenia with a low platelet count and leukopenia will be obtaining a COVID swab upon further investigation patient did report some recent tick bites we will be treating her for tickborne illness discussed patient's case with Dr. Celestin hospitalist that has granted acceptance to medical telemetry the patient remains in stable condition at this time all questions were fully answered prior to admission. Lab Data 10/19/23 12:51 10/19/23 12:51 Labs/Radiology: Radiology Impressions Abdomen/Pelvis CT 10/19/23 12:22 IMPRESSION: 1. No acute abdominal or pelvic findings. 2. Additional details as above. Laboratory Results WBC 2.19 10^3/uL (3.29-11.43) L 10/19/23 12:51 RBC 4.82 10^6/uL (3.85-5.65) 10/19/23 12:51 Hgb 13.60 g/dL (11.27-16.99) 10/19/23 12:51 Hct 39.0 % (36-47) 10/19/23 12:51 MCV 80.9 fl (85-98) L 10/19/23 12:51 MCH 28.2 pg (27-33) 10/19/23 12:51 MCHC 34.9 g/dL (30-55) 10/19/23 12:51 RDW 14.4 % (12.1-15.1) 10/19/23 12:51 Plt Count 78 10^3/cmm (157-399) L 10/19/23 12:51 MPV 10.6 fL (7.4-10.4) H 10/19/23 12:51 Lymph % (Auto) Not Reportable 10/19/23 12:51 Hughes % (Auto) Not Reportable 10/19/23 12:51 Lymph # (Auto) Not Reportable 10/19/23 12:51 Hughes # (Auto) Not Reportable 10/19/23 12:51 Total Counted 100 (0-100) 10/19/23 12:51 Atypical Lymphs % 7.0 % (0-5) H 10/19/23 12:51 Absolute Neutrophils 1.5 10^3/cmm (1.4-6.5) 10/19/23 12:51 Segmented Neutrophils 61 % 10/19/23 12:51 Abs Segm Neuts (Man) 1.3 10/cmm (1.6-7.1) L 10/19/23 12:51 Band Neutrophils 9.0 % 10/19/23 12:51 Abs Band Neuts (Man) 0.2 10^3/cmm (0.0-1.2) 10/19/23 12:51 Absolute Lymphocytes 0.6 10^3/cmm (1.2-3.4) L 10/19/23 12:51 Lymphocytes (Manual) 22 % 10/19/23 12:51 Monocytes (Manual) 1.0 % 10/19/23 12:51 Absolute Monocytes 0.0 10^3/cmm (0.1-0.6) L 10/19/23 12:51 Eosinophils (Manual) 0 % 10/19/23 12:51 Absolute Eosinophils 0.0 10^3/cmm (0.0-0.7) 10/19/23 12:51 Basophils (Manual) 0.0 % 10/19/23 12:51 Absolute Basophils 0.0 10^3/cmm (0.0-0.2) 10/19/23 12:51 Platelet Estimate Decreased (Normal) L 10/19/23 12:51 Sodium 131 mmol/L (136-145) L 10/19/23 12:51 Potassium 3.2 mmol/L (3.5-5.1) L 10/19/23 12:51 Chloride 92 mmol/L (98-107) L 10/19/23 12:51 Carbon Dioxide 26 mmol/L (22-29) 10/19/23 12:51 Anion Gap 16.2 (5-19) 10/19/23 12:51 BUN 10 mg/dL (6-20) 10/19/23 12:51 Creatinine 0.8 mg/dL (0.5-0.9) 10/19/23 12:51 GFR Calculation 73.4 mL/min (90-130) L 10/19/23 12:51 Glucose 88 mg/dL (65-115) 10/19/23 12:51 Calculated Osmolality 270 mOsm/kg (285-295) L 10/19/23 12:51 Lactic Acid 1.6 mmol/L (0.5-2.2) 10/19/23 12:51 Calcium 8.9 mg/dL (8.5-10.5) 10/19/23 12:51 Total Bilirubin 0.7 mg/dL (0.15-1.2) 10/19/23 12:51 AST 111 U/L (0-32) H 10/19/23 12:51 ALT 98 U/L (0-33) H 10/19/23 12:51 Alkaline Phosphatase 152 U/L (35-105) H 10/19/23 12:51 C-Reactive Protein 69.2 mg/L (0.0-4.9) H 10/19/23 12:51 Total Protein 7.4 g/dL (6.6-8.7) 10/19/23 12:51 Albumin 3.9 g/dL (3.5-5.2) 10/19/23 12:51 Globulin 3.5 g/dL (1.3-4.6) 10/19/23 12:51 Lipase 40 U/L (13-60) 10/19/23 12:51 Urine Color Yellow (Yellow) 10/19/23 14:35 Urine Appearance Clear (CLEAR) 10/19/23 14:35 Urine pH 5 (5-7) 10/19/23 14:35 Ur Specific [place] 1.005 (1.005-1.030) 10/19/23 14:35 Urine Protein Trace (Negative) 10/19/23 14:35 Urine Glucose (UA) Norm (Normal) 10/19/23 14:35 Urine Ketones 2+ (Negative) H 10/19/23 14:35 Urine Blood Neg (Negative) 10/19/23 14:35 Urine Nitrate Negative (Negative) 10/19/23 14:35 Urine Bilirubin Neg (Negative) 10/19/23 14:35 Urine Urobilinogen Norm mg/dL (Negative) 10/19/23 14:35 Ur Leukocyte Esterase Negative (Negative) 10/19/23 14:35 Urine RBC None /hpf (0-2) 10/19/23 14:35 Urine WBC None /hpf (0-5) 10/19/23 14:35 Ur Squamous Epith Cells None /hpf (0-5) 10/19/23 14:35 Amorphous Sediment Not Reportable 10/19/23 14:35 Urine Bacteria Trace /hpf (NONE) 10/19/23 14:35 All radiology interpretation(s) finalized by discharge Discharge Plan Discharge Patient Disposition: Admitted As Inpatient Clinical Impression: Pancytopenia, Intractable nausea and vomiting, Tick-borne disease, Acute dehydration Condition: Stable Prescriptions: No Action citalopram [Celexa] 20 mg tablet 10 mg PO QAM trazodone 100 mg tablet 100 mg PO BEDTIME Hair,Skin and Nails Tablet 2 tab PO QAM omeprazole 40 mg capsule,delayed release(DR/EC) 40 mg PO DAILY diclofenac sodium [Voltaren Arthritis Pain] 1 % gel 4 g topical QID PRN (Reason: Pain) Qty: 100 5RF Rx Instructions: apply to single knee, ankle, foot; for foot includes sole/toes/top of foot methotrexate (PF) 12.5 mg/0.4 mL auto-injector 12.5 mg SUBCUT .qweek Qty: 2 0RF gabapentin 300 mg Capsule 300 mg PO BEDTIME PRN (Reason: NERVE PAIN) vitamin B complex Capsule 1 cap PO QAM multivitamin Tablet 1 tab PO QAM albuterol sulfate [Ventolin HFA] 90 mcg/actuation Hfa Aerosol Inhaler 2 puff INHALATION 6XD PRN (Reason: Shortness Of Breath) hydrocodone-acetaminophen 5-325 mg tablet 1 tab PO Q6H PRN (Reason: pain) Qty: 20 0RF ondansetron 8 mg tablet,disintegrating 8 mg PO .q6 PRN (Reason: nausea and vomiting) Qty: 14 0RF cefdinir 300 mg capsule 300 mg PO BID 7 Days Qty: 14 0RF polyethylene glycol 3350 [Miralax] 17 gram/dose powder 17 g PO DAILY Qty: 510 0RF Rx Instructions: Take 1 scoop daily while taking pain medications. amoxicillin-pot clavulanate 875-125 mg tablet 1 tab PO BID 5 Days Qty: 10 0RF Narcan 4 mg/actuation spray,non-aerosol See Rx Instructions .ROUTE .COMPLEX Rx Instructions: CALL 911. SPR CONTENTS OF ONE SPRAYER (0.1ML) INTO ONE NOSTRIL. REPEAT IN 2-3 MIN IF SYMPTOMS OF OPIOID EMERGENCY PERSIST, ALTERNATE NOSTRILS anastrozole 1 mg tablet 1 mg PO DAILY alprazolam 0.25 mg tablet 0.25 mg PO BID PRN (Reason: Anxiety) Referrals: Michael Mahoney DO [Primary Care Provider] - Coding Level of Care Code ED Software Product Specialist for Magy Majano
[2023-10-19] MEDS: iohexol 350 mg/mL 500 mL Btl (per mL) PO (12:34)
[2023-10-19] MEDS: ondansetron 2 mg/ML SDV 2 mL 4 MG IVP ×2 (12:57→18:13)
[2023-10-19] MEDS: fentaNYL 50 mcg/mL INJ 2mL IVP (13:00)
[2023-10-19 13:04] LABS: Mean Corpuscular HGB Conc 34.9 g/dL (30-55); Mean Corpuscular Hemoglobin 28.2 pg (27-33); Mean Corpuscular Volume 80.9 fl (85-98); Mean Platelet Volume 10.6 fL (7.4-10.4); Platelet Count 78 10^3/cmm (157-399); Red Blood Count 4.82 10^6/uL (3.85-5.65); Red Cell Distribution Width 14.4 % (12.1-15.1); White Blood Count 2.19 10^3/uL (3.29-11.43)
[2023-10-19] MEDS: pantoprazole 40 mg SDV 80 MG IVP (13:24)
[2023-10-19] MEDS: sodium chloride 0.9% 1,000 ML 999 ML IV (13:25)
[2023-10-19 13:29] LABS: Alanine Aminotransferase 98 U/L (0-33); Albumin Level 3.9 g/dL (3.5-5.2); Alkaline Phosphatase 152 U/L (35-105); Anion Gap 16.2 (5-19); Aspartate Amino Transferase 111 U/L (0-32); Blood Urea Nitrogen 10 mg/dL (6-20); C Reactive Protein 69.2 mg/L (0.0-4.9); Calcium 8.9 mg/dL (8.5-10.5); Carbon Dioxide 26 mmol/L (22-29); Chloride 92 mmol/L (98-107); Creatinine Clr Calc Pharmacy 86.9882; Globulin 3.5 g/dL (1.3-4.6); Glomerular Filtration Rate 73.4 mL/min (90-130); Glucose 88 mg/dL (65-115); Lactic Sepsis W/Reflex 1.6 mmol/L (0.5-2.2); Osmolality Calculated 270 mOsm/kg (285-295); Potassium 3.2 mmol/L (3.5-5.1); Sodium 131 mmol/L (136-145); Total Bilirubin 0.7 mg/dL (0.15-1.2); Total Protein 7.4 g/dL (6.6-8.7)
[2023-10-19] MEDS: iohexol 350 mg/mL 500 mL Btl (per mL) IV (13:54)
[2023-10-19 14:11] LABS: Lipase 40 U/L (13-60)
[2023-10-19 14:14] LABS: Slide Review Slide Review Perform
[2023-10-19 14:19] LABS: Absolute Neutrophil 1.5 10^3/cmm (1.4-6.5); Absolute Segmented Neutrophil 1.3 10/cmm (1.6-7.1); Band Neutrophils Absolute 0.2 10^3/cmm (0.0-1.2); Eosinophils 0 %; Lymphocytes 22 %; Lymphocytes Absolute 0.6 10^3/cmm (1.2-3.4); Platelet Estimate Decreased (Normal); Segmented Neutrophils 61 %; Total Cells Counted 100 (0-100)
[2023-10-19 14:53] LABS: Add Urine Microscopic? YES; Bacteria Urine TRACE /hpf; Bilirubin Urine Neg (Negative); Blood Urine Neg (Negative); Glucose Urine UA Norm (Normal); Ketones Urine 2+ (Negative); Leukocyte Esterase Urine Negative (Negative); Nitrate Urine Negative (Negative); Protein Urine Trace (Negative); Specific Gravity, Urine 1.005 (1.005-1.030); Urine Appearance Clear (CLEAR); Urine Color Yellow (Yellow); Urobilinogen Urine Norm (Negative); pH Urine 5 (5-7)
[2023-10-19] MEDS: cefTRIAXone 1,000 mg SDV 1000 MG IVP (15:58)
--- NOTE | 2023-10-19 16:18 | P.HP_ITS ---
Providers/Chief Complaint 2 Primary Care Provider: Michael Mahoney DO Chief Complaint: N/V, weakness History of Present Illness Leslie Scott is a 58 year old female With a past medical history of breast cancer, who presents [facility] for fatigue, malaise, nausea, vomiting, diarrhea, abdominal pain for the last month. Patient tells me for the last month, she has been dealing with fatigue, malaise, intermittent nausea, vomiting, diarrhea, abdominal pain. In the last few weeks she has had 3 separate CAT scans, without any clear indication of why she continues to have nausea, vomiting, diarrhea, fatigue, malaise. She does report that she had 2 tick bites, the last tick bite was about 2 weeks ago. No new rashes, does report subjective fever she has a fever here. Denies any cat bites no dog bites, no exposure to rabbits, or sheep. She does report she drinks well water, none of her other family members are sick. She does report diarrhea, at times it is yellow, no blood or black stools reported. She does report diffuse abdominal pain, she thinks is more associate with the nausea vomiting she did complain of flank pain at 1 time, but denies any dysuria, no hematuria, none currently. Does report lightheadedness and dizziness at times. For the last 24 hours she has had poor appetite, she has not been able to keep anything down, denies any chest pain, no shortness of breath, no cough, no neck pain, neck stiffness, no blurry vision, she is status post cholecystectomy, no new rashes, no ear pain, did have intermittent sore throat at times Review of Systems 2 Const: Reports: fever(s), chills, body aches, fatigue and malaise Card: Denies: chest pain Resp: Denies: dyspnea GI: Reports: abdominal pain, nausea and vomiting : Denies: flank pain or difficulty voiding Skin/Breast: Denies: rash Medications/Allergies Home Medications Medication Instructions Recorded Confirmed Last Taken Type citalopram 20 mg tablet (Celexa) 10 mg PO QAM 07/17/19 10/19/23 10/17/23 History trazodone 100 mg tablet 100 mg PO BEDTIME 07/17/19 10/19/23 10/17/23 History gabapentin 300 mg capsule 300 mg PO BEDTIME PRN NERVE PAIN 01/19/21 10/19/23 05/13/22 History albuterol sulfate 90 mcg/actuation 2 puff inhalation 6XD PRN 10/05/21 10/19/23 02/23/22 06:30 History aerosol inhaler (Ventolin HFA) Shortness Of Breath multivitamin 1 tab PO QAM 10/05/21 10/19/23 10/17/23 History vitamin B complex 1 cap PO QAM 10/05/21 10/19/23 10/17/23 History multivitamin with minerals 2 tab PO QAM 03/04/22 10/19/23 10/17/23 History (Hair,Skin and Nails tablet) alprazolam 0.25 mg tablet 0.25 mg PO BID PRN Anxiety 05/14/22 10/19/23 05/13/22 History omeprazole 40 mg capsule,delayed 40 mg PO DAILY 01/19/23 10/19/23 10/17/23 History release diclofenac sodium 1 % topical gel 4 g topical QID PRN Pain #100 grams 03/16/23 10/19/23 Unknown Rx (Voltaren Arthritis Pain) methotrexate (PF) 12.5 mg/0.4 mL 12.5 mg (0.4 mL) SUBCUT .qweek #2 05/06/23 10/19/23 Unknown Rx subcutaneous auto-injector mL amoxicillin 875 mg-potassium 1 tab PO BID 5 days #10 tabs 10/15/23 10/19/23 10/17/23 Rx clavulanate 125 mg tablet cefdinir 300 mg capsule 300 mg PO BID 7 days #14 caps 10/15/23 10/19/23 10/17/23 Rx hydrocodone 5 mg-acetaminophen 325 1 tab PO Q6H PRN pain #20 tabs 10/15/23 10/19/23 Unknown Rx mg tablet ondansetron 8 mg disintegrating 8 mg PO .q6 PRN nausea and 10/15/23 10/19/23 Unknown Rx tablet vomiting #14 tabs polyethylene glycol 3350 17 17 g PO DAILY #510 grams 10/15/23 10/19/23 10/17/23 Rx gram/dose oral powder (Miralax) anastrozole 1 mg tablet 1 mg PO DAILY 10/19/23 10/19/23 10/17/23 History naloxone 4 mg/actuation nasal See Rx Instructions .Route .COMPLEX 10/19/23 10/19/23 Unknown History spray (Narcan) Allergies Allergy/AdvReac Type Severity Reaction Status Date / Time meperidine [From Demerol] Allergy Unknown Unknown Verified 10/19/23 11:23 nalbuphine [From Nubain] Allergy Unknown Verified 10/19/23 11:23 Sulfa (Sulfonamide Allergy Unknown Verified 10/19/23 11:23 Antibiotics) tetracycline Allergy Unknown Verified 10/19/23 11:23 tramadol Allergy Unknown Verified 10/19/23 11:23 dexamethasone AdvReac Severe gastritis Verified 10/19/23 11:23 PFSH Acute 2 PFSH: Medical History Fatigue Port-A-Cath in place Invasive ductal carcinoma of left breast COVID-19 Pancreatitis High risk medication use Rheumatoid arthritis Asthma Joint pain Endometriosis Cervical cancer GERD (gastroesophageal reflux disease) Surgical History Hx of colonoscopy with polypectomy History of mastectomy Bilateral December, S/P tonsillectomy and adenoidectomy History of cholecystectomy History of appendectomy History of hysterectomy Family History Other Cancer Heart disease Hypertension Social History Smoking and tobacco/nicotine status: former use of tobacco/nicotine Quit status (tobacco/nicotine): has quit using Year quit tobacco: 2009 Former quit date comment: 10 to 15 years smoked Second hand smoke exposure: No Alcohol intake: never Substance/Drug Use: never Adopted: No Lives independently: Yes Housing: House Vitals/I&O/Wt Last Vital Signs Temp 101 F H 10/19/23 11:15 Pulse 80 10/19/23 14:00 Resp 18 10/19/23 14:00 BP 118/54 10/19/23 14:16 Pulse Ox 94 10/19/23 14:00 O2 Del Method Room Air 10/19/23 14:00 10/19/23 10/19/23 10/19/23 06:59 14:59 22:59 Intake Total 1000 / 1000 Balance 1000 / 1000 Weight last 48 hrs Weight 92.986 kg Physical Exam 2 Const: COMMON NORMALS: no acute distress and patient oriented x3 HENMT: COMMON NORMALS: normocephalic HEAD & SCALP: normocephalic Eye: COMMON NORMALS: Equal, round and reactive pupils present and EOMs intact bilaterally Neck/C-Spine: COMMON NORMALS: no JVD Lymph: OTHER: cervical lymphadenopathy Resp: COMMON NORMALS: normal respiratory effort, No retractions, No use of accessory muscles and clear to auscultation bilaterally AUSCULTATION: clear to auscultation bilaterally Cardio: COMMON NORMALS: regular rate, regular rhythm, S1 normal heart sound present and S2 normal heart sound present RATE: regular rate RHYTHM: r egular rhythm HEART SOUNDS: S1 normal heart sound present and S2 normal heart sound present GI: COMMON NORMALS: Normal to inspection, nondistended, normoactive bowel sounds present, Soft to palpation and non-tender : COMMON NORMALS: Yes no CVA tenderness Extremity: COMMON NORMALS: no calf tenderness and no pedal edema Neuro: COMMON NORMALS: patient oriented x3, CN's II-XII intact bilaterally and moves all extremities Psych: COMMON NORMALS: mental status grossly normal Skin: COMMON NORMALS: no rashes or lesions noted Data 10/19/23 12:51 10/19/23 12:51 A&P Assessment and plan (1) Fever: (2) Intractable nausea and vomiting: (3) Thrombocytopenia: (4) Leukopenia: (5) Hyponatremia: (6) Transaminitis: Attestations 2 Medical Necessity Statement*: Fever ? Intractable nausea, vomiting, fatigue, malaise, chills, abdominal pain ? Has evidence of leukopenia, thrombocytopenia, transaminitis, hyponatremia -ct abdomen in addition CT/CT abdomen pelvis w con* [id number] IMPRESSION: 1. No acute abdominal or pelvic findin gs. 2. Additional details as above. PLAN: -Concerns for tickborne illness, possibl e [place] spotted fever? Start IV doxycycline -hyponatremia, IV fluids ? Follow-up tick panel ? Follow platelet count, leukopenia, LFTs ? HIV, acute hep panel ? Pro-Vineet, sed rate ? Respiratory viral panel ? Blood cultures ? Stool studies, CMV ? Nausea control, Zofran, Reglan ? Morphine for pain ? Full code ? Lovenox for DVT prophylaxis Patient requires hospitalization,inpatient, for tickborne fever, tickborne illness, intractable nausea, vomiting, leukopenia, thrombocytopenia, transaminitis, dehydration, hyponatremia Diagnoses Fever R50.9 Intractable nausea and vomiting R11.2 Thrombocytopenia D69.6 Leukopenia D72.819 Hyponatremia E87.1 Transaminitis R74.01
[2023-10-19 17:16] LABS: Erythrocyte Sedimentation Rate 10 mm/hr (0-15)
[2023-10-19 17:27] LABS: INR 1.07 (0.8-1.2)
[2023-10-19 17:29] LABS: Adenovirus Not Detected (NOT DETECT); Chlamydia Pneumoniae Not Detected (NOT DETECT); Coronavirus 229E,HKU1,NL63,OC4 Not Detected (NOT DETECT); Human Metapneumovirus Not Detected (NOT DETECT); Human Rhinovirus/Enterovirus Not Detected (NOT DETECT); Influenza A Not Detected (NOT DETECT); Influenza A H1 Not Detected (NOT DETECT); Influenza A H1-2009 Not Detected (NOT DETECT); Influenza A H3 Not Detected (NOT DETECT); Influenza B Not Detected (NOT DETECT); Mycoplasma Pneumoniae Not Detected (NOT DETECT); Parainfluenza Virus Type 1 Not Detected (NOT DETECT); Parainfluenza Virus Type 2 Not Detected (NOT DETECT); Parainfluenza Virus Type 3 Not Detected (NOT DETECT); Parainfluenza Virus Type 4 Not Detected (NOT DETECT); Respiratory Syncytial Virus A Not Detected (NOT DETECT); Respiratory Syncytial Virus B Not Detected (NOT DETECT); SARS-COV-2 Not Detected (NOT DETECT)
[2023-10-19 17:35] LABS: NT Pro B Type Natriuretic Pept 105 pg/mL (0-125); Procalcitonin 0.42 ng/mL (0-0.5)
[2023-10-19] MEDS: sodium chloride 0.9% 1,000 ML 75 ML IV (18:11)
[2023-10-19] MEDS: enoxaparin 40 mg/0.4 mL Syringe SUBCUT (18:11)
[2023-10-19] MEDS: doxycycline 100 MG in sodium chloride 0.9% (plus) 100 ML IV (18:11)
[2023-10-19] MEDS: morphine 4 mg/mL SDV 1 mL 2 MG IVP (18:33)
[2023-10-19 18:35] LABS: Thyroid Stimulating Hormone 1.15 uIU/mL (0.27-4.20)
[2023-10-19 19:25] LABS: HIV 1 & 2 Antibody Non-Reactive (Non-Reactiv); HIV 1 & 2 Antigen Non-Reactive (Non-Reactiv)
[2023-10-19] MEDS: trazodone 100 mg Tablet PO (20:10)
[2023-10-19] MEDS: ALPRAZolam 0.5 mg Tablet 0.25 MG PO (20:10)
[2023-10-19 20:42] LABS: Estmated Average Glucose 126
[2023-10-19 21:14] LABS: Hepatitis A Antibody IgM Non-Reactive (Nonreactive); Hepatitis B Core IgM Non-Reactive (Nonreactive); Hepatitis B Surface Antigen Non-Reactive (Nonreactive); Hepatitis C Virus Antibody Non-Reactive (Nonreactive)
[2023-10-20] VITALS (13 sets, daily range): BP systolic 84–138; BP diastolic 50–68; PULSE 57–70; RESP 14–18; TEMP 36.4–37.2; O2SAT 92–97
[2023-10-20 02:03] LABS: Adenovirus Not Detected (NOT DETECT); Chlamydia Pneumoniae Not Detected (NOT DETECT); Coronavirus 229E,HKU1,NL63,OC4 Not Detected (NOT DETECT); Human Metapneumovirus Not Detected (NOT DETECT); Human Rhinovirus/Enterovirus Not Detected (NOT DETECT); Influenza A Not Detected (NOT DETECT); Influenza A H1 Not Detected (NOT DETECT); Influenza A H1-2009 Not Detected (NOT DETECT); Influenza A H3 Not Detected (NOT DETECT); Influenza B Not Detected (NOT DETECT); Mycoplasma Pneumoniae Not Detected (NOT DETECT); Parainfluenza Virus Type 1 Not Detected (NOT DETECT); Parainfluenza Virus Type 2 Not Detected (NOT DETECT); Parainfluenza Virus Type 3 Not Detected (NOT DETECT); Parainfluenza Virus Type 4 Not Detected (NOT DETECT); Respiratory Syncytial Virus A Not Detected (NOT DETECT); Respiratory Syncytial Virus B Not Detected (NOT DETECT); SARS-COV-2 Not Detected (NOT DETECT)
[2023-10-20] MEDS: sodium chloride 0.9% 500 ML 999 ML IV (04:27)
[2023-10-20] MEDS: doxycycline 100 MG in sodium chloride 0.9% (plus) 100 ML IV ×2 (06:02→17:58)
[2023-10-20] MEDS: citalopram 20 mg Tablet 10 MG PO (06:02)
[2023-10-20] MEDS: sodium chloride 0.9% 1,000 ML 75 ML IV ×2 (06:02→21:33)
[2023-10-20 06:22] LABS: Basophils % 0.4 %; Hematocrit 30.5 % (36-47); Lymphocytes # 1.4 10^3/uL (0.8-4.8); Lymphocytes % 57.4 %; Mean Corpuscular HGB Conc 34.4 g/dL (30-55); Mean Corpuscular Hemoglobin 28.1 pg (27-33); Mean Corpuscular Volume 81.6 fl (85-98); Mean Platelet Volume 10.7 fL (7.4-10.4); Monocytes # 0.3 10^3/uL (0.2-0.9); Monocytes % 12.7 %; Neutrophils % 29.5 %; Nucleated Red Blood Cells % 0 %; Platelet Count 72 10^3/cmm (157-399); Red Blood Count 3.74 10^6/uL (3.85-5.65); Red Cell Distribution Width 14.7 % (12.1-15.1); White Blood Count 2.37 10^3/uL (3.29-11.43)
[2023-10-20 06:33] LABS: Alanine Aminotransferase 117 U/L (0-33); Albumin Level 3.1 g/dL (3.5-5.2); Alkaline Phosphatase 112 U/L (35-105); Anion Gap 14.9 (5-19); Aspartate Amino Transferase 138 U/L (0-32); Blood Urea Nitrogen 7 mg/dL (6-20); Calcium 7.6 mg/dL (8.5-10.5); Carbon Dioxide 24 mmol/L (22-29); Chloride 100 mmol/L (98-107); Creatinine Clr Calc Pharmacy 82.6107; Globulin 2.4 g/dL (1.3-4.6); Glomerular Filtration Rate 85.6 mL/min (90-130); Glucose 85 mg/dL (65-115); Magnesium 1.9 mg/dL (1.7-2.3); Osmolality Calculated 279 mOsm/kg (285-295); Phosphorus 3.5 mg/dL (2.5-4.5); Sodium 136 mmol/L (136-145); Total Bilirubin 0.4 mg/dL (0.15-1.2); Total Protein 5.5 g/dL (6.6-8.7)
[2023-10-20 06:53] LABS: Potassium 2.9 mmol/L (3.5-5.1)
[2023-10-20 07:08] LABS: Slide Review Slide Review Perform
[2023-10-20] MEDS: potassium chloride ER 20 mEq Tablet 40 MEQ PO (07:09)
[2023-10-20] MEDS: pantoprazole 40 mg SDV IVP (08:15)
[2023-10-20] MEDS: anastrozole 1 mg Tablet PO (08:15)
[2023-10-20] MEDS: ondansetron 2 mg/ML SDV 2 mL 4 MG IVP ×2 (10:41→17:53)
[2023-10-20] MEDS: morphine 4 mg/mL SDV 1 mL 2 MG IVP (10:43)
--- NOTE | 2023-10-20 11:16 | P.PN_ITS ---
Subjective 2 Subjective: patient was seen this morning, denies fever, no chills no cough, coutinues to have fatigue, malaise, has nausea, has diarrhea Vitals/I&O/Wt Last Vital Signs Temp 98.3 F 10/20/23 07:29 Pulse 59 L 10/20/23 07:29 Resp 16 10/20/23 10:43 BP 101/61 10/20/23 07:29 Pulse Ox 96 10/20/23 07:29 O2 Del Method Room Air 10/20/23 07:29 10/19/23 10/20/23 10/20/23 22:59 06:59 14:59 Intake Total 100 / 1100 1748.75 / 2848.75 340 / 340 Balance 100 / 1100 1748.75 / 2848.75 340 / 340 Weight last 48 hrs Weight 62.233 kg Weight 73.482 kg Weight 92.986 kg Physical Exam 2 Const: COMMON NORMALS: no acute distress and patient oriented x3 Resp: COMMON NORMALS: normal respiratory effort, No retractions, No use of accessory muscles and clear to auscultation bilaterally AUSCULTATION: clear to auscultation bilaterally Cardio: COMMON NORMALS: regular rate, regular rhythm, S1 normal heart sound present and S2 normal heart sound present RATE: regular rate RHYTHM: r egular rhythm HEART SOUNDS: S1 normal heart sound present and S2 normal heart sound present GI: COMMON NORMALS: Normal to inspection, nondistended, normoactive bowel sounds present and non-tender Extremity: COMMON NORMALS: no pedal edema Neuro: COMMON NORMALS: patient oriented x3 Psych: COMMON NORMALS: mental status grossly normal Data 10/20/23 05:09 10/20/23 05:09 Micro: Microbiology 10/19/23 16:50 Blood Culture - Preliminary Blood SPECIMEN COLLECTED 10/19/23 16:40 Blood Culture - Preliminary Blood SPECIMEN COLLECTED A&P Assessment and plan (1) Fever: (2) Intractable nausea and vomiting: (3) Thrombocytopenia: (4) Leukopenia: (5) Hyponatremia: (6) Transaminitis: (7) Neutropenia associated with infection: Plan Fever ? Intractable nausea, vomiting, fatigue, malaise, chills, abdominal pain ? Has evidence of leukopenia, thrombocytopenia, transaminitis, hyponatremia, neutropenia -ct abdomen in additionACCESSION #: [id number] CT/CT abdomen pelvis w con* [id number] IMPRESSION: 1. No acute abdominal or pelvic findings. 2. Additional details as above. PLAN: -Concerns for tickborne illness, possible [place] spotted fever? Start IV doxycycline -hyponatremia, IV fluids? Follow-up tick panel ? Follow platelet count, leukopenia, LFTs ? HIV, acute hep panel ? Pro-Vineet, sed rate ? Respiratory viral panel ? Blood cultures ? Stool studies, CMV ? Nausea control, Zofran, Reglan ? Morphine for pain ? Full code ? Lovenox for DVT prophylaxis Attestations 2 Medical Necessity Statement*: Patient requires hospitalization,inpatient, for tickborne fever, tickborne illness, intractable nausea, vomiting, leukopenia, thrombocytopenia, transaminitis, dehydration, hyponatremia Diagnoses Fever R50.9 Intractable nausea and vomiting R11.2 Thrombocytopenia D69.6 Leukopenia D72.819 Hyponatremia E87.1 Transaminitis R74.01 Neutropenia associated with infection D70.3
[2023-10-20] MEDS: HYDROmorphone 1 mg/mL INJ 1 mL 0.5 MG IVP (17:55)
[2023-10-20] MEDS: trazodone 100 mg Tablet PO (21:30)
[2023-10-20] MEDS: ALPRAZolam 0.5 mg Tablet 0.25 MG PO (21:32)
[2023-10-21] VITALS (8 sets, daily range): BP systolic 92–119; BP diastolic 52–79; PULSE 51–63; RESP 14–18; TEMP 36.4–37; O2SAT 95–98
[2023-10-21] MEDS: doxycycline 100 MG in sodium chloride 0.9% (plus) 100 ML IV ×2 (05:33→18:13)
[2023-10-21] MEDS: citalopram 20 mg Tablet 10 MG PO (05:34)
[2023-10-21] MEDS: pantoprazole 40 mg SDV IVP (09:10)
--- NOTE | 2023-10-21 09:47 | PC.CHAP ---
Pastoral Care Encounter/Spiritual Assessment Type of Contact [] Declined fleet service manager visit [] Patient/Family/Request visit [] Outpatient visit [] Follow-up visit [] Physician referral [] Code/Alert [] Routine visit [] Staff referral [] Actively dying [] Patient sleeping [] Family support [] [] Out of room [] Palliative care [] [x] Receiving care in room [] Pre-surgical visit [] Trauma [] Long length of stay [] ICU visit [] Other: Relational/Emotional Strength [] Patient feels connected with others/family/visitors/staff [] Distress [] Loneliness/isolation [] Abandonment Spirituality of Patient [] Person of Meme [] Attends Synagogue of their Meme [] Believes in Prayer [] Reads Bible or Temple materials [] There are Spiritual issues to be addressed Sports Medicine Trainer Interventions [] Prayer [] Active listening [] Non-anxious presence [] Spiritual/emotional support [] Crisis/trauma care [] Spiritual counseling [] Bereavement support [] Provided bereavement packet [] Provided Bible/devotional materials [] Provided toy/stuffed animal, coloring book to patient or family member [] Provided Communion [] Anointing/[place] [] Salvation [] Completed spiritual assessment [] Other: Impact on Illness or Injury [] Angry [] Fearful [] Anxious [] Often cries [] Exhaustion [] Unable to work [] Unable to attend rastafari [] Unable to walk/stand [] Unable to read [] Unable to drive [] Unable to eat/drink [] Unable to sleep [] Unable to be with family [] Patient intubated [] Other: Summary Time spent with patient
[2023-10-21 10:26] LABS: Basophils % 1.1 %; Eosinophils % 1.1 %; Lymphocytes % 57.6 %; Mean Corpuscular HGB Conc 32.5 g/dL (30-55); Mean Corpuscular Hemoglobin 28.1 pg (27-33); Mean Corpuscular Volume 86.5 fl (85-98); Mean Platelet Volume 10.7 fL (7.4-10.4); Monocytes # 0.3 10^3/uL (0.2-0.9); Monocytes % 7.2 %; Neutrophils # 1.14 10^3/uL (1.8-7.7); Neutrophils % 32.7 %; Nucleated Red Blood Cells % 0 %; Platelet Count 95 10^3/cmm (157-399); Red Cell Distribution Width 15.4 % (12.1-15.1); White Blood Count 3.49 10^3/uL (3.29-11.43)
[2023-10-21 10:43] LABS: Alanine Aminotransferase 166 U/L (0-33); Alkaline Phosphatase 108 U/L (35-105); Anion Gap 14.2 (5-19); Aspartate Amino Transferase 163 U/L (0-32); Blood Urea Nitrogen 5 mg/dL (6-20); C Reactive Protein 21.3 mg/L (0.0-4.9); Calcium 7.8 mg/dL (8.5-10.5); Carbon Dioxide 22 mmol/L (22-29); Chloride 102 mmol/L (98-107); Creatinine Clr Calc Pharmacy 107.6712; Globulin 2.6 g/dL (1.3-4.6); Glomerular Filtration Rate 102.3 mL/min (90-130); Glucose 117 mg/dL (65-115); Osmolality Calculated 278 mOsm/kg (285-295); Potassium 3.2 mmol/L (3.5-5.1); Sodium 135 mmol/L (136-145); Total Bilirubin 0.3 mg/dL (0.15-1.2); Total Protein 5.6 g/dL (6.6-8.7)
[2023-10-21 10:50] LABS: Procalcitonin 0.19 ng/mL (0-0.5)
[2023-10-21 10:56] LABS: Slide Review Slide Review Perform
[2023-10-21] MEDS: ondansetron 2 mg/ML SDV 2 mL 4 MG IVP (11:17)
[2023-10-21] MEDS: sodium chloride 0.9% 1,000 ML 75 ML IV (11:17)
--- NOTE | 2023-10-21 13:36 | P.PN_ITS ---
Subjective 2 Subjective: Patient was seen this morning continues to have fatigue, malaise, no nausea, no vomiting, no fevers, no chills, no lightheadedness, dizziness Vitals/I&O/Wt Last Vital Signs Temp 98.3 F 10/21/23 12:00 Pulse 57 L 10/21/23 12:00 Resp 14 10/21/23 12:00 BP 92/52 10/21/23 12:00 Pulse Ox 98 10/21/23 12:00 O2 Del Method Room Air 10/21/23 12:00 10/20/23 10/21/23 10/21/23 22:59 06:59 14:59 Intake Total 1460 / 1920 / 2019 1240 / 1240 Balance 1460 / 1920 2019 1240 / 1240 Weight last 48 hrs Weight 79.946 kg Weight 62.233 kg Weight 73.482 kg Physical Exam 2 Const: COMMON NORMALS: no acute distress and patient oriented x3 Resp: COMMON NORMALS: normal respiratory effort, No retractions, No use of accessory muscles and clear to auscultation bilaterally AUSCULTATION: clear to auscultation bilaterally Cardio: COMMON NORMALS: regular rate, regular rhythm, S1 normal heart sound present and S2 normal heart sound present RATE: regular rate RHYTHM: r egular rhythm HEART SOUNDS: S1 normal heart sound present and S2 normal heart sound present GI: COMMON NORMALS: Normal to inspection, nondistended, normoactive bowel sounds present and non-tender Extremity: COMMON NORMALS: no pedal edema Neuro: COMMON NORMALS: patient oriented x3 Psych: COMMON NORMALS: mental status grossly normal Data 10/21/23 10:11 10/21/23 10:11 Micro: Microbiology 10/19/23 16:50 Blood Culture - Preliminary Blood NEGATIVE TO DATE 10/19/23 16:40 Blood Culture - Preliminary Blood NEGATIVE TO DATE A&P Assessment and plan (1) Fever: (2) Intractable nausea and vomiting: (3) Thrombocytopenia: (4) Leukopenia: (5) Hyponatremia: (6) Transaminitis: (7) Neutropenia associated with infection: Plan Fever ? Intractable nausea, vomiting, fatigue, malaise, chills, abdominal pain ? Has evidence of leukopenia, thrombocytopenia, transaminitis, hyponatremia, neutropenia -ct abdomen in additionACCESSION #: [id number] CT/CT abdomen pelvis w con* [id number] IMPRESSION: 1. No acute abdominal or pelvic findings. 2. Additional details as above. PLAN: -Concerns for tickborne illness, possible [place] spotted fever? Start IV doxycycline -hyponatremia, IV fluids? Follow-up tick panel ? Follow platelet count, leukopenia, LFTs ? HIV, acute hep panel negative ? Pro-Vineet, sed rate within normal limtis ? Respiratory viral panel negative ? Blood cultures negative so far ? Stool studies, CMV ? Nausea control, Zofran, Reglan ? Morphine for pain ? Full code ? Lovenox for DVT prophylaxis Plan for today, pancytopenia is improving, continues to have transaminitis, fatigue, malaise,continue doxycycline Attestations 2 Medical Necessity Statement*: patient requires hospitalization for tick borne illness Diagnoses Fever R50.9 Intractable nausea and vomiting R11.2 Thrombocytopenia D69.6 Leukopenia D72.819 Hyponatremia E87.1 Transaminitis R74.01 Neutropenia associated with infection D70.3
[2023-10-21 14:40] LABS: Cytomegalovirus Antibody (IGM) <30.00 AU/mL
[2023-10-21 15:44] LABS: Lyme AB Screen <0.90 index
[2023-10-21] MEDS: trazodone 100 mg Tablet PO (20:17)
[2023-10-22] VITALS: BP 98/63; PULSE 50; RESP 18; TEMP 36.6; O2SAT 96
[2023-10-22] MEDS: sodium chloride 0.9% 1,000 ML 75 ML IV (01:49)
[2023-10-22 04:00] VITALS: BP 116/74; PULSE 61; RESP 17; TEMP 36.6; O2SAT 96
[2023-10-22 05:55] LABS: Basophils % 0.2 %; Eosinophils # 0.1 10^3/uL (0.0-0.8); Eosinophils % 1.7 %; Lymphocytes # 2.3 10^3/uL (0.8-4.8); Lymphocytes % 55.5 %; Mean Corpuscular HGB Conc 32.4 g/dL (30-55); Mean Corpuscular Hemoglobin 27.9 pg (27-33); Mean Corpuscular Volume 86.2 fl (85-98); Mean Platelet Volume 10.3 fL (7.4-10.4); Monocytes # 0.3 10^3/uL (0.2-0.9); Neutrophils # 1.53 10^3/uL (1.8-7.7); Neutrophils % 36.4 %; Nucleated Red Blood Cells % 0 %; Platelet Count 132 10^3/cmm (157-399); Red Blood Count 3.83 10^6/uL (3.85-5.65); Red Cell Distribution Width 15.3 % (12.1-15.1)
[2023-10-22] MEDS: doxycycline 100 MG in sodium chloride 0.9% (plus) 100 ML IV ×2 (05:56→16:57)
[2023-10-22] MEDS: citalopram 20 mg Tablet 10 MG PO (05:57)
[2023-10-22 06:15] LABS: Alanine Aminotransferase 187 U/L (0-33); Albumin Level 3.2 g/dL (3.5-5.2); Alkaline Phosphatase 111 U/L (35-105); Anion Gap 12.3 (5-19); Aspartate Amino Transferase 156 U/L (0-32); Blood Urea Nitrogen 4 mg/dL (6-20); C Reactive Protein 15.9 mg/L (0.0-4.9); Calcium 8.3 mg/dL (8.5-10.5); Carbon Dioxide 24 mmol/L (22-29); Chloride 108 mmol/L (98-107); Creatinine Clr Calc Pharmacy 108.1952; Globulin 2.7 g/dL (1.3-4.6); Glomerular Filtration Rate 102.3 mL/min (90-130); Glucose 93 mg/dL (65-115); Osmolality Calculated 289 mOsm/kg (285-295); Phosphorus 3.7 mg/dL (2.5-4.5); Potassium 3.3 mmol/L (3.5-5.1); Sodium 141 mmol/L (136-145); Total Bilirubin 0.3 mg/dL (0.15-1.2); Total Protein 5.9 g/dL (6.6-8.7)
[2023-10-22 06:26] LABS: Procalcitonin 0.13 ng/mL (0-0.5)
[2023-10-22 07:51] VITALS: BP 118/56; PULSE 56; RESP 18; TEMP 36.4; O2SAT 97
[2023-10-22] MEDS: pantoprazole 40 mg SDV IVP (08:47)
[2023-10-22] MEDS: ciprofloxacin 400 MG/200 ML PREMIX 200 MG IV ×2 (09:30→20:41)
[2023-10-22] MEDS: potassium chloride ER 20 mEq Tablet 40 MEQ PO (09:30)
[2023-10-22] MEDS: polyethylene glycol 3350 Pkt 17 gm PO (11:46)
[2023-10-22 11:57] VITALS: BP 122/74; PULSE 67; RESP 18; TEMP 36.4; O2SAT 95
--- NOTE | 2023-10-22 13:12 | P.PN_ITS ---
Subjective 2 Subjective: Patient was seen this morning, she continues to complain of fatigue, malaise, did not sleep last night, I had a discussion with her about likely increasing AST ALT, although I feel it has plateaued, her pancytopenia is improving Vitals/I&O/Wt Last Vital Signs Temp 97.5 F L 10/22/23 11:57 Pulse 67 10/22/23 11:57 Resp 18 10/22/23 11:57 BP 122/74 10/22/23 11:57 Pulse Ox 95 10/22/23 11:57 O2 Del Method Room Air 10/22/23 11:57 10/21/23 10/22/23 10/22/23 22:59 06:59 14:59 Intake Total 220 / 1580 1000 / 2580 1260 / 1260 Balance 220 / 1580 1000 / 2580 1260 / 1260 Weight last 48 hrs Weight 80.768 kg Weight 79.946 kg Physical Exam 2 Const: COMMON NORMALS: no acute distress and patient oriented x3 Resp: COMMON NORMALS: normal respiratory effort, No retractions, No use of accessory muscles and clear to auscultation bilaterally AUSCULTATION: clear to auscultation bilaterally Cardio: COMMON NORMALS: regular rate, regular rhythm, S1 normal heart sound present and S2 normal heart sound present RATE: regular rate RHYTHM: r egular rhythm HEART SOUNDS: S1 normal heart sound present and S2 normal heart sound present GI: COMMON NORMALS: Normal to inspection, nondistended, normoactive bowel sounds present and non-tender Extremity: COMMON NORMALS: no pedal edema Neuro: COMMON NORMALS: patient oriented x3 Psych: COMMON NORMALS: mental status grossly normal Data 10/22/23 05:28 10/22/23 05:28 A&P Assessment and plan (1) Fever: (2) Intractable nausea and vomiting: (3) Thrombocytopenia: (4) Leukopenia: (5) Hyponatremia: (6) Transaminitis: (7) Neutropenia associated with infection: Plan Fever ? Intractable nausea, vomiting, fatigue, malaise, chills, abdominal pain ? Has evidence of leukopenia, thrombocytopenia, transaminitis, hyponatremia, neutropenia -ct abdomen in additionACCESSION #: [id number] CT/CT abdomen pelvis w con* [id number] IMPRESSION: 1. No acute abdominal or pelvic findings. 2. Additional details as above. PLAN: -Concerns for tickborne illness, possible [place] spotted fever? IV doxycycline -Concerns for tularemia like illness, start ciprofloxacin as patient continues to have transaminitis, thrombocytopenia -hyponatremia, resolved ? Follow-up tick panel ? Follow platelet count, leukopenia, LFTs ? HIV, acute hep panel negative ? Pro-Vineet, sed rate within normal limtis ? Respiratory viral panel negative ? Blood cultures negative so far ? Stool studies, CMV ? Nausea control, Zofran, Reglan ? Morphine for pain ? Full code ? Lovenox for DVT prophylaxis Plan for today, add ciprofloxacin continue doxycycline, stop IV fluids Attestations 2 Medical Necessity Statement*: Patient requires hospitalization for persistent fevers, concerns for tickborne illness Diagnoses Fever R50.9 Intractable nausea and vomiting R11.2 Thrombocytopenia D69.6 Leukopenia D72.819 Hyponatremia E87.1 Transaminitis R74.01 Neutropenia associated with infection D70.3
[2023-10-22 15:53] VITALS: BP 114/74; PULSE 60; RESP 18; TEMP 36.5; O2SAT 92
[2023-10-22] MEDS: enoxaparin 40 mg/0.4 mL Syringe SUBCUT (16:58)
[2023-10-22 20:00] VITALS: BP 117/76; PULSE 70; RESP 16; TEMP 36.8; O2SAT 96
[2023-10-22] MEDS: ALPRAZolam 0.5 mg Tablet 0.25 MG PO (20:40)
[2023-10-22] MEDS: trazodone 100 mg Tablet PO (20:41)
[2023-10-23] VITALS: BP 110/72; PULSE 58; RESP 17; TEMP 36.7; O2SAT 93
[2023-10-23 03:52] VITALS: BP 112/73; PULSE 75; RESP 17; TEMP 36.8; O2SAT 97
[2023-10-23 04:58] LABS: Basophils % 0.2 %; Eosinophils # 0.1 10^3/uL (0.0-0.8); Eosinophils % 1.7 %; Hematocrit 30.6 % (36-47); Lymphocytes # 2.4 10^3/uL (0.8-4.8); Lymphocytes % 48.8 %; Mean Corpuscular HGB Conc 33.3 g/dL (30-55); Mean Corpuscular Hemoglobin 27.8 pg (27-33); Mean Corpuscular Volume 83.4 fl (85-98); Mean Platelet Volume 10.2 fL (7.4-10.4); Monocytes # 0.4 10^3/uL (0.2-0.9); Monocytes % 7.5 %; Neutrophils % 41.4 %; Nucleated Red Blood Cells % 0 %; Platelet Count 163 10^3/cmm (157-399); Red Blood Count 3.67 10^6/uL (3.85-5.65); Red Cell Distribution Width 15.2 % (12.1-15.1); White Blood Count 4.82 10^3/uL (3.29-11.43)
[2023-10-23 05:19] LABS: Alanine Aminotransferase 167 U/L (0-33); Albumin Level 3.4 g/dL (3.5-5.2); Alkaline Phosphatase 106 U/L (35-105); Anion Gap 11.5 (5-19); Aspartate Amino Transferase 108 U/L (0-32); Blood Urea Nitrogen 4 mg/dL (6-20); Calcium 8.4 mg/dL (8.5-10.5); Carbon Dioxide 27 mmol/L (22-29); Chloride 108 mmol/L (98-107); Creatinine Clr Calc Pharmacy 110.0382; Globulin 2.2 g/dL (1.3-4.6); Glomerular Filtration Rate 102.3 mL/min (90-130); Glucose 98 mg/dL (65-115); Magnesium 1.9 mg/dL (1.7-2.3); Osmolality Calculated 293 mOsm/kg (285-295); Phosphorus 3.9 mg/dL (2.5-4.5); Potassium 3.5 mmol/L (3.5-5.1); Sodium 143 mmol/L (136-145); Total Bilirubin 0.3 mg/dL (0.15-1.2); Total Protein 5.6 g/dL (6.6-8.7)
[2023-10-23 05:24] LABS: Procalcitonin 0.07 ng/mL (0-0.5)
[2023-10-23] MEDS: citalopram 20 mg Tablet 10 MG PO (06:21)
[2023-10-23] MEDS: doxycycline 100 MG in sodium chloride 0.9% (plus) 100 ML IV (06:21)
[2023-10-23 07:45] VITALS: BP 134/70; PULSE 56; RESP 18; TEMP 36.4; O2SAT 96
[2023-10-23] MEDS: pantoprazole 40 mg SDV IVP (08:17)
[2023-10-23] MEDS: ciprofloxacin 400 MG/200 ML PREMIX 100 MG IV (08:18)
--- NOTE | 2023-10-23 10:59 | P.DS_ITS ---
Discharge Providers Date of Admission: 10/19/23 17:11 Date of Discharge: October 23, 2023 Attending Provider at Admission: Mamadou Celestin MD Attending Provider at Discharge: Mamadou Celestin MD Primary Care Provider: Michael Mahoney DO Diagnoses at Discharge Discharge Diagnosis (1) Fever: Status: Acute (2) Intractable nausea and vomiting: Status: Acute (3) Thrombocytopenia: Status: Acute (4) Leukopenia: Status: Acute (5) Hyponatremia: Status: Acute (6) Transaminitis: Status: Acute (7) Neutropenia associated with infection: Status: Acute Reason for Visit Reason for Visit: N/V, weakness Hospital Course Hospital Course Leslie Scott is a 58 year old female With a past medical history of breast cancer, who presents to [facility] for fatigue, malaise, nausea, vo miting, diarrhea, abdominal pain for the last month. Patient tells me for the last month, she has been dealing with fatigue, malaise, intermittent nausea, vomiting, diarrhea, abdominal pain. In the last few weeks she has had 3 separate CAT scans, without any clear indication of why she continues to have nausea, vomiting, diarrhea, fatigue, malaise. She does report that she had 2 tick bites, the last tick bite was about 2 weeks ago. No new rashes, does report subjective fever she has a fever here. Denies any cat bites no dog bites, no exposure to rabbits, or sheep. She does report she drinks well water, none of her other family members are sick. She does report diarrhea, at times it is yellow, no blood or black stools reported. She does report diffuse abdominal pain, she thinks is more associate with the nausea vomiting she did complain of flank pain at 1 time, but denies any dysuria, no hematuria, none currently. Does report lightheadedness and dizziness at times. For the last 24 hours she has had poor appetite, she has not been able to keep anything down, denies any chest pain, no shortness of breath, no cough, no neck pain, neck stiffness, no blurry vision, she is status post cholecystectomy, no new rashes, no ear pain, did have intermittent sore throat at times Patient was admitted to [facility] for fevers, with leukopenia, thrombocytopenia, transaminitis, neutropenia, concerns for initial tickborne illness, managed on doxycycline, however due to developing neutropenia, persistent thrombocytopenia, transaminitis, ciprofloxacin was added for possible tularemia. So far blood cultures no growth, she remains afebrile, will discharge on 10 days of doxycycline, ciprofloxacin for concerns for tickborne illness and or tularemia. Studies currently pending, follow-up with primary provider for recheck CBC and CMP on Tuesday. If she has any recurrent fevers, symptomatology go to emergency room Physical Exam Const: COMMON NORMALS: no acute distress and patient oriented x3 Resp: COMMON NORMALS: normal respiratory effort, No retractions, No use of accessory muscles and clear to auscultation bilaterally AUSCULTATION: clear to auscultation bilaterally Cardio: COMMON NORMALS: regular rate, regular rhythm, S1 normal heart sound present and S2 normal heart sound present RATE: regular rate RHYTHM: regular rhythm HEART SOUNDS: S1 normal heart sound present and S2 normal heart sound present GI: COMMON NORMALS: Normal to inspection, nondistended, normoactive bowel sounds present and non-tender Extremity: COMMON NORMALS: no pedal edema Neuro: COMMON NORMALS: patient oriented x3 Psych: COMMON NORMALS: mental status grossly normal Discharge Data Studies Completed and Pending Completed Studies During Hospitalization Category Date Time Status CT abdomen pelvis w con* [id number] Stat Cat Scan 10/19/23 12:22 Completed Pending at discharge Category Date Time Status Blood Culture Stat Lab 10/19/23 16:50 Results C Reactive Protein AM LABS Lab 10/24/23 04:00 Ordered C.Diff PCR (Lab) Routine Lab 10/19/23 17:52 Ordered Complete Blood Count w/Auto AM LABS Lab 10/24/23 04:00 Ordered Comprehensive Metabolic Panel AM LABS Lab 10/24/23 04:00 Ordered EBV IGG & IGM Stat Lab 10/22/23 05:28 Received Francisella tularensis IgM/IgG Routine Lab 10/22/23 05:28 Received Immunochemical Fecal OCB Routine Lab 10/19/23 17:52 Ordered Lactoferrin Routine Lab 10/19/23 17:52 Ordered Magnesium AM LABS Lab 10/24/23 04:00 Ordered OVA and Parasites, Conc and PE Routine Lab 10/19/23 17:52 Ordered Phosphorus AM LABS Lab 10/24/23 04:00 Ordered Procalcitonin AM LABS Lab 10/24/23 04:00 Ordered Salmonella / Shigella / Campy Routine Lab 10/19/23 17:52 Ordered Tick Panel Stat Lab 10/19/23 15:59 Results Radiology Impressions Abdomen/Pelvis CT 10/19/23 12:22 IMPRESSION: 1. No acute abdominal or pelvic findings. 2. Additional details as above. Laboratory Results WBC 4.82 10^3/uL (3.29-11.43) 10/23/23 04:37 Corrected WBC Cancelled 10/21/23 09:11 RBC 3.67 10^6/uL (3.85-5.65) L 10/23/23 04:37 Hgb 10.20 g/dL (11.27-16.99) L 10/23/23 04:37 Hct 30.6 % (36-47) L 10/23/23 04:37 MCV 83.4 fl (85-98) L 10/23/23 04:37 MCH 27.8 pg (27-33) 10/23/23 04:37 MCHC 33.3 g/dL (30-55) 10/23/23 04:37 RDW 15.2 % (12.1-15.1) H 10/23/23 04:37 Plt Count 163 10^3/cmm (157-399) 10/23/23 04:37 MPV 10.2 fL (7.4-10.4) 10/23/23 04:37 Gran % Cancelled 10/21/23 09:11 Neut % (Auto) 41.4 % 10/23/23 04:37 Lymph % (Auto) 48.8 % 10/23/23 04:37 Wilkes % (Auto) 7.5 % 10/23/23 04:37 Eos % (Auto) 1.7 % 10/23/23 04:37 Baso % (Auto) 0.2 % 10/23/23 04:37 Neut # (Auto) 2.00 10^3/uL (1.8-7.7) 10/23/23 04:37 Lymph # (Auto) 2.4 10^3/uL (0.8-4.8) 10/23/23 04:37 Wilkes # (Auto) 0.4 10^3/uL (0.2-0.9) 10/23/23 04:37 Eos # (Auto) 0.1 10^3/uL (0.0-0.8) 10/23/23 04:37 Baso # (Auto) 0.0 10^3/uL (0.0-0.1) 10/23/23 04:37 Absolute Gran (auto) Cancelled 10/21/23 09:11 Nucleated RBC % (auto) 0 % 10/23/23 04:37 Total Counted 100 (0-100) 10/19/23 12:51 Atypical Lymphs % 7.0 % (0-5) H 10/19/23 12:51 Absolute Neutrophils 1.5 10^3/cmm (1.4-6.5) 10/19/23 12:51 Segmented Neutrophils 61 % 10/19/23 12:51 Abs Segm Neuts (Man) 1.3 10/cmm (1.6-7.1) L 10/19/23 12:51 Band Neutrophils 9.0 % 10/19/23 12:51 Abs Band Neuts (Man) 0.2 10^3/cmm (0.0-1.2) 10/19/23 12:51 Absolute Lymphocytes 0.6 10^3/cmm (1.2-3.4) L 10/19/23 12:51 Lymphocytes (Manual) 22 % 10/19/23 12:51 Monocytes (Manual) 1.0 % 10/19/23 12:51 Absolute Monocytes 0.0 10^3/cmm (0.1-0.6) L 10/19/23 12:51 Eosinophils (Manual) 0 % 10/19/23 12:51 Absolute Eosinophils 0.0 10^3/cmm (0.0-0.7) 10/19/23 12:51 Basophils (Manual) 0.0 % 10/19/23 12:51 Absolute Basophils 0.0 10^3/cmm (0.0-0.2) 10/19/23 12:51 Nucleated RBCs # 0.0 /100WBC 10/23/23 04:37 Platelet Estimate Decreased (Normal) L 10/19/23 12:51 ESR 10 mm/hr (0-15) 10/19/23 16:40 PT 14.20 SECONDS (12.1-14.9) 10/19/23 16:40 INR 1.07 (0.8-1.2) 10/19/23 16:40 Sodium 143 mmol/L (136-145) 10/23/23 04:37 Potassium 3.5 mmol/L (3.5-5.1) 10/23/23 04:37 Chloride 108 mmol/L (98-107) H 10/23/23 04:37 Carbon Dioxide 27 mmol/L (22-29) 10/23/23 04:37 Anion Gap 11.5 (5-19) 10/23/23 04:37 BUN 4 mg/dL (6-20) L 10/23/23 04:37 Creatinine 0.6 mg/dL (0.5-0.9) 10/23/23 04:37 GFR Calculation 102.3 mL/min (90-130) 10/23/23 04:37 Glucose 98 mg/dL (65-115) 10/23/23 04:37 Estimat Average Glucose 126 10/19/23 12:51 Hemoglobin A1c 6.0 % (4.0-6.0) 10/19/23 12:51 Calculated Osmolality 293 mOsm/kg (285-295) 10/23/23 04:37 Lactic Acid 1.0 mmol/L (0.5-2.2) 10/19/23 16:40 Calcium 8.4 mg/dL (8.5-10.5) L 10/23/23 04:37 Phosphorus 3.9 mg/dL (2.5-4.5) 10/23/23 04:37 Magnesium 1.9 mg/dL (1.7-2.3) 10/23/23 04:37 Total Bilirubin 0.3 mg/dL (0.15-1.2) 10/23/23 04:37 AST 108 U/L (0-32) H 10/23/23 04:37 ALT 167 U/L (0-33) H 10/23/23 04:37 Alkaline Phosphatase 106 U/L (35-105) H 10/23/23 04:37 C-Reactive Protein 10.0 mg/L (0.0-4.9) H 10/23/23 04:37 NT-Pro-B Natriuret Pep 105 pg/mL (0-125) 10/19/23 16:40 Total Protein 5.6 g/dL (6.6-8.7) L 10/23/23 04:37 Albumin 3.4 g/dL (3.5-5.2) L 10/23/23 04:37 Globulin 2.2 g/dL (1.3-4.6) 10/23/23 04:37 Lipase 40 U/L (13-60) 10/19/23 12:51 Procalcitonin 0.07 ng/mL (0-0.5) 10/23/23 04:37 TSH 1.15 uIU/mL (0.27-4.20) 10/19/23 12:51 Urine Color Yellow (Yellow) 10/19/23 14:35 Urine Appearance Clear (CLEAR) 10/19/23 14:35 Urine pH 5 (5-7) 10/19/23 14:35 Ur Specific [place] 1.005 (1.005-1.030) 10/19/23 14:35 Urine Protein Trace (Negative) 10/19/23 14:35 Urine Glucose (UA) Norm (Normal) 10/19/23 14:35 Urine Ketones 2+ (Negative) H 10/19/23 14:35 Urine Blood Neg (Negative) 10/19/23 14:35 Urine Nitrate Negative (Negative) 10/19/23 14:35 Urine Bilirubin Neg (Negative) 10/19/23 14:35 Urine Urobilinogen Norm mg/dL (Negative) 10/19/23 14:35 Ur Leukocyte Esterase Negative (Negative) 10/19/23 14:35 Urine RBC None /hpf (0-2) 10/19/23 14:35 Urine WBC None /hpf (0-5) 10/19/23 14:35 Ur Squamous Epith Cells None /hpf (0-5) 10/19/23 14:35 Amorphous Sediment Not Reportable 10/19/23 14:35 Urine Bacteria Trace /hpf (NONE) 10/19/23 14:35 Adenovirus (PCR) Not detected (NOT DETECT) 10/20/23 00:00 Lyme Ab (Western Blot) <0.90 index 10/19/23 15:59 C. pneumoniae DNA (PCR) Not detected (NOT DETECT) 10/20/23 00:00 Coronavirus 229E (PCR) Not detected (NOT DETECT) 10/20/23 00:00 CMV IgG Ab 4.90 U/mL H 10/19/23 16:40 CMV IgM Ab <30.00 AU/mL 10/19/23 16:40 Hepatitis A IgM Ab Non-reactive (Nonreactive) 10/19/23 12:51 Hep Bs Antigen Non-reactive (Nonreactive) 10/19/23 12:51 Hep B Core IgM Ab Non-reactive (Nonreactive) 10/19/23 12:51 Hepatitis C Antibody Non-reactive (Nonreactive) 10/19/23 12:51 HIV 1&2 Ab & HIV 1 Ag Non-reactive (Non-Reactiv) 10/19/23 12:51 HIV 1&2 Antibody Non-reactive (Non-Reactiv) 10/19/23 12:51 Human Metapneumovir PCR Not detected (NOT DETECT) 10/20/23 00:00 Influenza A (H1) PCR Not detected (NOT DETECT) 10/20/23 00:00 Influ A (H1/09) PCR Not detected (NOT DETECT) 10/20/23 00:00 Influenza A (H3) PCR Not detected (NOT DETECT) 10/20/23 00:00 Influenza Type A (PCR) Not detected (NOT DETECT) 10/20/23 00:00 Influenza Type B (PCR) Not detected (NOT DETECT) 10/20/23 00:00 M. pneumoniae (PCR) Not detected (NOT DETECT) 10/20/23 00:00 Parainfluenza 1 (PCR) Not detected (NOT DETECT) 10/20/23 00:00 Parainfluenza 2 (PCR) Not detected (NOT DETECT) 10/20/23 00:00 Parainfluenza 3 (PCR) Not detected (NOT DETECT) 10/20/23 00:00 Parainfluenza 4 (PCR) Not detected (NOT DETECT) 10/20/23 00:00 RSV Type A (PCR) Not detected (NOT DETECT) 10/20/23 00:00 RSV Type B (PCR) Not detected (NOT DETECT) 10/20/23 00:00 Entero/Rhino (PCR) Not detected (NOT DETECT) 10/20/23 00:00 SARS-CoV-2 (PCR) Not detected (NOT DETECT) 10/20/23 00:00 Vitals Last Vital Signs Temp 97.6 F 10/23/23 07:45 Pulse 56 L 10/23/23 07:45 Resp 18 10/23/23 07:45 BP 134/70 10/23/23 07:45 Pulse Ox 96 10/23/23 07:45 O2 Del Method Room Air 10/23/23 07:45 Discharge Plan Discharge Patient Disposition: Home Condition: Stable Prescriptions: New ciprofloxacin HCl 500 mg tablet 500 mg PO BID 10 Days Qty: 20 0RF doxycycline hyclate 100 mg tablet 100 mg PO BID 10 Days Qty: 20 0RF Continued citalopram [Celexa] 20 mg tablet 10 mg PO QAM trazodone 100 mg tablet 100 mg PO BEDTIME Hair,Skin and Nails Tablet 2 tab PO QAM omeprazole 40 mg capsule,delayed release(DR/EC) 40 mg PO DAILY diclofenac sodium [Voltaren Arthritis Pain] 1 % gel 4 g topical QID PRN (Reason: Pain) Qty: 100 5RF Rx Instructions: apply to single knee, ankle, foot; for foot includes sole/toes/top of foot methotrexate (PF) 12.5 mg/0.4 mL auto-injector 12.5 mg SUBCUT .qweek Qty: 2 0RF gabapentin 300 mg Capsule 300 mg PO BEDTIME PRN (Reason: NERVE PAIN) vitamin B complex Capsule 1 cap PO QAM multivitamin Tablet 1 tab PO QAM albuterol sulfate [Ventolin HFA] 90 mcg/actuation Hfa Aerosol Inhaler 2 puff INHALATION 6XD PRN (Reason: Shortness Of Breath) hydrocodone-acetaminophen 5-325 mg tablet 1 tab PO Q6H PRN (Reason: pain) Qty: 20 0RF ondansetron 8 mg tablet,disintegrating 8 mg PO .q6 PRN (Reason: nausea and vomiting) Qty: 14 0RF polyethylene glycol 3350 [Miralax] 17 gram/dose powder 17 g PO DAILY Qty: 510 0RF Rx Instructions: Take 1 scoop daily while taking pain medications. Narcan 4 mg/actuation spray,non-aerosol See Rx Instructions .ROUTE .COMPLEX Rx Instructions: CALL 911. SPR CONTENTS OF ONE SPRAYER (0.1ML) INTO ONE NOSTRIL. REPEAT IN 2-3 MIN IF SYMPTOMS OF OPIOID EMERGENCY PERSIST, ALTERNATE NOSTRILS anastrozole 1 mg tablet 1 mg PO DAILY alprazolam 0.25 mg tablet 0.25 mg PO BID PRN (Reason: Anxiety) Discontinued cefdinir 300 mg capsule 300 mg PO BID 7 Days Qty: 14 0RF amoxicillin-pot clavulanate 875-125 mg tablet 1 tab PO BID 5 Days Qty: 10 0RF Discharge Orders: Discharge Order (Routine); Ordered 10/23/23 Ordered By: Mamadou Celestin Referrals: Michael Mahoney DO [Primary Care Provider] - Discharge Diet: Cardiac Discharge Activity: Resume usual activity Patient Instructions: Opioid Safety Activity Restrictions/Additional Instructions: - Please continue to self isolate, socially distance, facemask, hand wash Take antibiotics as prescribed ? See your primary care provider on Tuesday for recheck of blood counts, CBC, check liver function Discharge Attestations Time Spent in Discharge Care*: greater than 30 min Status at Discharge: Cognitive status at discharge: cognitively intact , Behavioral status at discharge: cooperative , Quality Metrics Clinical Quality Measures [ No reported AMI, CVA or VTE this stay] Coding Level of Care Code 40994 Total time (in minutes) for Discharge: 45 Diagnoses Fever R50.9 Intractable nausea and vomiting R11.2 Thrombocytopenia D69.6 Leukopenia D72.819 Hyponatremia E87.1 Transaminitis R74.01 Neutropenia associated with infection D70.3
[2023-10-23 11:59] VITALS: BP 145/76; PULSE 70; RESP 20; TEMP 36.5; O2SAT 98
[2023-10-23 13:49] VITALS: BP 145/76; PULSE 70; RESP 20; TEMP 36.5; O2SAT 98
[2023-10-24 13:09] LABS: EBV IGM TEST <36.00 U/mL
[2023-10-25 21:53] LABS: E. Chaffeensis AB IGG <1:64; E. Chaffeensis AB IGM <1:20
[2023-10-26 17:25] LABS: RMSF IGG NOT DETECTED; RMSF IGM NOT DETECTED
[2023-10-27 22:14] LABS: F.tularensis IgG AB Serum Negative (Negative); F.tularensis IgM AB Serum Negative (Negative)
== END 2023-10-23 12:15 | disposition home or self-care (01) | DRG 866 ==
LOC: ER 16:32 → MEDSURG 17:12
PROVIDERS: Admitting Provider Family Medicine; Emergency Provider Emergency Medicine; PCP Electrodiagnostic Medicine; Visit Provider Family Medicine
DX: A93.8 Other specified arthropod-borne viral fevers (principal); A21.9 Tularemia, unspecified; D61.818 Other pancytopenia; E87.1 Hypo-osmolality and hyponatremia; D70.3 Neutropenia due to infection; D69.6 Thrombocytopenia, unspecified; E86.0 Dehydration; R74.01 Elevation of levels of liver transaminase levels; Z87.891 Personal history of nicotine dependence; K21.9 Gastro-esophageal reflux disease without esophagitis; J45.909 Unspecified asthma, uncomplicated; M06.9 Rheumatoid arthritis, unspecified; Z86.16 Personal history of COVID-19; Z90.13 Acquired absence of bilateral breasts and nipples; Z85.3 Personal history of malignant neoplasm of breast; Z85.41 Personal history of malignant neoplasm of cervix uteri; Z90.710 Acquired absence of both cervix and uterus
CPT/HCPCS: 36415; 74177; 80053; 80074; 81001; 83036; 83605; 83690; 83735; 83880; 84100; 84145; 84443; 85007; 85025; 85610; 85651; 86140; 86160; 86618; 86664; 86665; 86666; 86668; 86757; 87040; 87486; 87581; 87633; 87635; 87806; 94664; 96361; 96372; 96374; 96375; 99285; C9113; J0696; J0744; J1170; J1650; J2270; J2405; J3010; J3490; J7030; J7040; J8999; Q9967

== ENCOUNTER 2023-11-14 14:24 | Inpatient (IN) | payer MEDICAID, SELFPAY ==
--- NOTE | 2023-11-14 14:26 | ECG_ITS ---
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 Measurements Intervals [place] Rate: 86 P: 79 GA: 156 QRS: -11 QRSD: 97 T: 64 QT: 361 QTc: 433 Interpretive Statements SINUS RHYTHM INCOMPLETE RIGHT BUNDLE BRANCH BLOCK [90+ ms QRS DURATION, TERMINAL R IN V1/V2, 40+ ms S IN I/aVL/V4/V5/V6] Compared to ECG 05/14/2022 11:16:03 Incomplete right bundle-branch block now present Electronically Signed On 11-14-2023 16:26:50 CDT by Drake Vázquez M.D. [email or web address]
--- NOTE | 2023-11-14 14:26 | XRR_ITS ---
PROCEDURE INFORMATION: Exam: XR Chest Exam date and time: 11/14/2023 2:39 PM Age: 58 years old Clinical indication: Pain; Angina pectoris; Additional info: Cp TECHNIQUE: Imaging protocol: Radiologic exam of the chest. Views: 1 view. COMPARISON: CR XR chest 2V* [id number] 08/31/2023 3:09 PM FINDINGS: Lungs: Unremarkable. No consolidation. Pleural spaces: Unremarkable. No pleural effusion. No pneumothorax. Heart/Mediastinum: Unremarkable. No cardiomegaly. Bones/joints: Unremarkable. XR/XR chest 1V portable [id number] IMPRESSION: No acute findings.
[2023-11-14 14:30] VITALS: BP 118/72; PULSE 83; RESP 16; TEMP 36.7; O2SAT 97; BMI 33.0
[2023-11-14 14:59] LABS: Basophils % 0.1 %; Eosinophils # 0.1 10^3/uL (0.0-0.8); Eosinophils % 0.5 %; Hematocrit 40.5 % (36-47); Lymphocytes # 1.9 10^3/uL (0.8-4.8); Lymphocytes % 12.9 %; Mean Corpuscular HGB Conc 33.8 g/dL (30-55); Mean Corpuscular Hemoglobin 27.8 pg (27-33); Mean Corpuscular Volume 82.3 fl (85-98); Mean Platelet Volume 8.7 fL (7.4-10.4); Monocytes # 0.8 10^3/uL (0.2-0.9); Monocytes % 5.6 %; Neutrophils # 11.98 10^3/uL (1.8-7.7); Neutrophils % 80.4 %; Nucleated Red Blood Cells % 0 %; Platelet Count 370 10^3/cmm (157-399); Red Blood Count 4.92 10^6/uL (3.85-5.65); Red Cell Distribution Width 14.6 % (12.1-15.1); White Blood Count 14.92 10^3/uL (3.29-11.43)
[2023-11-14 15:23] LABS: Alanine Aminotransferase 17 U/L (0-33); Albumin Level 3.9 g/dL (3.5-5.2); Alkaline Phosphatase 145 U/L (35-105); Anion Gap 20.1 (5-19); Aspartate Amino Transferase 14 U/L (0-32); Blood Urea Nitrogen 11 mg/dL (6-20); Calcium 9.3 mg/dL (8.5-10.5); Carbon Dioxide 20 mmol/L (22-29); Chloride 102 mmol/L (98-107); Creatinine Clr Calc Pharmacy 115.9842; Globulin 3.8 g/dL (1.3-4.6); Glomerular Filtration Rate 102.3 mL/min (90-130); Glucose 120 mg/dL (65-115); Osmolality Calculated 289 mOsm/kg (285-295); Potassium 3.1 mmol/L (3.5-5.1); Sodium 139 mmol/L (136-145); Total Bilirubin 0.5 mg/dL (0.15-1.2); Total Protein 7.7 g/dL (6.6-8.7)
[2023-11-14 15:24] LABS: Troponin(5th) Baseline < 6 ng/L (0-10)
[2023-11-14 15:44] LABS: Lipase 1073 U/L (13-60)
--- NOTE | 2023-11-14 15:45 | ED_ITS ---
HPI - Nausea/Vomiting/Diarrhea 2 General: Chief complaint: Nausea/Vomiting/Diarrhea Stated complaint: chest pain / Nausea Time Seen by Provider: 11/14/23 15:37 Source: patient Mode of arrival: ambulatory Limitations: no limitations History of Present Illness: 58-year-old female states over the last 2 days she has been having nausea vomiting along with abdominal cramping. She has been having vomiting issues actually admitted earlier this month for the same she had multiple CTs of her abdomen as well the last 1 was early October that showed no acute abnormalities. She denies any fevers she denies any worse improving factors. She states her epigastric pain is a 7 out of 10 Associated nausea: Yes Associated symtoms: Reports nausea; Denies chest pain, dysuria or headache(s) Review of Systems 2 Const: Denies: fever(s), chills, body aches or change in appetite ENMT: Denies: throat pain or dental pain Card: Denies: chest pain Resp: Denies: dyspnea GI: Reports: abdominal pain, nausea and vomiting; Denies: diarrhea : Denies: dysuria Musc: Denies: neck pain or back pain Skin/Breast: Denies: rash Neuro: Denies: headache(s) PFSH ED 2 PFSH: Medical History Fatigue Port-A-Cath in place Invasive ductal carcinoma of left breast COVID-19 Pancreatitis High risk medication use Rheumatoid arthritis Asthma Joint pain Endometriosis Cervical cancer GERD (gastroesophageal reflux disease) Surgical History Hx of colonoscopy with polypectomy History of mastectomy Bilateral December, S/P tonsillectomy and adenoidectomy History of cholecystectomy History of appendectomy History of hysterectomy Family History Other Cancer Heart disease Hypertension Social History Smoking and tobacco/nicotine status: former use of tobacco/nicotine Quit status (tobacco/nicotine): has quit using Year quit tobacco: 2009 Former quit date comment: 10 to 15 years smoked Second hand smoke exposure: No Alcohol intake: never Substance/Drug Use: never Adopted: No Lives independently: Yes Housing: House Physical Exam 2 Const: COMMON NORMALS: no acute distress, patient oriented x3 and healthy appearing HENMT: COMMON NORMALS: normocephalic and atraumatic HEAD & SCALP: n ormocephalic and atraumatic Eye: COMMON NORMALS: conjunctivae normal CONJUNCTIVA: Yes conjunctivae normal Neck/C-Spine: COMMON NORMALS: full ROM and supple Chest: COMMONS NORMALS: normal inspection of the chest and normal palpation of entire chest wall Resp: COMMON NORMALS: normal respiratory effort, No retractions, No use of accessory muscles and clear to auscultation bilaterally AUSCULTATION: clear to auscultation bilaterally Cardio: COMMON NORMALS: regular rate, regular rhythm and No murmurs present (Cardio) RATE: regular rate RHYTHM: regular rhythm GI: COMMON NORMALS: Normal to inspection, nondistended, normoactive bowel sounds present, Soft to palpation, non-tender and no masses PALPATION: Yes Soft to palpation Extremity: COMMON NORMALS: normal to inspection and full ROM Neuro: COMMON NORMALS: patient oriented x3, moves all extremities and no focal motor deficits Psych: COMMON NORMALS: mental status grossly normal, Normal thought process present and cooperative THOUGHT PROCESS: Normal thought process present Skin: COMMON NORMALS: no rashes or lesions noted and no wounds GENERAL SKIN EXAM: no rashes or lesions noted Course 2 Vital Signs: Vital signs: Vital Signs Temperature 98.1 F 11/14/23 14:30 Pulse Rate 71 11/14/23 16:03 Respiratory Rate 18 11/14/23 16:07 Blood Pressure 100/68 11/14/23 16:03 Pulse Oximetry 98 11/14/23 16:03 Oxygen Delivery Me thod Room Air 11/14/23 16:03 MDM - Nausea/Vomiting/Diarrhea Medical Decision Making Patient presents here with abdominal pain found to have pancreatitis is also had vomiting spoke to the hospitalist will admit at this time. Medical Records I reviewed the patient's medical records. Lab Data I reviewed the patient's lab results. 11/14/23 14:52 11/14/23 14:52 Radiology Impressions Chest X-Ray 11/14/23 14:26 IMPRESSION: No acute findings. Laboratory Results WBC 14.92 10^3/uL (3.29-11.43) H 11/14/23 14:52 RBC 4.92 10^6/uL (3.85-5.65) 11/14/23 14:52 Hgb 13.70 g/dL (11.27-16.99) 11/14/23 14:52 Hct 40.5 % (36-47) 11/14/23 14:52 MCV 82.3 fl (85-98) L 11/14/23 14:52 MCH 27.8 pg (27-33) 11/14/23 14:52 MCHC 33.8 g/dL (30-55) 11/14/23 14:52 RDW 14.6 % (12.1-15.1) 11/14/23 14:52 Plt Count 370 10^3/cmm (157-399) 11/14/23 14:52 MPV 8.7 fL (7.4-10.4) 11/14/23 14:52 Neut % (Auto) 80.4 % 11/14/23 14:52 Lymph % (Auto) 12.9 % 11/14/23 14:52 [place] % (Auto) 5.6 % 11/14/23 14:52 Eos % (Auto) 0.5 % 11/14/23 14:52 Baso % (Auto) 0.1 % 11/14/23 14:52 Neut # (Auto) 11.98 10^3/uL (1.8-7.7) H 11/14/23 14:52 Lymph # (Auto) 1.9 10^3/uL (0.8-4.8) 11/14/23 14:52 [place] # (Auto) 0.8 10^3/uL (0.2-0.9) 11/14/23 14:52 Eos # (Auto) 0.1 10^3/uL (0.0-0.8) 11/14/23 14:52 Baso # (Auto) 0.0 10^3/uL (0.0-0.1) 11/14/23 14:52 Nucleated RBC % (auto) 0 % 11/14/23 14:52 Nucleated RBCs # 0.0 /100WBC 11/14/23 14:52 PT 13.50 SECONDS (12.1-14.9) 11/14/23 14:52 INR 1.00 (0.8-1.2) 11/14/23 14:52 Sodium 139 mmol/L (136-145) 11/14/23 14:52 Potassium 3.1 mmol/L (3.5-5.1) L 11/14/23 14:52 Chloride 102 mmol/L (98-107) 11/14/23 14:52 Carbon Dioxide 20 mmol/L (22-29) L 11/14/23 14:52 Anion Gap 20.1 (5-19) H 11/14/23 14:52 BUN 11 mg/dL (6-20) 11/14/23 14:52 Creatinine 0.6 mg/dL (0.5-0.9) 11/14/23 14:52 GFR Calculation 102.3 mL/min (90-130) 11/14/23 14:52 Glucose 120 mg/dL (65-115) H 11/14/23 14:52 Calculated Osmolality 289 mOsm/kg (285-295) 11/14/23 14:52 Calcium 9.3 mg/dL (8.5-10.5) 11/14/23 14:52 Total Bilirubin 0.5 mg/dL (0.15-1.2) 11/14/23 14:52 AST 14 U/L (0-32) 11/14/23 14:52 ALT 17 U/L (0-33) 11/14/23 14:52 Alkaline Phosphatase 145 U/L (35-105) H 11/14/23 14:52 Troponin T Baseline < 6 ng/L (0-10) 11/14/23 14:52 Total Protein 7.7 g/dL (6.6-8.7) 11/14/23 14:52 Albumin 3.9 g/dL (3.5-5.2) 11/14/23 14:52 Globulin 3.8 g/dL (1.3-4.6) 11/14/23 14:52 Lipase 1073 U/L (13-60) H 11/14/23 14:52 No radiology studies performed this visit Discharge Plan Discharge Patient Disposition: Admitted As Inpatient Clinical Impression: Nausea & vomiting, Acute pancreatitis Condition: Stable Prescriptions: No Action citalopram [Celexa] 20 mg tablet 10 mg PO QAM trazodone 100 mg tablet 100 mg PO BEDTIME Hair,Skin and Nails Tablet 2 tab PO QAM omeprazole 40 mg capsule,delayed release(DR/EC) 40 mg PO DAILY diclofenac sodium [Voltaren Arthritis Pain] 1 % gel 4 g topical QID PRN (Reason: Pain) Qty: 100 5RF Rx Instructions: apply to single knee, ankle, foot; for foot includes sole/toes/top of foot methotrexate (PF) 12.5 mg/0.4 mL auto-injector 12.5 mg SUBCUT .qweek Qty: 2 0RF anastrozole 1 mg tablet 1 mg PO DAILY Qty: 90 0RF gabapentin 300 mg Capsule 300 mg PO BEDTIME PRN (Reason: NERVE PAIN) vitamin B complex Capsule 1 cap PO QAM multivitamin Tablet 1 tab PO QAM albuterol sulfate [Ventolin HFA] 90 mcg/actuation Hfa Aerosol Inhaler 2 puff INHALATION 6XD PRN (Reason: Shortness Of Breath) hydrocodone-acetaminophen 5-325 mg tablet 1 tab PO Q6H PRN (Reason: pain) Qty: 20 0RF ondansetron 8 mg tablet,disintegrating 8 mg PO .q6 PRN (Reason: nausea and vomiting) Qty: 14 0RF polyethylene glycol 3350 [Miralax] 17 gram/dose powder 17 g PO DAILY Qty: 510 0RF Rx Instructions: Take 1 scoop daily while taking pain medications. Narcan 4 mg/actuation spray,non-aerosol See Rx Instructions .ROUTE .COMPLEX Rx Instructions: CALL 911. SPR CONTENTS OF ONE SPRAYER (0.1ML) INTO ONE NOSTRIL. REPEAT IN 2-3 MIN IF SYMPTOMS OF OPIOID EMERGENCY PERSIST, ALTERNATE NOSTRILS alprazolam 0.25 mg tablet 0.25 mg PO BID PRN (Reason: Anxiety) Referrals: Michael Mahoney DO [Primary Care Provider] - Coding Level of Care Code ED Lot Boss for Magy Majano
[2023-11-14 16:03] VITALS: BP 100/68; PULSE 71; RESP 18; O2SAT 98
[2023-11-14] MEDS: sodium chloride 0.9% 1,000 ML 999 ML IV (16:03)
[2023-11-14] MEDS: metoclopramide 5 mg/mL SDV 2 mL 10 MG IVP (16:05)
[2023-11-14] MEDS: diphenhydrAMINE 50 mg/mL SDV 1mL IVP (16:06)
[2023-11-14 16:07] VITALS: RESP 18
[2023-11-14] MEDS: morphine 4 mg/mL SDV 1 mL IVP (16:07)
[2023-11-14 16:30] LABS: Triglycerides 110 mg/dL (0-150)
--- NOTE | 2023-11-14 16:48 | P.HP_ITS ---
Providers/Chief Complaint 2 Primary Care Provider: Michael Mahoney DO Chief Complaint: chest pain / Nausea History of Present Illness Leslie Scott is a 58 year old female who has history of rheumatoid arthritis takes methotrexate, has had multiple pancreatitis episodes in the past without significant aggravating factors presented with chief complaint nausea vomiting and worsening abdominal pain. Patient is stating that she has been having the symptoms for at least 1 month start abdominal pain and nausea then she experiences diarrhea with vomiting. She was not able to tolerate pain that was prompted her visit to the ER in the ER she has been diagnosed with pancreatitis clinically. Patient has had multiple CT scans of abdomen in the past few months, she is wanting to avoid 1 I agree with the patient, in case I notice signs of sepsis or necrotic pancreas then my threshold will stay low to get another CT scan of abdomen with contrast. 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 For now I would put her on steroid regimen Check autoimmune antibodies IgG4 Review of Systems 2 Const: Denies: fever(s) Eyes: Denies: change in vision ENMT: Denies: throat pain Card: Denies: chest pain Resp: Denies: dyspnea GI: Reports: abdominal pain, nausea and vomiting Medications/Allergies Home Medications Medication Instructions Recorded Confirmed Last Taken Type citalopram 20 mg tablet (Celexa) 10 mg PO QAM 07/17/19 10/19/23 10/17/23 History trazodone 100 mg tablet 100 mg PO BEDTIME 07/17/19 10/19/23 10/17/23 History gabapentin 300 mg capsule 300 mg PO BEDTIME PRN NERVE PAIN 01/19/21 10/19/23 05/13/22 History albuterol sulfate 90 mcg/actuation 2 puff inhalation 6XD PRN 10/05/21 10/19/23 02/23/22 06:30 History aerosol inhaler (Ventolin HFA) Shortness Of Breath multivitamin 1 tab PO QAM 10/05/21 10/19/23 10/17/23 History vitamin B complex 1 cap PO QAM 10/05/21 10/19/23 10/17/23 History multivitamin with minerals 2 tab PO QAM 03/04/22 10/19/23 10/17/23 History (Hair,Skin and Nails tablet) alprazolam 0.25 mg tablet 0.25 mg PO BID PRN Anxiety 05/14/22 10/19/23 05/13/22 History omeprazole 40 mg capsule,delayed 40 mg PO DAILY 01/19/23 10/19/23 10/17/23 History release diclofenac sodium 1 % topical gel 4 g topical QID PRN Pain #100 grams 03/16/23 10/19/23 Unknown Rx (Voltaren Arthritis Pain) methotrexate (PF) 12.5 mg/0.4 mL 12.5 mg (0.4 mL) SUBCUT .qweek #2 05/06/23 10/19/23 Unknown Rx subcutaneous auto-injector mL hydrocodone 5 mg-acetaminophen 325 1 tab PO Q6H PRN pain #20 tabs 10/15/23 10/19/23 Unknown Rx mg tablet ondansetron 8 mg disintegrating 8 mg PO .q6 PRN nausea and 10/15/23 10/19/23 Unknown Rx tablet vomiting #14 tabs polyethylene glycol 3350 17 17 g PO DAILY #510 grams 10/15/23 10/19/23 10/17/23 Rx gram/dose oral powder (Miralax) naloxone 4 mg/actuation nasal See Rx Instructions .Route .COMPLEX 10/19/23 10/19/23 Unknown History spray (Narcan) anastrozole 1 mg tablet 1 mg PO DAILY #90 tabs 10/31/23 Unknown Rx Allergies Allergy/AdvReac Type Severity Reaction Status Date / Time meperidine [From Demerol] Allergy Unknown Unknown Verified 10/19/23 11:23 nalbuphine [From Nubain] Allergy Unknown Verified 10/19/23 11:23 Sulfa (Sulfonamide Allergy Unknown Verified 10/19/23 11:23 Antibiotics) tetracycline Allergy Unknown Verified 10/19/23 11:23 tramadol Allergy Unknown Verified 10/19/23 11:23 dexamethasone AdvReac Severe gastritis Verified 10/19/23 11:23 PFSH Acute 2 PFSH: Medical History (Updated 11/14/23 @ 19:21 by Shobha Flores MD) History of eye disorder Fatigue Port-A-Cath in place Invasive ductal carcinoma of left breast COVID-19 Pancreatitis High risk medication use Rheumatoid arthritis Asthma Joint pain Endometriosis Cervical cancer GERD (gastroesophageal reflux disease) Surgical History (Updated 11/14/23 @ 19:21 by Shobha Flores MD) History of breast reconstruction bilateral Hx of colonoscopy with polypectomy History of mastectomy Bilateral December, S/P tonsillectomy and adenoidectomy History of cholecystectomy History of appendectomy History of hysterectomy Family History Other Cancer Heart disease Hypertension Social History Smoking and tobacco/nicotine status: former use of tobacco/nicotine Quit status (tobacco/nicotine): has quit using Year quit tobacco: 2009 Former quit date comment: 10 to 15 years smoked Second hand smoke exposure: No Alcohol intake: never Substance/Drug Use: never Adopted: No Lives independently: Yes Housing: House Vitals/I&O/Wt Last Vital Signs Temp 98.1 F 11/14/23 14:30 Pulse 71 11/14/23 16:03 Resp 18 11/14/23 16:07 BP 100/68 11/14/23 16:03 Pulse Ox 98 11/14/23 16:03 O2 Del Method Room Air 11/14/23 16:03 Weight last 48 hrs Weight 92.986 kg Physical Exam 2 Narrative: Pleasant cooperative Tender abdomen on deep palpation GCS 15 Clinically dehydrated Hemodynamically stable Currently on room air Nonfocal neuroexam GCS 15 Awake and alert S1, S2 Data 11/14/23 14:52 11/14/23 14:52 A&P Assessment and plan (1) Nausea & vomiting: (2) Acute pancreatitis: (3) Rheumatoid arthritis: (4) Fatigue: (5) Hypokalemia: Plan Recurrent pancreatitis Patient does not have a gallbladder Triglycerides normal 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 for now Full code DVT prophylaxis added Start IV fluids History of breast and uterine cancer currently in remission: I will check for IgG4 and CEA Patient does not smoke or drink alcohol, lives alone, Attestations 2 Medical Necessity Statement*: More than 2 midnights anticipated Diagnoses Nausea & vomiting R11.2 Acute pancreatitis K85.90 Rheumatoid arthritis M06.9 Fatigue R53.83 Hypokalemia E87.6
--- NOTE | 2023-11-14 16:49 | ECG_ITS ---
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 Measurements Intervals [place] Rate: 73 P: 41 UT: 194 QRS: -8 QRSD: 96 T: 36 QT: 378 QTc: 418 Interpretive Statements SINUS RHYTHM INCOMPLETE RIGHT BUNDLE BRANCH BLOCK [90+ ms QRS DURATION, TERMINAL R IN V1/V2, 40+ ms S IN I/aVL/V4/V5/V6] MODERATE VOLTAGE CRITERIA FOR LVH, CONSIDER NORMAL VARIANT [MEETS CRITERIA IN ONE OF: R(aVL), S(V1), R(V5), R(V5/V6)+S(V1)] Compared to ECG 11/14/2023 14:24:40 No significant changes Electronically Signed On 11-14-2023 16:52:43 CDT by Drake Vázquez M.D. [id number]
[2023-11-14 17:33] VITALS: BP 140/77; RESP 16; O2SAT 97
[2023-11-14 17:33] LABS: Troponin 5 2HR Delta 0.00001 ABS# (0-10)
[2023-11-14 17:48] VITALS: BMI 32.5
[2023-11-14 19:39] VITALS: RESP 16
[2023-11-14] MEDS: morphine 4 mg/mL SDV 1 mL 2 MG IVP (19:39)
[2023-11-14] MEDS: methylPREDNISolone sod succ 40 mg/mL INJ 30 MG IVP (19:39)
[2023-11-14] MEDS: enoxaparin 40 mg/0.4 mL Syringe SUBCUT (19:39)
[2023-11-14] MEDS: dextrose 5%-lactated ringers 1,000 ML 100 ML IV (19:40)
--- NOTE | 2023-11-14 20:26 | ECG_ITS ---
[facility] Test Date: 2023-11-14 Pat Name: Leslie Scott Department: Room: 275 Gender: Female Hand Cultivator: : 1965 Requested By: Ana Maria Franklin Order Number: [id number] Santiago MD: Roc Loera M.D. Measurements Intervals [place] Rate: 57 P: 44 FL: 162 QRS: -8 QRSD: 110 T: 26 QT: 429 QTc: 418 Interpretive Statements SINUS BRADYCARDIA INCOMPLETE RIGHT BUNDLE BRANCH BLOCK [90+ ms QRS DURATION, TERMINAL R IN V1/V2, 40+ ms S IN I/aVL/V4/V5/V6] POSSIBLE LEFT VENTRICULAR HYPERTROPHY [VOLTAGE CRITERIA PLUS LAE OR QRS WIDENING] Compared to ECG 11/14/2023 16:49:23 Sinus rhythm no longer present Electronically Signed On 11-16-2023 6:31:33 CDT by Roc Loera M.D. [email or web address] [email or web address]/[id number]
[2023-11-14 21:43] LABS: Troponin 5 6HR Delta 0.00001 ng/L (0-12)
[2023-11-15] VITALS (10 sets, daily range): BP systolic 114–148; BP diastolic 67–85; PULSE 54–71; RESP 16–18; TEMP 36.6–37.4; O2SAT 95–97
[2023-11-15 00:59] LABS: Cancer Antigen 19 9 88.89 U/mL (0-35)
[2023-11-15] MEDS: morphine 4 mg/mL SDV 1 mL 2 MG IVP ×2 (03:08→21:21)
[2023-11-15] MEDS: ondansetron 2 mg/ML SDV 2 mL 4 MG IVP ×2 (03:11→21:30)
[2023-11-15] MEDS: dextrose 5%-lactated ringers 1,000 ML 100 ML IV ×2 (05:18→15:22)
[2023-11-15 06:18] LABS: Basophils % 0.1 %; Hematocrit 37.1 % (36-47); Lymphocytes # 0.9 10^3/uL (0.8-4.8); Lymphocytes % 9.8 %; Mean Corpuscular HGB Conc 32.6 g/dL (30-55); Mean Corpuscular Hemoglobin 27.4 pg (27-33); Mean Corpuscular Volume 83.9 fl (85-98); Mean Platelet Volume 8.6 fL (7.4-10.4); Monocytes # 0.2 10^3/uL (0.2-0.9); Neutrophils # 8.44 10^3/uL (1.8-7.7); Neutrophils % 87.7 %; Nucleated Red Blood Cells % 0 %; Platelet Count 319 10^3/cmm (157-399); Red Blood Count 4.42 10^6/uL (3.85-5.65); Red Cell Distribution Width 14.5 % (12.1-15.1); White Blood Count 9.62 10^3/uL (3.29-11.43)
[2023-11-15] MEDS: methylPREDNISolone sod succ 40 mg/mL INJ 30 MG IVP (06:29)
[2023-11-15 06:43] LABS: Alanine Aminotransferase 14 U/L (0-33); Albumin Level 3.5 g/dL (3.5-5.2); Alkaline Phosphatase 126 U/L (35-105); Aspartate Amino Transferase 14 U/L (0-32); Blood Urea Nitrogen 10 mg/dL (6-20); Calcium 8.8 mg/dL (8.5-10.5); Carbon Dioxide 20 mmol/L (22-29); Chloride 104 mmol/L (98-107); Creatinine Clr Calc Pharmacy 138.0014; Globulin 3.6 g/dL (1.3-4.6); Glomerular Filtration Rate 126.3 mL/min (90-130); Glucose 158 mg/dL (65-115); Magnesium 2.3 mg/dL (1.7-2.3); Osmolality Calculated 286 mOsm/kg (285-295); Sodium 137 mmol/L (136-145); Total Bilirubin 0.3 mg/dL (0.15-1.2); Total Protein 7.1 g/dL (6.6-8.7)
[2023-11-15 06:48] LABS: Anion Gap 17.1 (5-19); Potassium 4.1 mmol/L (3.5-5.1)
--- NOTE | 2023-11-15 08:34 | PC.PHAR ---
PT STATES ALL MEDS ARE UP TO DATE AND LAST TAKEN ON TUESDAY.
--- NOTE | 2023-11-15 09:21 | PC.CHAP ---
Pastoral Care Encounter/Spiritual Assessment Type of Contact [] Declined phlebotomist visit [] Patient/Family/Request visit [] Outpatient visit [] Follow-up visit [] Physician referral [] Code/Alert [x] Routine visit [] Staff referral [] Actively dying [] Patient sleeping [] Family support [] [] Out of room [] Palliative care [] [] Receiving care in room [] Pre-surgical visit [] Trauma [] Long length of stay [] ICU visit [] Other: Relational/Emotional Strength [x] Patient feels connected with others/family/visitors/staff [] Distress [] Loneliness/isolation [] Abandonment Spirituality of Patient [x] Person of Meme [x] Attends Evangelical of their Meme [x] Believes in Prayer [x] Reads Bible or Church materials [] There are Spiritual issues to be addressed Team Cdl Driver Interventions [x] Prayer [x] Active listening [] Non-anxious presence [x] Spiritual/emotional support [] Crisis/trauma care [] Spiritual counseling [] Bereavement support [] Provided bereavement packet [] Provided Bible/devotional materials [] Provided toy/stuffed animal, coloring book to patient or family member [] Provided Communion [] Anointing/[place] [] Salvation [x] Completed spiritual assessment [] Other: Impact on Illness or Injury [] Angry [] Fearful [] Anxious [] Often cries [] Exhaustion [] Unable to work [] Unable to attend mormonism [] Unable to walk/stand [] Unable to read [] Unable to drive [] Unable to eat/drink [] Unable to sleep [] Unable to be with family [] Patient intubated [] Other: Summary Time spent with patient 10 min
--- NOTE | 2023-11-15 11:36 | P.PN_ITS ---
Subjective 2 Subjective: Patient is tolerating diet Currently on steroids IgG4 sent yesterday CA 19-9 is high which needs to be repeated Patient is endorsing feeling better today Tolerating clear liquid diet Possible discharge by tomorrow Will need referral for gastroenterology at [facility] She had mild discomfort around the right upper quadrant Vitals/I&O/Wt Last Vital Signs Temp 98.9 F 11/15/23 11:14 Pulse 71 11/15/23 11:14 Resp 17 11/15/23 11:14 BP 148/85 11/15/23 11:14 Pulse Ox 95 11/15/23 11:14 O2 Del Method Room Air 11/15/23 11:14 11/14/23 11/15/23 11/15/23 22:59 06:59 14:59 Intake Total 1000 / 1000 963.333 / 1963.333 360 / 360 Output Total 500 / 500 Balance 1000 / 1000 463.333 / 1463.333 360 / 360 Weight last 48 hrs Weight 91.444 kg Weight 91.535 kg Weight 92.986 kg Physical Exam 2 Narrative: Abdomen soft Bowel sound present Awake and alert Signs of dehydration improved Nonfocal neuroexam S1, S2 GCS 15 Active nausea vomiting Data 11/15/23 05:54 11/15/23 05:54 A&P Assessment and plan (1) Nausea & vomiting: (2) Gastritis: (3) Rheumatoid arthritis: (4) Acute pancreatitis: Plan Concern for autoimmune pancreatitis Tolerating clear liquid diet Plan to discharge her tomorrow if she is not vomiting Continue IV steroids Will give GI referral at discharge She will need steroid taper Continue D5 LR Attestations 2 Medical Necessity Statement*: Discharge tomorrow Diagnoses Nausea & vomiting R11.2 Gastritis K29.70 Rheumatoid arthritis M06.9 Acute pancreatitis K85.90
[2023-11-15] MEDS: acetaminophen 500 mg Tablet PO (15:22)
[2023-11-15] MEDS: enoxaparin 40 mg/0.4 mL Syringe SUBCUT (21:20)
[2023-11-16] VITALS: BP 121/71; PULSE 56; RESP 16; TEMP 36.6; O2SAT 97
[2023-11-16] MEDS: dextrose 5%-lactated ringers 1,000 ML 100 ML IV (01:56)
[2023-11-16 04:00] VITALS: BP 116/62; PULSE 62; RESP 16; TEMP 36.6; O2SAT 98
[2023-11-16 05:46] LABS: Basophils % 0.1 %; Eosinophils % 0.3 %; Hematocrit 36.9 % (36-47); Lymphocytes # 1.9 10^3/uL (0.8-4.8); Lymphocytes % 16.5 %; Mean Corpuscular HGB Conc 32.8 g/dL (30-55); Mean Corpuscular Hemoglobin 27.6 pg (27-33); Mean Corpuscular Volume 84.2 fl (85-98); Mean Platelet Volume 8.8 fL (7.4-10.4); Monocytes # 0.7 10^3/uL (0.2-0.9); Monocytes % 5.9 %; Neutrophils # 8.86 10^3/uL (1.8-7.7); Neutrophils % 76.7 %; Nucleated Red Blood Cells % 0 %; Platelet Count 316 10^3/cmm (157-399); Red Blood Count 4.38 10^6/uL (3.85-5.65); Red Cell Distribution Width 14.4 % (12.1-15.1); White Blood Count 11.54 10^3/uL (3.29-11.43)
[2023-11-16 06:14] LABS: Alanine Aminotransferase 14 U/L (0-33); Albumin Level 3.6 g/dL (3.5-5.2); Alkaline Phosphatase 115 U/L (35-105); Anion Gap 13.8 (5-19); Aspartate Amino Transferase 12 U/L (0-32); Blood Urea Nitrogen 9 mg/dL (6-20); Calcium 8.8 mg/dL (8.5-10.5); Carbon Dioxide 27 mmol/L (22-29); Chloride 105 mmol/L (98-107); Creatinine Clr Calc Pharmacy 98.5724; Glomerular Filtration Rate 85.6 mL/min (90-130); Glucose 117 mg/dL (65-115); Osmolality Calculated 294 mOsm/kg (285-295); Potassium 3.8 mmol/L (3.5-5.1); Sodium 142 mmol/L (136-145); Total Bilirubin 0.3 mg/dL (0.15-1.2); Total Protein 6.6 g/dL (6.6-8.7)
[2023-11-16] MEDS: methylPREDNISolone sod succ 40 mg/mL INJ 30 MG IVP (06:33)
[2023-11-16 07:56] VITALS: BP 127/75; PULSE 54; RESP 20; TEMP 36.7; O2SAT 97
[2023-11-16 08:07] VITALS: PULSE 70; RESP 20; O2SAT 97
--- NOTE | 2023-11-16 08:51 | PM.DCS ---
Discharge Providers Date of Admission: 11/14/23 17:14 Date of Discharge: November 16, 2023 Attending Provider at Admission: Shobha Flores MD Attending Provider at Discharge: Shobha Flores MD Primary Care Provider: Michael Mahoney DO Diagnoses at Discharge Discharge Diagnosis (1) Nausea & vomiting: Status: Acute (2) Gastritis: Status: Acute (3) Rheumatoid arthritis: Status: Acute (4) Acute pancreatitis: Status: Acute Reason for Visit Reason for Visit: chest pain / Nausea Hospital Course Hospital Course 58-year female who was admitted to the hospital for management evaluation of pancreatitis. Patient has autoimmune joint disease takes methotrexate for rheumatoid arthritis. She does not have a gallbladder, does not drink or smoke. Does not take any medication that could cause pancreatitis recurrent episodes. 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 She was managed conservatively in the hospital with IV fluids opioids and n.p.o. status. Symptoms improved she tolerated clear liquid diet, I have given her referral to see a [facility] associates at [facility]. I have asked patient to follow-up regarding her cancer marker because with active pancreatitis it could be falsely high. She is being discharged with stable hemodynamics. Physical Exam Narrative: Awake and alert GCS 15 Signs of dehydration improving S1, S2 Discharge Data Studies Completed and Pending Completed Studies During Hospitalization Category Date Time Status XR chest 1V portable [id number] Stat Exams 11/14/23 14:26 Completed Pending at discharge Category Date Time Status Miscellaneous Test Routine Lab 11/14/23 21:07 Received Radiology Impressions Chest X-Ray 11/14/23 14:26 IMPRESSION: No acute findings. Laboratory Results WBC 11.54 10^3/uL (3.29-11.43) H 11/16/23 05:27 RBC 4.38 10^6/uL (3.85-5.65) 11/16/23 05:27 Hgb 12.10 g/dL (11.27-16.99) 11/16/23 05:27 Hct 36.9 % (36-47) 11/16/23 05:27 MCV 84.2 fl (85-98) L 11/16/23 05:27 MCH 27.6 pg (27-33) 11/16/23 05:27 MCHC 32.8 g/dL (30-55) 11/16/23 05:27 RDW 14.4 % (12.1-15.1) 11/16/23 05:27 Plt Count 316 10^3/cmm (157-399) 11/16/23 05:27 MPV 8.8 fL (7.4-10.4) 11/16/23 05:27 Neut % (Auto) 76.7 % 11/16/23 05:27 Lymph % (Auto) 16.5 % 11/16/23 05:27 [place] % (Auto) 5.9 % 11/16/23 05:27 Eos % (Auto) 0.3 % 11/16/23 05:27 Baso % (Auto) 0.1 % 11/16/23 05:27 Neut # (Auto) 8.86 10^3/uL (1.8-7.7) H 11/16/23 05:27 Lymph # (Auto) 1.9 10^3/uL (0.8-4.8) 11/16/23 05:27 [place] # (Auto) 0.7 10^3/uL (0.2-0.9) 11/16/23 05:27 Eos # (Auto) 0.0 10^3/uL (0.0-0.8) 11/16/23 05:27 Baso # (Auto) 0.0 10^3/uL (0.0-0.1) 11/16/23 05:27 Nucleated RBC % (auto) 0 % 11/16/23 05:27 Nucleated RBCs # 0.0 /100WBC 11/16/23 05:27 PT 13.50 SECONDS (12.1-14.9) 11/14/23 14:52 INR 1.00 (0.8-1.2) 11/14/23 14:52 Sodium 142 mmol/L (136-145) 11/16/23 05:27 Potassium 3.8 mmol/L (3.5-5.1) 11/16/23 05:27 Chloride 105 mmol/L (98-107) 11/16/23 05:27 Carbon Dioxide 27 mmol/L (22-29) 11/16/23 05:27 Anion Gap 13.8 (5-19) 11/16/23 05:27 BUN 9 mg/dL (6-20) 11/16/23 05:27 Creatinine 0.7 mg/dL (0.5-0.9) 11/16/23 05:27 GFR Calculation 85.6 mL/min (90-130) L 11/16/23 05:27 Glucose 117 mg/dL (65-115) H 11/16/23 05:27 Calculated Osmolality 294 mOsm/kg (285-295) 11/16/23 05:27 Calcium 8.8 mg/dL (8.5-10.5) 11/16/23 05:27 Magnesium 2.3 mg/dL (1.7-2.3) 11/15/23 05:54 Total Bilirubin 0.3 mg/dL (0.15-1.2) 11/16/23 05:27 AST 12 U/L (0-32) 11/16/23 05:27 ALT 14 U/L (0-33) 11/16/23 05:27 Alkaline Phosphatase 115 U/L (35-105) H 11/16/23 05:27 Troponin T Baseline < 6 ng/L (0-10) 11/14/23 14:52 Troponin T 120 Minute 6.00 ng/L (0-10) 11/14/23 16:55 Delta Troponin T 0.43503 ABS# (0-10) 11/14/23 16:55 Troponin T Hi Sens 6Hr 6.00 ng/L (0-10) 11/14/23 21:07 Troponin T Hi Sens 6Hr Delta 0.25129 ng/L (0-12) 11/14/23 21:07 Total Protein 6.6 g/dL (6.6-8.7) 11/16/23 05:27 Albumin 3.6 g/dL (3.5-5.2) 11/16/23 05:27 Globulin 3.0 g/dL (1.3-4.6) 11/16/23 05:27 Triglycerides 110 mg/dL (0-150) 11/14/23 14:52 Lipase 1073 U/L (13-60) H 11/14/23 14:52 CA 19-9 Antigen 88.89 U/mL (0-35) H 11/14/23 21:07 Vitals Last Vital Signs Temp 98.0 F 11/16/23 07:56 Pulse 70 11/16/23 08:07 Resp 20 H 11/16/23 08:07 BP 127/75 11/16/23 07:56 Pulse Ox 97 11/16/23 08:07 O2 Del Method Room Air 11/16/23 08:07 Discharge Plan Discharge Patient Disposition: Home Condition: Stable Prescriptions: New hydrocodone-acetaminophen 5-325 mg tablet 1 tab PO BID PRN (Reason: pain) Qty: 10 0RF Continued citalopram [Celexa] 20 mg tablet 10 mg PO QAM trazodone 100 mg tablet 100 mg PO BEDTIME Hair,Skin and Nails Tablet 2 tab PO QAM omeprazole 40 mg capsule,delayed release(DR/EC) 40 mg PO DAILY diclofenac sodium [Voltaren Arthritis Pain] 1 % gel 4 g topical QID PRN (Reason: Pain) Qty: 100 5RF Rx Instructions: apply to single knee, ankle, foot; for foot includes sole/toes/top of foot anastrozole 1 mg tablet 1 mg PO DAILY Qty: 90 0RF gabapentin 300 mg Capsule 300 mg PO BEDTIME PRN (Reason: NERVE PAIN) vitamin B complex Capsule 1 cap PO QAM multivitamin Tablet 1 tab PO QAM albuterol sulfate [Ventolin HFA] 90 mcg/actuation Hfa Aerosol Inhaler 2 puff INHALATION 6XD PRN (Reason: Shortness Of Breath) naloxone [Narcan] 4 mg/actuation spray,non-aerosol See Rx Instructions .ROUTE .COMPLEX Rx Instructions: CALL 911. SPR CONTENTS OF ONE SPRAYER (0.1ML) INTO ONE NOSTRIL. REPEAT IN 2-3 MIN IF SYMPTOMS OF OPIOID EMERGENCY PERSIST, ALTERNATE NOSTRILS Miralax 17 gram/dose powder 17 g PO DAILY PRN (Reason: Constipation) prednisolone acetate 1 % drops,suspension 1 drp ophthalmic (eye) QID Otrexup (PF) 12.5 mg/0.4 mL auto-injector 12.5 mg SUBCUT Q7D alprazolam 0.25 mg tablet 0.25 mg PO BID PRN (Reason: Anxiety) Discharge Orders: Discharge Order (Routine); Ordered 11/16/23 Ordered By: Shobha Flores Referrals: Elio ware [Other] - 7-10 days (Autoimmune pancreatitis concern We have notified your physician's clinic of the need for a follow-up appointment to be scheduled. If you have not heard from them within the next 2 business days, please call them directly. ) Michael Mahoney DO [Primary Care Provider] - 11/23/23 2:00 pm Patient Instructions: Clear Liquid Diet, Full Liquid Diet, Pancreatitis (GEN), Opioid Safety Discharge Attestations Time Spent in Discharge Care*: greater than 30 min Status at Discharge: Cognitive status at discharge: cognitively intact, Behavioral status at discharge: cooperative, Quality Metrics Clinical Quality Measures [ No reported AMI, CVA or VTE this stay] Coding Level of Care Code Acute Code for Chg Fwd Diagnoses Nausea & vomiting R11.2 Gastritis K29.70 Rheumatoid arthritis M06.9 Acute pancreatitis K85.90
[2023-11-16 10:51] VITALS: PULSE 70; RESP 20; O2SAT 97
== END 2023-11-16 11:51 | disposition home or self-care (01) | DRG 440 ==
LOC: ER 16:13 → MEDSURG 17:14
PROVIDERS: Admitting Provider Internal Medicine; Emergency Provider Emergency Medicine; PCP Electrodiagnostic Medicine; Visit Provider Internal Medicine
DX: K85.80 Other acute pancreatitis without necrosis or infection (principal); M06.9 Rheumatoid arthritis, unspecified; Z79.631 Long term (current) use of antimetabolite agent; E87.6 Hypokalemia; Z85.41 Personal history of malignant neoplasm of cervix uteri; Z85.3 Personal history of malignant neoplasm of breast; Z87.891 Personal history of nicotine dependence; Z90.49 Acquired absence of other specified parts of digestive tract; K29.70 Gastritis, unspecified, without bleeding; R79.9 Abnormal finding of blood chemistry, unspecified
CPT/HCPCS: 36415; 71045; 80053; 83690; 83735; 84478; 84484; 85025; 85610; 86301; 93005; 96361; 96372; 96374; 96375; 99285; J1200; J1650; J2270; J2405; J2765; J2919; J7030; J7121

== ENCOUNTER 2023-12-15 09:00 | Oncology outpatient (recurring) (ONCR) | payer MEDICAID, SELFPAY ==
[2023-12-05 11:33] LABS: Basophils % 0.3 %; Eosinophils # 0.2 10^3/uL (0.0-0.8); Eosinophils % 2.8 %; Hematocrit 37.2 % (36-47); Lymphocytes # 1.5 10^3/uL (0.8-4.8); Lymphocytes % 21.3 %; Mean Corpuscular HGB Conc 33.6 g/dL (30-55); Mean Corpuscular Hemoglobin 28.5 pg (27-33); Mean Corpuscular Volume 84.7 fl (85-98); Mean Platelet Volume 8.7 fL (7.4-10.4); Monocytes # 0.5 10^3/uL (0.2-0.9); Monocytes % 6.8 %; Neutrophils # 4.85 10^3/uL (1.8-7.7); Neutrophils % 68.5 %; Nucleated Red Blood Cells % 0 %; Platelet Count 294 10^3/cmm (157-399); Red Blood Count 4.39 10^6/uL (3.85-5.65); Red Cell Distribution Width 14.9 % (12.1-15.1); White Blood Count 7.08 10^3/uL (3.29-11.43)
[2023-12-05 12:01] LABS: Alanine Aminotransferase 20 U/L (0-33); Albumin Level 4.2 g/dL (3.5-5.2); Alkaline Phosphatase 112 U/L (35-105); Anion Gap 16.2 (5-19); Aspartate Amino Transferase 22 U/L (0-32); Blood Urea Nitrogen 9 mg/dL (6-20); Calcium 9.3 mg/dL (8.5-10.5); Carbon Dioxide 24 mmol/L (22-29); Chloride 102 mmol/L (98-107); Ferritin 92 ng/mL (15-150); Globulin 2.8 g/dL (1.3-4.6); Glomerular Filtration Rate 102.3 mL/min (90-130); Glucose 88 mg/dL (65-115); Iron 45 ug/dL (37-145); Osmolality Calculated 284 mOsm/kg (285-295); Percent Saturation 16.8 % (20-50); Potassium 4.2 mmol/L (3.5-5.1); Sodium 138 mmol/L (136-145); Total Bilirubin 0.2 mg/dL (0.15-1.2); Total Iron Binding Capacity 267 mcg/dl; Unsaturated Iron Binding 222 ug/dL (112-347)
[2023-12-05 17:01] LABS: Cancer Antigen 19 9 26.83 U/mL (0-35); Lipase 37 U/L (13-60)
[2023-12-13 13:10] VITALS: BP 101/69; PULSE 77; RESP 16; TEMP 37.1; O2SAT 99
[2023-12-13] MEDS: sodium chloride 0.9% 250 ML 75 ML IV (13:17)
[2023-12-13] MEDS: iron sucrose 200 MG in sodium chloride 0.9% (100 ml) 100 ML 220 MG IV (13:18)
[2023-12-13 13:55] VITALS: BP 93/61; PULSE 78; RESP 16; TEMP 37.2; O2SAT 98
[2023-12-15 09:21] VITALS: BP 102/60; PULSE 74; RESP 16; TEMP 36.9; O2SAT 97
[2023-12-15] MEDS: sodium chloride 0.9% 250 ML 75 ML IV (09:50)
[2023-12-15] MEDS: iron sucrose 200 MG in sodium chloride 0.9% (100 ml) 100 ML 220 MG IV (09:57)
[2023-12-15 10:50] VITALS: BP 102/62; PULSE 68; RESP 17; TEMP 36.7; O2SAT 99
== END 2023-12-17 23:59 | disposition home or self-care (01) ==
PROVIDERS: Internal Medicine Medical Oncology; PCP Electrodiagnostic Medicine; Visit Provider Nurse Practitioner Family
DX: D50.8 Other iron deficiency anemias (principal); Z53.9 Procedure and treatment not carried out, unspecified reason; Z79.899 Other long term (current) drug therapy
CPT/HCPCS: 36415; 80053; 82728; 83540; 83550; 83690; 85025; 86301; 96365; J1756; J7050

== ENCOUNTER 2023-12-30 06:56 | Outpatient (CLI) | payer MEDICAID, SELFPAY ==
--- NOTE | 2023-12-30 07:03 | MR_ITS ---
WS: [id number] MRCP (MAGNETIC RESONANCE CHOLANGIOPANCREATOGRAPHY) HISTORY: ACUTE PANCREATITIS, prior cholecystectomy. COMPARISON: CT 10/19/2023 TECHNIQUE: Multiple sequences are performed to evaluate the intra and extrahepatic ducts. Liver is top normal size at 16.3 cm in length. There is mild diffuse hepatic steatosis. No intrahepatic bile duct dilatation. No hepatic cysts. No solid mass or abnormal enhancement within the liver. Normal portal vein. Common bile duct is normal at 4.4 mm. Normal tapering of the common bile duct towards the ampulla of Vater. The pancreatic duct is not dilated. Pancreas is normal size with no adjacent fluid. No pseudoc yst. No pancreatic mass. Adrenal glands are normal. Normal spleen. Normal size kidneys with no hydronephrosis or mass. No asci song or adenopathy. Ventral abdominal wall hernia at the umbilicus. Bilateral breast implants. No pleu ral effusions. MR/MR MRCP [id number] IMPRESSION: 1. Normal common bile duct. 2. Normal pancreatic duct. 3. No evidence for acute pancreatitis. No pseudocyst. 4. Liver top normal size with diffuse hepatic steatosis.
== END 2023-12-30 06:57 | disposition home or self-care (01) ==
LOC: RAD 06:56
PROVIDERS: PCP Electrodiagnostic Medicine; Visit Provider Electrodiagnostic Medicine
DX: K76.0 Fatty (change of) liver, not elsewhere classified (principal); K42.9 Umbilical hernia without obstruction or gangrene; Z98.82 Breast implant status; Z90.49 Acquired absence of other specified parts of digestive tract
CPT/HCPCS: 74181

== ENCOUNTER → 2024-01-02 13:31 | Outpatient (BNVA) | payer MEDICAID, SELFPAY | PROVIDERS: PCP Electrodiagnostic Medicine; Visit Provider Podiatrist Foot & Ankle Surgery | DX: M79.671 Pain in right foot (principal); M79.672 Pain in left foot | CPT/HCPCS: 73630 ==

== ENCOUNTER 2024-01-02 14:30 | Oncology outpatient (recurring) (ONCR) | payer MEDICAID, SELFPAY ==
[2023-12-26 12:26] VITALS: BP 115/79; PULSE 66; RESP 18; TEMP 36.4; O2SAT 99
[2023-12-26] MEDS: iron sucrose 200 MG in sodium chloride 0.9% (100 ml) 100 ML 220 MG IV (12:35)
[2023-12-26 13:11] VITALS: BP 130/79; PULSE 69; RESP 18; TEMP 36.3; O2SAT 99
[2023-12-30] MEDS: iron sucrose 200 MG in sodium chloride 0.9% (100 ml) 100 ML 220 MG IV (08:37)
[2023-12-30 08:43] VITALS: BP 112/57; PULSE 74; RESP 16; TEMP 36.7; O2SAT 97
[2023-12-30 09:13] VITALS: BP 125/69; PULSE 80; RESP 16; TEMP 36.7; O2SAT 100
[2024-01-02 14:19] VITALS: BP 125/74; PULSE 83; RESP 16; TEMP 36.4; O2SAT 99
[2024-01-02] MEDS: iron sucrose 200 MG in sodium chloride 0.9% (100 ml) 100 ML 220 MG IV (14:28)
[2024-01-02 15:00] VITALS: BP 110/67; PULSE 73; RESP 16; TEMP 36.7; O2SAT 97
== END 2024-01-16 23:59 | disposition home or self-care (01) ==
PROVIDERS: PCP Electrodiagnostic Medicine; Visit Provider Nurse Practitioner Family
DX: C50.912 Malignant neoplasm of unspecified site of left female breast (principal); Z53.9 Procedure and treatment not carried out, unspecified reason; D50.9 Iron deficiency anemia, unspecified; Z79.899 Other long term (current) drug therapy
CPT/HCPCS: 96365; J1756

== ENCOUNTER 2024-01-31 11:39 | Oncology outpatient (recurring) (ONCR) | payer MEDICAID, SELFPAY ==
[2024-01-31 12:04] LABS: Basophils % 0.3 %; Eosinophils # 0.1 10^3/uL (0.0-0.8); Eosinophils % 0.4 %; Lymphocytes # 0.9 10^3/uL (0.8-4.8); Lymphocytes % 7.4 %; Mean Corpuscular HGB Conc 32.8 g/dL (30-55); Mean Corpuscular Hemoglobin 28.4 pg (27-33); Mean Corpuscular Volume 86.8 fl (85-98); Mean Platelet Volume 8.4 fL (7.4-10.4); Monocytes # 0.4 10^3/uL (0.2-0.9); Monocytes % 2.9 %; Neutrophils # 10.52 10^3/uL (1.8-7.7); Neutrophils % 88.6 %; Nucleated Red Blood Cells % 0 %; Platelet Count 312 10^3/cmm (157-399); Red Blood Count 4.61 10^6/uL (3.85-5.65); Red Cell Distribution Width 15.9 % (12.1-15.1); White Blood Count 11.89 10^3/uL (3.29-11.43)
[2024-01-31 12:27] LABS: Alanine Aminotransferase 15 U/L (0-33); Albumin Level 4.4 g/dL (3.5-5.2); Alkaline Phosphatase 104 U/L (35-105); Anion Gap 14.5 (5-19); Aspartate Amino Transferase 14 U/L (0-32); Blood Urea Nitrogen 13 mg/dL (6-20); Calcium 8.8 mg/dL (8.5-10.5); Carbon Dioxide 25 mmol/L (22-29); Chloride 100 mmol/L (98-107); Ferritin 536 ng/mL (15-150); Globulin 3.1 g/dL (1.3-4.6); Glomerular Filtration Rate 85.6 mL/min (90-130); Glucose 112 mg/dL (65-115); Iron 70 ug/dL (37-145); Osmolality Calculated 281 mOsm/kg (285-295); Percent Saturation 26.5 % (20-50); Potassium 4.5 mmol/L (3.5-5.1); Sodium 135 mmol/L (136-145); Total Bilirubin 0.3 mg/dL (0.15-1.2); Total Iron Binding Capacity 264 mcg/dl; Total Protein 7.5 g/dL (6.6-8.7); Unsaturated Iron Binding 194 ug/dL (112-347)
== END 2024-02-16 23:59 | disposition home or self-care (01) ==
PROVIDERS: Internal Medicine Medical Oncology; PCP Electrodiagnostic Medicine; Visit Provider Nurse Practitioner Family
DX: D50.8 Other iron deficiency anemias (principal); C50.912 Malignant neoplasm of unspecified site of left female breast; Z79.899 Other long term (current) drug therapy; R53.83 Other fatigue; Z53.9 Procedure and treatment not carried out, unspecified reason
CPT/HCPCS: 36415; 80053; 82728; 83540; 83550; 85025

== ENCOUNTER → 2024-03-09 09:58 | Outpatient (BNVA) | payer MEDICAID, SELFPAY | PROVIDERS: PCP Electrodiagnostic Medicine; Visit Provider Physician Assistant | DX: M17.0 Bilateral primary osteoarthritis of knee; M23.305 Other meniscus derangements, unspecified medial meniscus, unspecified knee | CPT/HCPCS: 73560; 73565 ==

== ENCOUNTER 2024-03-13 12:15 | Oncology outpatient (recurring) (ONCR) | payer MEDICAID, SELFPAY ==
[2024-03-13 12:47] LABS: Basophils % 0.1 %; Lymphocytes # 0.8 10^3/uL (0.8-4.8); Lymphocytes % 5.5 %; Mean Corpuscular HGB Conc 34.4 g/dL (30-55); Mean Corpuscular Volume 84.4 fl (85-98); Mean Platelet Volume 8.7 fL (7.4-10.4); Monocytes % 6.6 %; Neutrophils # 13.19 10^3/uL (1.8-7.7); Neutrophils % 87.3 %; Nucleated Red Blood Cells % 0 %; Platelet Count 340 10^3/cmm (157-399); Red Blood Count 4.86 10^6/uL (3.85-5.65); Red Cell Distribution Width 14.1 % (12.1-15.1); White Blood Count 15.09 10^3/uL (3.29-11.43)
[2024-03-13 12:51] LABS: Reticulocyte % 1.3 % (0.5-2.0)
[2024-03-13] MEDS: ondansetron 2 mg/ML SDV 2 mL 8 MG IVP (13:06)
[2024-03-13] MEDS: sodium chloride 0.9% 1,000 ML 999 ML IV (13:06)
[2024-03-13 13:11] LABS: Alanine Aminotransferase 18 U/L (0-33); Albumin Level 4.1 g/dL (3.5-5.2); Alkaline Phosphatase 115 U/L (35-105); Anion Gap 16.6 (5-19); Aspartate Amino Transferase 15 U/L (0-32); Blood Urea Nitrogen 16 mg/dL (8-23); Calcium 9.1 mg/dL (8.5-10.5); Carbon Dioxide 24 mmol/L (22-29); Chloride 96 mmol/L (98-107); Creatinine Clr Calc Pharmacy 110.7796; Ferritin 905 ng/mL (15-150); Globulin 2.8 g/dL (1.3-4.6); Glucose 210 mg/dL (65-115); Iron 87 ug/dL (37-145); Lactate Dehydrogenase 180 U/L (135-214); Osmolality Calculated 283 mOsm/kg (285-295); Percent Saturation 35.9 % (20-50); Potassium 3.6 mmol/L (3.5-5.1); Sodium 133 mmol/L (136-145); Total Bilirubin 0.3 mg/dL (0.15-1.2); Total Iron Binding Capacity 242 mcg/dl; Total Protein 6.9 g/dL (6.6-8.7); Unsaturated Iron Binding 155 ug/dL (112-347)
[2024-03-13 13:27] LABS: Vitamin B12 669 pg/mL (232-1245)
[2024-03-13 13:49] LABS: Folate Level > 20.0 ng/mL (4.8-37.3)
--- NOTE | 2024-03-13 15:04 | PC.NURSE ---
patient taken [facility] for nausea and abdominal pain per [email or web address]
[2024-03-17 13:48] LABS: Soluble Transferrin Receptor 1.41 mg/L (0.76-1.76)
== END 2024-03-17 23:59 | disposition home or self-care (01) ==
PROVIDERS: Internal Medicine Hematology & Oncology; PCP Electrodiagnostic Medicine; Visit Provider Internal Medicine Medical Oncology
DX: D50.8 Other iron deficiency anemias; Z79.899 Other long term (current) drug therapy; C50.112 Malignant neoplasm of central portion of left female breast
CPT/HCPCS: 80053; 82607; 82728; 82746; 83540; 83550; 83615; 84238; 85025; 85045; 96360; 96361; 96374; J2405; J7030

== ENCOUNTER 2024-03-13 14:46 | Inpatient (IN) | payer MEDICAID, SELFPAY ==
[2024-03-13] VITALS (10 sets, daily range): BP systolic 135–149; BP diastolic 59–89; PULSE 55–69; RESP 14–20; TEMP 36.4–36.5; O2SAT 94–98; BMI 33.4; BMI 34.2
--- NOTE | 2024-03-13 15:02 | CTR_ITS ---
PROCEDURE INFORMATION: Exam: CT Abdomen And Pelvis With Contrast Exam date and time: 03/13/2024 3:50 PM Age: 59 years old Clinical indication: Abdominal pain; Generalized; Additional info: Abd pain TECHNIQUE: Imaging protocol: Computed tomography of the abdomen and pelvis with contrast. Radiation optimization: All CT scans at this facility use at least one of these dose optimization techniques: automated exposure control; mA and/or kV adjustment per patient size (includes targeted exams where dose is matched to clinical indication); or iterative reconstruction. Contrast material: OMNIPAQUE 350; Contrast volume: 100 ml; Contrast route: INTRAVENOUS (IV); COMPARISON: MR MRCP [id number] 12/30/2023 7:21 AM RADIATION DOSE METRICS: Total DLP (mGy-cm): 866.23 FINDINGS: Lungs: The lung bases are clear bilaterally. Diaphragm: Small sliding hiatal hernia. Liver: Normal. No mass. Gallbladder and biliary ducts: Status post cholecystectomy. There is no intra or extrahepatic biliary ductal dilation. Pancreas: Minimal mesenteric haziness surrounding the pancreas predominantly the pancreatic body and tail. No evidence of peripancreatic fluid collection. The pancreas enhances in a normal fashion. Spleen: Normal. No splenomegaly. Adrenal glands: Normal. No mass. Kidneys and ureters: Normal. No hydronephrosis. Stomach and bowel: Colonic diverticulosis with no evidence to suggest acute diverticulitis. Appendix: Status post appendectomy. Intraperitoneal space: No intraperitoneal free air or fluid. Vasculature: Mild atherosclerotic disease of the abdominal aorta and the proximal common iliac arteries. Lymph nodes: Scattered prominent upper abdominal mesenteric lymph nodes likely reactive in etiology. Urinary bladder: Unremarkable as visualized. Reproductive: Unremarkable as visualized. Bones/joints: Mild multilevel degenerative disease of the thoracolumbar spine. Soft tissues: Moderate-sized fat containing umbilical hernia. CT/CT abdomen pelvis w con* [id number] IMPRESSION: 1. Slight peripancreatic edema as described above can be seen in the setting of acute pancreatitis. Recommend correlation with serum lipase levels. 2. Status post appendectomy and cholecystectomy. 3. Colonic diverticulosis with no evidence to suggest acute diverticulitis.
--- NOTE | 2024-03-13 15:09 | ED_ITS ---
HPI - Abdominal Pain 2 General: Chief Complaint: Abdominal Pain Stated Complaint: N/V,abd pain Time Seen by Provider: 03/13/24 14:55 Source: patient Mode of arrival: ambulatory Limitations: no limitations History of Present Illness: 59-year-old female who has a history of cancer states has been having some nausea vomiting abdominal cramping for the last 3 days patient denies any fevers she is seen at the cancer center was given IV fluids along with nausea medicine states she still has some diffuse nausea and pain denies any worsening proving factors Associated Symptoms: Reports nausea and vomiting; Denies chills, diarrhea, dysuria and fever(s) Related Data Home Medications Medication Instructions Recorded Confirmed citalopram 20 mg tablet (Celexa) 10 mg PO QAM 07/17/19 03/13/24 trazodone 100 mg tablet 100 mg PO BEDTIME 07/17/19 03/13/24 gabapentin 300 mg capsule 300 mg PO BEDTIME PRN NERVE PAIN 01/19/21 03/13/24 vitamin B complex 1 cap PO QAM 10/05/21 03/13/24 alprazolam 0.25 mg tablet 0.25 mg PO BID PRN Anxiety 05/14/22 03/13/24 Previous Rx's Medication Instructions Recorded diclofenac sodium 1 % topical gel 4 g topical QID PRN Pain #100 grams 03/16/23 (Voltaren Arthritis Pain) Custom insoles with orthopedic #1 ea 01/02/24 shoes leflunomide 20 mg tablet 20 mg PO DAILY #30 tabs 01/25/24 omeprazole 40 mg capsule,delayed 40 mg PO DAILY #90 caps 01/25/24 release prednisone 20 mg tablet See Rx Instructions PO .COMPLEX 01/25/24 PRN joint pain flare #30 tabs prednisone 5 mg tablet 10 mg (2 x 5 mg) PO DAILY #60 tabs 01/25/24 anastrozole 1 mg tablet 1 mg PO DAILY #90 tabs 01/31/24 Allergies Allergy/AdvReac Type Severity Reaction Status Date / Time meperidine [From Demerol] Allergy Unknown Unknown Verified 03/13/24 15:08 nalbuphine [From Nubain] Allergy Unknown Verified 03/13/24 15:08 Sulfa (Sulfonamide Allergy Unknown Verified 03/13/24 15:08 Antibiotics) tetracycline Allergy Unknown Verified 03/13/24 15:08 dexamethasone AdvReac Severe gastritis Verified 03/13/24 15:08 Review of Systems 2 Const: Denies: fever(s), chills, body aches or change in appetite ENMT: Denies: throat pain or dental pain Card: Denies: chest pain Resp: Denies: dyspnea GI: Reports: abdominal pain, nausea and vomiting; Denies: diarrhea : Denies: dysuria Musc: Denies: neck pain or back pain Skin/Breast: Denies: rash Neuro: Denies: headache(s) PFSH ED 2 PFSH: Medical History Hx of breast cancer Immunization counseling Seropositive rheumatoid arthritis of multiple sites High risk medication use Autoimmune pancreatitis History of endometrial cancer Hypokalemia Acute pancreatitis Transaminitis Iron deficiency Skin rash COVID-19 Gastritis History of eye disorder Fatigue Port-A-Cath in place Invasive ductal carcinoma of left breast Rheumatoid arthritis Asthma Endometriosis GERD (gastroesophageal reflux disease) Surgical History History of hysterectomy with bilateral oophorectomy History of breast reconstruction bilateral Hx of colonoscopy with polypectomy History of mastectomy Bilateral December, S/P tonsillectomy and adenoidectomy History of cholecystectomy History of appendectomy Family History Other Cancer Heart disease Hypertension Social History Smoking and tobacco/nicotine status: former use of tobacco/nicotine Quit status (tobacco/nicotine): has quit using Year quit tobacco: 2009 Former quit date comment: 10 to 15 years smoked Second hand smoke exposure: No Alcohol intake: never Substance/Drug Use: never Adopted: No Lives independently: Yes Housing: House Physical Exam 2 Const: COMMON NORMALS: no acute distress, patient oriented x3 and healthy appearing HENMT: COMMON NORMALS: normocephalic and atraumatic HEAD & SCALP: n ormocephalic and atraumatic Neck/C-Spine: COMMON NORMALS: full ROM and supple Chest: COMMONS NORMALS: normal inspection of the chest Resp: COMMON NORMALS: normal respiratory effort, No retractions, No use of accessory muscles and clear to auscultation bilaterally AUSCULTATION: clear to auscultation bilaterally Cardio: COMMON NORMALS: regular rate, regular rhythm and No murmurs present (Cardio) RATE: regular rate RHYTHM: regular rhythm GI: COMMON NORMALS: Normal to inspection, nondistended, normoactive bowel sounds present, Soft to palpation, non-tender and no masses PALPATION: Yes Soft to palpation Extremity: COMMON NORMALS: normal to inspection and full ROM Neuro: COMMON NORMALS: patient oriented x3, moves all extremities and no focal motor deficits Psych: COMMON NORMALS: mental status grossly normal, Normal thought process present and cooperative THOUGHT PROCESS: Normal thought process present Skin: COMMON NORMALS: no rashes or lesions noted and no wounds GENERAL SKIN EXAM: no rashes or lesions noted Course 2 Vital Signs: Vital signs: Vital Signs Temperature 97.7 F 03/13/24 15:03 Pulse Rate 69 03/13/24 15:03 Respiratory Rate 20 H 03/13/24 15:25 Blood Pressure 143/89 03/13/24 15:03 Pulse Oximetry 96 03/13/24 15:03 Oxygen Delivery Me thod Room Air 03/13/24 15:03 MDM - Abdominal Pain Medical Decision Making Patient presents here with pancreatitis likely causing her abdominal pain. She feels improved here her lipase is elevated pancreatitis is seen on CT as well spoke to hospitalist will admit Medical Records I reviewed the patient's medical records. Lab Data I reviewed the patient's lab results. 03/13/24 15:03 03/13/24 15:03 Labs/Radiology: Radiology Impressions Abdomen/Pelvis CT 03/13/24 15:02 IMPRESSION: 1. Slight peripancreatic edema as described above can be seen in the setting of acute pancreatitis. Recommend correlation with serum lipase levels. 2. Status post appendectomy and cholecystectomy. 3. Colonic diverticulosis with no evidence to suggest acute diverticulitis. Laboratory Results WBC 14.87 10^3/uL (3.29-11.43) H 03/13/24 15:03 RBC 4.75 10^6/uL (3.85-5.65) 03/13/24 15:03 Hgb 13.80 g/dL (11.27-16.99) 03/13/24 15:03 Hct 40.8 % (36-47) 03/13/24 15:03 MCV 85.9 fl (85-98) 03/13/24 15:03 MCH 29.1 pg (27-33) 03/13/24 15:03 MCHC 33.8 g/dL (30-55) 03/13/24 15:03 RDW 14.1 % (12.1-15.1) 03/13/24 15:03 Plt Count 290 10^3/cmm (157-399) 03/13/24 15:03 MPV 8.8 fL (7.4-10.4) 03/13/24 15:03 Neut % (Auto) 84.3 % 03/13/24 15:03 Lymph % (Auto) 6.4 % 03/13/24 15:03 [place] % (Auto) 8.6 % 03/13/24 15:03 Eos % (Auto) 0.1 % 03/13/24 15:03 Baso % (Auto) 0.1 % 03/13/24 15:03 Neut # (Auto) 12.55 10^3/uL (1.8-7.7) H 03/13/24 15:03 Lymph # (Auto) 1.0 10^3/uL (0.8-4.8) 03/13/24 15:03 [place] # (Auto) 1.3 10^3/uL (0.2-0.9) H 03/13/24 15:03 Eos # (Auto) 0.0 10^3/uL (0.0-0.8) 03/13/24 15:03 Baso # (Auto) 0.0 10^3/uL (0.0-0.1) 03/13/24 15:03 Nucleated RBC % (auto) 0 % 03/13/24 15:03 Nucleated RBCs # 0.0 /100WBC 03/13/24 15:03 Sodium 137 mmol/L (136-145) 03/13/24 15:03 Potassium 4.0 mmol/L (3.5-5.1) 03/13/24 15:03 Chloride 100 mmol/L (98-107) 03/13/24 15:03 Carbon Dioxide 23 mmol/L (22-29) 03/13/24 15:03 Anion Gap 18.0 (5-19) 03/13/24 15:03 BUN 12 mg/dL (8-23) 03/13/24 15:03 Creatinine 0.5 mg/dL (0.5-0.9) 03/13/24 15:03 GFR Calculation 125.9 mL/min (90-130) 03/13/24 15:03 Glucose 150 mg/dL (65-115) H 03/13/24 15:03 Calculated Osmolality 287 mOsm/kg (285-295) 03/13/24 15:03 Calcium 8.4 mg/dL (8.5-10.5) L 03/13/24 15:03 Total Bilirubin 0.3 mg/dL (0.15-1.2) 03/13/24 15:03 AST 16 U/L (0-32) 03/13/24 15:03 ALT 15 U/L (0-33) 03/13/24 15:03 Alkaline Phosphatase 106 U/L (35-105) H 03/13/24 15:03 Total Protein 6.4 g/dL (6.6-8.7) L 03/13/24 15:03 Albumin 4.0 g/dL (3.5-5.2) 03/13/24 15:03 Globulin 2.4 g/dL (1.3-4.6) 03/13/24 15:03 Urine Color Dark yellow (Yellow) A 03/13/24 15:07 Urine Appearance Clear (CLEAR) 03/13/24 15:07 Urine pH 5.5 (5-7) 03/13/24 15:07 Ur Specific [place] 1.024 (1.005-1.030) 03/13/24 15:07 Urine Protein Trace (Negative) A 03/13/24 15:07 Urine Glucose (UA) Negative (Normal) 03/13/24 15:07 Urine Ketones Negative (Negative) 03/13/24 15:07 Urine Blood Negative (Negative) 03/13/24 15:07 Urine Nitrate Negative (Negative) 03/13/24 15:07 Urine Bilirubin Negative (Negative) 03/13/24 15:07 Urine Urobilinogen 1.0 mg/dL (Negative) 03/13/24 15:07 Ur Leukocyte Esterase Negative (Negative) 03/13/24 15:07 Urine RBC 0-2 /hpf (0-2) 03/13/24 15:07 Urine WBC 0-5 /hpf (0-5) 03/13/24 15:07 Ur Squamous Epith Cells 0-5 /hpf (0-5) 03/13/24 15:07 Amorphous Sediment Not Reportable 03/13/24 15:07 Urine Bacteria None seen /hpf (NONE) 03/13/24 15:07 Hyaline Casts 1.21 /lpf 03/13/24 15:07 All radiology interpretation(s) finalized by discharge Discharge Plan Discharge Patient Disposition: Admitted As Inpatient Clinical Impression: Pancreatitis Condition: Stable Prescriptions: No Action citalopram [Celexa] 20 mg tablet 10 mg PO QAM trazodone 100 mg tablet 100 mg PO BEDTIME omeprazole 40 mg capsule,delayed release(DR/EC) 40 mg PO DAILY Qty: 90 1RF prednisone 20 mg tablet See Rx Instructions PO .COMPLEX PRN (Reason: joint pain flare) Qty: 30 1RF Rx Instructions: take 2 tab daily for 7 days as needed for arthritis flare PO PRN; prednisone 5 mg tablet 10 mg PO DAILY Qty: 60 5RF leflunomide 20 mg tablet 20 mg PO DAILY Qty: 30 5RF (DME) Custom insoles with orthopedic shoes See Rx Instructions .Route .MEDSUPPLY Qty: 1 0RF Rx Instructions: As directed by [facility] anastrozole 1 mg tablet 1 mg PO DAILY Qty: 90 0RF diclofenac sodium [Voltaren Arthritis Pain] 1 % gel 4 g topical QID PRN (Reason: Pain) Qty: 100 5RF Rx Instructions: apply to single knee, ankle, foot; for foot includes sole/toes/top of foot gabapentin 300 mg Capsule 300 mg PO BEDTIME PRN (Reason: NERVE PAIN) vitamin B complex Capsule 1 cap PO QAM alprazolam 0.25 mg tablet 0.25 mg PO BID PRN (Reason: Anxiety) Referrals: Michael Mahoney DO [Primary Care Provider] - Coding Level of Care Code ED Claims Administrator for Magy Majano
[2024-03-13 15:11] LABS: Basophils % 0.1 %; Eosinophils % 0.1 %; Hematocrit 40.8 % (36-47); Lymphocytes % 6.4 %; Mean Corpuscular HGB Conc 33.8 g/dL (30-55); Mean Corpuscular Hemoglobin 29.1 pg (27-33); Mean Corpuscular Volume 85.9 fl (85-98); Mean Platelet Volume 8.8 fL (7.4-10.4); Monocytes # 1.3 10^3/uL (0.2-0.9); Monocytes % 8.6 %; Neutrophils # 12.55 10^3/uL (1.8-7.7); Neutrophils % 84.3 %; Nucleated Red Blood Cells % 0 %; Platelet Count 290 10^3/cmm (157-399); Red Blood Count 4.75 10^6/uL (3.85-5.65); Red Cell Distribution Width 14.1 % (12.1-15.1); White Blood Count 14.87 10^3/uL (3.29-11.43)
[2024-03-13 15:24] LABS: Bilirubin Urine Negative (Negative); Blood Urine Negative (Negative); Glucose Urine UA Negative (Normal); Ketones Urine Negative (Negative); Leukocyte Esterase Urine Negative (Negative); Nitrate Urine Negative (Negative); Protein Urine Trace (Negative); Specific Gravity, Urine 1.024 (1.005-1.030); Urine Appearance Clear (CLEAR); Urine Color Dark Yellow (Yellow); pH Urine 5.5 (5-7)
[2024-03-13] MEDS: morphine 4 mg/mL SDV 1 mL IVP (15:25)
[2024-03-13] MEDS: metoclopramide 5 mg/mL SDV 2 mL IVP (15:25)
[2024-03-13 15:27] LABS: Add Urine Microscopic? YES; Bacteria Urine None Seen /hpf; Hyaline Casts Urine 1.21 /lpf; RBC Urine 0-2 /hpf (0-2); Squamous Epithelial Cell Urine 0-5 /hpf (0-5); WBC Urine 0-5 /hpf (0-5)
--- NOTE | 2024-03-13 15:31 | ECG_ITS ---
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 Measurements Intervals [place] Rate: 63 P: 40 [place]: 136 QRS: -20 QRSD: 94 T: 20 QT: 418 QTc: 430 Interpretive Statements SINUS RHYTHM INCOMPLETE RIGHT BUNDLE BRANCH BLOCK [90+ ms QRS DURATION, TERMINAL R IN V1/V2, 40+ ms S IN I/aVL/V4/V5/V6] VOLTAGE CRITERIA FOR LVH [MEETS CRITERIA IN ONE OF: R(aVL), S(V1), R(V5), R(V5/V6)+S(V1)] Compared to ECG 11/14/2023 20:38:07 Sinus bradycardia no longer present Electronically Signed On 03-14-2024 19:11:58 CHIEF AIRPORT GUIDE by Roc Loera M.D. [id number]
[2024-03-13 15:44] LABS: Alanine Aminotransferase 15 U/L (0-33); Alkaline Phosphatase 106 U/L (35-105); Aspartate Amino Transferase 16 U/L (0-32); Blood Urea Nitrogen 12 mg/dL (8-23); Calcium 8.4 mg/dL (8.5-10.5); Carbon Dioxide 23 mmol/L (22-29); Chloride 100 mmol/L (98-107); Creatinine Clr Calc Pharmacy 138.1488; Globulin 2.4 g/dL (1.3-4.6); Glomerular Filtration Rate 125.9 mL/min (90-130); Glucose 150 mg/dL (65-115); Osmolality Calculated 287 mOsm/kg (285-295); Sodium 137 mmol/L (136-145); Total Bilirubin 0.3 mg/dL (0.15-1.2); Total Protein 6.4 g/dL (6.6-8.7)
[2024-03-13] MEDS: iohexol 350 mg/mL 500 mL Btl (per mL) IV (15:51)
[2024-03-13] MEDS: sodium chloride 0.9% 1,000 ML 999 ML IV (16:47)
[2024-03-13 16:56] LABS: Lipase > 3000 U/L (13-60)
[2024-03-13] MEDS: sodium chloride 0.9% 1,000 ML 100 ML IV (18:24)
[2024-03-13] MEDS: heparin 5,000 unit/mL INJ 1 mL 5000 UNIT SUBCUT (18:32)
[2024-03-13] MEDS: pantoprazole 40 mg SDV IVP (18:32)
[2024-03-13] MEDS: HYDROcodone-acetaminophen 5-325 mg Tablet 1 TAB PO (18:32)
[2024-03-13] MEDS: ondansetron 2 mg/ML SDV 2 mL 4 MG IVP (18:32)
[2024-03-13 20:14] LABS: Lactic Sepsis W/Reflex 1.5 mmol/L (0.5-2.2)
[2024-03-13 20:14] LABS: Cholesterol 180 mg/dL (0-200); HDL Cholesterol 45 mg/dL (60-100); LDL Cholesterol Calculated 105 mg/dL (50-129); LDL HDL Ratio 2.33 RATIO (0.00-3.22); Triglycerides 150 mg/dL (0-150)
[2024-03-13 20:21] LABS: Procalcitonin 0.04 ng/mL (0-0.5)
[2024-03-13] MEDS: promethazine 25 mg/mL SDV 1 mL 12.5 MG IM (20:56)
[2024-03-13] MEDS: morphine 4 mg/mL SDV 1 mL 2 MG IVP (21:00)
--- NOTE | 2024-03-13 21:00 | P.HP_ITS ---
Providers/Chief Complaint 2 Admitting Physician: Ran Ventura MD Primary Care Provider: Michael Mahoney DO Chief Complaint: N/V,abd pain History of Present Illness Leslie Scott is a 59 year old female with a past medical history of recurrent pancreatitis for which a cause has not been able to be established. Patient has a past medical history of rheumatoid arthritis, breast cancer, currently only on anastrozole. She used to be on Orencia the past which was discontinued due to abdominal issues ? Pancreatitis. Currently she is on leflunomide. Patient presents to the emergency room today with chief complaints of nausea vomiting and abdominal pain over the past 3 days. She has been unable to keep any food or water down due to persistent vomiting. CT of the abdomen today found evidence of pancreatitis, lipase elevated at 3000. She was most recently admitted here in October with similar symptoms and was found to have pancreatitis. No obvious cause was able to be determined, she was referred to see GI as outpatient. She followed up in [place] for the same and received a diagnosis of visceral migraine . she had an upper GI endoscopy the results of which are not currently available. As far as she is aware no cause of the pancreatitis was found at the time. She would like referral to see a different travel attendants at discharge this time. No fever. No dyspnea palpitations or syncope. Review of Systems 2 General: Reports: 10 or more systems reviewed and unremarkable except in HPI and below Const: Denies: fever(s), chills or body aches Eyes: Denies: change in vision, blurry vision or photophobia ENMT: Reports: hoarseness; Denies: throat pain, enlarged tonsils, odynophagia or nasal congestion Card: Denies: chest pain, palpitations, irregular heart rhythm, edema, swelling of feet/ankles, lightheadedness, pre-syncope, dyspnea on exertion or orthopnea Resp: Denies: dyspnea, productive cough, non-productive cough, wheezing, stridor, pain on inspiration, change in phlegm color, hemoptysis or chest congestion GI: Denies: abdominal pain, nausea, vomiting, hematemesis, coffee ground emesis, dysphagia, heartburn, diarrhea, constipation, GI cramping, change in stool character, hematochezia or melena : Denies: flank pain, difficulty voiding, dysuria, urinary frequency, urinary urgency, urinary hesitancy or hematuria Musc: Denies: neck pain, back pain, extremity pain, joint swelling, joint warmth or deformity Neuro: Denies: headache(s), numbness in extremities, weakness in extremities, sensory changes, difficulty walking, frequent falls, dizziness, vertigo, behavioral changes, Slurred speech present or seizure-like activity Psych: Denies: anxiety, depression, suicidal ideation or homicidal ideation Endo: Denies: polyuria, polydipsia, tired all the time, cold intolerance or hot flashes Leland/Lymph: Denies: easy bruising or easy bleeding Medications/Allergies Home Medications Medication Instructions Recorded Confirmed Last Taken Type citalopram 20 mg tablet (Celexa) 10 mg PO QAM 07/17/19 03/13/24 11/13/23 History trazodone 100 mg tablet 100 mg PO BEDTIME 07/17/19 03/13/24 11/13/23 History gabapentin 300 mg capsule 300 mg PO BEDTIME PRN NERVE PAIN 01/19/21 03/13/24 11/13/23 History vitamin B complex 1 cap PO QAM 10/05/21 03/13/24 11/13/23 History alprazolam 0.25 mg tablet 0.25 mg PO BID PRN Anxiety 05/14/22 03/13/24 11/13/23 History diclofenac sodium 1 % topical gel 4 g topical QID PRN Pain #100 grams 03/16/23 03/13/24 Unknown Rx (Voltaren Arthritis Pain) Custom insoles with orthopedic #1 ea 01/02/24 03/13/24 Unknown Rx shoes leflunomide 20 mg tablet 20 mg PO DAILY #30 tabs 01/25/24 03/13/24 Unknown Rx omeprazole 40 mg capsule,delayed 40 mg PO DAILY #90 caps 01/25/24 03/13/24 Unknown Rx release prednisone 20 mg tablet See Rx Instructions PO .COMPLEX 01/25/24 03/13/24 Unknown Rx PRN joint pain flare #30 tabs prednisone 5 mg tablet 10 mg (2 x 5 mg) PO DAILY #60 tabs 01/25/24 03/13/24 Unknown Rx anastrozole 1 mg tablet 1 mg PO DAILY #90 tabs 01/31/24 03/13/24 Unknown Rx Allergies Allergy/AdvReac Type Severity Reaction Status Date / Time meperidine [From Demerol] Allergy Unknown Unknown Verified 03/13/24 15:08 nalbuphine [From Nubain] Allergy Unknown Verified 03/13/24 15:08 Sulfa (Sulfonamide Allergy Unknown Verified 03/13/24 15:08 Antibiotics) tetracycline Allergy Unknown Verified 03/13/24 15:08 dexamethasone AdvReac Severe gastritis Verified 03/13/24 15:08 PFSH Acute 2 PFSH: Medical History (Updated 03/14/24 @ 06:06 by Samia Willoughby MD) Acute pancreatitis Hx of breast cancer Immunization counseling Seropositive rheumatoid arthritis of multiple sites High risk medication use Autoimmune pancreatitis History of endometrial cancer Hypokalemia Transaminitis Iron deficiency Skin rash COVID-19 Gastritis History of eye disorder Fatigue Port-A-Cath in place Invasive ductal carcinoma of left breast Rheumatoid arthritis Asthma Endometriosis GERD (gastroesophageal reflux disease) Surgical History History of hysterectomy with bilateral oophorectomy History of breast reconstruction bilateral Hx of colonoscopy with polypectomy History of mastectomy Bilateral December, S/P tonsillectomy and adenoidectomy History of cholecystectomy History of appendectomy Family History Other Cancer Heart disease Hypertension Social History Smoking and tobacco/nicotine status: former use of tobacco/nicotine Quit status (tobacco/nicotine): has quit using Year quit tobacco: 2009 Former quit date comment: 10 to 15 years smoked Second hand smoke exposure: No Alcohol intake: never Substance/Drug Use: never Adopted: No Lives independently: Yes Housing: House Vitals/I&O/Wt Last Vital Signs Temp 97.5 F L 03/13/24 20:00 Pulse 64 03/13/24 21:38 Resp 18 03/13/24 21:00 BP 135/59 03/13/24 20:00 Pulse Ox 97 03/13/24 21:38 O2 Del Method Room Air 03/13/24 20:38 FiO2 21 03/13/24 21:38 03/13/24 03/13/24 03/14/24 14:59 22:59 06:59 Intake Total 1000 / 1000 Balance 1000 / 1000 Weight last 48 hrs Weight 96.116 kg Weight 93.894 kg Physical Exam 2 Narrative: General: No acute distress, AO x3 HEENT: PERRLA, pupils bilaterally equal and reactive, pallors not present Chest: Normal vesicular breath sounds, no added sounds, equal good air entry bilaterally CVS: S1-S2 regular, no murmurs, no tachycardia, no gallops, no rubs Abdomen: Soft, tender to palpation in the epigastric region, no organomegaly, bowel sounds present Neuro: No focal deficits, no facial deformity, AO x3, power 5/5 in all limbs Data 03/14/24 05:01 03/14/24 05:01 Micro: Microbiology 03/13/24 19:30 Blood Culture - Preliminary Blood SPECIMEN COLLECTED 03/13/24 19:22 Blood Culture - Preliminary Blood SPECIMEN COLLECTED Other data: Radiology Impressions Abdomen/Pelvis CT 03/13/24 15:02 IMPRESSION: 1. Slight peripancreatic edema as described above can be seen in the setting of acute pancreatitis. Recommend correlation with serum lipase levels. 2. Status post appendectomy and cholecystectomy. 3. Colonic diverticulosis with no evidence to suggest acute diverticulitis. Laboratory Results WBC 10.16 10^3/uL (3.29-11.43) 03/14/24 05:01 RBC 4.17 10^6/uL (3.85-5.65) 03/14/24 05:01 Hgb 12.60 g/dL (11.27-16.99) 03/14/24 05:01 Hct 36.9 % (36-47) 03/14/24 05:01 MCV 88.5 fl (85-98) 03/14/24 05:01 MCH 30.2 pg (27-33) 03/14/24 05:01 MCHC 34.1 g/dL (30-55) 03/14/24 05:01 RDW 14.1 % (12.1-15.1) 03/14/24 05:01 Plt Count 223 10^3/cmm (157-399) 03/14/24 05:01 MPV 8.6 fL (7.4-10.4) 03/14/24 05:01 Neut % (Auto) 84.5 % 03/14/24 05:01 Lymph % (Auto) 8.5 % 03/14/24 05:01 Imperial % (Auto) 6.4 % 03/14/24 05:01 Eos % (Auto) 0.2 % 03/14/24 05:01 Baso % (Auto) 0.1 % 03/14/24 05:01 Neut # (Auto) 8.59 10^3/uL (1.8-7.7) H 03/14/24 05:01 Lymph # (Auto) 0.9 10^3/uL (0.8-4.8) 03/14/24 05:01 Imperial # (Auto) 0.7 10^3/uL (0.2-0.9) 03/14/24 05:01 Eos # (Auto) 0.0 10^3/uL (0.0-0.8) 03/14/24 05:01 Baso # (Auto) 0.0 10^3/uL (0.0-0.1) 03/14/24 05:01 Nucleated RBC % (auto) 0 % 03/14/24 05:01 Nucleated RBCs # 0.0 /100WBC 03/14/24 05:01 Sodium 139 mmol/L (136-145) 03/14/24 05:01 Potassium 3.8 mmol/L (3.5-5.1) 03/14/24 05:01 Chloride 105 mmol/L (98-107) 03/14/24 05:01 Carbon Dioxide 24 mmol/L (22-29) 03/14/24 05:01 Anion Gap 13.8 (5-19) 03/14/24 05:01 BUN 8 mg/dL (8-23) 03/14/24 05:01 Creatinine 0.5 mg/dL (0.5-0.9) 03/14/24 05:01 GFR Calculation 125.9 mL/min (90-130) 03/14/24 05:01 Glucose 112 mg/dL (65-115) 03/14/24 05:01 Calculated Osmolality 287 mOsm/kg (285-295) 03/14/24 05:01 Lactic Acid 1.5 mmol/L (0.5-2.2) 03/13/24 19:30 Calcium 8.4 mg/dL (8.5-10.5) L 03/14/24 05:01 Phosphorus 3.4 mg/dL (2.5-4.5) 03/14/24 05:01 Magnesium 2.1 mg/dL (1.7-2.3) 03/14/24 05:01 Total Bilirubin 0.5 mg/dL (0.15-1.2) 03/14/24 05:01 AST 15 U/L (0-32) 03/14/24 05:01 ALT 15 U/L (0-33) 03/14/24 05:01 Alkaline Phosphatase 97 U/L (35-105) 03/14/24 05:01 Total Protein 5.9 g/dL (6.6-8.7) L 03/14/24 05:01 Albumin 3.3 g/dL (3.5-5.2) L 03/14/24 05:01 Globulin 2.6 g/dL (1.3-4.6) 03/14/24 05:01 Triglycerides 150 mg/dL (0-150) 03/13/24 19:22 Cholesterol 180 mg/dL (0-200) 03/13/24 19:22 LDL Cholesterol, Calc 105 mg/dL (50-129) 03/13/24 19:22 HDL Cholesterol 45 mg/dL (60-100) L 03/13/24 19:22 LDL/HDL Ratio 2.33 RATIO (0.00-3.22) 03/13/24 19:22 Cholesterol/HDL Ratio 4.00 mg/dL (0.0-4.40) 03/13/24 19:22 Lipase > 3000 U/L (13-60) H 03/13/24 15:03 Procalcitonin 0.04 ng/mL (0-0.5) 03/14/24 05:01 Urine Color Dark yellow (Yellow) A 03/13/24 15:07 Urine Appearance Clear (CLEAR) 03/13/24 15:07 Urine pH 5.5 (5-7) 03/13/24 15:07 Ur Specific [place] 1.024 (1.005-1.030) 03/13/24 15:07 Urine Protein Trace (Negative) A 03/13/24 15:07 Urine Glucose (UA) Negative (Normal) 03/13/24 15:07 Urine Ketones Negative (Negative) 03/13/24 15:07 Urine Blood Negative (Negative) 03/13/24 15:07 Urine Nitrate Negative (Negative) 03/13/24 15:07 Urine Bilirubin Negative (Negative) 03/13/24 15:07 Urine Urobilinogen 1.0 mg/dL (Negative) 03/13/24 15:07 Ur Leukocyte Esterase Negative (Negative) 03/13/24 15:07 Urine RBC 0-2 /hpf (0-2) 03/13/24 15:07 Urine WBC 0-5 /hpf (0-5) 03/13/24 15:07 Ur Squamous Epith Cells 0-5 /hpf (0-5) 03/13/24 15:07 Amorphous Sediment Not Reportable 03/13/24 15:07 Urine Bacteria None seen /hpf (NONE) 03/13/24 15:07 Hyaline Casts 1.21 /lpf 03/13/24 15:07 Ethyl Alcohol < 10 mg/dL (0-10) 03/13/24 19:22 A&P Assessment and plan (1) Acute pancreatitis: Acute recurrent pancreatitis. CT of the abdomen and pelvis showing slight peripancreatic edema. Serum lipase greater than 3000. Patient is status postcholecystectomy. No intra or extrahepatic biliary ductal dilatation noted on the CT abdomen. LFTs within normal limit. Normal triglyceride level. Denies any alcohol consumption. Alcohol level is negative. Previously had MRCP in December 2023 which was normal. There was no evidence of any biliary strictures or stones. IgG4 level tested in October 2023 at 15.3, within normal range of 4-86. Plan: Admit to [facility] [place] IV fluid with normal saline at 100 cc an hour N.p.o. for bowel rest Pain control with as needed morphine As needed Tylenol for pain and fever. As needed Zofran , promethazine for nausea management. Elevated white blood cell count likely as a result of dehydration/SIRS. Will monitor. Holding off on antibiotics for now. Attestations 2 Medical Necessity Statement*: Greater than 2 midnight admission is anticipated Coding Level of Care Code Acute Code for Chg Fwd High MDM includes number and complexity of problems actively addressed during encounter, amount and/or complexity of data reviewed/ordered and described risk of complication, morbidity or mortality of management as documented Diagnoses Acute pancreatitis K85.90
[2024-03-13 23:42] LABS: Alcohol Level < 10 mg/dL (0-10)
[2024-03-14] VITALS (12 sets, daily range): BP systolic 119–153; BP diastolic 54–76; PULSE 51–90; RESP 15–20; TEMP 36.4–37.3; O2SAT 93–97; BMI 34.9
[2024-03-14] MEDS: ondansetron 2 mg/ML SDV 2 mL 4 MG IVP ×3 (03:42→19:48)
[2024-03-14] MEDS: HYDROcodone-acetaminophen 5-325 mg Tablet 1 TAB PO ×3 (03:42→14:17)
[2024-03-14] MEDS: sodium chloride 0.9% 1,000 ML 100 ML IV ×3 (03:47→23:42)
[2024-03-14 05:22] LABS: Basophils % 0.1 %; Eosinophils % 0.2 %; Hematocrit 36.9 % (36-47); Lymphocytes # 0.9 10^3/uL (0.8-4.8); Lymphocytes % 8.5 %; Mean Corpuscular HGB Conc 34.1 g/dL (30-55); Mean Corpuscular Hemoglobin 30.2 pg (27-33); Mean Corpuscular Volume 88.5 fl (85-98); Mean Platelet Volume 8.6 fL (7.4-10.4); Monocytes # 0.7 10^3/uL (0.2-0.9); Monocytes % 6.4 %; Neutrophils # 8.59 10^3/uL (1.8-7.7); Neutrophils % 84.5 %; Nucleated Red Blood Cells % 0 %; Platelet Count 223 10^3/cmm (157-399); Red Blood Count 4.17 10^6/uL (3.85-5.65); Red Cell Distribution Width 14.1 % (12.1-15.1); White Blood Count 10.16 10^3/uL (3.29-11.43)
[2024-03-14 05:42] LABS: Alanine Aminotransferase 15 U/L (0-33); Albumin Level 3.3 g/dL (3.5-5.2); Alkaline Phosphatase 97 U/L (35-105); Anion Gap 13.8 (5-19); Aspartate Amino Transferase 15 U/L (0-32); Blood Urea Nitrogen 8 mg/dL (8-23); Calcium 8.4 mg/dL (8.5-10.5); Carbon Dioxide 24 mmol/L (22-29); Chloride 105 mmol/L (98-107); Creatinine Clr Calc Pharmacy 139.9652; Globulin 2.6 g/dL (1.3-4.6); Glomerular Filtration Rate 125.9 mL/min (90-130); Glucose 112 mg/dL (65-115); Magnesium 2.1 mg/dL (1.7-2.3); Osmolality Calculated 287 mOsm/kg (285-295); Phosphorus 3.4 mg/dL (2.5-4.5); Potassium 3.8 mmol/L (3.5-5.1); Sodium 139 mmol/L (136-145); Total Bilirubin 0.5 mg/dL (0.15-1.2); Total Protein 5.9 g/dL (6.6-8.7)
[2024-03-14 05:49] LABS: Procalcitonin 0.04 ng/mL (0-0.5)
[2024-03-14] MEDS: pantoprazole 40 mg SDV IVP ×2 (05:51→17:18)
[2024-03-14] MEDS: heparin 5,000 unit/mL INJ 1 mL 5000 UNIT SUBCUT ×2 (05:51→17:18)
[2024-03-14] MEDS: morphine 4 mg/mL SDV 1 mL 2 MG IVP ×2 (13:15→19:48)
--- NOTE | 2024-03-14 13:49 | P.PN_ITS ---
Subjective 2 Subjective: No acute vents overnight. Patient states pain is slightly better. Complains of nausea but no vomiting. Would like to try liquid diet. Denies any diarrhea. Vitals/I&O/Wt Last Vital Signs Temp 98.0 F 03/14/24 12:00 Pulse 57 L 03/14/24 12:00 Resp 16 03/14/24 13:15 BP 153/76 03/14/24 12:00 Pulse Ox 97 03/14/24 12:00 O2 Del Method Room Air 03/14/24 12:00 FiO2 21 03/13/24 21:38 03/13/24 03/14/24 03/14/24 22:59 06:59 14:59 Intake Total 1000 / 1000 938.333 / 1938.333 Balance 1000 / 1000 938.333 / 1938.333 Weight last 48 hrs Weight 96.298 kg Weight 96.116 kg Weight 93.894 kg Physical Exam 2 Narrative: General: No acute distress, AO x3 HEENT: PERRLA, pupils bilaterally equal and reactive, pallors not present Chest: Normal vesicular breath sounds, no added sounds, equal good air entry bilaterally CVS: S1-S2 regular, no murmurs, no tachycardia, no gallops, no rubs Abdomen: Soft, tender to palpation in the epigastric region, no organomegaly, bowel sounds present Neuro: No focal deficits, no facial deformity, AO x3, power 5/5 in all limbs Data 03/14/24 05:01 03/14/24 05:01 Micro: Microbiology 03/13/24 19:30 Blood Culture - Preliminary Blood SPECIMEN COLLECTED 03/13/24 19:22 Blood Culture - Preliminary Blood SPECIMEN COLLECTED A&P Assessment and plan (1) Acute pancreatitis: Acute recurrent pancreatitis. CT of the abdomen and pelvis showing slight peripancreatic edema. Serum lipase greater than 3000. Patient is status postcholecystectomy. No intra or extrahepatic biliary ductal dilatation noted on the CT abdomen. LFTs within normal limit. Normal triglyceride level. Denies any alcohol consumption. Alcohol level is negative. Previously had MRCP in December 2023 which was normal. There was no evidence of any biliary strictures or stones. IgG4 level tested in October 2023 at 15.3, within normal range of 4-86. Plan Plan: Continue with IV hydration with normal saline 100 cc/h. Protonix 40 mg IV every 12 hours. Zofran and Phenergan as needed. Will give a trial of clear liquid diet. Discussed in detail with the patient regarding multiple small meals. Continue with hydrocodone every 4 hour as needed for pain control along with morphine 2 mg IV every 4 hours as needed. Leukocytosis have resolved. Hold off on antibiotics for now. Follow-up culture results. Restart chronic home medications including Xanax as needed, citalopram and gabapentin. Full code Clear liquid diet Protonix will be sufficient for PUD prophylaxis Heparin for DVT prophylaxis. Attestations 2 Medical Necessity Statement*: Requires further hospitalization for management of acute recurrent pancreatitis as patient is treated conservatively and pain control Diagnoses Acute pancreatitis K85.90
[2024-03-14] MEDS: trazodone 100 mg Tablet PO (20:50)
[2024-03-15] VITALS (9 sets, daily range): BP systolic 125–150; BP diastolic 60–88; PULSE 53–79; RESP 14–18; TEMP 36.4–37; O2SAT 94–98
[2024-03-15] MEDS: promethazine 25 mg/mL SDV 1 mL 12.5 MG IM (02:00)
[2024-03-15 05:10] LABS: Eosinophils # 0.1 10^3/uL (0.0-0.8); Eosinophils % 0.7 %; Hematocrit 38.7 % (36-47); Lymphocytes # 0.7 10^3/uL (0.8-4.8); Lymphocytes % 7.7 %; Mean Corpuscular HGB Conc 33.9 g/dL (30-55); Mean Corpuscular Hemoglobin 29.4 pg (27-33); Mean Platelet Volume 8.6 fL (7.4-10.4); Monocytes # 0.6 10^3/uL (0.2-0.9); Neutrophils # 7.47 10^3/uL (1.8-7.7); Neutrophils % 84.3 %; Nucleated Red Blood Cells % 0 %; Platelet Count 231 10^3/cmm (157-399); Red Blood Count 4.45 10^6/uL (3.85-5.65); Red Cell Distribution Width 13.7 % (12.1-15.1); White Blood Count 8.86 10^3/uL (3.29-11.43)
[2024-03-15] MEDS: pantoprazole 40 mg SDV IVP ×2 (05:30→17:14)
[2024-03-15] MEDS: heparin 5,000 unit/mL INJ 1 mL 5000 UNIT SUBCUT (05:30)
[2024-03-15] MEDS: citalopram 20 mg Tablet 10 MG PO (05:30)
[2024-03-15 05:32] LABS: Alanine Aminotransferase 13 U/L (0-33); Albumin Level 3.5 g/dL (3.5-5.2); Alkaline Phosphatase 105 U/L (35-105); Anion Gap 16.4 (5-19); Aspartate Amino Transferase 15 U/L (0-32); Blood Urea Nitrogen 9 mg/dL (8-23); Calcium 8.7 mg/dL (8.5-10.5); Carbon Dioxide 23 mmol/L (22-29); Chloride 103 mmol/L (98-107); Creatinine Clr Calc Pharmacy 140.7532; Globulin 2.7 g/dL (1.3-4.6); Glomerular Filtration Rate 125.9 mL/min (90-130); Glucose 120 mg/dL (65-115); Osmolality Calculated 288 mOsm/kg (285-295); Potassium 3.4 mmol/L (3.5-5.1); Sodium 139 mmol/L (136-145); Total Bilirubin 0.5 mg/dL (0.15-1.2); Total Protein 6.2 g/dL (6.6-8.7)
[2024-03-15] MEDS: acetaminophen 325 mg Tablet 650 MG PO (05:32)
[2024-03-15] MEDS: sodium chloride 0.9% 1,000 ML 100 ML IV ×2 (10:00→19:30)
[2024-03-15] MEDS: HYDROcodone-acetaminophen 5-325 mg Tablet 1 TAB PO ×2 (10:44→20:17)
[2024-03-15] MEDS: ondansetron 2 mg/ML SDV 2 mL 4 MG IVP ×2 (10:45→20:18)
--- NOTE | 2024-03-15 14:01 | P.PN_ITS ---
Subjective 2 Subjective: No acute events overnight. Patient tolerated clear liquid diet though she did have episode of nausea and vomiting overnight after dinner. Last pain medication and nausea medication required overnight. Today morning tolerated clear liquid diet. Denies any fever. Vitals/I&O/Wt Last Vital Signs Temp 98.0 F 03/15/24 11:36 Pulse 79 03/15/24 11:36 Resp 16 03/15/24 11:36 BP 138/88 03/15/24 11:36 Pulse Ox 98 03/15/24 11:36 O2 Del Method Room Air 03/15/24 11:36 FiO2 21 03/13/24 21:38 03/14/24 03/15/24 03/15/24 22:59 06:59 14:59 Intake Total 950 / 1950 2360 / 2360 Balance 950 / 1950 2360 / 2360 Weight last 48 hrs Weight 96.162 kg Weight 97.341 kg Weight 98.339 kg Weight 96.298 kg Weight 96.116 kg Weight 93.894 kg Physical Exam 2 Narrative: General: No acute distress, AO x3 HEENT: PERRLA, pupils bilaterally equal and reactive, pallors not present Chest: Normal vesicular breath sounds, no added sounds, equal good air entry bilaterally CVS: S1-S2 regular, no murmurs, no tachycardia, no gallops, no rubs Abdomen: Soft, tender to palpation in the epigastric region, no organomegaly, bowel sounds present Neuro: No focal deficits, no facial deformity, AO x3, power 5/5 in all limbs Data 03/15/24 04:54 03/15/24 04:54 Micro: Microbiology 03/13/24 19:30 Blood Culture - Preliminary Blood NEGATIVE TO DATE 03/13/24 19:22 Blood Culture - Preliminary Blood NEGATIVE TO DATE A&P Assessment and plan (1) Acute pancreatitis: Acute recurrent pancreatitis. CT of the abdomen and pelvis showing slight peripancreatic edema. Serum lipase greater than 3000. Patient is status postcholecystectomy. No intra or extrahepatic biliary ductal dilatation noted on the CT abdomen. LFTs within normal limit. Normal triglyceride level. Denies any alcohol consumption. Alcohol level is negative. Previously had MRCP in December 2023 which was normal. There was no evidence of any biliary strictures or stones. IgG4 level tested in October 2023 at 15.3, within normal range of 4-86. Plan Plan: Continue with IV hydration with normal saline 100 cc/h. Protonix 40 mg IV every 12 hours. Zofran and Phenergan as needed. Continue with clear liquid diet for now. If tolerating well for lunch will plan to transition to full liquid diet overnight. Again discussed in detail with the patient regarding multiple small meals. Continue with hydrocodone every 4 hour as needed for pain control along with morphine 2 mg IV every 4 hours as needed. Leukocytosis have resolved. Hold off on antibiotics for now. Follow-up culture results. Restart chronic home medications including Xanax as needed, citalopram and gabapentin. Full code Clear liquid diet Protonix will be sufficient for PUD prophylaxis Heparin for DVT prophylaxis. Attestations 2 Medical Necessity Statement*: Requires further hospitalization for management of pancreatitis as patient requires IV pain medication, having recurrent episode nausea and vomiting while advancing diet. Diagnoses Acute pancreatitis K85.90
[2024-03-15] MEDS: trazodone 100 mg Tablet PO (20:17)
[2024-03-16] VITALS (8 sets, daily range): BP systolic 111–131; BP diastolic 62–69; PULSE 56–86; RESP 17–18; TEMP 36.7–36.8; O2SAT 94–96
[2024-03-16] MEDS: sodium chloride 0.9% 1,000 ML 100 ML IV (05:20)
[2024-03-16] MEDS: pantoprazole 40 mg SDV IVP (05:20)
[2024-03-16] MEDS: citalopram 20 mg Tablet 10 MG PO (05:20)
--- NOTE | 2024-03-16 12:26 | PM.DCS ---
Discharge Providers Date of Admission: 03/13/24 17:29 Date of Discharge: March 16, 2024 Attending Provider at Admission: Ran Ventura MD Attending Provider at Discharge: Ran Ventura MD Primary Care Provider: Michael Mahoney DO Diagnoses at Discharge Discharge Diagnosis (1) Acute pancreatitis: Status: Acute Reason for Visit Reason for Visit: N/V,abd pain Brief History: History as per HPI: Leslie Scott is a 59 year old female with a past medical history of recurrent pancreatitis for which a cause has not been able to be established. Patient has a past medical history of rheumatoid arthritis, breast cancer, currently only on anastrozole. She used to be on Orencia the past which was discontinued due to abdominal issues ? Pancreatitis. Currently she is on leflunomide. Patient presents to the emergency room today with chief complaints of nausea vomiting and abdominal pain over the past 3 days. She has been unable to keep any food or water down due to persistent vomiting. CT of the abdomen today found evidence of pancreatitis, lipase elevated at 3000. She was most recently admitted here in October with similar symptoms and was found to have pancreatitis. No obvious cause was able to be determined, she was referred to see GI as outpatient. She followed up in [place] for the same and received a diagnosis of visceral migraine . she had an upper GI endoscopy the results of which are not currently available. As far as she is aware no cause of the pancreatitis was found at the time. She would like referral to see a different game programer at discharge this time. No fever. No dyspnea palpitations or syncope. Hospital Course Hospital Course Patient was started on conservative treatment for pancreatitis with IV fluids, pain medication. Gradually advance her diet. She has been able to tolerate clear to full liquid diet for last 24 to 48 hours. She has not needed any Zofran or pain medication over the last 12 hours. She has been discharged in hemodynamically stable condition on full liquid diet with advised to continue taking multiple small meals and gradually advance to a regular diet within next 10 days. She is to follow-up with a primary care provider within next 1 week. Physical Exam Narrative: General: No acute distress, AO x3 HEENT: PERRLA, pupils bilaterally equal and reactive, pallors not present Chest: Normal vesicular breath sounds, no added sounds, equal good air entry bilaterally CVS: S1-S2 regular, no murmurs, no tachycardia, no gallops, no rubs Abdomen: Soft, tender to palpation in the epigastric region, no organomegaly, bowel sounds present Neuro: No focal deficits, no facial deformity, AO x3, power 5/5 in all limbs Discharge Data Studies Completed and Pending Completed Studies During Hospitalization Category Date Time Status CT abdomen pelvis w con* [id number] Stat Cat Scan 03/13/24 15:02 Completed Pending at discharge Category Date Time Status Blood Culture Routine Lab 03/13/24 19:30 Results Radiology Impressions Abdomen/Pelvis CT 03/13/24 15:02 IMPRESSION: 1. Slight peripancreatic edema as described above can be seen in the setting of acute pancreatitis. Recommend correlation with serum lipase levels. 2. Status post appendectomy and cholecystectomy. 3. Colonic diverticulosis with no evidence to suggest acute diverticulitis. Laboratory Results WBC 8.86 10^3/uL (3.29-11.43) 03/15/24 04:54 RBC 4.45 10^6/uL (3.85-5.65) 03/15/24 04:54 Hgb 13.10 g/dL (11.27-16.99) 03/15/24 04:54 Hct 38.7 % (36-47) 03/15/24 04:54 MCV 87.0 fl (85-98) 03/15/24 04:54 MCH 29.4 pg (27-33) 03/15/24 04:54 MCHC 33.9 g/dL (30-55) 03/15/24 04:54 RDW 13.7 % (12.1-15.1) 03/15/24 04:54 Plt Count 231 10^3/cmm (157-399) 03/15/24 04:54 MPV 8.6 fL (7.4-10.4) 03/15/24 04:54 Neut % (Auto) 84.3 % 03/15/24 04:54 Lymph % (Auto) 7.7 % 03/15/24 04:54 Winkler % (Auto) 7.0 % 03/15/24 04:54 Eos % (Auto) 0.7 % 03/15/24 04:54 Baso % (Auto) 0.0 % 03/15/24 04:54 Neut # (Auto) 7.47 10^3/uL (1.8-7.7) 03/15/24 04:54 Lymph # (Auto) 0.7 10^3/uL (0.8-4.8) L 03/15/24 04:54 Winkler # (Auto) 0.6 10^3/uL (0.2-0.9) 03/15/24 04:54 Eos # (Auto) 0.1 10^3/uL (0.0-0.8) 03/15/24 04:54 Baso # (Auto) 0.0 10^3/uL (0.0-0.1) 03/15/24 04:54 Nucleated RBC % (auto) 0 % 03/15/24 04:54 Nucleated RBCs # 0.0 /100WBC 03/15/24 04:54 Sodium 139 mmol/L (136-145) 03/15/24 04:54 Potassium 3.4 mmol/L (3.5-5.1) L 03/15/24 04:54 Chloride 103 mmol/L (98-107) 03/15/24 04:54 Carbon Dioxide 23 mmol/L (22-29) 03/15/24 04:54 Anion Gap 16.4 (5-19) 03/15/24 04:54 BUN 9 mg/dL (8-23) 03/15/24 04:54 Creatinine 0.5 mg/dL (0.5-0.9) 03/15/24 04:54 GFR Calculation 125.9 mL/min (90-130) 03/15/24 04:54 Glucose 120 mg/dL (65-115) H 03/15/24 04:54 Calculated Osmolality 288 mOsm/kg (285-295) 03/15/24 04:54 Lactic Acid 1.5 mmol/L (0.5-2.2) 03/13/24 19:30 Calcium 8.7 mg/dL (8.5-10.5) 03/15/24 04:54 Phosphorus 3.4 mg/dL (2.5-4.5) 03/14/24 05:01 Magnesium 2.1 mg/dL (1.7-2.3) 03/14/24 05:01 Total Bilirubin 0.5 mg/dL (0.15-1.2) 03/15/24 04:54 AST 15 U/L (0-32) 03/15/24 04:54 ALT 13 U/L (0-33) 03/15/24 04:54 Alkaline Phosphatase 105 U/L (35-105) 03/15/24 04:54 Total Protein 6.2 g/dL (6.6-8.7) L 03/15/24 04:54 Albumin 3.5 g/dL (3.5-5.2) 03/15/24 04:54 Globulin 2.7 g/dL (1.3-4.6) 03/15/24 04:54 Triglycerides 150 mg/dL (0-150) 03/13/24 19:22 Cholesterol 180 mg/dL (0-200) 03/13/24 19:22 LDL Cholesterol, Calc 105 mg/dL (50-129) 03/13/24 19:22 HDL Cholesterol 45 mg/dL (60-100) L 03/13/24 19:22 LDL/HDL Ratio 2.33 RATIO (0.00-3.22) 03/13/24 19:22 Cholesterol/HDL Ratio 4.00 mg/dL (0.0-4.40) 03/13/24 19:22 Lipase > 3000 U/L (13-60) H 03/13/24 15:03 Procalcitonin 0.04 ng/mL (0-0.5) 03/14/24 05:01 Urine Color Dark yellow (Yellow) A 03/13/24 15:07 Urine Appearance Clear (CLEAR) 03/13/24 15:07 Urine pH 5.5 (5-7) 03/13/24 15:07 Ur Specific Clark 1.024 (1.005-1.030) 03/13/24 15:07 Urine Protein Trace (Negative) A 03/13/24 15:07 Urine Glucose (UA) Negative (Normal) 03/13/24 15:07 Urine Ketones Negative (Negative) 03/13/24 15:07 Urine Blood Negative (Negative) 03/13/24 15:07 Urine Nitrate Negative (Negative) 03/13/24 15:07 Urine Bilirubin Negative (Negative) 03/13/24 15:07 Urine Urobilinogen 1.0 mg/dL (Negative) 03/13/24 15:07 Ur Leukocyte Esterase Negative (Negative) 03/13/24 15:07 Urine RBC 0-2 /hpf (0-2) 03/13/24 15:07 Urine WBC 0-5 /hpf (0-5) 03/13/24 15:07 Ur Squamous Epith Cells 0-5 /hpf (0-5) 03/13/24 15:07 Amorphous Sediment Not Reportable 03/13/24 15:07 Urine Bacteria None seen /hpf (NONE) 03/13/24 15:07 Hyaline Casts 1.21 /lpf 03/13/24 15:07 Ethyl Alcohol < 10 mg/dL (0-10) 03/13/24 19:22 Vitals Last Vital Signs Temp 98.2 F 03/16/24 12:11 Pulse 71 03/16/24 12:11 Resp 18 03/16/24 12:11 BP 131/68 03/16/24 12:11 Pulse Ox 95 03/16/24 12:11 O2 Del Method Room Air 03/16/24 12:11 FiO2 21 03/16/24 00:04 Discharge Plan Discharge Patient Disposition: Home Condition: Stable Prescriptions: New pantoprazole [Protonix] 40 mg tablet,delayed release (DR/EC) 40 mg PO QAM Qty: 30 0RF hydrocodone-acetaminophen 5-325 mg Tablet 1 tab PO Q4H PRN (Reason: Moderate To Severe Pain) Qty: 10 0RF ondansetron HCl 4 mg/5 mL solution 4 mg PO Q8H PRN (Reason: nausea and vomiting) 3 Days Qty: 45 0RF Continued citalopram [Celexa] 20 mg tablet 10 mg PO QAM trazodone 100 mg tablet 100 mg PO BEDTIME omeprazole 40 mg capsule,delayed release(DR/EC) 40 mg PO DAILY Qty: 90 1RF prednisone 20 mg tablet See Rx Instructions PO .COMPLEX PRN (Reason: joint pain flare) Qty: 30 1RF Rx Instructions: take 2 tab daily for 7 days as needed for arthritis flare PO PRN; prednisone 5 mg tablet 10 mg PO DAILY Qty: 60 5RF leflunomide 20 mg tablet 20 mg PO DAILY Qty: 30 5RF (DME) Custom insoles with orthopedic shoes See Rx Instructions .Route .MEDSUPPLY Qty: 1 0RF Rx Instructions: As directed by [facility] anastrozole 1 mg tablet 1 mg PO DAILY Qty: 90 0RF diclofenac sodium [Voltaren Arthritis Pain] 1 % gel 4 g topical QID PRN (Reason: Pain) Qty: 100 5RF Rx Instructions: apply to single knee, ankle, foot; for foot includes sole/toes/top of foot gabapentin 300 mg Capsule 300 mg PO BEDTIME PRN (Reason: NERVE PAIN) vitamin B complex Capsule 1 cap PO QAM alprazolam 0.25 mg tablet 0.25 mg PO BID PRN (Reason: Anxiety) Discharge Orders: Discharge Order (Routine); Ordered 03/16/24 Ordered By: Ran Ventura Referrals: Michael Mahoney DO [Primary Care Provider] - 1 week (We have notified your physician's clinic of the need for a follow-up appointment to be scheduled. If you have not heard from them within the next 2 business days, please call them directly. ) Patient Instructions: Hydrocodone/Acetaminophen (By mouth) (Vicodin, [place]), Ondansetron (By mouth), Pantoprazole (By mouth), Pancreatitis (DC), Full Liquid Diet (DC), Opioid Safety Activity Restrictions/Additional Instructions: Continue with full liquid diet for next 5 to 6 days. Advance to a softer diet for next 1 week and then a regular diet in next 2 weeks. Please take multiple small meals. Please follow-up with a primary care provider within next 1 week. Discharge Attestations Time Spent in Discharge Care*: greater than 30 min Specific Discharge Activities: educating patient, discussing with pcp/other providers, discussing with human services case manager/social workers/dc planners, documenting/other paperwork and evaluating patient/reviewing data Status at Discharge: Cognitive status at discharge: cognitively intact, Behavioral status at discharge: cooperative, Functional status at discharge: independent ambulation, Overall status at discharge: patient is back to baseline Quality Metrics Clinical Quality Measures [ No reported AMI, CVA or VTE this stay] Coding Level of Care Code 54100 Total time (in minutes) for Discharge: 60 Diagnoses Acute pancreatitis K85.90
== END 2024-03-16 13:41 | disposition home or self-care (01) | DRG 439 ==
LOC: ER 16:42 → MEDSURG 03-16 12:26
PROVIDERS: Student in an Organized Health Care Education/Training Program; Admitting Provider Student in an Organized Health Care Education/Training Program; Emergency Provider Emergency Medicine; PCP Electrodiagnostic Medicine; Visit Provider Student in an Organized Health Care Education/Training Program
DX: K85.90 Acute pancreatitis without necrosis or infection, unspecified (principal); R65.10 Systemic inflammatory response syndrome (SIRS) of non-infectious origin without acute organ dysfunction; M05.79 Rheumatoid arthritis with rheumatoid factor of multiple sites without organ or systems involvement; K21.9 Gastro-esophageal reflux disease without esophagitis; E86.0 Dehydration; R11.2 Nausea with vomiting, unspecified; Z85.3 Personal history of malignant neoplasm of breast; Z87.891 Personal history of nicotine dependence; Z79.890 Hormone replacement therapy
CPT/HCPCS: 36415; 74177; 80053; 80061; 80307; 81001; 83605; 83690; 83735; 84100; 84145; 85025; 87040; 93005; 94660; 94664; 96372; 96374; 96375; 99285; G0378; J1644; J2270; J2405; J2470; J2550; J2765; J7030

== ENCOUNTER → 2024-05-02 12:38 | Outpatient (BNVA) | payer MEDICARE, MEDICAID, SELFPAY | PROVIDERS: PCP Electrodiagnostic Medicine; Visit Provider Internal Medicine Rheumatology | DX: M05.79 Rheumatoid arthritis with rheumatoid factor of multiple sites without organ or systems involvement (principal); M06.9 Rheumatoid arthritis, unspecified; Z79.899 Other long term (current) drug therapy; Z71.85 Encounter for immunization safety counseling; Z85.3 Personal history of malignant neoplasm of breast; D50.8 Other iron deficiency anemias | CPT/HCPCS: 99215 ==

== ENCOUNTER → 2024-05-04 10:26 | Outpatient (BNVA) | payer MEDICARE, MEDICAID, SELFPAY | PROVIDERS: PCP Electrodiagnostic Medicine; Visit Provider Physician Assistant | DX: M17.0 Bilateral primary osteoarthritis of knee (principal); M23.305 Other meniscus derangements, unspecified medial meniscus, unspecified knee; M25.562 Pain in left knee | CPT/HCPCS: 20610; 99213 ==

== ENCOUNTER 2024-06-19 09:32 | Oncology outpatient (recurring) (ONCR) | payer MEDICARE, MEDICAID, SELFPAY ==
[2024-06-19 10:00] LABS: Basophils # 0.1 10^3/uL (0.0-0.1); Basophils % 0.6 %; Eosinophils # 0.1 10^3/uL (0.0-0.8); Hematocrit 39.9 % (36-47); Lymphocytes # 0.9 10^3/uL (0.8-4.8); Lymphocytes % 8.1 %; Mean Corpuscular HGB Conc 33.1 g/dL (30-55); Mean Corpuscular Hemoglobin 29.6 pg (27-33); Mean Corpuscular Volume 89.5 fl (85-98); Mean Platelet Volume 8.8 fL (7.4-10.4); Monocytes # 0.6 10^3/uL (0.2-0.9); Monocytes % 5.5 %; Neutrophils # 9.12 10^3/uL (1.8-7.7); Neutrophils % 84.4 %; Nucleated Red Blood Cells % 0 %; Platelet Count 280 10^3/cmm (157-399); Red Blood Count 4.46 10^6/uL (3.85-5.65); Red Cell Distribution Width 13.2 % (12.1-15.1)
[2024-06-19 10:21] LABS: Alanine Aminotransferase 20 U/L (0-33); Albumin Level 4.1 g/dL (3.5-5.2); Alkaline Phosphatase 105 U/L (35-105); Anion Gap 16.6 (5-19); Aspartate Amino Transferase 17 U/L (0-32); Blood Urea Nitrogen 12 mg/dL (8-23); Calcium 9.2 mg/dL (8.5-10.5); Carbon Dioxide 23 mmol/L (22-29); Chloride 102 mmol/L (98-107); Globulin 2.8 g/dL (1.3-4.6); Glucose 149 mg/dL (65-115); Osmolality Calculated 289 mOsm/kg (285-295); Potassium 3.6 mmol/L (3.5-5.1); Sodium 138 mmol/L (136-145); Total Bilirubin 0.4 mg/dL (0.15-1.2); Total Protein 6.9 g/dL (6.6-8.7)
== END 2024-07-16 23:59 | disposition home or self-care (01) ==
PROVIDERS: PCP Electrodiagnostic Medicine; Visit Provider Internal Medicine Medical Oncology
DX: C50.112 Malignant neoplasm of central portion of left female breast (principal); Z17.0 Estrogen receptor positive status [ER+]; Z79.899 Other long term (current) drug therapy; Z90.13 Acquired absence of bilateral breasts and nipples; G43.909 Migraine, unspecified, not intractable, without status migrainosus; D89.89 Other specified disorders involving the immune mechanism, not elsewhere classified; Z79.811 Long term (current) use of aromatase inhibitors
CPT/HCPCS: 36415; 80053; 85025; 99214

== ENCOUNTER 2024-08-14 12:10 | Oncology outpatient (recurring) (ONCR) | payer MEDICARE, MEDICAID, SELFPAY ==
[2024-08-14 12:45] LABS: Basophils % 0.5 %; Eosinophils # 0.1 10^3/uL (0.0-0.8); Eosinophils % 1.1 %; Hematocrit 36.7 % (36-47); Lymphocytes # 0.9 10^3/uL (0.8-4.8); Lymphocytes % 10.6 %; Mean Corpuscular HGB Conc 32.7 g/dL (30-55); Mean Corpuscular Hemoglobin 28.8 pg (27-33); Mean Platelet Volume 9.1 fL (7.4-10.4); Monocytes # 0.6 10^3/uL (0.2-0.9); Monocytes % 6.7 %; Neutrophils # 6.59 10^3/uL (1.8-7.7); Neutrophils % 80.7 %; Nucleated Red Blood Cells % 0 %; Platelet Count 260 10^3/cmm (157-399); Red Blood Count 4.17 10^6/uL (3.85-5.65); Red Cell Distribution Width 13.4 % (12.1-15.1); White Blood Count 8.17 10^3/uL (3.29-11.43)
[2024-08-14 12:55] LABS: Erythrocyte Sedimentation Rate 29 mm/hr (0-15)
[2024-08-14 13:12] LABS: Alanine Aminotransferase 25 U/L (0-33); Alkaline Phosphatase 87 U/L (35-105); Anion Gap 14.8 (5-19); Aspartate Amino Transferase 20 U/L (0-32); Blood Urea Nitrogen 9 mg/dL (8-23); C Reactive Protein 11.2 mg/L (0.0-4.9); CA 15-3 10.3 U/mL (0-25); Calcium 9.1 mg/dL (8.5-10.5); Carbon Dioxide 23 mmol/L (22-29); Chloride 104 mmol/L (98-107); Globulin 2.8 g/dL (1.3-4.6); Glucose 122 mg/dL (65-115); Osmolality Calculated 286 mOsm/kg (285-295); Potassium 3.8 mmol/L (3.5-5.1); Sodium 138 mmol/L (136-145); Total Bilirubin 0.2 mg/dL (0.15-1.2); Total Protein 6.8 g/dL (6.6-8.7)
== END 2024-08-15 23:59 | disposition home or self-care (01) ==
PROVIDERS: Internal Medicine Medical Oncology; Internal Medicine Rheumatology; PCP Electrodiagnostic Medicine; Visit Provider Internal Medicine
DX: C50.112 Malignant neoplasm of central portion of left female breast (principal); Z17.0 Estrogen receptor positive status [ER+]; M05.79 Rheumatoid arthritis with rheumatoid factor of multiple sites without organ or systems involvement; G43.909 Migraine, unspecified, not intractable, without status migrainosus; Z90.710 Acquired absence of both cervix and uterus; Z79.811 Long term (current) use of aromatase inhibitors; Z90.13 Acquired absence of bilateral breasts and nipples; R10.9 Unspecified abdominal pain; Z86.0100 Personal history of colon polyps, unspecified
CPT/HCPCS: 36415; 80053; 85025; 85651; 86140; 86300; 99214

== ENCOUNTER 2024-08-29 16:05 | Emergency (ER) | payer MEDICARE, MEDICAID, SELFPAY ==
[2024-08-29 16:09] VITALS: BP 131/84; PULSE 79; RESP 16; TEMP 36.7; O2SAT 93
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
[2024-08-29] MEDS: HYDROcodone-acetaminophen 5-325 mg Tablet 1 TAB PO (18:17)
== END 2024-08-29 18:19 | disposition home or self-care (01) ==
PROVIDERS: Emergency Provider Emergency Medicine; PCP Electrodiagnostic Medicine
DX: S13.4XXA Sprain of ligaments of cervical spine, initial encounter (principal); Z87.891 Personal history of nicotine dependence; Z85.3 Personal history of malignant neoplasm of breast; V89.2XXA Person injured in unspecified motor-vehicle accident, traffic, initial encounter
CPT/HCPCS: 72125; 72131; 99284; J9999

== ENCOUNTER 2024-11-13 13:01 | Oncology outpatient (recurring) (ONCR) | payer MEDICARE, MEDICAID, SELFPAY ==
[2024-11-13 13:28] LABS: Hematocrit 38.6 % (36-47); Hemoglobin 12.90 g/dL (11.27-16.99); Mean Corpuscular HGB Conc 33.4 g/dL (30-55); Mean Corpuscular Hemoglobin 29.0 pg (27-33); Mean Corpuscular Volume 86.7 fl (85-98); Nucleated Red Blood Cells % 0 %; Platelet Count 286 10^3/cmm (157-399); Red Blood Count 4.45 10^6/uL (3.85-5.65); White Blood Count 8.94 10^3/uL (3.29-11.43)
[2024-11-13 13:56] LABS: Alanine Aminotransferase 18 U/L (0-33); Albumin Level 4.2 g/dL (3.5-5.2); Alkaline Phosphatase 113 U/L (35-105); Anion Gap 17.6 (5-19); Aspartate Amino Transferase 21 U/L (0-32); Blood Urea Nitrogen 8 mg/dL (8-23); CA 15-3 11.8 U/mL (0-25); Calcium 9.2 mg/dL (8.5-10.5); Carbon Dioxide 25 mmol/L (22-29); Chloride 100 mmol/L (98-107); Creatinine Clr Calc Pharmacy 94.7607; Globulin 3.1 g/dL (1.3-4.6); Glucose 96 mg/dL (65-115); Osmolality Calculated 284 mOsm/kg (285-295); Potassium 4.6 mmol/L (3.5-5.1); Sodium 138 mmol/L (136-145); Total Protein 7.3 g/dL (6.6-8.7)
== END 2024-11-15 23:59 | disposition home or self-care (01) ==
PROVIDERS: Internal Medicine Medical Oncology; PCP Electrodiagnostic Medicine; Visit Provider Internal Medicine
DX: C50.112 Malignant neoplasm of central portion of left female breast (principal); Z17.0 Estrogen receptor positive status [ER+]; G43.909 Migraine, unspecified, not intractable, without status migrainosus; M06.9 Rheumatoid arthritis, unspecified; Z79.899 Other long term (current) drug therapy; Z90.13 Acquired absence of bilateral breasts and nipples; Z95.828 Presence of other vascular implants and grafts; Z87.891 Personal history of nicotine dependence; Z90.710 Acquired absence of both cervix and uterus
CPT/HCPCS: 36415; 80053; 85025; 86300; 99214

== ENCOUNTER → 2024-11-22 14:03 | Outpatient (BNVA) | payer MEDICARE, MEDICAID, SELFPAY | PROVIDERS: PCP Electrodiagnostic Medicine; Visit Provider Internal Medicine Rheumatology | DX: M06.9 Rheumatoid arthritis, unspecified (principal); Z79.899 Other long term (current) drug therapy; M05.79 Rheumatoid arthritis with rheumatoid factor of multiple sites without organ or systems involvement; Z71.85 Encounter for immunization safety counseling; Z85.3 Personal history of malignant neoplasm of breast; D50.8 Other iron deficiency anemias | CPT/HCPCS: 99214 ==

== ENCOUNTER 2024-11-29 14:03 | Outpatient (CLI) | payer MEDICARE, MEDICAID, SELFPAY ==
[2024-11-29 15:36] LABS: Hepatitis B Surface Antigen Non-Reactive (Nonreactive)
== END 2024-11-29 14:04 | disposition home or self-care (01) ==
LOC: LAB 14:06
PROVIDERS: PCP Electrodiagnostic Medicine; Referring Provider Internal Medicine Rheumatology; Visit Provider Internal Medicine
DX: K85.90 Acute pancreatitis without necrosis or infection, unspecified (principal); Z79.899 Other long term (current) drug therapy
CPT/HCPCS: 82306; 86480; 86704; 86803; 87340

== ENCOUNTER 2024-12-04 13:22 | Oncology outpatient (recurring) (ONCR) | payer MEDICARE, MEDICAID, SELFPAY ==
--- NOTE | 2024-12-04 14:48 | N.ONRAD NP_ITS ---
Radiation Oncology New Patient Visit Patient: Leslie Scott MR#: [id number] : 1965 Age: 59 Sex: Female Dictated by: Marcel Knapp DO/AUBRIE Date of Service: 12/04/2024 Referring Physician(s) : Dr. Toni Gil MD Diagnosis: M06.042 - rheumatoid arthritis without rheumatoid factor, left hand, Diagnosed 12/04/2024 (active), M06.041 - rheumatoid arthritis without rheumatoid factor, right hand, Diagnosed 12/04/2024 (active) and M06.9 - rheumatoid arthritis, unspecified, Diagnosed 12/04/2024 (active). Seropositive RA Dx in 2008, presently on LEFLUNOMIDE & PREDNISONE, PROIR TREATMENT WITH METHOTREXATE, RINVOQ, ORENCIA, RITUXIMAB TO TRIALED LATER, UTERINE CA TREATED WITH KELLY/BSO 2010 AND BREAST CA 2021(SURGERY/CHEMO ONLY). STAGE: N/A ICD-10: M06.041, M06.042 Radiotherapy to date: Summary > No prior radiation therapy. Chief Complaint / History of Present Illness: Patient is here to discuss LDRT for RA. This is a very pleasant 59-year-old female who is had a diagnosis of RA since 2008. She is been treated for multiple agents to include METHOTREXATE, RINVOQ, ORENCIA. She is presently on LEFLUNOMIDE & PREDNISONE. She is to be trialed on rituximab in the future. She has previously had uterine cancer treated by KELLY/BSO in 2010 and breast cancer treated with surgery and chemotherapy in July 2021. Current Medications: Alprazolam, vitamin C, biotin, vitamin D, Celexa, letrozole, fish oil, O dancer Moisés 8 mg, Protonix, prednisone, trazodone, vitamin B, and Leflunomide Allergies: meperidine (From Demerol) Allergy (Unknown, Verified 11/13/24 13:39) Unknown nalbuphine (From Nubain) Allergy (Verified 11/13/24 13:39) Unknown Sulfa (Sulfonamide Antibiotics) Allergy (Verified 11/13/24 13:39) Unknown tetracycline Allergy (Verified 11/13/24 13:39) Unknown tramadol Allergy (Verified 11/13/24 13:39) Unknown dexamethasone Adverse Reaction (Severe, Verified 11/13/24 13:39) gastritis Medical History: No history of collagen vascular disease. No previous radiation therapy. alprazolam 0.25 mg PO BID PRN ascorbic acid (vitamin C) (Vitamin C) 500 mg PO DAILY biotin (Hair, Skin and Nails (biotin)) 10,000 mcg PO DAILY cholecalciferol (vitamin D3) (Vitamin D3) 50 mcg PO DAILY citalopram (Celexa) 10 mg PO QAM leflunomide 20 mg PO DAILY letrozole TAKE ONE TABLET BY MOUTH DAILY omega 8-pqj-dep-fish oil 1,000 (120-180) mg (Fish Oil) 1 cap PO DAILY ondansetron 8 mg PO DAILY PRN pantoprazole (Protonix) 40 mg PO QAM prednisone Take 2 tablets by mouth daily for 7 days as needed for arthritis flare. trazodone 100 mg PO BEDTIME vitamin B complex 1 cap PO QAM Surgical History: History of hysterectomy with bilateral oophorectomy History of breast reconstruction bilateral Hx of colonoscopy with polypectomy History of mastectomy Bilateral December, S/P tonsillectomy and adenoidectomy History of cholecystectomy History of appendectomy Family History: Other Cancer Heart disease Hypertension Social History: Smoking and tobacco/nicotine status: never used tobacco/nicotine Quit status (tobacco/nicotine): has quit using Year quit tobacco: 2009 Former quit date comment: 10 to 15 years smoked Second hand smoke exposure: No Alcohol intake: never Substance/Drug Use: never Adopted: No Lives independently: Yes Housing: House Current Complaints / Review of Systems: . As above Vital Signs: Performed on 12/04/2024 2:04 PM BMI - 30.732 kg/m2 (high), Height - 66 in, Weight - 190.4 lbs, Temperature - 97.5 f, Pulse - 85 /min, Respiration - 17 /min, O2 Sat - 98 %, Pain - 5, Fatigue - 0 and BP - 116/ 67 mm(hg). Physical Exam: AAOx3. Head is normocephalic without masses. Neck without lymphadenopathy. Lungs are clear to auscultation heart is regular rate and rhythm. Abdomen soft soft nontender with no hepatosplenomegaly. Extremities intact x 4. No clubbing no swelling just point tenderness in MIP/PIP joints bilaterally. Range of motion appears grossly equal. Performance Status: KPS 90 Pathology: Primary, m06.042 - rheumatoid arthritis without rheumatoid factor, left hand, Diagnosed 12/04/2024 (active) , Primary, m06.041 - rheumatoid arthritis without rheumatoid factor, right hand, Diagnosed 12/04/2024 (active) and Primary, m06.9 - rheumatoid arthritis, unspecified, Diagnosed 12/04/2024 (active) . Lab: Imaging: See HPI Impression: M06.042 - rheumatoid arthritis without rheumatoid factor, left hand, Diagnosed 12/04/2024 (active), M06.041 - rheumatoid arthritis without rheumatoid factor, right hand, Diagnosed 12/04/2024 (active) and M06.9 - rheumatoid arthritis, unspecified, Diagnosed 12/04/2024 (active). Seropositive RA Dx in 2008, presently on LEFLUNOMIDE & PREDNISONE, PROIR TREATMENT WITH METHOTREXATE, RINVOQ, ORENCIA, RITUXIMAB TO TRIALED LATER, UTERINE CA TREATED WITH KELLY/BSO 2010 AND BREAST CA 2021(SURGERY/CHEMO ONLY). STAGE: N/A ICD-10: M06.041, M06.042 Plan: Options were discussed with the patient regarding treatment for RA with LDRT. Questions answered. Patient signed informed consent and under her own free will after all questions answered Patient underwent simulation to both hands in the treatment room. Plan is LD RT to a total dose of 300 cGy in 6 divided doses of 50 cGy per fraction. Signed by: 12/04/2024 2:46:57 PM <<Signature on File>> Time spent with patient/record review/and record preparation: CPT Code: CPT Code:
== END 2024-12-16 23:59 | disposition home or self-care (01) ==
PROVIDERS: PCP Electrodiagnostic Medicine; Visit Provider Radiology Radiation Oncology
DX: C50.112 Malignant neoplasm of central portion of left female breast (principal); Z17.0 Estrogen receptor positive status [ER+]; G43.909 Migraine, unspecified, not intractable, without status migrainosus; M06.9 Rheumatoid arthritis, unspecified; Z79.899 Other long term (current) drug therapy; Z90.13 Acquired absence of bilateral breasts and nipples; Z95.828 Presence of other vascular implants and grafts; Z87.891 Personal history of nicotine dependence; Z90.710 Acquired absence of both cervix and uterus
CPT/HCPCS: 77262; 77285; 99204

== ENCOUNTER 2024-12-25 08:25 | Outpatient (CLI) | payer MEDICARE, MEDICAID, SELFPAY ==
--- NOTE | 2024-12-25 08:32 | MR_ITS ---
WS: [id number] MRI ABDOMEN WITH AND WITHOUT CONTRAST. COMPARISON: CT abdomen 03/13/2024, prior MRCP 12/30/2023 Multiplanar, multisequence imaging is performed with and without contrast. Sagittal and axial T1 fat sat sequences post-MultiHance 19 cc IV. History: History of pancreatic cyst., Breast cancer, double mastectomy. No abnormality of the visualized lung bases. No pleural effusions. The heart is normal size. Pancreas: Normal appearance of the pancreas. There is no cystic or solid mass. Very slight diffuse pancreatic atrophy is expected for age. There is no pancreatic duct dilatation. Normal common duct and the pancreatic head. No adjacent fluid collection. There is no enhancement. No significant hepatic steatosis. Liver and spleen are normal size. Status post cholecystectomy. Normal intrahepatic ducts and normal portal vein. No adrenal mass. Kidneys are enhancing normally. There is no renal obstruction. There is a tiny cortical cyst upper pole RIGHT renal cortex. Visualized aorta is normal. No pseudocysts or fluid collections. Visualized GI tract is negative. No soft tissue abnormalities. MR/MR abdomen wo/w con* [id number] IMPRESSION: 1. No evidence for a pancreatic cyst or mass. 2. Very mild atrophy of the pancreas. No pancreatic duct dilatation. 3. Prior cholecystectomy. 4. No ascites. No pleural effusion.
[2024-12-25] MEDS: gadobenate dimeglumine 20 mL vial IV (10:07)
== END 2024-12-25 08:26 | disposition home or self-care (01) ==
LOC: RAD 08:26
PROVIDERS: PCP Electrodiagnostic Medicine; Visit Provider Internal Medicine
DX: M17.0 Bilateral primary osteoarthritis of knee (principal); Z71.89 Other specified counseling; K86.89 Other specified diseases of pancreas; Z90.49 Acquired absence of other specified parts of digestive tract; Z86.018 Personal history of other benign neoplasm; Z85.3 Personal history of malignant neoplasm of breast; Z90.13 Acquired absence of bilateral breasts and nipples; M25.861 Other specified joint disorders, right knee; M25.862 Other specified joint disorders, left knee
CPT/HCPCS: 20610; 73560; 73565; 74183; 99213; J3301; J9999

== ENCOUNTER 2024-12-29 14:07 | Inpatient (IN) | payer MEDICARE, MEDICAID, SELFPAY ==
[2024-12-29] VITALS (9 sets, daily range): BP systolic 118–161; BP diastolic 68–85; PULSE 58–68; RESP 16–22; TEMP 36.4–36.8; O2SAT 91–99; BMI 30.3
--- NOTE | 2024-12-29 14:11 | ECG_ITS ---
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 Measurements Intervals [place] Rate: 73 P: 29 IA: 130 QRS: -17 QRSD: 96 T: 44 QT: 374 QTc: 414 Interpretive Statements SINUS RHYTHM INCOMPLETE RIGHT BUNDLE BRANCH BLOCK [90+ ms QRS DURATION, TERMINAL R IN V1/V2, 40+ ms S IN I/aVL/V4/V5/V6] VOLTAGE CRITERIA FOR LVH [MEETS CRITERIA IN ONE OF: R(aVL), S(V1), R(V5), R(V5/V6)+S(V1)] Compared to ECG 03/13/2024 15:31:34 No significant changes Electronically Signed On 12-29-2024 18:49:29 CDT by Ryley Aguayo M.D. [email or web address]
--- OUTSIDE RECORDS SUMMARY | 2024-12-29 14:12 | XMS_ITS | Clinical Summary ---
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 07/22/2015 Active citalopram (CeleXA) 20 mg tablet Take 20 mg by mouth daily. 07/22/2015 Active HYDROcodone-acet aminophen (NORCO) 5-325 mg tablet Take 1 Tablet by mouth every 4 hours as needed for Pain, Moderate. Max Daily Amount: 6 Tablet 12 Tablet None 07/22/2015 Active estradioL (ESTRACE) 1 mg tablet Take 1 mg by mouth daily. 07/22/2015 Active ALPRAZolam (XANAX) 0.25 mg tablet Take 0.25 mg by mouth Daily LATE. 07/22/2015 Active traZODone (DESYREL) 100 mg tablet Take 100 mg by mouth daily at bedtime. 07/22/2015 Active multivitamin (DAILY-FLACA) tablet Take 1 Tablet by mouth daily. 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 Gender Identity Not on file Sexual Orientation Not on file Last Filed Vital Signs Vital Sign Reading Time Taken Comments Blood Pressure 109/69 07/22/2015 11:43 AM CDT Pulse - - Temperature 36.3 C (97.4 F) 07/22/2015 10:09 AM CDT Respiratory Rate 20 07/22/2015 11:43 AM CDT Oxygen Saturation - - Inhaled Oxygen Concentration - - Weight 120.2 kg (265 lb) 07/22/2015 10:09 AM CDT Height 167.6 cm (5' 6 ) 07/22/2015 10:09 AM CDT Body Mass Index 42.77 07/22/2015 10:09 AM CDT Plan of Treatment Health Maintenance Due Date Last Done Comments DTAP/TDAP/TD VACCINES (1 - Tdap) 02/04/1983 HPV/Cotest (21-29) 02/04/1985 CERVICAL CANCER SCREENING 02/04/1994 HPV/Cotest (30-65) 02/04/1994 PAP SMEAR 02/04/1994 BREAST CANCER SCREENING 2004 COLORECTAL SCREENING 02/04/2009 Colorectal Cancer Screening 02/04/2009 FIT-DNA Q 3 years 02/04/2009 FIT/FOBT Q 1 year 02/04/2009 Flex Sig/CT Colonography Q 5 years 02/04/2009 ZOSTER VACCINE (1 of 2) 02/04/2014 INFLUENZA VACCINE (#1) 2024 RSV VACCINE (60+ or ) (1 - 1-dose 75+ series) 02/04/2039 HEPATITIS B VACCINES Aged Out No long er eligible based on patient's age to complete this topic
--- OUTSIDE RECORDS SUMMARY | 2024-12-29 14:12 | XMS_ITS | Clinical Summary ---
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 Active omeprazole (PRILOSEC) 20 mg Capsule, Delayed Release(E.C.) Take 20 mg by mouth daily. Active citalopram (CELEXA) 20 mg tablet Take 20 mg by mouth daily. Active traZODone (DESYREL) 100 mg tablet Take 100 mg by mouth daily at bedtime. Active ALPRAZolam (XANAX) 0.25 mg tablet Take 0.25 mg by mouth Daily LATE. Active multivitamin (DAILY-FLACA) tablet Take 1 Tablet by mouth daily. Active HYDROcodone-acet aminophen (NORCO) 5-325 mg tablet Take 1 Tablet by mouth every 4 hours as needed for Pain, Moderate. Max Daily Amount: 6 Tablet 12 Tablet None 07/22/2015 Active Social History Tobacco Use Types Packs/Day Years Used Date Smoking Tobacco: Former Smokeless Tobacco: Never Alcohol Use Standard Drinks/Week Comments No 0 (1 standard drink = 0.6 oz pur e alcohol) Comments No Sex and Gender Information Value Date Recorded Sex Assigned at Not on file Legal Sex Female 10:00 AM CDT Gender Identity Not on file Sexual Orientation Not on file Last Filed Vital Signs Vital Sign Reading Time Taken Comments Blood Pressure 109/69 07/22/2015 11:43 AM CDT Pulse - - Temperature 36.3 C (97.4 F) 07/22/2015 10:09 AM CDT Respiratory Rate 20 07/22/2015 11:43 AM CDT Oxygen Saturation 94% 07/22/2015 11:43 AM CDT Inhaled Oxygen Concentration - - Weight 120.2 [...] on patient's age to complete this topic Insurance [employer] CHOICE POS
[2024-12-29 16:36] LABS: Hematocrit 42.6 % (36-47); Hemoglobin 14.20 g/dL (11.27-16.99); Mean Corpuscular HGB Conc 33.3 g/dL (30-55); Mean Corpuscular Hemoglobin 28.8 pg (27-33); Mean Corpuscular Volume 86.4 fl (85-98); Nucleated Red Blood Cells % 0 %; Platelet Count 324 10^3/cmm (157-399); Red Blood Count 4.93 10^6/uL (3.85-5.65); White Blood Count 16.99 10^3/uL (3.29-11.43)
[2024-12-29 16:57] LABS: Troponin(5th) Baseline < 6 ng/L (0-10)
[2024-12-29 17:00] LABS: Alanine Aminotransferase 29 U/L (0-33); Albumin Level 4.1 g/dL (3.5-5.2); Alkaline Phosphatase 97 U/L (35-105); Anion Gap 15.9 (5-19); Aspartate Amino Transferase 18 U/L (0-32); Blood Urea Nitrogen 15 mg/dL (8-23); Calcium 9.2 mg/dL (8.5-10.5); Carbon Dioxide 25 mmol/L (22-29); Chloride 97 mmol/L (98-107); Creatinine Clr Calc Pharmacy 94.0262; Globulin 2.7 g/dL (1.3-4.6); Glucose 124 mg/dL (65-115); Osmolality Calculated 280 mOsm/kg (285-295); Potassium 3.9 mmol/L (3.5-5.1); Sodium 134 mmol/L (136-145); Total Protein 6.8 g/dL (6.6-8.7)
--- NOTE | 2024-12-29 18:35 | ED_ITS ---
Documented by User: DEMI Nevarez 12/30/24 00:32 HPI - Chest Pain 2 General: Chief Complaint: Chest Pain Stated Complaint: chest pain Time Seen by Provider: 12/29/24 18:04 History of Present Illness: Patient is a 59-year-old female without previous cardiac history reports to the emergency room with chest discomfort she describes as central chest pain, center of her chest, associated with diaphoresis. No shortness of breath. No nausea. Status post hysterectomy. Mother had history of CAD in her 70s, father in his 50s. Status post hysterectomy, right-sided breast cancer, ovarian cancer history. Never had a workup for coronary artery disease, or ACS Associated symptoms: Reports abdominal pain, nausea and vomiting; Deny dyspnea, fever(s) or palpitations Related Data Home Medications ?Medication ?Instructions ?Recorded ?Confirmed citalopram 20 mg tablet (Celexa) 10 mg PO QAM 07/17/19 12/29/24 trazodone 100 mg tablet 100 mg PO BEDTIME 07/17/19 0 12/29/24 vitamin B complex 1 cap PO QAM 10/05/21 alprazolam 0.25 mg tablet 0.25 mg PO BID PRN Anxiety 0 05/14/22 12/29/24 ondansetron 8 mg disintegrating 8 mg PO DAILY PRN Naus ea 08/14/24 12/29/24 tablet ascorbic acid (vitamin C) 500 mg 500 mg PO DAILY 08/2912/29/24 tablet (Vitamin C) biotin 10,000 mcg chewable tablet 10,000 mcg PO DAILY 08/29/24 12/29/24 (Hair, Skin and Nails (biotin)) cholecalciferol (vitamin D3) 50 50 mcg PO DAILY 12/29/24 mcg (2,000 unit) capsule (Vitamin D3) omega 7-ike-qch-fish oil 1,000 mg 1 cap PO DAILY 08/2912/29/24 (120 mg-180 mg) capsule (Fish Oil) Previous Rx's ?Medication ?Instructions ?Recorded pantoprazole 40 mg tablet,delayed 40 mg PO QAM #30 tab s 03/16/24 release (Protonix) leflunomide 20 mg tablet 20 mg PO DAILY #90 tabs 11/09 prednisone 5 mg tablet 5 mg PO DAILY #90 tabs 11/22 letrozole 2.5 mg tablet See Rx Instructions .Route 0 12/11/24 .COMPLEX #30 tabs Allergies Allergy/AdvReac Type Severity Reaction Status Date / Time meperidine (From Demerol) Allergy Unknown Unknown Verified 12/29/24 14:17 nalbuphine (From Nubain) Allergy Unknown Verified 12/29/24 14:17 Sulfa (Sulfonamide Allergy Unknown Verified 12/29/24 14:17 Antibiotics) tetracycline Allergy Unknown Verified 12/29/24 14:17 tramadol Allergy Unknown Verified 12/29/24 14:17 dexamethasone AdvReac Severe gastritis Verified 12/29/24 14:17 Review of Systems 2 Const: Denies: fever(s) or chills Card: Reports: chest pain; Denies: palpitations, irregular heart rhythm or dyspnea on exertion Resp: Denies: dyspnea, productive cough or wheezing GI: Reports: abdominal pain, nausea and vomiting : Denies: difficulty voiding Musc: Reports: joint pain, joint swelling and limited range of motion Skin/Breast: Denies: changes in skin color or dry skin Neuro: Denies: numbness in extremities or weakness in extremities Psych: Denies: anxiety Leland/Lymph: Denies: easy bruising or easy bleeding PFSH ED 2 PFSH: Medical History (Updated 12/30/24 @ 06:33 by Katie Ng MD) Rheumatoid arthritis Acute pancreatitis Hx of breast cancer Immunization counseling Seropositive rheumatoid arthritis of multiple sites High risk medication use Autoimmune pancreatitis History of endometrial cancer Hypokalemia Transaminitis Iron deficiency Skin rash COVID-19 Gastritis History of eye disorder Fatigue Port-A-Cath in place Invasive ductal carcinoma of left breast Asthma Endometriosis GERD (gastroesophageal reflux disease) Surgical History History of hysterectomy with bilateral oophorectomy History of breast reconstruction bilateral Hx of colonoscopy with polypectomy History of mastectomy Bilateral December, S/P tonsillectomy and adenoidectomy History of cholecystectomy History of appendectomy Family History Other Cancer Heart disease Hypertension Social History Smoking and tobacco/nicotine status: never used tobacco/nicotine Quit status (tobacco/nicotine): has quit using Year quit tobacco: 2009 Former quit date comment: 10 to 15 years smoked Second hand smoke exposure: No Alcohol intake: never Substance/Drug Use: never Adopted: No Lives independently: Yes Housing: House Physical Exam 2 Const: COMMON NORMALS: no acute distress and alert HENMT: COMMON NORMALS: normocephalic and atraumatic HEAD & SCALP: n ormocephalic and atraumatic Eye: COMMON NORMALS: Equal, round and reactive pupils present and EOMs intact bilaterally PUPIL: Yes Equal, round and reactive pupils present Neck/C-Spine: COMMON NORMALS: full ROM and no lymphadenopathy Lymph: LYMPHATIC: no lymphadenopathy noted Chest: COMMONS NORMALS: normal inspection of the chest Resp: COMMON NORMALS: normal respiratory effort and No retractions Cardio: COMMON NORMALS: Peripheral pulses 2+ throughout PERIPHERAL PULSES: Peripheral pulses 2+ throughout GI: COMMON NORMALS: Normal to inspection, nondistended, normoactive bowel sounds present and Soft to palpation PALPATION: Yes Soft to palpation : COMMON NORMALS: Yes no CVA tenderness BLADDER/KIDNEY EXAM: Yes no CVA tenderness Back/Pelvis: COMMON NORMALS: no CVA tenderness Extremity: COMMON NORMALS: normal to inspection, full ROM and capillary refill normal Neuro: SENSORIUM/ORIENTATION: Yes alert Psych: COMMON NORMALS: mental status grossly normal, Normal thought process present and cooperative THOUGHT PROCESS: Normal thought process present Skin: GENERAL SKIN EXAM: dry skin Course 2 Reevaluation(s): Reevaluation #1: Finally CT was back after just over 3 hours of waiting to be read. Pancreatitis is noted. Patient is improved after morphine. Consultations: Consultation #1: Discussed with Dr. Ng, hospitalist, agrees for admission. Vital Signs: Vital signs: Vital Signs Temperature 98.3 F 12/30/24 12:00 Pulse Rate 59 L 12/30/24 12:00 Respiratory Rate 16 12/30/24 12:00 Blood Pressure 136/63 12/30/24 12:00 Pulse Oximetry 95 12/30/24 12:00 Oxygen Delivery Me thod Room Air 12/30/24 12:00 MDM - Chest Pain Medical Decision Making Patient is a 59-year-old female with history of autoimmune pancreatitis presents initially with chest discomfort, nausea, vomiting. After she was given a GI cocktail, further determined it was more related to her history of pancreatitis. She was tender on second examination. Given this thought process, CT was obtained with contrast to make sure she did not have an abscess/phlegmon/necrosis concern. Her pain was controlled, her nausea was controlled, and she was ruled out completely from an acute coronary syndrome standpoint. I called hospitalist on-call that excepted admission. IV fluids were given. She will be turned over to the hospitalist service. Medical Records I reviewed the patient's medical records. Lab Data I reviewed the patient's lab results. 12/30/24 02:18 12/30/24 02:18 Radiology Impressions Abdomen/Pelvis CT 12/29/24 19:32 IMPRESSION: 1. Mild mesenteric fat stranding adjacent to the pancreatic tail which may represent changes of early acute pancreatitis. No abscess formation or pseudocyst. 2. Colonic diverticulosis without CT evidence of acute diverticulitis. COMMENTS: Consistent with the [employer]'s Incidental Findings Committee white paper (J Am Lucero Radiol 2018): Any incidental renal lesion less than 1 cm or classified as too small to characterize, or any incidental cystic renal lesion characterized as simple-appearing, is likely benign. No follow-up imaging is recommended for these lesions per consensus recommendations based on imaging criteria. Laboratory Results WBC 16.99 10^3/uL (3.29-11.43) H 12/29/24 16:17 RBC 4.93 10^6/uL (3.85-5.65) 12/29/24 16:17 Hgb 14.20 g/dL (11.27-16.99) 12/29/24 16:17 Hct 42.6 % (36-47) 12/29/24 16:17 MCV 86.4 fl (85-98) 12/29/24 16:17 MCH 28.8 pg (27-33) 12/29/24 16:17 MCHC 33.3 g/dL (30-55) 12/29/24 16:17 RDW 13.9 % (12.1-15.1) 12/29/24 16:17 Plt Count 324 10^3/cmm (157-399) 12/29/24 16:17 MPV 8.6 fL (7.4-10.4) 12/29/24 16:17 Neut % (Auto) 84.2 % 12/29/24 16:17 Lymph % (Auto) 6.3 % 12/29/24 16:17 [place] % (Auto) 8.6 % 12/29/24 16:17 Eos % (Auto) 0.1 % 12/29/24 16:17 Baso % (Auto) 0.1 % 12/29/24 16:17 Neut # (Auto) 14.31 10^3/uL (1.8-7.7) H 12/29/24 16:17 Lymph # (Auto) 1.1 10^3/uL (0.8-4.8) 12/29/24 16:17 [place] # (Auto) 1.5 10^3/uL (0.2-0.9) H 12/29/24 16:17 Eos # (Auto) 0.0 10^3/uL (0.0-0.8) 12/29/24 16:17 Baso # (Auto) 0.0 10^3/uL (0.0-0.1) 12/29/24 16:17 Nucleated RBC % (auto) 0 % 12/29/24 16:17 Nucleated RBCs # 0.0 /100WBC 12/29/24 16:17 Sodium 134 mmol/L (136-145) L 12/29/24 16:17 Potassium 3.9 mmol/L (3.5-5.1) 12/29/24 16:17 Chloride 97 mmol/L (98-107) L 12/29/24 16:17 Carbon Dioxide 25 mmol/L (22-29) 12/29/24 16:17 Anion Gap 15.9 (5-19) 12/29/24 16:17 BUN 15 mg/dL (8-23) 12/29/24 16:17 Creatinine 0.7 mg/dL (0.5-0.9) 12/29/24 16:17 GFR Calculation 85.4 mL/min (90-130) L 12/29/24 16:17 Glucose 124 mg/dL (65-115) H 12/29/24 16:17 Calculated Osmolality 280 mOsm/kg (285-295) L 12/29/24 16:17 Calcium 9.2 mg/dL (8.5-10.5) 12/29/24 16:17 Total Bilirubin 0.5 mg/dL (0.15-1.2) 12/29/24 16:17 AST 18 U/L (0-32) 12/29/24 16:17 ALT 29 U/L (0-33) 12/29/24 16:17 Alkaline Phosphatase 97 U/L (35-105) 12/29/24 16:17 Troponin T Baseline < 6 ng/L (0-10) 12/29/24 16:17 Troponin T 120 Minute 6.77 ng/L (0-10) 12/29/24 18:28 Delta Troponin T 0.47870 ABS# (0-10) 12/29/24 18:28 Troponin T Hi Sens 6Hr 6.52 ng/L (0-10) 12/29/24 22:05 Troponin T Hi Sens 6Hr Delta 0.79138 ng/L (0-12) 12/29/24 22:05 Total Protein 6.8 g/dL (6.6-8.7) 12/29/24 16:17 Albumin 4.1 g/dL (3.5-5.2) 12/29/24 16:17 Globulin 2.7 g/dL (1.3-4.6) 12/29/24 16:17 Triglycerides 155 mg/dL (0-150) H 12/29/24 18:28 Lipase 2408 U/L (13-60) H 12/29/24 22:05 All radiology interpretation(s) finalized by discharge Discharge Plan Discharge Patient Disposition: Admitted As Inpatient Admit Provider: Katie Ng Clinical Impression: Pancreatitis, acute Qualifiers: Pancreatitis type: idiopathic Acute pancreatitis complication: no infection or necrosis Qualified Code(s): K85.00 - Idiopathic acute pancreatitis without necrosis or infection Condition: Stable Discharge Diet: As Directed Coding Level of Care Code ED Outside Industrial Sales Representative for Chg Fwd Documented by User: Geoffrey Rae DO 12/30/24 15:23 HPI - Chest Pain 2 General: Chief Complaint: Chest Pain Stated Complaint: chest pain Time Seen by Provider: 12/29/24 18:04 Related Data Home Medications ?Medication ?Instructions ?Recorded ?Confirmed citalopram 20 mg tablet (Celexa) 10 mg PO QAM 07/17/19 12/29/24 trazodone 100 mg tablet 100 mg PO BEDTIME 07/17/19 0 12/29/24 vitamin B complex 1 cap PO QAM 10/05/21 alprazolam 0.25 mg tablet 0.25 mg PO BID PRN Anxiety 0 05/14/22 12/29/24 ondansetron 8 mg disintegrating 8 mg PO DAILY PRN Naus ea 08/14/24 12/29/24 tablet ascorbic acid (vitamin C) 500 mg 500 mg PO DAILY 08/2912/29/24 tablet (Vitamin C) biotin 10,000 mcg chewable tablet 10,000 mcg PO DAILY 08/29/24 12/29/24 (Hair, Skin and Nails (biotin)) cholecalciferol (vitamin D3) 50 50 mcg PO DAILY 12/29/24 mcg (2,000 unit) capsule (Vitamin D3) omega 5-obj-zsu-fish oil 1,000 mg 1 cap PO DAILY 08/2912/29/24 (120 mg-180 mg) capsule (Fish Oil) Previous Rx's ?Medication ?Instructions ?Recorded pantoprazole 40 mg tablet,delayed 40 mg PO QAM #30 tab s 03/16/24 release (Protonix) leflunomide 20 mg tablet 20 mg PO DAILY #90 tabs 11/09 prednisone 5 mg tablet 5 mg PO DAILY #90 tabs 11/22 letrozole 2.5 mg tablet See Rx Instructions .Route 0 12/11/24 .COMPLEX #30 tabs Allergies Allergy/AdvReac Type Severity Reaction Status Date / Time meperidine (From Demerol) Allergy Unknown Unknown Verified 12/29/24 14:17 nalbuphine (From Nubain) Allergy Unknown Verified 12/29/24 14:17 Sulfa (Sulfonamide Allergy Unknown Verified 12/29/24 14:17 Antibiotics) tetracycline Allergy Unknown Verified 12/29/24 14:17 tramadol Allergy Unknown Verified 12/29/24 14:17 dexamethasone AdvReac Severe gastritis Verified 12/29/24 14:17 [facility] ED 2 [facility]: Medical History (Updated 12/30/24 @ 06:33 by Katie Ng MD) Rheumatoid arthritis Acute pancreatitis Hx of breast cancer Immunization counseling Seropositive rheumatoid arthritis of multiple sites High risk medication use Autoimmune pancreatitis History of endometrial cancer Hypokalemia Transaminitis Iron deficiency Skin rash COVID-19 Gastritis History of eye disorder Fatigue Port-A-Cath in place Invasive ductal carcinoma of left breast Asthma Endometriosis GERD (gastroesophageal reflux disease) Surgical History History of hysterectomy with bilateral oophorectomy History of breast reconstruction bilateral Hx of colonoscopy with polypectomy History of mastectomy Bilateral December, S/P tonsillectomy and adenoidectomy History of cholecystectomy History of appendectomy Family History Other Cancer Heart disease Hypertension Social History Smoking and tobacco/nicotine status: never used tobacco/nicotine Quit status (tobacco/nicotine): has quit using Year quit tobacco: 2009 Former quit date comment: 10 to 15 years smoked Second hand smoke exposure: No Alcohol intake: never Substance/Drug Use: never Adopted: No Lives independently: Yes Housing: House Course 2 Vital Signs: Vital signs: Vital Signs Temperature 98.3 F 12/30/24 12:00 Pulse Rate 59 L 12/30/24 12:00 Respiratory Rate 16 12/30/24 12:00 Blood Pressure 136/63 12/30/24 12:00 Pulse Oximetry 95 12/30/24 12:00 Oxygen Delivery Me thod Room Air 12/30/24 12:00 MDM - Chest Pain Medical Decision Making Patient is a 59-year-old female with history of autoimmune pancreatitis presents initially with chest discomfort, nausea, vomiting. After she was given a GI cocktail, further determined it was more related to her history of pancreatitis. She was tender on second examination. Given this thought process, CT was obtained with contrast to make sure she did not have an abscess/phlegmon/necrosis concern. Her pain was controlled, her nausea was controlled, and she was ruled out completely from an acute coronary syndrome standpoint. I called hospitalist on-call that excepted admission. IV fluids were given. She will be turned over to the hospitalist service. Patient originally seen by Ms. Chani PARSONS. I agree with her history, evaluation, and management. Lab Data 12/30/24 02:18 12/30/24 02:18 Radiology Impressions Abdomen/Pelvis CT 12/29/24 19:32 IMPRESSION: 1. Mild mesenteric fat stranding adjacent to the pancreatic tail which may represent changes of early acute pancreatitis. No abscess formation or pseudocyst. 2. Colonic diverticulosis without CT evidence of acute diverticulitis. COMMENTS: Consistent with the [employer]'s Incidental Findings Committee white paper (J Am Lucero Radiol 2018): Any incidental renal lesion less than 1 cm or classified as too small to characterize, or any incidental cystic renal lesion characterized as simple-appearing, is likely benign. No follow-up imaging is recommended for these lesions per consensus recommendations based on imaging criteria. Laboratory Results WBC 16.99 10^3/uL (3.29-11.43) H 12/29/24 16:17 RBC 4.93 10^6/uL (3.85-5.65) 12/29/24 16:17 Hgb 14.20 g/dL (11.27-16.99) 12/29/24 16:17 Hct 42.6 % (36-47) 12/29/24 16:17 MCV 86.4 fl (85-98) 12/29/24 16:17 MCH 28.8 pg (27-33) 12/29/24 16:17 MCHC 33.3 g/dL (30-55) 12/29/24 16:17 RDW 13.9 % (12.1-15.1) 12/29/24 16:17 Plt Count 324 10^3/cmm (157-399) 12/29/24 16:17 MPV 8.6 fL (7.4-10.4) 12/29/24 16:17 Neut % (Auto) 84.2 % 12/29/24 16:17 Lymph % (Auto) 6.3 % 12/29/24 16:17 [place] % (Auto) 8.6 % 12/29/24 16:17 Eos % (Auto) 0.1 % 12/29/24 16:17 Baso % (Auto) 0.1 % 12/29/24 16:17 Neut # (Auto) 14.31 10^3/uL (1.8-7.7) H 12/29/24 16:17 Lymph # (Auto) 1.1 10^3/uL (0.8-4.8) 12/29/24 16:17 [place] # (Auto) 1.5 10^3/uL (0.2-0.9) H 12/29/24 16:17 Eos # (Auto) 0.0 10^3/uL (0.0-0.8) 12/29/24 16:17 Baso # (Auto) 0.0 10^3/uL (0.0-0.1) 12/29/24 16:17 Nucleated RBC % (auto) 0 % 12/29/24 16:17 Nucleated RBCs # 0.0 /100WBC 12/29/24 16:17 Sodium 134 mmol/L (136-145) L 12/29/24 16:17 Potassium 3.9 mmol/L (3.5-5.1) 12/29/24 16:17 Chloride 97 mmol/L (98-107) L 12/29/24 16:17 Carbon Dioxide 25 mmol/L (22-29) 12/29/24 16:17 Anion Gap 15.9 (5-19) 12/29/24 16:17 BUN 15 mg/dL (8-23) 12/29/24 16:17 Creatinine 0.7 mg/dL (0.5-0.9) 12/29/24 16:17 GFR Calculation 85.4 mL/min (90-130) L 12/29/24 16:17 Glucose 124 mg/dL (65-115) H 12/29/24 16:17 Calculated Osmolality 280 mOsm/kg (285-295) L 12/29/24 16:17 Calcium 9.2 mg/dL (8.5-10.5) 12/29/24 16:17 Total Bilirubin 0.5 mg/dL (0.15-1.2) 12/29/24 16:17 AST 18 U/L (0-32) 12/29/24 16:17 ALT 29 U/L (0-33) 12/29/24 16:17 Alkaline Phosphatase 97 U/L (35-105) 12/29/24 16:17 Troponin T Baseline < 6 ng/L (0-10) 12/29/24 16:17 Troponin T 120 Minute 6.77 ng/L (0-10) 12/29/24 18:28 Delta Troponin T 0.01842 ABS# (0-10) 12/29/24 18:28 Troponin T Hi Sens 6Hr 6.52 ng/L (0-10) 12/29/24 22:05 Troponin T Hi Sens 6Hr Delta 0.30369 ng/L (0-12) 12/29/24 22:05 Total Protein 6.8 g/dL (6.6-8.7) 12/29/24 16:17 Albumin 4.1 g/dL (3.5-5.2) 12/29/24 16:17 Globulin 2.7 g/dL (1.3-4.6) 12/29/24 16:17 Triglycerides 155 mg/dL (0-150) H 12/29/24 18:28 Lipase 2408 U/L (13-60) H 12/29/24 22:05 Discharge Plan Discharge Patient Disposition: Admitted As Inpatient Admit Provider: Katie Ng Clinical Impression: Pancreatitis, acute Qualifiers: Pancreatitis type: idiopathic Acute pancreatitis complication: no infection or necrosis Qualified Code(s): K85.00 - Idiopathic acute pancreatitis without necrosis or infection Condition: Stable Discharge Diet: As Directed Coding Level of Care Code ED Outside Industrial Sales Representative for Magy Majano
--- NOTE | 2024-12-29 18:40 | ECG_ITS ---
[facility] Test Date: 2024-12-29 Pat Name: Leslie Scott Department: Room: Gender: Female Brim Buster: : 1965 Requested By: Gato Arteaga Order Number: [id number] Santiago MD: Ryley Aguayo M.D. Measurements Intervals [place] Rate: 62 P: 38 SD: 132 QRS: -3 QRSD: 93 T: 39 QT: 404 QTc: 411 Interpretive Statements SINUS RHYTHM MODERATE VOLTAGE CRITERIA FOR LVH, CONSIDER NORMAL VARIANT [MEETS CRITERIA IN ONE OF: R(aVL), S(V1), R(V5), R(V5/V6)+S(V1)] Compared to ECG 12/29/2024 14:11:56 Incomplete right bundle-branch block no longer present Electronically Signed On 12-29-2024 20:27:58 CDT by Ryley Aguayo M.D. [email or web address]
[2024-12-29] MEDS: lidocaine 2% viscous 15 ML, aluminum-mag hydrox-simethicon 30 ML, sucralfate oral liq 1 GM PO (18:42)
[2024-12-29 18:51] LABS: Troponin 5 2HR 6.77 ng/L (0-10); Troponin 5 2HR Delta 0.77001 ABS# (0-10)
--- NOTE | 2024-12-29 19:32 | CTR_ITS ---
PROCEDURE INFORMATION: Exam: CT Abdomen And Pelvis With Contrast Exam date and time: 12/29/2024 7:54 PM Age: 59 years old Clinical indication: Pain and abnormal findings; Abnormal lab test; Elevated lipase and elevated wbc; Abdominal pain; Generalized; Prior surgery; Surgery date: 6+ months; Surgery type: Bilat mastectomy. Gb. Appy. Full hysterectomy. C/O abd pain. Elevated wbc and lipase. History of breast and uterine cancer. TECHNIQUE: Imaging protocol: Computed tomography of the abdomen and pelvis with contrast. Radiation optimization: All CT scans at this facility use at least one of these dose optimization techniques: automated exposure control; mA and/or kV adjustment per patient size (includes targeted exams where dose is matched to clinical indication); or iterative reconstruction. Contrast material: OMNI 350; Contrast volume: 100 ml; Contrast route: INTRAVENOUS (IV); COMPARISON: MR abdomen wo/w con* [id number] 12/25/2024 9:08 AM RADIATION DOSE METRICS: Total DLP (mGy-cm): 788.16 FINDINGS: Lungs: Unremarkable. Liver: Normal. No mass. Gallbladder and biliary ducts: Status post cholecystectomy. Pancreas: Mild fatty atrophy of the pancreas. Spleen: Normal. No splenomegaly. Adrenal glands: Normal. No mass. Kidneys and ureters: Subcentimeter hypodensity within right kidney, too small to characterize but likely represent simple cysts. No further imaging follow-up is required. No hydronephrosis or obstructing calculi bilaterally. Stomach and bowel: No small bowel obstruction. Colonic diverticulosis without CT evidence of acute diverticulitis. Appendix: No evidence of appendicitis. Intraperitoneal space: Very mild mesenteric fat stranding adjacent to the pancreatic tail (08/07). Vasculature: Unremarkable. No abdominal aortic aneurysm. Lymph nodes: Unremarkable. No enlarged lymph nodes. Urinary bladder: Unremarkable as visualized. Reproductive: Unremarkable as visualized. Bones/joints: Unremarkable. No acute fracture. Soft tissues: Moderate-sized fat containing umbilical hernia. CT/CT abdomen pelvis w con* [id number] IMPRESSION: 1. Mild mesenteric fat stranding adjacent to the pancreatic tail which may represent changes of early acute pancreatitis. No abscess formation or pseudocyst. 2. Colonic diverticulosis without CT evidence of acute diverticulitis. COMMENTS: Consistent with the [employer]'s Incidental Findings Committee white paper (J Am Lucero Radiol 2018): Any incidental renal lesion less than 1 cm or classified as too small to characterize, or any incidental cystic renal lesion characterized as simple-appearing, is likely benign. No follow-up imaging is recommended for these lesions per consensus recommendations based on imaging criteria.
[2024-12-29 19:45] LABS: Lipase 3098 U/L (13-60)
[2024-12-29] MEDS: iohexol 350 mg/mL 500 mL Btl (per mL) IV (19:58)
[2024-12-29 20:08] LABS: Triglycerides 155 mg/dL (0-150)
[2024-12-29] MEDS: ondansetron 2 mg/ML SDV 2 mL 4 MG IVP (20:17)
[2024-12-29] MEDS: morphine 4 mg/mL SDV 1 mL IVP ×2 (20:17→22:43)
--- NOTE | 2024-12-29 22:25 | ECG_ITS ---
[facility]: 2024-12[facility]29 Pat Name: Leslie Scott Department: Room: Gender: Female Qi Specialist: : 1965 Requested By: Gato Arteaga Order Number: [id number] Santiago MD: Ryley Aguayo M.D. Measurements Intervals [place] Rate: 57 P: 45 FL: 141 QRS: -10 QRSD: 102 T: 36 QT: 425 QTc: 417 Interpretive Statements SINUS BRADYCARDIA MODERATE VOLTAGE CRITERIA FOR LVH, CONSIDER NORMAL VARIANT [MEETS CRITERIA IN ONE OF: R(aVL), S(V1), R(V5), R(V5/V6)+S(V1)] Compared to ECG 12/29/2024 18:40:46 NO SIGNIFICANT CHANGE Electronically Signed On 12-30-2024 20:31:29 CDT by Ryley Aguayo M.D. [email or web address]
[2024-12-29] MEDS: diphenhydrAMINE 50 mg/mL SDV 1mL 25 MG IVP (22:43)
[2024-12-29 22:58] LABS: Troponin 5 6HR 6.52 ng/L (0-10); Troponin 5 6HR Delta 0.52001 ng/L (0-12)
--- NOTE | 2024-12-29 23:07 | PM.HP ---
Providers/Chief Complaint Admitting Physician: Katie Ng MD----patient seen and evaluated before midnight Primary Care Provider: Michael Mahoney DO Chief Complaint: chest pain History of Present Illness Leslie Scott is a 59 year old female who looks younger than the stated age presenting with yet another abdominal pain epigastric pain like into [id number] presentation for her autoimmune pancreatitis. This has been recurrent but had not had 1 over the past 6 months. Patient presented with epigastric pain nausea and vomiting not feeling well. But feeling much better. At the time of my evaluation. Patient lipase was as high as 2408 a repeat lipase after some care of IV fluid and pain management lipase came down to 1532. LFTs and bilirubin were normal nothing obstructive. Chest x-ray unremarkable. No fever and no sign of infection and no need for antibiotics at this time. I have initiated IV fluids initiated anti-inflammatory such as Toradol 30 mg IV Q6 not to exceed 5 days. Patient is also having morphine for breakthrough pain. Must continue to treat and optimize. Review of Systems Narrative: System review upon 10 organ review were significant for gastrointestinal with abdominal pain and significant for autoimmune pancreatitis and established diagnosis for this patient. Medications/Allergies Home Medications ?Medication ?Instructions ?Recorded ?Confirmed ?Last Taken ?Type citalopram 20 mg tablet (Celexa) 10 mg PO QAM 07/17/19 12/29/24 12/29/24 History trazodone 100 mg tablet 100 mg PO BEDTIME 07/17/19 12/29/24 12/28/24 History vitamin B complex 1 cap PO QAM 10/05/21 12/29/24 12/29/24 History alprazolam 0.25 mg tablet 0.25 mg PO BID PRN Anxiety 05/14/22 12/29/24 12/24/24 History pantoprazole 40 mg tablet,delayed 40 mg PO QAM #30 tabs 03/16/24 12/29/24 12/29/24 Rx release (Protonix) ondansetron 8 mg disintegrating 8 mg PO DAILY PRN Nausea 08/14/24 12/29/24 12/29/24 History tablet ascorbic acid (vitamin C) 500 mg 500 mg PO DAILY 08/29/24 12/29/24 12/29/24 History tablet (Vitamin C) biotin 10,000 mcg chewable tablet 10,000 mcg PO DAILY 08/29/24 12/29/24 12/29/24 History (Hair, Skin and Nails (biotin)) cholecalciferol (vitamin D3) 50 50 mcg PO DAILY 08/29/24 12/29/24 12/29/24 History mcg (2,000 unit) capsule (Vitamin D3) omega 3-gdy-gok-fish oil 1,000 mg 1 cap PO DAILY 08/29/24 12/29/24 12/29/24 History (120 mg-180 mg) capsule (Fish Oil) leflunomide 20 mg tablet 20 mg PO DAILY #90 tabs 11/22/24 12/29/24 12/29/24 Rx prednisone 5 mg tablet 5 mg PO DAILY #90 tabs 11/22/24 12/29/24 12/29/24 Rx letrozole 2.5 mg tablet See Rx Instructions .Route 12/11/24 12/29/24 12/29/24 Rx .COMPLEX #30 tabs Allergies Allergy/AdvReac Type Severity Reaction Status Date / Time meperidine (From Demerol) Allergy Unknown Unknown Verified 12/29/24 14:17 nalbuphine (From Nubain) Allergy Unknown Verified 12/29/24 14:17 Sulfa (Sulfonamide Allergy Unknown Verified 12/29/24 14:17 Antibiotics) tetracycline Allergy Unknown Verified 12/29/24 14:17 tramadol Allergy Unknown Verified 12/29/24 14:17 dexamethasone AdvReac Severe gastritis Verified 12/29/24 14:17 PFSH Acute PFSH: Medical History Rheumatoid arthritis Acute pancreatitis Hx of breast cancer Immunization counseling Seropositive rheumatoid arthritis of multiple sites High risk medication use Autoimmune pancreatitis History of endometrial cancer Hypokalemia Transaminitis Iron deficiency Skin rash COVID-19 Gastritis History of eye disorder Fatigue Port-A-Cath in place Invasive ductal carcinoma of left breast Asthma Endometriosis GERD (gastroesophageal reflux disease) Surgical History History of hysterectomy with bilateral oophorectomy History of breast reconstruction bilateral Hx of colonoscopy with polypectomy History of mastectomy Bilateral December, S/P tonsillectomy and adenoidectomy History of cholecystectomy History of appendectomy Family History Other Cancer Heart disease Hypertension Social History Smoking and tobacco/nicotine status: never used tobacco/nicotine Quit status (tobacco/nicotine): has quit using Year quit tobacco: 2009 Former quit date comment: 10 to 15 years smoked Second hand smoke exposure: No Alcohol intake: never Substance/Drug Use: never Adopted: No Lives independently: Yes Housing: House Vitals/I&O/Wt Last Vital Signs Temp 97.6 F 12/29/24 14:14 Pulse 65 12/29/24 22:46 Resp 17 12/29/24 22:46 BP 161/85 12/29/24 22:46 Pulse Ox 93 12/29/24 22:46 O2 Del Method Room Air 12/29/24 22:46 Weight last 48 hrs Weight 85.275 kg Physical Exam Narrative: At the time of my evaluating the patient patient was much better than she presented into the emergency room patient able to sit up and speak with smile whereas a couple of hours prior patient was not doing that. HEENT normocephalic atraumatic neck neck is supple cardiovascular heart rate is regular lungs are pretty much clear abdomen soft nontender nondistended unremarkable extremities are intact no edema has good pulses neurology has no focality lab studies lab studies reviewed and noted. Data 12/30/24 02:18 12/30/24 02:18 A&P Assessment and plan 1. Pancreatitis, acute: 2. Abdominal pain: 3. Osteoarthritis of knees, bilateral: Plan: #1 Autoimmune pancreatitis - Patient is responding to treatment - Admitted to MedSurg unit - Continue the treatment protocol at this time with IV hydration and pain management that has anti-inflammatory component such as Toradol Must continue to treat and optimize - Inflammatory markers are coming down and lipase had come down more than 50% Continue to treat and optimize - No need for antibiotics at this time - Early feeding if patient can tolerate #2 Dehydration - Continue to rehydrate #3 Leukocytosis of 17,000 had come down to 10,000 this morning - These are all signs of improvement - Continue to treat and optimize #4 GI and DVT prophylaxis in place PDMP PDMP Reviewed: Not Reviewed Attestations Medical Necessity Statement*: Patient with autoimmune pancreatitis with all of multiple autoimmune disease process must continue to treat and allow 2 midnights to optimize care. Patient is n.p.o. at the moment not actually tolerating yet any meals will continue to treat Coding Level of Care Code 51006 Diagnoses Pancreatitis, acute K85.90 Abdominal pain R10.9 Osteoarthritis of knees, bilateral M17.0 Time Spent (min) 60
[2024-12-29 23:42] LABS: Lipase 2408 U/L (13-60)
[2024-12-29] MEDS: heparin 5,000 unit/mL INJ 1 mL 5000 UNIT SUBCUT (23:47)
[2024-12-29] MEDS: pantoprazole 40 mg SDV IVP (23:48)
[2024-12-30] VITALS (9 sets, daily range): BP systolic 111–144; BP diastolic 51–75; PULSE 53–68; RESP 15–16; TEMP 36.7–36.9; O2SAT 93–95
--- NOTE | 2024-12-30 01:43 | PC.NURSE ---
Report given to NABOR Edwards to assume patient care at this time.
[2024-12-30 03:59] LABS: Hematocrit 36.4 % (36-47); Hemoglobin 12.00 g/dL (11.27-16.99); Mean Corpuscular HGB Conc 33.0 g/dL (30-55); Mean Corpuscular Hemoglobin 28.4 pg (27-33); Mean Corpuscular Volume 86.3 fl (85-98); Nucleated Red Blood Cells % 0 %; Platelet Count 225 10^3/cmm (157-399); Red Blood Count 4.22 10^6/uL (3.85-5.65); White Blood Count 10.66 10^3/uL (3.29-11.43)
[2024-12-30 04:22] LABS: Alanine Aminotransferase 21 U/L (0-33); Albumin Level 3.3 g/dL (3.5-5.2); Alkaline Phosphatase 79 U/L (35-105); Anion Gap 12.7 (5-19); Aspartate Amino Transferase 15 U/L (0-32); Blood Urea Nitrogen 14 mg/dL (8-23); Calcium 8.4 mg/dL (8.5-10.5); Carbon Dioxide 27 mmol/L (22-29); Chloride 103 mmol/L (98-107); Creatinine Clr Calc Pharmacy 132.5962; Globulin 2.6 g/dL (1.3-4.6); Glucose 118 mg/dL (65-115); Magnesium 2.2 mg/dL (1.7-2.3); Osmolality Calculated 290 mOsm/kg (285-295); Potassium 3.7 mmol/L (3.5-5.1); Sodium 139 mmol/L (136-145); Total Protein 5.9 g/dL (6.6-8.7)
[2024-12-30 04:45] LABS: Lipase 1532 U/L (13-60)
[2024-12-30] MEDS: ondansetron 2 mg/ML SDV 2 mL 4 MG IVP ×3 (05:03→20:30)
[2024-12-30] MEDS: morphine 4 mg/mL SDV 1 mL IVP ×2 (08:12→20:30)
[2024-12-30] MEDS: heparin 5,000 unit/mL INJ 1 mL 5000 UNIT SUBCUT ×2 (10:39→22:50)
[2024-12-30] MEDS: pantoprazole 40 mg SDV IVP ×2 (10:40→22:51)
--- NOTE | 2024-12-30 18:02 | P.PN_ITS ---
Subjective 2 Subjective: 59-year-old female from [facility] has been admitted with pancreatitis. She states she was diagnosed with autoimmune pancreatitis after the hospital is here [facility] and [facility] as she was admitted for pancreatitis 3-4 times since 2023. Patient states she saw Dr. Judge at [facility] in [place] and had an ERCP in July and followed up again and said she could come back in a year. She denies that any specific treatment for autoimmune pancreatitis was started. Patient also has rheumatoid arthritis which recurrently flares and she had been on Rinvoq before but now on leflunomide. She states she has been on Arimidex for breast cancer but now is on letrozole. Patient states she sees Dr. Gil for rheumatology and Dr. Mckee for oncology I see that she had primary infiltrating ductal carcinoma of the central portion of the left breast She also had rheumatoid arthritis seropositive previously treated with methotrexate and Orencia and Rinvoq she was recently started on rituximab 1 g 2 weeks apart for 2 doses every 6 months. Patient states she had recent MRI of the abdomen on Tuesday evaluating for this. She then had injection in her knees bilaterally by DEMI Chery with lidocaine 60 mg and Kenalog 160 mg left and right knee. It is unclear to me if that is the above milligrams is for each knee or split among [address] it is a large dose of steroids and is surprising the patient has had pancreatitis develop after that injection if this is in fact autoimmune pancreatitis Furthermore the patient tells me that she has been on 20 mg of prednisone tapering down to 5 mg of prednisone over the course of 7 days on multiple occasions and despite that being in that time interval she has developed pancreatitis on at least 1 occasion and another time she think she was steadily on 10 mg of prednisone In discussion patient worked in [employer] for years and then 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 Nuno who I knew from my high school years in [facility]. She also knew Dr. Kwadwo Edmonds who was a graduate from [employer] Patient states she quit alcohol completely with pancreatitis but was never heavy previously was minimal i.e. special occasions. She smoked a pack a day for 10 years quit 2010 Patient had elevated CA 19-9 on 11/14/2023 of 88.89 dropping to 26.83 on 12/05/2023 and this is consistent with autoimmune pancreatitis but her pancreatic imaging typically shows mild mid and tail of pancreas inflammation in the pancreas has not been enlarged. She does not have IgG4 test showing up on our computer. MRI on 12/30/2023 showed normal pancreatic and common bile duct without evidence of pancreatitis. She had 3 CTs of the abdomen where the pancreas was unremarkable 09/15/2023 10/15/2023 and 10/19/2023. An 03/09/2024 there was slight peripancreatic edema in the body and tail and on 12/29/2024 shows pancreas with mild fatty atrophy of the pancreas Vitals/I&O/Wt Last Vital Signs Temp 98.3 F 12/30/24 16:00 Pulse 53 L 12/30/24 16:00 Resp 16 12/30/24 16:00 BP 144/67 12/30/24 16:00 Pulse Ox 95 12/30/24 16:00 O2 Del Method Room Air 12/30/24 16:00 12/30/24 12/30/24 12/30/24 06:59 14:59 22:59 Intake Total 1900 / 1900 1440 / 1440 855 / 2295 Output Total 1000 / 1000 1700 / 2700 Balance 1900 / 1900 440 / 440 -845 / -405 Weight last 48 hrs Weight 86.545 kg Weight 85.275 kg Weight 85.275 kg Physical Exam 2 Narrative: General well-developed moderately obese female in no acute cardiopulmonary distress CV regular rate and rhythm Lungs clear to auscultation bilaterally Abdomen positive bowel tones soft there is a palpable mass to the right and inferior to the umbilicus that the patient states is her hernia. The epigastric area no mass the left upper abdomen minimally tender Calves trace ankle edema Skin warm and dry Data 12/30/24 02:18 12/30/24 02:18 A&P Assessment and plan 1. Pancreatitis, acute: Etiology still not clear. Lipase dropped from 0015-5948 over the course of 10 hours which is a rapid improvement. Autoimmune pancreatitis has been working diagnosis but we do not have a IgG4 which should be 2 times normal in 50% of type I autoimmune pancreatitis and an a fourth of type II autoimmune pancreatitis. Prednisone is typically used to put it into remission and therefore it is surprising that it would be precipitated by Kenalog 160 mg injection in the knee as that should be relatively protective and immunosuppressive Additionally the patient is already on leflunomide. Rituxan or rituximab would be an appropriate medication to put and maintain remission of autoimmune pancreatitis but I am not sure that is the diagnosis 2. Recurrent pancreatitis: See above I think the patient should be started on pancrelipase for meals and referred to GI specialist biliary specialist. Recurring pancreatitis puts her at risk of having chronic pancreatitis 3. Osteoarthritis of knees, bilateral: Recent bilateral knee injections due to pain despite physical therapy 4. Rheumatoid arthritis: Patient is on leflunomide and being considered for rituximab 5. Invasive ductal carcinoma of left breast: This is currently in remission PDMP PDMP Reviewed: Not Reviewed Attestations 2 Medical Necessity Statement*: Patient remains in hospital on n.p.o. status with IV fluids for pancreatitis. If pain is gone and lipase normal or near normal tomorrow would start diet with pancrelipase. Patient remains in the hospital for 1-2 more midnights expected Coding Level of Care Code 71520 Diagnoses Pancreatitis, acute K85.00 Acute pancreatitis complication: no infection or necrosis Pancreatitis type: idiopathic Recurrent pancreatitis Osteoarthritis of knees, bilateral M17.0 Rheumatoid arthritis M06.9 Invasive ductal carcinoma of left breast C50.912 Time Spent (min) 50
--- NOTE | 2024-12-30 19:40 | P.PN_ITS ---
Subjective 2 Subjective: 59-year-old female from [facility] has been admitted with pancreatitis. She states she was diagnosed with autoimmune pancreatitis after the hospital is here [facility] and [facility] as she was admitted for pancreatitis 3-4 times since 2023. Patient states she saw Dr. Judge at [facility] in [place] and had an ERCP in July and followed up again and said she could come back in a year. She denies that any specific treatment for autoimmune pancreatitis was started. Patient also has rheumatoid arthritis which recurrently flares and she had been on Rinvoq before but now on leflunomide. She states she has been on Arimidex for breast cancer but now is on letrozole. Patient states she sees Dr. Gil for rheumatology and Dr. Mckee for oncology I see that she had primary infiltrating ductal carcinoma of the central portion of the left breast She also had rheumatoid arthritis seropositive previously treated with methotrexate and Orencia and Rinvoq she was recently started on rituximab 1 g 2 weeks apart for 2 doses every 6 months. Patient states she had recent MRI of the abdomen on Tuesday evaluating for this. She then had injection in her knees bilaterally by DEMI Chery with lidocaine 60 mg and Kenalog 160 mg left and right knee. It is unclear to me if that is the above milligrams is for each knee or split among [address] it is a large dose of steroids and is surprising the patient has had pancreatitis develop after that injection if this is in fact autoimmune pancreatitis Furthermore the patient tells me that she has been on 20 mg of prednisone tapering down to 5 mg of prednisone over the course of 7 days on multiple occasions and despite that being in that time interval she has developed pancreatitis on at least 1 occasion and another time she think she was steadily on 10 mg of prednisone In discussion patient worked in [employer] 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 Nuno who I knew from my high school years in [facility]. She also knew Dr. Kwadwo Edmonds who was a graduate from [employer] Patient states she quit alcohol completely with pancreatitis but was never heavy previously was minimal i.e. special occasions. She smoked a pack a day for 10 years quit 2010 Patient had elevated CA 19-9 on 11/14/2023 of 88.89 dropping to 26.83 on 12/05/2023 and this is consistent with autoimmune pancreatitis but her pancreatic imaging typically shows mild mid and tail of pancreas inflammation in the pancreas has not been enlarged. She does not have IgG4 test showing up on our computer. MRI on 12/30/2023 showed normal pancreatic and common bile duct without evidence of pancreatitis. She had 3 CTs of the abdomen where the pancreas was unremarkable 09/15/2023 10/15/2023 and 10/19/2023. An 03/09/2024 there was slight peripancreatic edema in the body and tail and on 12/29/2024 shows pancreas with mild fatty atrophy of the pancreas Vitals/I&O/Wt Last Vital Signs Temp 98.3 F 12/30/24 16:00 Pulse 53 L 12/30/24 16:00 Resp 16 12/30/24 16:00 BP 144/67 12/30/24 16:00 Pulse Ox 95 12/30/24 16:00 O2 Del Method Room Air 12/30/24 16:00 12/30/24 12/30/24 12/30/24 06:59 14:59 22:59 Intake Total 1900 / 1900 1440 / 1440 1335 / 2775 Output Total 1000 / 1000 2000 / 3000 Balance 1900 / 1900 440 / 440 -665 / -225 Weight last 48 hrs Weight 86.545 kg Weight 85.275 kg Weight 85.275 kg Physical Exam 2 Narrative: General: Alert oriented x3, patient seen HEENT: Normocephalic, atraumatic, EOMI, breathing Cardio: Regular rate rhythm, normal S1-S2, no murmurs rubs gallops, JVD Respiratory: Good bilateral air entry, no wheezes no rhonchi appreciated GI: Abdomen soft, nontender, nondistended, normoactive bowel sounds present all 4 quadrants, Neuro: Cranial nerves II to XII intact, strength 5/5, sensation 5/5, no gross neurological deficit Behavior: Appropriate and cooperative Extremities: Pulses 2+, no edema, no cyanosis Skin: Visible skin intact, no rashes Data 12/30/24 02:18 12/30/24 02:18 A&P Assessment and plan 1. Pancreatitis, acute: Etiology still not clear. Lipase dropped from 7260-2385 over the course of 10 hours which is a rapid improvement. Autoimmune pancreatitis has been working diagnosis but we do not have a IgG4 which should be 2 times normal in 50% of type I autoimmune pancreatitis and an a fourth of type II autoimmune pancreatitis. Prednisone is typically used to put it into remission and therefore it is surprising that it would be precipitated by Kenalog 160 mg injection in the knee as that should be relatively protective and immunosuppressive Additionally the patient is already on leflunomide. Rituxan or rituximab would be an appropriate medication to put and maintain remission of autoimmune pancreatitis but I am not sure that is the diagnosis 2. Recurrent pancreatitis: See above I think the patient should be started on pancrelipase for meals and referred to GI specialist biliary specialist. Recurring pancreatitis puts her at risk of having chronic pancreatitis 3. Osteoarthritis of knees, bilateral: Recent bilateral knee injections due to pain despite physical therapy 4. Rheumatoid arthritis: Patient is on leflunomide and being considered for rituximab 5. Invasive ductal carcinoma of left breast: This is currently in remission PDMP PDMP Reviewed: Not Reviewed Attestations 2 Medical Necessity Statement*: [facility]'s hospital stay will be less than 2 midnights for management for acute pancreatitis Coding Level of Care Code Acute Code for [facility] Diagnoses Pancreatitis, acute K85.00 Acute pancreatitis complication: no infection or necrosis Pancreatitis type: idiopathic Recurrent pancreatitis Osteoarthritis of knees, bilateral M17.0 Rheumatoid arthritis M06.9 Invasive ductal carcinoma of left breast C50.912
[2024-12-31 04:00] VITALS: BP 135/61; PULSE 58; RESP 16; TEMP 36.7; O2SAT 96
[2024-12-31 07:30] VITALS: BP 117/71; PULSE 65; RESP 16; TEMP 36.8; O2SAT 95
[2024-12-31 08:55] VITALS: PULSE 61; O2SAT 94
--- NOTE | 2024-12-31 09:54 | PC.SOCIAL ---
IMM Update pg 2 of IMM Updated and reviewed w/ patient. Copy provided and copy dated, initialed and placed in chart.
[2024-12-31] MEDS: heparin 5,000 unit/mL INJ 1 mL 5000 UNIT SUBCUT (11:05)
[2024-12-31] MEDS: pantoprazole 40 mg SDV IVP (11:05)
[2024-12-31 11:58] VITALS: BP 149/72; PULSE 54; RESP 16; TEMP 36.8; O2SAT 96
[2024-12-31 14:38] VITALS: BP 149/72; PULSE 54; RESP 16; TEMP 36.8; O2SAT 96
--- NOTE | 2024-12-31 16:26 | P.DS_ITS ---
Discharge Providers Date of Admission: 12/29/24 22:42 Date of Discharge: December 31, 2024 Attending Provider at Admission: Katie Ng MD Attending Provider at Discharge: Maximo Guzman MD Primary Care Provider: Michael Mahoney DO Diagnoses at Discharge Discharge Diagnosis 1. Pancreatitis, acute: 2. Recurrent pancreatitis: 3. Osteoarthritis of knees, bilateral: 4. Rheumatoid arthritis: 5. 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 Hospital Course Hospital Course Patient was started on fluids and the diet was initiated as per the tolerance of the patient. The patient had increased leukocytosis that improved with management of acute pancreatitis. She had recurrent acute pancreatitis episodes in the past and further history revealed as per the documentation that the patient actually is following with [facility] in [place] where she had her ERCP done in July. In our retrospective documentation and labs, the diagnostic workup of autoimmune pancreatitis was lacking, there is a possibility that the patient is diagnosed but the documentation or the diagnostic workup is not here in the records. She was managed with fluids, pain control and adequate diet as tolerated. She improved over 24 hours. She did not just to drink heavily alcohol and History of smoking that she quit in 2010 stopped. She is status post cholecystectomy and there was no pancreatic duct dilation or strictures found on the CT scan during her hospital stay In the review of the retrospective notes: Patient had elevated CA 19-9 on 11/14/2023 of 88.89 dropping to 26.83 on 12/05/2023 and this is consistent with autoimmune pancreatitis but her pancreatic imaging typically shows mild mid and tail of pancreas inflammation in the pancreas has not been enlarged. She does not have IgG4 test showing up on our computer. MRI on 12/30/2023 showed normal pancreatic and common bile duct without evidence of pancreatitis. She had 3 CTs of the abdomen where the pancreas was unremarkable 09/15/2023 10/15/2023 and 10/19/2023. An has been discussed along with the there was slight peripancreatic edema in the body and tail and on 12/29/2024 shows pancreas with mild fatty atrophy of the pancreas She also has history of rheumatoid arthritis and letrozole for breast cancer following with rheumatology and oncology as outpatient. The patient improved and was discharged on pancreatic enzymes with gastroenterology follow-up as just in case if the patient lost to follow-up with her video and sound recorder. The patient informed about her plan of care, all the risk and benefits of further management, without any language barrier and agreed with the plan of care All the questions and concerns were discussed and addressed Physical Exam Narrative: General: Alert oriented x3, patient seen stable and not in distress euvolemic HEENT: Normocephalic, atraumatic, EOMI, breathing at room air Cardio: Regular rate rhythm, normal S1-S2, no murmurs rubs gallops, JVD normal Respiratory: Good bilateral air entry, no wheezes no rhonchi appreciated GI: Abdomen soft, nontender, nondistended, normoactive bowel sounds present all 4 quadrants, Neuro: Cranial nerves II to XII intact, strength 5/5, sensation 5/5, no gross neurological deficit Behavior: Appropriate and cooperative Extremities: Pulses 2+, no edema, no cyanosis Skin: Visible skin intact, no rashes Discharge Data Studies Completed and Pending Completed Studies During Hospitalization Category Date Time Status CT abdomen pelvis w con* [id number] Stat Cat Scan 12/29/24 19:32 Completed Radiology Impressions Abdomen/Pelvis CT 12/29/24 19:32 IMPRESSION: 1. Mild mesenteric fat stranding adjacent to the pancreatic tail which may represent changes of early acute pancreatitis. No abscess formation or pseudocyst. 2. Colonic diverticulosis without CT evidence of acute diverticulitis. COMMENTS: Consistent with the [employer]'s Incidental Findings Committee white paper (J Am Lucero Radiol 2018): Any incidental renal lesion less than 1 cm or classified as too small to characterize, or any incidental cystic renal lesion characterized as simple-appearing, is likely benign. No follow-up imaging is recommended for these lesions per consensus recommendations based on imaging criteria. Laboratory Results WBC 10.66 10^3/uL (3.29-11.43) 12/30/24 02:18 RBC 4.22 10^6/uL (3.85-5.65) 12/30/24 02:18 Hgb 12.00 g/dL (11.27-16.99) 12/30/24 02:18 Hct 36.4 % (36-47) 12/30/24 02:18 MCV 86.3 fl (85-98) 12/30/24 02:18 MCH 28.4 pg (27-33) 12/30/24 02:18 MCHC 33.0 g/dL (30-55) 12/30/24 02:18 RDW 13.7 % (12.1-15.1) 12/30/24 02:18 Plt Count 225 10^3/cmm (157-399) D 12/30/24 02:18 MPV 9.7 fL (7.4-10.4) 12/30/24 02:18 Neut % (Auto) 83.7 % 12/30/24 02:18 Lymph % (Auto) 8.3 % 12/30/24 02:18 [place] % (Auto) 7.3 % 12/30/24 02:18 Eos % (Auto) 0.1 % 12/30/24 02:18 Baso % (Auto) 0.1 % 12/30/24 02:18 Neut # (Auto) 8.92 10^3/uL (1.8-7.7) H 12/30/24 02:18 Lymph # (Auto) 0.9 10^3/uL (0.8-4.8) 12/30/24 02:18 [place] # (Auto) 0.8 10^3/uL (0.2-0.9) 12/30/24 02:18 Eos # (Auto) 0.0 10^3/uL (0.0-0.8) 12/30/24 02:18 Baso # (Auto) 0.0 10^3/uL (0.0-0.1) 12/30/24 02:18 Nucleated RBC % (auto) 0 % 12/30/24 02:18 Nucleated RBCs # 0.0 /100WBC 12/30/24 02:18 Sodium 139 mmol/L (136-145) 12/30/24 02:18 Potassium 3.7 mmol/L (3.5-5.1) 12/30/24 02:18 Chloride 103 mmol/L (98-107) 12/30/24 02:18 Carbon Dioxide 27 mmol/L (22-29) 12/30/24 02:18 Anion Gap 12.7 (5-19) 12/30/24 02:18 BUN 14 mg/dL (8-23) 12/30/24 02:18 Creatinine 0.5 mg/dL (0.5-0.9) 12/30/24 02:18 GFR Calculation 125.9 mL/min (90-130) 12/30/24 02:18 Glucose 118 mg/dL (65-115) H 12/30/24 02:18 Calculated Osmolality 290 mOsm/kg (285-295) 12/30/24 02:18 Calcium 8.4 mg/dL (8.5-10.5) L 12/30/24 02:18 Phosphorus 3.4 mg/dL (2.5-4.5) 12/30/24 02:18 Magnesium 2.2 mg/dL (1.7-2.3) 12/30/24 02:18 Total Bilirubin 0.6 mg/dL (0.15-1.2) 12/30/24 02:18 AST 15 U/L (0-32) 12/30/24 02:18 ALT 21 U/L (0-33) 12/30/24 02:18 Alkaline Phosphatase 79 U/L (35-105) 12/30/24 02:18 Troponin T Baseline < 6 ng/L (0-10) 12/29/24 16:17 Troponin T 120 Minute 6.77 ng/L (0-10) 12/29/24 18:28 Delta Troponin T 0.32811 ABS# (0-10) 12/29/24 18:28 Troponin T Hi Sens 6Hr 6.52 ng/L (0-10) 12/29/24 22:05 Troponin T Hi Sens 6Hr Delta 0.73031 ng/L (0-12) 12/29/24 22:05 Total Protein 5.9 g/dL (6.6-8.7) L 12/30/24 02:18 Albumin 3.3 g/dL (3.5-5.2) L 12/30/24 02:18 Globulin 2.6 g/dL (1.3-4.6) 12/30/24 02:18 Triglycerides 155 mg/dL (0-150) H 12/29/24 18:28 Lipase 1532 U/L (13-60) H 12/30/24 02:18 Vitals Last Vital Signs Temp 98.2 F 12/31/24 14:38 Pulse 54 L 12/31/24 14:38 Resp 16 12/31/24 14:38 BP 149/72 12/31/24 14:38 Pulse Ox 96 12/31/24 14:38 O2 Del Method Room Air 12/31/24 11:58 Discharge Plan Discharge Patient Disposition: Home Condition: Stable Prescriptions: New Super Enzyme [phone] mg capsule 1 cap PO TIDWM 60 Days Qty: 60 0RF Continued citalopram [Celexa] 20 mg tablet 10 mg PO QAM trazodone 100 mg tablet 100 mg PO BEDTIME leflunomide 20 mg tablet 20 mg PO DAILY Qty: 90 1RF prednisone 5 mg tablet 5 mg PO DAILY Qty: 90 1RF ondansetron 8 mg tablet,disintegrating 8 mg PO DAILY PRN (Reason: Nausea) letrozole 2.5 mg tablet See Rx Instructions .ROUTE .COMPLEX Qty: 30 2RF Dose Instruction: TAKE ONE TABLET BY MOUTH DAILY Rx Instructions: TAKE ONE TABLET BY MOUTH DAILY vitamin B complex Capsule 1 cap PO QAM pantoprazole [Protonix] 40 mg tablet,delayed release (DR/EC) 40 mg PO QAM Qty: 30 0RF ascorbic acid (vitamin C) [Vitamin C] 500 mg Tablet 500 mg PO DAILY cholecalciferol (vitamin D3) [Vitamin D3] 50 mcg (2,000 unit) Capsule 50 mcg PO DAILY omega 1-hqf-fml-fish oil [Fish Oil] 1,000 (120-180) mg Capsule 1 cap PO DAILY Hair, Skin and Nails (biotin) 10,000 mcg Tablet,Chewable 10,000 mcg PO DAILY alprazolam 0.25 mg tablet 0.25 mg PO BID PRN (Reason: Anxiety) Discharge Order = DC NOW: Discharge Order (Routine); Ordered 12/31/24 Ordered By: Maximo Guzman Referrals: Michael Mahoney DO [Primary Care Provider, Family Practice] - 01/03/25 7:50 am Referral Note: post discharge follow up Zarina Osborn MD [Referring] Richie Fermin MD [Physician, Endocrinology] - 01/18/25 8:00 am Referral Note: Discharge Diet: As Directed Discharge Activity: Resume usual activity Patient Instructions: Pancreatitis (GEN), Opioid Safety, Patient Portal & Li Instructions Discharge Attestations Time Spent in Discharge Care*: greater than 30 min Specific Discharge Activities: educating patient, educating and/or supporting family/caregiver, discussing with pcp/other providers, discussing with oil field caser/social workers/dc planners, documenting/other paperwork and evaluating patient/reviewing data Status at Discharge: Cognitive status at discharge: cognitively intact , Behavioral status at discharge: cooperative , Functional status at discharge: independent ambulation , Overall status at discharge: patient is back to baseline Quality Metrics Clinical Quality Measures [ No reported AMI, CVA or VTE this stay] Coding Level of Care Code 65807 Diagnoses Pancreatitis, acute K85.00 Acute pancreatitis complication: no infection or necrosis Pancreatitis type: idiopathic Recurrent pancreatitis Osteoarthritis of knees, bilateral M17.0 Rheumatoid arthritis M06.9 Invasive ductal carcinoma of left breast C50.912
== END 2024-12-31 14:39 | disposition home or self-care (01) | DRG 440 ==
LOC: ER 22:23 → MEDSURG 22:49
PROVIDERS: Family Medicine; Admitting Provider Internal Medicine; Emergency Provider Physician Assistant; PCP Electrodiagnostic Medicine; Visit Provider Student in an Organized Health Care Education/Training Program
DX: K85.00 Idiopathic acute pancreatitis without necrosis or infection (principal); M17.0 Bilateral primary osteoarthritis of knee; M05.9 Rheumatoid arthritis with rheumatoid factor, unspecified; C50.912 Malignant neoplasm of unspecified site of left female breast; J45.909 Unspecified asthma, uncomplicated; K21.9 Gastro-esophageal reflux disease without esophagitis; Z79.811 Long term (current) use of aromatase inhibitors; Z79.891 Long term (current) use of opiate analgesic; Z85.43 Personal history of malignant neoplasm of ovary; Z86.16 Personal history of COVID-19; Z87.891 Personal history of nicotine dependence; Z95.828 Presence of other vascular implants and grafts; Z90.49 Acquired absence of other specified parts of digestive tract
CPT/HCPCS: 36415; 74177; 80053; 83690; 83735; 84100; 84478; 84484; 85025; 93005; 96361; 96372; 96374; 96375; 96376; 99285; J1200; J1644; J1885; J2270; J2405; J2470; J7030; J9999

== ENCOUNTER → 2025-01-18 07:50 | Outpatient (BNVA) | payer MEDICARE, MEDICAID, SELFPAY | PROVIDERS: PCP Electrodiagnostic Medicine; Visit Provider Internal Medicine | DX: K86.1 Other chronic pancreatitis (principal); Z85.3 Personal history of malignant neoplasm of breast | CPT/HCPCS: 36415; 80048; 83036; 83525; 84681; 99204 ==

== ENCOUNTER 2025-02-12 07:35 | Oncology outpatient (recurring) (ONCR) | payer MEDICARE, MEDICAID, SELFPAY ==
[2025-02-12] VITALS (9 sets, daily range): BP systolic 98–124; BP diastolic 62–78; PULSE 65–84; RESP 16–17; TEMP 35.9–36.6; O2SAT 94–97
[2025-02-12 08:39] LABS: Hematocrit 37.7 % (36-47); Hemoglobin 12.60 g/dL (11.27-16.99); Mean Corpuscular HGB Conc 33.4 g/dL (30-55); Mean Corpuscular Hemoglobin 29.0 pg (27-33); Mean Corpuscular Volume 86.9 fl (85-98); Nucleated Red Blood Cells % 0 %; Platelet Count 303 10^3/cmm (157-399); Red Blood Count 4.34 10^6/uL (3.85-5.65); White Blood Count 12.87 10^3/uL (3.29-11.43)
[2025-02-12 09:13] LABS: Alanine Aminotransferase 20 U/L (0-33); Albumin Level 4.0 g/dL (3.5-5.2); Alkaline Phosphatase 102 U/L (35-105); Anion Gap 15.1 (5-19); Aspartate Amino Transferase 17 U/L (0-32); Blood Urea Nitrogen 9 mg/dL (8-23); CA 15-3 12.7 U/mL (0-25); Calcium 9.1 mg/dL (8.5-10.5); Carbon Dioxide 24 mmol/L (22-29); Chloride 101 mmol/L (98-107); Creatinine Clr Calc Pharmacy 129.6532; Globulin 3.0 g/dL (1.3-4.6); Glucose 102 mg/dL (65-115); Osmolality Calculated 281 mOsm/kg (285-295); Potassium 4.1 mmol/L (3.5-5.1); Sodium 136 mmol/L (136-145); Total Protein 7.0 g/dL (6.6-8.7)
[2025-02-12] MEDS: diphenhydrAMINE 50 mg/mL SDV 1mL 25 MG IVP (09:35)
[2025-02-12] MEDS: methylPREDNISolone sod succ 40 mg/mL INJ IVP (09:45)
[2025-02-12] MEDS: rituximab-pvvr 1,000 MG in sodium chloride 0.9% 500 ML 30 MG IV (10:40)
== END 2025-02-15 23:59 | disposition home or self-care (01) ==
PROVIDERS: Internal Medicine Rheumatology; Nurse Practitioner Family; PCP Electrodiagnostic Medicine; Visit Provider Radiology Radiation Oncology
DX: Z53.9 Procedure and treatment not carried out, unspecified reason; Z08 Encounter for follow-up examination after completed treatment for malignant neoplasm; Z85.3 Personal history of malignant neoplasm of breast; M05.79 Rheumatoid arthritis with rheumatoid factor of multiple sites without organ or systems involvement; R03.0 Elevated blood-pressure reading, without diagnosis of hypertension; K85.90 Acute pancreatitis without necrosis or infection, unspecified; Z90.13 Acquired absence of bilateral breasts and nipples; Z87.891 Personal history of nicotine dependence; Z90.710 Acquired absence of both cervix and uterus; Z92.21 Personal history of antineoplastic chemotherapy; Z79.899 Other long term (current) drug therapy
CPT/HCPCS: 80053; 85025; 86140; 86300; 96375; 96413; 96415; 99214; J1200; J2919; J7040; J9999; Q5119

== ENCOUNTER 2025-02-25 07:49 | Oncology outpatient (recurring) (ONCR) | payer MEDICARE, SELFPAY ==
[2025-02-25 08:05] VITALS: BP 118/71; PULSE 83; RESP 16; TEMP 36.4; O2SAT 98
[2025-02-25 08:33] LABS: Hematocrit 37.9 % (36-47); Hemoglobin 12.60 g/dL (11.27-16.99); Mean Corpuscular HGB Conc 33.2 g/dL (30-55); Mean Corpuscular Hemoglobin 29.3 pg (27-33); Mean Corpuscular Volume 88.1 fl (85-98); Nucleated Red Blood Cells % 0 %; Platelet Count 278 10^3/cmm (157-399); Red Blood Count 4.30 10^6/uL (3.85-5.65); White Blood Count 8.09 10^3/uL (3.29-11.43)
[2025-02-25] MEDS: diphenhydrAMINE 50 mg/mL SDV 1mL 25 MG IVP (08:37)
[2025-02-25] MEDS: methylPREDNISolone sod succ 40 mg/mL INJ IVP (08:39)
[2025-02-25 08:54] LABS: Alanine Aminotransferase 19 U/L (0-33); Albumin Level 3.9 g/dL (3.5-5.2); Alkaline Phosphatase 96 U/L (35-105); Aspartate Amino Transferase 18 U/L (0-32); Globulin 2.9 g/dL (1.3-4.6); Total Protein 6.8 g/dL (6.6-8.7)
[2025-02-25] MEDS: rituximab-pvvr 1,000 MG in sodium chloride 0.9% 500 ML 60 MG IV (09:12)
[2025-02-25 09:15] VITALS: BP 149/78; PULSE 73; RESP 16; TEMP 36.5; O2SAT 98
[2025-02-25 09:45] VITALS: BP 129/88; PULSE 79; RESP 16; TEMP 36.3; O2SAT 95
[2025-02-25 10:15] VITALS: BP 109/68; PULSE 70; RESP 16; TEMP 36.6; O2SAT 95
[2025-02-25 10:45] VITALS: BP 130/69; PULSE 75; RESP 16; TEMP 36.4; O2SAT 95
[2025-02-25 12:50] VITALS: BP 121/63; PULSE 80; TEMP 36.3; O2SAT 94
== END 2025-03-17 23:59 | disposition home or self-care (01) ==
PROVIDERS: Internal Medicine Rheumatology; PCP Electrodiagnostic Medicine; Visit Provider Radiology Radiation Oncology
DX: Z53.9 Procedure and treatment not carried out, unspecified reason; M05.79 Rheumatoid arthritis with rheumatoid factor of multiple sites without organ or systems involvement; Z79.899 Other long term (current) drug therapy
CPT/HCPCS: 80076; 82565; 85025; 85651; 86140; 96375; 96413; 96415; A4222; J1200; J2919; J7040; J7050; J9999; Q5119

== ENCOUNTER → 2025-04-02 10:53 | Outpatient (BNVA) | payer MEDICARE, MEDICAID, SELFPAY | PROVIDERS: PCP Electrodiagnostic Medicine; Visit Provider Physician Assistant | DX: M17.12 Unilateral primary osteoarthritis, left knee (principal) | CPT/HCPCS: 20610; 99213; J3301; J9999 ==

== ENCOUNTER → 2025-04-04 13:52 | Outpatient (BNVA) | payer MEDICARE, MEDICAID, SELFPAY | PROVIDERS: PCP Electrodiagnostic Medicine; Visit Provider Internal Medicine Rheumatology | DX: M05.79 Rheumatoid arthritis with rheumatoid factor of multiple sites without organ or systems involvement (principal); Z79.899 Other long term (current) drug therapy; Z71.85 Encounter for immunization safety counseling; Z85.3 Personal history of malignant neoplasm of breast; D50.8 Other iron deficiency anemias | CPT/HCPCS: 99214 ==